=== PATIENT | female | born 1960 | race Caucasian/White ===

== ENCOUNTER 2018-02-09 10:49 | Emergency (ER) | payer MEDICAID ==
[~2018-02-09] VITALS: Ht 558.9 cm; Wt 71.8 kg
[~2018-02-09 10:49] MED LIST: ALPR1TAB2 PO; ASPI81TA52 PO; CLON-528 PO; CYCL-1 PO; EFF25T PO; LEVO25TA50 PO; LISI10TA4 PO; MORP15TA60 PO; OXYC-145 PO; PANT-47 PO; PRAV10TA38 PO; PRAV10TA39 PO; RISP1TAB3 PO
[2018-02-09 13:08] LABS: BASOPHILS % (AUTO) 0.4 % (0-1); EOSINOPHILS # (AUTO) 0.1 X10'3 (0-0.9); EOSINOPHILS % (AUTO) 1.4 % (0-6); HEMATOCRIT 40.5 % (35.0-45.0); HEMOGLOBIN 13.9 g/dl (12.0-16.0); LYMPHOCYTES # (AUTO) 2.3 X10'3 (1.1-4.8); MEAN CORPUSCULAR HEMOGLOBIN 30.8 PG (27.0-31.0); MEAN CORPUSCULAR HGB CONC 34.2 % (33.0-36.5); MEAN CORPUSCULAR VOLUME 90.1 FL (78-98); MEAN PLATELET VOLUME 8.7 FL (7.4-10.4); MONOCYTES # (AUTO) 0.4 X10'3 (0-0.9); NEUTROPHILS # (AUTO) 7.5 X10'3 (1.8-7.7); NEUTROPHILS % (AUTO) 72.2 % (42-75); PLATELET COUNT 191 X10'3 (140-440); RED CELL DISTRIBUTION WIDTH 13.9 % (11.5-14.5); WHITE BLOOD COUNT 10.4 X10'3 (4.5-11.0)
[2018-02-09 13:21] LABS: ALANINE AMINOTRANSFERASE 16 U/L (12-78); ALBUMIN/GLOBULIN RATIO 1.2 (1.1-1.5); ALKALINE PHOSPHATASE 79 IU/L (46-116); ANION GAP 8 (8-16); ASPARTATE AMINO TRANSFERASE 10 U/L (10-37); BILIRUBIN,TOTAL 0.2 MG/DL (0.1-1.0); BLOOD UREA NITROGEN 7 MG/DL (7-18); BUN/CREATININE RATIO 9.9 (6.6-38.0); CALCIUM 8.8 MG/DL (8.5-10.1); CHLORIDE 106 MMOL/L (99-107); CREATININE 0.71 MG/DL (0.40-0.90); GLUCOSE 100 MG/DL (70-104); SODIUM 144 MMOL/L (135-145); TOTAL CARBON DIOXIDE 30.3 MMOL/L (24-32); TOTAL PROTEIN 7.3 G/DL (6.4-8.2); eGFR 85 ML/MIN
[2018-02-09] MEDS ORDERED: METH4TAB3 PO (13:39)
[2018-02-09] MEDS ORDERED: ONDA4TAB9 SL (13:39)
[2018-02-09 13:58] VITALS: BP 163/81
== END 2018-02-09 14:02 | disposition home or self-care (01) ==
LOC: ER 10:52
DX: R60.0 Localized edema (principal); R11.0 Nausea; M54.30 Sciatica, unspecified side; G89.29 Other chronic pain; E78.00 Pure hypercholesterolemia, unspecified; I10 Essential (primary) hypertension; J44.9 Chronic obstructive pulmonary disease, unspecified; F12.90 Cannabis use, unspecified, uncomplicated; E11.9 Type 2 diabetes mellitus without complications; Z98.51 Tubal ligation status; Z90.710 Acquired absence of both cervix and uterus; Z60.2 Problems related to living alone; Z98.890 Other specified postprocedural states; Z88.0 Allergy status to penicillin; Z88.8 Allergy status to other drugs, medicaments and biological substances; Z79.82 Long term (current) use of aspirin; Z79.899 Other long term (current) drug therapy
CPT/HCPCS: 36415; 71045; 80053; 83880; 84484; 85025; 93005; 99285

== ENCOUNTER 2018-09-06 11:34 | Emergency (ER) | payer MEDICAID ==
[~2018-09-06] VITALS: Ht 160 cm; Wt 72.0 kg
[~2018-09-06 11:34] MED LIST changes: +METH4TAB3 PO
[2018-09-06 11:50] VITALS: BP 117/63
[2018-09-06] MEDS ORDERED: TRAM50TA2 PO (12:39)
== END 2018-09-06 12:47 | disposition home or self-care (01) ==
LOC: ER 11:34
DX: M25.512 Pain in left shoulder (principal); I10 Essential (primary) hypertension; E78.00 Pure hypercholesterolemia, unspecified; J44.9 Chronic obstructive pulmonary disease, unspecified; E11.9 Type 2 diabetes mellitus without complications; F41.9 Anxiety disorder, unspecified; G89.29 Other chronic pain; F12.10 Cannabis abuse, uncomplicated; Z90.49 Acquired absence of other specified parts of digestive tract; Z90.710 Acquired absence of both cervix and uterus; Z98.51 Tubal ligation status; Z86.73 Personal history of transient ischemic attack (TIA), and cerebral infarction without residual deficits; Z88.0 Allergy status to penicillin; Z88.1 Allergy status to other antibiotic agents; Z88.8 Allergy status to other drugs, medicaments and biological substances; Z79.82 Long term (current) use of aspirin; Z79.899 Other long term (current) drug therapy
CPT/HCPCS: 99283

== ENCOUNTER 2019-01-06 13:42 | Emergency (ER) | payer MEDICAID ==
[~2019-01-06] VITALS: Ht 160 cm; Wt 75.5 kg
[2019-01-06 13:58] VITALS: BP 181/86
[2019-01-06] MEDS ORDERED: HYDROcodone/acetaminophen 10/325mg tab PO ONE (14:55)
[2019-01-06] MEDS ORDERED: HYDR-4353 PO (15:07)
[2019-01-06] MEDS ORDERED: ACET1TAB12 PO (15:26)
== END 2019-01-06 16:04 | disposition home or self-care (01) ==
LOC: ER 13:42
DX: S70.01XA Contusion of right hip, initial encounter (principal); S80.11XA Contusion of right lower leg, initial encounter; M25.561 Pain in right knee; E78.00 Pure hypercholesterolemia, unspecified; I10 Essential (primary) hypertension; J44.9 Chronic obstructive pulmonary disease, unspecified; E11.9 Type 2 diabetes mellitus without complications; G89.29 Other chronic pain; F17.200 Nicotine dependence, unspecified, uncomplicated; F12.90 Cannabis use, unspecified, uncomplicated; Z86.73 Personal history of transient ischemic attack (TIA), and cerebral infarction without residual deficits; Z90.710 Acquired absence of both cervix and uterus; Z98.51 Tubal ligation status; Z98.890 Other specified postprocedural states; Z60.2 Problems related to living alone; Z88.0 Allergy status to penicillin; Z88.1 Allergy status to other antibiotic agents; Z88.8 Allergy status to other drugs, medicaments and biological substances; Z79.82 Long term (current) use of aspirin; Z79.899 Other long term (current) drug therapy; W50.0XXA Accidental hit or strike by another person, initial encounter; Y93.89 Activity, other specified; Y92.89 Other specified places as the place of occurrence of the external cause; Y99.8 Other external cause status
CPT/HCPCS: 73502; 99283

== ENCOUNTER 2019-10-30 22:03 | Inpatient (IN) | payer MEDICAID ==
[~2019-10-30] VITALS: Ht 162.6 cm; Wt 77.0 kg
[~2019-10-30 22:03] MED LIST changes: +ACET1TAB12 PO
--- NOTE | 2019-10-30 22:26 | NUR ---
B/S=[id number]
[2019-10-30 22:31] LABS: ABG BASE EXCESS -1.5 mmol/L (-2.0-3.0); ABG HCO3 23.6 mmol/L (22.0-26.0); ABG OXYGEN SATURATION 96.1 % (95-98); ABG PCO2 (T) 41.6 mmHg (35.0-45.0); ABG PH (T) 7.373 (7.350-7.450); ABG PO2 (T) 86.7 mmHg (83-108); ALLEN'S TEST POSITIVE; FCOHb 6.8 % (0.5-1.5); FMetHb 0.3 % (0.3-1.12); FO2Hb 89.3 % (94-100); PATIENT TEMPERATURE 37.2; RESPIRATORY RATE 18 b/min
[2019-10-30] MEDS ORDERED: dexamethasone sod phosphate 10mg/ml inj IV STA (22:31)
[2019-10-30] MEDS ORDERED: BACL20TA11 PO (22:33)
[2019-10-30] MEDS ORDERED: METH500T6 PO (22:33)
[2019-10-30] MEDS ORDERED: SENN-162 PO (22:34)
[2019-10-30] MEDS ORDERED: DIPH25CA46 PO (22:34)
[2019-10-30] MEDS ORDERED: GABA-532 PO (22:35)
[2019-10-30] MEDS ORDERED: QUET-1 PO (22:36)
[2019-10-30] MEDS ORDERED: METF-438 PO (22:36)
[2019-10-30 22:49] LABS: BASOPHILS # (AUTO) 0.1 X10'3 (0-0.2); BASOPHILS % (AUTO) 0.4 % (0-1); EOSINOPHILS # (AUTO) 0.1 X10'3 (0-0.9); EOSINOPHILS % (AUTO) 0.7 % (0-6); HEMATOCRIT 38.3 % (35.0-45.0); HEMOGLOBIN 12.4 g/dl (12.0-16.0); LYMPHOCYTES # (AUTO) 1.2 X10'3 (1.1-4.8); LYMPHOCYTES % (AUTO) 7.6 % (21-51); MEAN CORPUSCULAR HEMOGLOBIN 27.4 PG (27.0-31.0); MEAN CORPUSCULAR HGB CONC 32.5 g/dL (33.0-36.5); MEAN CORPUSCULAR VOLUME 84.5 FL (78-98); MONOCYTES # (AUTO) 0.7 X10'3 (0-0.9); MONOCYTES % (AUTO) 4.2 % (2-12); NEUTROPHILS # (AUTO) 13.9 X10'3 (1.8-7.7); NEUTROPHILS % (AUTO) 87.1 % (42-75); PLATELET COUNT 195 X10'3 (140-440); RED BLOOD COUNT 4.54 X10'6 (4.20-5.60); RED CELL DISTRIBUTION WIDTH 15.7 % (11.5-14.5); WHITE BLOOD COUNT 15.9 X10'3 (4.5-11.0)
[2019-10-30 23:10] LABS: ALANINE AMINOTRANSFERASE 12 U/L (12-78); ALBUMIN 3.6 G/DL (3.4-5.0); ALBUMIN/GLOBULIN RATIO 1.1 (1.1-1.5); ALKALINE PHOSPHATASE 77 IU/L (46-116); ANION GAP 9 (8-16); ASPARTATE AMINO TRANSFERASE 16 U/L (10-37); BILIRUBIN,TOTAL 0.4 MG/DL (0.1-1.0); BLOOD UREA NITROGEN 15 MG/DL (7-18); BUN/CREATININE RATIO 17.6 (6.6-38.0); CALCIUM 8.1 MG/DL (8.5-10.1); CHLORIDE 104 MMOL/L (99-107); CREATININE 0.85 MG/DL (0.40-0.90); GLUCOSE 290 MG/DL (70-104); POTASSIUM 3.4 MMOL/L (3.5-5.1); SODIUM 140 MMOL/L (135-145); TOTAL CARBON DIOXIDE 27.4 MMOL/L (24-32); TOTAL PROTEIN 6.9 G/DL (6.4-8.2); eGFR 69 ML/MIN
[2019-10-30] MEDS ORDERED: CefTRIAXone 2gm/D5W 50ml 50 ML IV ONE (23:25)
[2019-10-30] MEDS ORDERED: doxycycline inj 100 MG in normal saline 100ml IV soln 100 ML IV ONE (23:25)
[2019-10-31] VITALS (7 sets, daily range): BP systolic 137–169; BP diastolic 69–95
[2019-10-31 00:56] LABS: ABG BASE EXCESS -3.2 mmol/L (-2.0-3.0); ABG HCO3 22.5 mmol/L (22.0-26.0); ABG OXYGEN SATURATION 97.9 % (95-98); ABG PCO2 (T) 44.1 mmHg (35.0-45.0); ABG PH (T) 7.329 (7.350-7.450); ABG PO2 (T) 125.2 mmHg (83-108); ALLEN'S TEST POSITIVE; FCOHb 3.4 % (0.5-1.5); FMetHb 0.3 % (0.3-1.12); FO2Hb 94.3 % (94-100); PATIENT TEMPERATURE 37.7; RESPIRATORY RATE 18 b/min; TOTAL HEMOGLOBIN 12.7 G/dl (12.0-16.0)
[2019-10-31] MEDS ORDERED: ondansetron/PF 4mg/2ml inj IV PRN (01:30)
[2019-10-31] MEDS ORDERED: morphine 2 MG/ML inj. syringe IV PRN ×2 (01:30)
[2019-10-31] MEDS ORDERED: magnesium hydroxide 30ml (MOM) UD suspension PO PRN (01:30)
[2019-10-31] MEDS ORDERED: mag hydrox/Alum hydrox/simeth 30ml oral suspension PO PRN (01:30)
[2019-10-31] MEDS ORDERED: HYDROcodone/acetaminophen 10/325mg tab PO PRN (01:30)
[2019-10-31] MEDS ORDERED: acetaminophen 325mg tablet PO PRN ×2 (01:30)
[2019-10-31] MEDS ORDERED: HYDROcodone/acetaminophen 5mg/325mg tablet PO PRN (01:30)
--- NOTE | 2019-10-31 02:00 | NUR ---
Patient in room PCU 3024. I have received report from Alex ED RN and had the opportunity to ask questions and assume patient care.
--- NOTE | 2019-10-31 02:15 | NUR ---
Pt arrived via gurney from the ED in no acute distress. Transferred over to bed easily, no SOB observed. Oriented to bed, room, surroundings, and POC. Medications admin as ordered, IV Lasix 20mg given. Lower extremity edema noted bilaterally 2+. O2 on at 3L/NC, occasional nonprod cough. Exp wheezes auscultated to mid lobes, w/diminished breath sounds to bases. VSS. Assisted to BSC f/lge void of dark, rex urine. MRSA swab ord.and sent. Son in at bedside.
[2019-10-31] MEDS: baclofen 10mg tablet PO SCH ×4 (02:39→20:48)
[2019-10-31] MEDS: furosemide 20 MG/2 ML vial IV SCH ×3 (03:02→20:47)
--- NOTE | 2019-10-31 06:21 | NUR ---
Problems reprioritized. Patient report given, questions answered & plan of care reviewed with Yaquelin LEWIS.
--- NOTE | 2019-10-31 07:10 | NUR ---
Patient in room PCU 3024. I have received report from JOSHUA DESOUZA and had the opportunity to ask questions and assume patient care. PT RESTING COMFORTABLY IN BED, ALERT AND ORIENTED.
--- NOTE | 2019-10-31 07:26 | NUR ---
PAGED DR NAYLOR PAGER ID: [phone] MESSAGE: SARAVANAN Marci [phone] JESS GALLO TROP 0.41 UP FROM 0.04 NO CP. DO YOU WANT LABS TODAY? NO A1C SINCE 2016, CAN WE HAVE K REPLACEMENT PROTOCOL ALSO PLEASE. THANKS
[2019-10-31] MEDS ORDERED: pantoprazole 40mg Tablet.DR PO SCH (08:00)
[2019-10-31] MEDS: lisinopril 20mg tablet PO SCH (08:09)
[2019-10-31] MEDS: venlafaxine XR 75mg capsule (Q24H) PO SCH (08:10)
[2019-10-31] MEDS: aspirin 81mg tablet.DR PO SCH (08:10)
[2019-10-31] MEDS: gabapentin 300mg capsule PO SCH ×3 (08:10→20:48)
[2019-10-31] MEDS: diphenhydrAMINE 25mg capsule PO SCH ×2 (08:11→20:47)
[2019-10-31] MEDS: sennosides 8.6mg tablet PO SCH (08:15)
--- NOTE | 2019-10-31 08:44 | NUR ---
spoke with dr. carter order cbc. cmp k/mg replacement protocol. aware of troponin, cont trop protocol
[2019-10-31] MEDS ORDERED: magnesium 4gm in 100ml NS 100 ML IV PRN (08:45)
[2019-10-31] MEDS ORDERED: potassium CL 10mEq/100ml bag 100 ML IV PRN (08:45)
[2019-10-31] MEDS ORDERED: magnesium Cl slow-release 64mg tablet PO PRN (08:45)
[2019-10-31] MEDS ORDERED: potassium Cl 20 mEq SR tablet PO PRN ×2 (08:45)
[2019-10-31] MEDS ORDERED: magnesium 2GM in 50ml NS 50 ML IV PRN (08:45)
[2019-10-31] MEDS: K and/or MAG REPLACEMENT MC SCH ×2 (08:45→20:00)
[2019-10-31 09:20] LABS: HEMOGLOBIN A1C 6.9 % (4.5-6.2)
[2019-10-31] MEDS: levoTHYROXINE 125mcg tablet PO SCH (10:15)
[2019-10-31 10:52] LABS: BASOPHILS % (AUTO) 0.2 % (0-1); EOSINOPHILS % (AUTO) 0 % (0-6); HEMATOCRIT 39.6 % (35.0-45.0); HEMOGLOBIN 12.6 g/dl (12.0-16.0); LYMPHOCYTES # (AUTO) 0.7 X10'3 (1.1-4.8); MEAN CORPUSCULAR HEMOGLOBIN 26.5 PG (27.0-31.0); MEAN CORPUSCULAR HGB CONC 31.8 g/dL (33.0-36.5); MEAN CORPUSCULAR VOLUME 83.4 FL (78-98); MEAN PLATELET VOLUME 9.6 FL (7.4-10.4); MONOCYTES # (AUTO) 0.3 X10'3 (0-0.9); MONOCYTES % (AUTO) 2.9 % (2-12); NEUTROPHILS % (AUTO) 90.9 % (42-75); PLATELET COUNT 196 X10'3 (140-440); RED BLOOD COUNT 4.74 X10'6 (4.20-5.60); RED CELL DISTRIBUTION WIDTH 15.6 % (11.5-14.5)
[2019-10-31 11:12] LABS: ALBUMIN 3.5 G/DL (3.4-5.0); ANION GAP 7 (8-16); BLOOD UREA NITROGEN 14 MG/DL (7-18); BUN/CREATININE RATIO 17.9 (6.6-38.0); CALCIUM 8.4 MG/DL (8.5-10.1); CHLORIDE 105 MMOL/L (99-107); CREATININE 0.78 MG/DL (0.40-0.90); GLUCOSE 223 MG/DL (70-104); MAGNESIUM 1.9 MG/DL (1.5-2.4); POTASSIUM 3.9 MMOL/L (3.5-5.1); SODIUM 143 MMOL/L (135-145); TOTAL CARBON DIOXIDE 30.8 MMOL/L (24-32); eGFR 76 ML/MIN
--- NOTE | 2019-10-31 12:18 | NUR ---
DR. NAYLOR IN TO SEE PT WITH RN AT BEDSIDE. PER MD REPEAT TROPONIN AT 1600. PT HAVING NO CHEST PAIN, RESTING COMFORTABLY.
--- NOTE | 2019-10-31 12:37 | NUR ---
DIABETES SURVIVAL SKILLS GIVEN TO PT WITH HGB A1C 6.9
--- NOTE | 2019-10-31 13:00 | NUR ---
PT DOES NOT WANT INSULIN COVERAGE
[2019-10-31] MEDS: risperiDONE 0.5mg tablet PO SCH ×2 (14:44→20:48)
--- NOTE | 2019-10-31 18:15 | NUR ---
Patient in room PCU 3024. I have received report from Yaquelin LEWIS and had the opportunity to ask questions and assume patient care.
--- NOTE | 2019-10-31 18:16 | NUR ---
Problems reprioritized. Patient report given, questions answered & plan of care reviewed with JOSHUA CONNELL.
[2019-10-31] MEDS: pantoprazole 40mg Tablet.DR PO SCH (20:48)
[2019-10-31] MEDS: quetiapine 100mg tablet PO SCH (20:48)
[2019-11-01 02:41] VITALS: BP 146/77
[2019-11-01] MEDS: baclofen 10mg tablet PO SCH ×4 (03:30→20:07)
[2019-11-01 05:38] LABS: BASOPHILS % (AUTO) 0.4 % (0-1); EOSINOPHILS # (AUTO) 0.1 X10'3 (0-0.9); EOSINOPHILS % (AUTO) 0.8 % (0-6); HEMATOCRIT 42.9 % (35.0-45.0); LYMPHOCYTES # (AUTO) 2.4 X10'3 (1.1-4.8); MEAN CORPUSCULAR HEMOGLOBIN 27.3 PG (27.0-31.0); MEAN CORPUSCULAR HGB CONC 32.6 g/dL (33.0-36.5); MEAN CORPUSCULAR VOLUME 83.6 FL (78-98); MEAN PLATELET VOLUME 9.1 FL (7.4-10.4); MONOCYTES # (AUTO) 0.8 X10'3 (0-0.9); MONOCYTES % (AUTO) 7.3 % (2-12); NEUTROPHILS # (AUTO) 7.3 X10'3 (1.8-7.7); NEUTROPHILS % (AUTO) 68.5 % (42-75); PLATELET COUNT 201 X10'3 (140-440); RED BLOOD COUNT 5.13 X10'6 (4.20-5.60); RED CELL DISTRIBUTION WIDTH 15.4 % (11.5-14.5); WHITE BLOOD COUNT 10.6 X10'3 (4.5-11.0)
--- NOTE | 2019-11-01 05:50 | NUR ---
pt rested all night, up ad neto
[2019-11-01 06:09] LABS: ALBUMIN 3.8 G/DL (3.4-5.0); ANION GAP 8 (8-16); BLOOD UREA NITROGEN 15 MG/DL (7-18); CALCIUM 8.7 MG/DL (8.5-10.1); CHLORIDE 104 MMOL/L (99-107); CREATININE 0.75 MG/DL (0.40-0.90); GLUCOSE 145 MG/DL (70-104); MAGNESIUM 2.2 MG/DL (1.5-2.4); POTASSIUM 3.6 MMOL/L (3.5-5.1); SODIUM 145 MMOL/L (135-145); TOTAL CARBON DIOXIDE 33.1 MMOL/L (24-32); eGFR 80 ML/MIN
--- NOTE | 2019-11-01 06:09 | NUR ---
Problems reprioritized. Patient report given, questions answered & plan of care reviewed with Mary Ellen LEWIS.
--- NOTE | 2019-11-01 06:26 | NUR ---
Patient in room PCU 3024. I have received report from Sue LEWIS and had the opportunity to ask questions and assume patient care. Patient awake, resting in bed and stable
[2019-11-01 06:30] VITALS: BP 168/103
[2019-11-01] MEDS: levoTHYROXINE 125mcg tablet PO SCH (08:00)
[2019-11-01] MEDS: K and/or MAG REPLACEMENT MC SCH ×2 (08:00→20:00)
[2019-11-01] MEDS: sennosides 8.6mg tablet PO SCH (08:02)
[2019-11-01] MEDS: risperiDONE 0.5mg tablet PO SCH ×3 (08:02→20:07)
[2019-11-01] MEDS: gabapentin 300mg capsule PO SCH ×3 (08:03→20:06)
[2019-11-01] MEDS: furosemide 20 MG/2 ML vial IV SCH ×2 (08:03→20:06)
[2019-11-01] MEDS: diphenhydrAMINE 25mg capsule PO SCH ×2 (08:03→20:06)
[2019-11-01] MEDS: venlafaxine XR 75mg capsule (Q24H) PO SCH (08:03)
[2019-11-01] MEDS: aspirin 81mg tablet.DR PO SCH (08:03)
[2019-11-01] MEDS: lisinopril 20mg tablet PO SCH (08:04)
[2019-11-01] MEDS ORDERED: ipratropium/albuterol 3ml nebule NEB PRN (09:35)
--- NOTE | 2019-11-01 09:41 | NUR ---
Paged RT RE Chary Dunn. [phone]. FYI there are new RT orders in place. Thank you!
--- NOTE | 2019-11-01 10:11 | NUR ---
O2 Sat at rest on room air:__87_% If below 89%: Recovery O2 Sat at rest on __2_LPM:_93__%:___% via___nasal cannula (mask/nasal cannula, etc..) No further documentation is necessary. If O2 Sat did not drop below 89% on room air,ambulate patient on room air. O2 Sat while ambulating on room air:___% Recovery O2 Sat while ambulating on ___LPM:___% No further documentation is necessary. If patient does not drop below 89% while ambulating, he/she does not qualify for home O2.
[2019-11-01] MEDS: ipratropium/albuterol 3ml nebule NEB SCH ×3 (10:13→19:54)
[2019-11-01 11:00] VITALS: BP 111/64
[2019-11-01 15:00] VITALS: BP 115/68
[2019-11-01 18:00] VITALS: BP 121/68
--- NOTE | 2019-11-01 18:30 | NUR ---
Problems reprioritized. Patient report given, questions answered & plan of care reviewed with Sue LEWIS.
[2019-11-01] MEDS: budesonide 0.5mg/2ml UD nebule IH SCH (19:54)
[2019-11-01] MEDS: quetiapine 100mg tablet PO SCH (20:07)
[2019-11-01] MEDS: pantoprazole 40mg Tablet.DR PO SCH (20:07)
[2019-11-01 22:00] VITALS: BP 141/76
[2019-11-02 02:00] VITALS: BP 143/92
[2019-11-02] MEDS: baclofen 10mg tablet PO SCH ×4 (02:00→20:06)
[2019-11-02 05:30] LABS: BASOPHILS % (AUTO) 0.7 % (0-1); EOSINOPHILS # (AUTO) 0.1 X10'3 (0-0.9); EOSINOPHILS % (AUTO) 1.5 % (0-6); HEMATOCRIT 43.5 % (35.0-45.0); HEMOGLOBIN 14.1 g/dl (12.0-16.0); LYMPHOCYTES # (AUTO) 1.8 X10'3 (1.1-4.8); LYMPHOCYTES % (AUTO) 26.8 % (21-51); MEAN CORPUSCULAR HEMOGLOBIN 27.1 PG (27.0-31.0); MEAN CORPUSCULAR HGB CONC 32.5 g/dL (33.0-36.5); MEAN CORPUSCULAR VOLUME 83.4 FL (78-98); MEAN PLATELET VOLUME 8.8 FL (7.4-10.4); MONOCYTES # (AUTO) 0.7 X10'3 (0-0.9); MONOCYTES % (AUTO) 9.9 % (2-12); NEUTROPHILS # (AUTO) 4.2 X10'3 (1.8-7.7); NEUTROPHILS % (AUTO) 61.1 % (42-75); PLATELET COUNT 192 X10'3 (140-440); RED BLOOD COUNT 5.21 X10'6 (4.20-5.60); RED CELL DISTRIBUTION WIDTH 15.3 % (11.5-14.5); WHITE BLOOD COUNT 6.9 X10'3 (4.5-11.0)
[2019-11-02 05:58] LABS: ALBUMIN 3.5 G/DL (3.4-5.0); ANION GAP 7 (8-16); BLOOD UREA NITROGEN 16 MG/DL (7-18); BUN/CREATININE RATIO 19.3 (6.6-38.0); CALCIUM 8.4 MG/DL (8.5-10.1); CHLORIDE 103 MMOL/L (99-107); CREATININE 0.83 MG/DL (0.40-0.90); GLUCOSE 150 MG/DL (70-104); MAGNESIUM 2.3 MG/DL (1.5-2.4); POTASSIUM 3.7 MMOL/L (3.5-5.1); SODIUM 144 MMOL/L (135-145); eGFR 71 ML/MIN
--- NOTE | 2019-11-02 06:06 | NUR ---
Problems reprioritized. Patient report given, questions answered & plan of care reviewed with Mary Ellen LEWIS.
--- NOTE | 2019-11-02 06:14 | NUR ---
Patient in room PCU 3024B. I have received report from Sue LEWIS and had the opportunity to ask questions and assume patient care.
[2019-11-02 07:00] VITALS: BP 159/96
[2019-11-02] MEDS: budesonide 0.5mg/2ml UD nebule IH SCH ×2 (07:23→19:58)
[2019-11-02] MEDS: ipratropium/albuterol 3ml nebule NEB SCH ×4 (07:23→19:58)
[2019-11-02] MEDS: gabapentin 300mg capsule PO SCH ×3 (07:56→20:05)
[2019-11-02] MEDS: risperiDONE 0.5mg tablet PO SCH ×3 (07:56→20:06)
[2019-11-02] MEDS: aspirin 81mg tablet.DR PO SCH (07:56)
[2019-11-02] MEDS: venlafaxine XR 75mg capsule (Q24H) PO SCH (07:56)
[2019-11-02] MEDS: lisinopril 20mg tablet PO SCH (07:56)
[2019-11-02] MEDS: sennosides 8.6mg tablet PO SCH (07:57)
[2019-11-02] MEDS: furosemide 20 MG/2 ML vial IV SCH ×2 (07:57→20:04)
[2019-11-02] MEDS: diphenhydrAMINE 25mg capsule PO SCH ×2 (07:57→20:05)
[2019-11-02] MEDS: levoTHYROXINE 125mcg tablet PO SCH ×2 (07:57→13:24)
[2019-11-02] MEDS: K and/or MAG REPLACEMENT MC SCH ×2 (08:00→20:00)
[2019-11-02 11:00] VITALS: BP 138/72
[2019-11-02] MEDS ORDERED: aminophylline 250mg/10ml inj. IV PRN (13:45)
[2019-11-02] MEDS ORDERED: regadenoson 0.4mg/5ml syringe IV ONE (13:45)
[2019-11-02] MEDS ORDERED: nitroGLYCERIN 0.4mg SUBLingual tab SL PRN (13:45)
[2019-11-02] MEDS ORDERED: metoprolol tartrate 1mg/ml inj IV PRN (13:45)
--- NOTE | 2019-11-02 14:00 | NUR ---
Paged PAGER ID: [phone] MESSAGE: Mary Ellen mac [phone]. RE Sharmin Dunn [phone]. Patient has anaphylaxis reaction to iodine. Do you want CTA without contrast?
--- NOTE | 2019-11-02 14:10 | NUR ---
Paged PAGER ID: [phone] MESSAGE: Mary Ellen watts [phone] RE Sharmin Dunn [phone]. Radiologist said CTA should not be done due to patient's reaction to contrast/iodine. Radiologist suggests VQ scan instead if you would like
--- NOTE | 2019-11-02 14:20 | NUR ---
Paged nuc med that there is a new order for a VQ scan for patient
--- NOTE | 2019-11-02 14:24 | NUR ---
Mary from [facility] called and said that VQ scan will be done around 1600 tonight. However, Mai will have to be pushed back until because it would be too much of the medication (both are used in VQ and Mai) in the chest and needs time to clear out. MD aware and patient will have VQ tonight.
[2019-11-02 15:00] VITALS: BP 125/86
--- NOTE | 2019-11-02 15:43 | NUR ---
Patient taken to Nuc Med
--- NOTE | 2019-11-02 16:25 | NUR ---
Patient returned from VQ scan, currently resting in bed
--- NOTE | 2019-11-02 17:55 | NUR ---
Galdino SLAUGHTER PAGER ID: [phone] MESSAGE: Mary Ellen ESPINOZA. Sharmin Dasilva 3024B. FYI that VQ lung scan stated that there is low probability for PE
--- NOTE | 2019-11-02 18:11 | NUR ---
Problems reprioritized. Patient report given, questions answered & plan of care reviewed with Sue LEWIS.
[2019-11-02 19:10] VITALS: BP 147/75
[2019-11-02] MEDS: quetiapine 100mg tablet PO SCH (20:05)
[2019-11-02] MEDS: pantoprazole 40mg Tablet.DR PO SCH (20:07)
[2019-11-02] MEDS: polyethylene glycol 3350 17gm powd pack PO PRN (20:50)
[2019-11-02 23:00] VITALS: BP 128/61
[2019-11-03] MEDS: baclofen 10mg tablet PO SCH ×4 (01:46→21:07)
[2019-11-03 02:55] VITALS: BP 140/90
[2019-11-03 06:08] LABS: BASOPHILS # (AUTO) 0.1 X10'3 (0-0.2); BASOPHILS % (AUTO) 0.8 % (0-1); EOSINOPHILS # (AUTO) 0.2 X10'3 (0-0.9); EOSINOPHILS % (AUTO) 2.4 % (0-6); HEMATOCRIT 45.2 % (35.0-45.0); HEMOGLOBIN 14.9 g/dl (12.0-16.0); LYMPHOCYTES % (AUTO) 23.3 % (21-51); MEAN CORPUSCULAR HEMOGLOBIN 27.5 PG (27.0-31.0); MEAN CORPUSCULAR VOLUME 83.5 FL (78-98); MEAN PLATELET VOLUME 8.9 FL (7.4-10.4); MONOCYTES # (AUTO) 0.9 X10'3 (0-0.9); NEUTROPHILS # (AUTO) 5.3 X10'3 (1.8-7.7); NEUTROPHILS % (AUTO) 62.5 % (42-75); PLATELET COUNT 231 X10'3 (140-440); RED BLOOD COUNT 5.42 X10'6 (4.20-5.60); RED CELL DISTRIBUTION WIDTH 15.4 % (11.5-14.5); WHITE BLOOD COUNT 8.5 X10'3 (4.5-11.0)
[2019-11-03 06:11] LABS: ALBUMIN 3.6 G/DL (3.4-5.0); ANION GAP 6 (8-16); BLOOD UREA NITROGEN 24 MG/DL (7-18); BUN/CREATININE RATIO 28.6 (6.6-38.0); CHLORIDE 101 MMOL/L (99-107); CREATININE 0.84 MG/DL (0.40-0.90); GLUCOSE 205 MG/DL (70-104); MAGNESIUM 2.2 MG/DL (1.5-2.4); POTASSIUM 4.1 MMOL/L (3.5-5.1); SODIUM 142 MMOL/L (135-145); TOTAL CARBON DIOXIDE 34.7 MMOL/L (24-32); eGFR 70 ML/MIN
--- NOTE | 2019-11-03 06:18 | NUR ---
Problems reprioritized. Patient report given, questions answered & plan of care reviewed with Osman LEWIS.
--- NOTE | 2019-11-03 06:39 | NUR ---
Patient in room PCU 3024. I have received report from Sue LEWIS and had the opportunity to ask questions and assume patient care.
[2019-11-03 07:00] VITALS: BP 124/68
[2019-11-03] MEDS: ipratropium/albuterol 3ml nebule NEB SCH ×4 (07:16→19:25)
[2019-11-03] MEDS: budesonide 0.5mg/2ml UD nebule IH SCH ×2 (07:17→19:25)
[2019-11-03] MEDS: K and/or MAG REPLACEMENT MC SCH ×2 (08:00→20:00)
[2019-11-03] MEDS: diphenhydrAMINE 25mg capsule PO SCH ×2 (08:07→21:06)
[2019-11-03] MEDS: gabapentin 300mg capsule PO SCH ×3 (08:07→21:06)
[2019-11-03] MEDS: venlafaxine XR 75mg capsule (Q24H) PO SCH (08:07)
[2019-11-03] MEDS: furosemide 20 MG/2 ML vial IV SCH ×2 (08:08→21:09)
[2019-11-03] MEDS: sennosides 8.6mg tablet PO SCH (08:08)
[2019-11-03] MEDS: lisinopril 20mg tablet PO SCH (08:08)
[2019-11-03] MEDS: risperiDONE 0.5mg tablet PO SCH ×3 (08:08→21:06)
[2019-11-03] MEDS: aspirin 81mg tablet.DR PO SCH (08:08)
[2019-11-03] MEDS: levoTHYROXINE 125mcg tablet PO SCH (09:56)
[2019-11-03 11:00] VITALS: BP 124/68
[2019-11-03 15:00] VITALS: BP 118/68
[2019-11-03 18:00] VITALS: BP 143/79
--- NOTE | 2019-11-03 18:19 | NUR ---
Problems reprioritized. Patient report given, questions answered & plan of care reviewed with Bridgett RN, patient stable at transfer.
--- NOTE | 2019-11-03 18:27 | NUR ---
Patient in room U 3024. I have received report from JOSHUA Brewer and had the opportunity to ask questions and assume patient care. Addendum: 11/03/19 at 1828 by Allison Jaimes RN Amended: Links added.
[2019-11-03] MEDS: pantoprazole 40mg Tablet.DR PO SCH (21:06)
[2019-11-03] MEDS: quetiapine 100mg tablet PO SCH (21:07)
[2019-11-03] MEDS: polyethylene glycol 3350 17gm powd pack PO PRN (21:09)
[2019-11-03 22:00] VITALS: BP 104/58
[2019-11-04] VITALS (21 sets, daily range): BP systolic 101–174; BP diastolic 61–106
[2019-11-04] MEDS: baclofen 10mg tablet PO SCH ×4 (02:00→20:24)
[2019-11-04 05:38] LABS: BASOPHILS # (AUTO) 0.1 X10'3 (0-0.2); BASOPHILS % (AUTO) 1.2 % (0-1); EOSINOPHILS # (AUTO) 0.2 X10'3 (0-0.9); EOSINOPHILS % (AUTO) 2.6 % (0-6); HEMATOCRIT 44.6 % (35.0-45.0); HEMOGLOBIN 14.8 g/dl (12.0-16.0); LYMPHOCYTES # (AUTO) 1.6 X10'3 (1.1-4.8); LYMPHOCYTES % (AUTO) 19.1 % (21-51); MEAN CORPUSCULAR HEMOGLOBIN 27.4 PG (27.0-31.0); MEAN CORPUSCULAR HGB CONC 33.1 g/dL (33.0-36.5); MEAN CORPUSCULAR VOLUME 82.8 FL (78-98); MEAN PLATELET VOLUME 9.2 FL (7.4-10.4); MONOCYTES # (AUTO) 0.8 X10'3 (0-0.9); MONOCYTES % (AUTO) 9.8 % (2-12); NEUTROPHILS # (AUTO) 5.5 X10'3 (1.8-7.7); NEUTROPHILS % (AUTO) 67.3 % (42-75); PLATELET COUNT 239 X10'3 (140-440); RED BLOOD COUNT 5.39 X10'6 (4.20-5.60); RED CELL DISTRIBUTION WIDTH 15.2 % (11.5-14.5); WHITE BLOOD COUNT 8.2 X10'3 (4.5-11.0)
[2019-11-04 05:52] LABS: ALBUMIN 3.6 G/DL (3.4-5.0); ANION GAP 6 (8-16); BLOOD UREA NITROGEN 24 MG/DL (7-18); BUN/CREATININE RATIO 25.5 (6.6-38.0); CALCIUM 8.9 MG/DL (8.5-10.1); CHLORIDE 99 MMOL/L (99-107); CREATININE 0.94 MG/DL (0.40-0.90); GLUCOSE 193 MG/DL (70-104); MAGNESIUM 2.2 MG/DL (1.5-2.4); SODIUM 142 MMOL/L (135-145); TOTAL CARBON DIOXIDE 36.7 MMOL/L (24-32); eGFR 61 ML/MIN
[2019-11-04 05:53] LABS: POTASSIUM 4.3 MMOL/L (3.5-5.1)
--- NOTE | 2019-11-04 06:12 | NUR ---
Problems reprioritized. Patient report given, questions answered & plan of care reviewed with JOSHUA Ragland.
--- NOTE | 2019-11-04 06:21 | NUR ---
Patient in room PCU 3024. I have received report from JOSHUA Cooper and had the opportunity to ask questions and assume patient care.
[2019-11-04] MEDS: budesonide 0.5mg/2ml UD nebule IH SCH ×2 (06:57→19:08)
[2019-11-04] MEDS: ipratropium/albuterol 3ml nebule NEB SCH ×4 (06:57→19:09)
[2019-11-04] MEDS: K and/or MAG REPLACEMENT MC SCH ×2 (08:00→20:00)
[2019-11-04] MEDS: furosemide 20 MG/2 ML vial IV SCH ×2 (08:00→10:14)
[2019-11-04] MEDS ORDERED: regadenoson 0.4mg/5ml syringe IV PRN (09:05)
--- NOTE | 2019-11-04 09:39 | NUR ---
Initial: Pt presented with c/o SOB and admitted with acute CHF exacerbation and acute respiratory failure with hypoxia. Pt currently on heart healthy CHO controlled diet documented with 75-100% PO intake throughout LOS meeting nutrient needs. LBM 10/30. Pt receiving routine and PRN bowel care. No nutrition diagnosis at this time. Will continue to follow. Recommendations: 1) Continue heart healthy CHO controlled diet 2) Routine bowel care; monitor need for additional 3) Wt per rx Addendum: 11/04/19 at [address] Amended: Links added.
[2019-11-04] MEDS: levoTHYROXINE 125mcg tablet PO SCH (10:09)
[2019-11-04] MEDS: gabapentin 300mg capsule PO SCH ×3 (10:09→20:24)
[2019-11-04] MEDS: diphenhydrAMINE 25mg capsule PO SCH ×2 (10:09→20:24)
[2019-11-04] MEDS: sennosides 8.6mg tablet PO SCH (10:09)
[2019-11-04] MEDS: venlafaxine XR 75mg capsule (Q24H) PO SCH (10:10)
[2019-11-04] MEDS: aspirin 81mg tablet.DR PO SCH (10:10)
[2019-11-04] MEDS: lisinopril 20mg tablet PO SCH (10:14)
[2019-11-04] MEDS: risperiDONE 0.5mg tablet PO SCH ×3 (10:23→20:25)
--- NOTE | 2019-11-04 11:44 | NUR ---
O2 Sat at rest on room air: 93% If below 89%: Recovery O2 Sat at rest on ___LPM:___%:___% via (mask/nasal cannula, etc..) No further documentation is necessary. If O2 Sat did not drop below 89% on room air,ambulate patient on room air. O2 Sat while ambulating on room air: 90% Recovery O2 Sat while ambulating on ___LPM:___% No further documentation is necessary. If patient does not drop below 89% while ambulating, he/she does not qualify for home O2.
--- NOTE | 2019-11-04 12:34 | NUR ---
sent to Dr Pandey PAGER ID: [phone] MESSAGE: RE: Abel Dunn [phone]. Pt does not qualify for O2, note input into EMR. Back from NM, report completed. -Ellyn [phone]
[2019-11-04] MEDS ORDERED: diphenhydrAMINE 25mg capsule PO ONE (14:35)
[2019-11-04] MEDS ORDERED: predniSONE 20 mg tablet PO ONE (14:35)
[2019-11-04] MEDS ORDERED: famotidine 20mg tablet PO ONE (14:35)
[2019-11-04] MEDS ORDERED: hydrocortisone 10mg tablet PO ONE (14:35)
[2019-11-04] MEDS ORDERED: LIDOcaine/PRILOcaine 5gm cream TP ONE (14:35)
[2019-11-04] MEDS ORDERED: heparin 1,000unit/ml 10ml vial 10 ML ONE (15:49)
[2019-11-04] MEDS ORDERED: nitroGLYCERIN-Tridil 50MG/D5W 250 ML IV ONE (15:49)
[2019-11-04] MEDS ORDERED: midazolam 2 mg/2 ml injection ONE (15:49)
[2019-11-04] MEDS ORDERED: verapamil 2.5 mg/ml inj IV ONE (15:49)
[2019-11-04] MEDS ORDERED: fentaNYL/PF 50MCG/1 ML 2ML syringe ONE (15:49)
[2019-11-04] MEDS ORDERED: LIDOcaine 1% (10mg/ml)w/preservative injection 20ml MDV ONE (15:49)
[2019-11-04] MEDS ORDERED: iohexol 350MG/ML 100ml bottle IV ONE ×3 (15:50→17:46)
[2019-11-04] MEDS ORDERED: iohexol 350 MG/ML 50ML vial IV ONE (15:50)
[2019-11-04] MEDS ORDERED: heparin 25,000 UNIT/250ml bag 250 ML IV ONE (17:15)
[2019-11-04] MEDS ORDERED: clopidogrel 300mg tablet ONE (18:09)
--- NOTE | 2019-11-04 18:15 | NUR ---
Patient returned to room 3024B from the Business Performance Specialist with Anjana LEWIS. Received instructions for vascband on right radial artery. Patient was placed on telemetry and VS WNL and are being taken Q15 min. Heparin drip running at 1000units/hr - will DC at [address] Lu's orders. Stat EKG taken, will take another in the AM. Will continue to monitor patient closely.
--- NOTE | 2019-11-04 18:25 | NUR ---
Patient in room PCU 3024. I have received report from Ellyn LEWIS and had the opportunity to ask questions and assume patient care.
--- NOTE | 2019-11-04 19:09 | NUR ---
Problems reprioritized. Patient report given, questions answered & plan of care reviewed with JOSHUA Franklin.
[2019-11-04] MEDS: normal saline 1000ml 1,000 ML IV SCH (19:15)
[2019-11-04] MEDS: quetiapine 100mg tablet PO SCH (20:24)
[2019-11-04] MEDS: pantoprazole 40mg Tablet.DR PO SCH (20:25)
[2019-11-05] VITALS (14 sets, daily range): BP systolic 121–177; BP diastolic 67–91
[2019-11-05] MEDS: normal saline 1000ml 1,000 ML IV SCH ×2 (02:15→16:00)
[2019-11-05] MEDS: baclofen 10mg tablet PO SCH ×4 (05:53→19:13)
--- NOTE | 2019-11-05 06:10 | NUR ---
Patient in room PCU 3024. I have received report from Noemi LEWIS and had the opportunity to ask questions and assume patient care.
--- NOTE | 2019-11-05 06:13 | NUR ---
Problems reprioritized. Patient report given, questions answered & plan of care reviewed with Johnny LEWIS.
[2019-11-05 06:24] LABS: BASOPHILS % (AUTO) 0.3 % (0-1); EOSINOPHILS % (AUTO) 0 % (0-6); HEMATOCRIT 41.7 % (35.0-45.0); HEMOGLOBIN 13.7 g/dl (12.0-16.0); LYMPHOCYTES # (AUTO) 0.9 X10'3 (1.1-4.8); MEAN CORPUSCULAR HEMOGLOBIN 27.2 PG (27.0-31.0); MEAN CORPUSCULAR HGB CONC 32.9 g/dL (33.0-36.5); MEAN CORPUSCULAR VOLUME 82.7 FL (78-98); MEAN PLATELET VOLUME 8.9 FL (7.4-10.4); MONOCYTES # (AUTO) 0.4 X10'3 (0-0.9); MONOCYTES % (AUTO) 4.3 % (2-12); NEUTROPHILS # (AUTO) 8.5 X10'3 (1.8-7.7); NEUTROPHILS % (AUTO) 86.4 % (42-75); PLATELET COUNT 226 X10'3 (140-440); RED BLOOD COUNT 5.04 X10'6 (4.20-5.60); RED CELL DISTRIBUTION WIDTH 15.5 % (11.5-14.5); WHITE BLOOD COUNT 9.9 X10'3 (4.5-11.0)
[2019-11-05 06:25] LABS: ALBUMIN 3.3 G/DL (3.4-5.0); ANION GAP 4 (8-16); BLOOD UREA NITROGEN 25 MG/DL (7-18); BUN/CREATININE RATIO 28.7 (6.6-38.0); CALCIUM 8.3 MG/DL (8.5-10.1); CHLORIDE 104 MMOL/L (99-107); CHOLESTEROL 223 MG/DL (0-200); CREATININE 0.87 MG/DL (0.40-0.90); GLUCOSE 271 MG/DL (70-104); HDL CHOLESTEROL 37 MG/DL (35-60); LDL CHOLESTEROL 165 MG/DL (50-100); POTASSIUM 4.4 MMOL/L (3.5-5.1); SODIUM 140 MMOL/L (135-145); TOTAL CARBON DIOXIDE 32.1 MMOL/L (24-32); TRIGLYCERIDES 82 MG/DL (20-135); eGFR 67 ML/MIN
[2019-11-05] MEDS: levoTHYROXINE 125mcg tablet PO SCH (07:11)
[2019-11-05] MEDS: gabapentin 300mg capsule PO SCH ×3 (07:11→20:17)
[2019-11-05] MEDS: venlafaxine XR 75mg capsule (Q24H) PO SCH (07:11)
[2019-11-05] MEDS: diphenhydrAMINE 25mg capsule PO SCH ×2 (07:11→19:14)
[2019-11-05] MEDS: sennosides 8.6mg tablet PO SCH (07:12)
[2019-11-05] MEDS: risperiDONE 0.5mg tablet PO SCH ×3 (07:15→20:17)
[2019-11-05] MEDS: lisinopril 20mg tablet PO SCH (07:15)
[2019-11-05] MEDS: budesonide 0.5mg/2ml UD nebule IH SCH ×2 (07:23→19:52)
[2019-11-05] MEDS: ipratropium/albuterol 3ml nebule NEB SCH ×4 (07:23→19:52)
[2019-11-05] MEDS: clopidogrel 75mg tablet PO SCH (07:39)
[2019-11-05] MEDS: K and/or MAG REPLACEMENT MC SCH ×2 (08:00→20:00)
[2019-11-05] MEDS: aspirin 81mg tablet.DR PO SCH (08:00)
--- NOTE | 2019-11-05 12:00 | NUR ---
Pt taken down to [employer] for heat cath
[2019-11-05] MEDS ORDERED: heparin 1,000unit/ml 10ml vial 10 ML ONE ×2 (12:08→13:47)
[2019-11-05] MEDS ORDERED: verapamil 2.5 mg/ml inj IV ONE (12:08)
[2019-11-05] MEDS ORDERED: fentaNYL/PF 50MCG/1 ML 2ML syringe ONE (12:08)
[2019-11-05] MEDS ORDERED: LIDOcaine 1% (10mg/ml)w/preservative injection 20ml MDV ONE (12:08)
[2019-11-05] MEDS ORDERED: midazolam 2 mg/2 ml injection ONE (12:08)
[2019-11-05] MEDS ORDERED: iohexol 350 MG/1 ML 200ml bottle ONE (12:08)
[2019-11-05] MEDS ORDERED: nitroGLYCERIN-Tridil 50MG/D5W 250 ML IV ONE (12:09)
[2019-11-05] MEDS ORDERED: diphenhydrAMINE 50 mg/ml inj ONE (12:27)
[2019-11-05] MEDS ORDERED: hydrocortisone sod succ/PF 100mg/2ml inj. ONE (12:27)
[2019-11-05] MEDS ORDERED: famotidine/PF 10 mg/ml inj IV ONE (12:28)
[2019-11-05] MEDS ORDERED: heparin 25,000 UNIT/250ml bag 250 ML IV ONE (13:06)
[2019-11-05] MEDS ORDERED: clopidogrel 300mg tablet ONE (13:27)
[2019-11-05] MEDS ORDERED: hydrALAZINE 20mg/ml inj. IV ONE (13:51)
--- NOTE | 2019-11-05 14:10 | NUR ---
Pt returned from clinical laboratory medical director. Post-op vitals being performed, q15min 1 hour, q30min 2 hours. First set of vitals BP 161/95, 95% RA, HR 94, RR 18.
[2019-11-05] MEDS: polyethylene glycol 3350 17gm powd pack PO PRN (17:23)
--- NOTE | 2019-11-05 18:02 | NUR ---
PAGER ID: [phone] MESSAGE: Re: Abel Dunn, Room: 3024B: Pt's last 3 blood pressures have been in the 170's systolic. No PRN BP meds on board. Can we get PRN hydralazine? -Johnny PCU #[phone] Dr. Pandey paged concerning Pt's blood pressure.
--- NOTE | 2019-11-05 18:20 | NUR ---
Problems reprioritized. Patient report given, questions answered & plan of care reviewed with Slime LEWIS.
[2019-11-05] MEDS ORDERED: hydrALAZINE 20mg/ml inj. IV PRN (18:30)
[2019-11-05] MEDS ORDERED: dextrose ORAL solution 15 GM/59 ML bottle PO PRN ×2 (18:35)
[2019-11-05] MEDS ORDERED: MESSAGE TO PHARMACY PO ONE (18:35)
[2019-11-05] MEDS ORDERED: dextrose 50%-water 50ml dispensing syringe IV PRN ×2 (18:35)
[2019-11-05] MEDS ORDERED: glucagon, human recombinant 1mg kit SUBCUT PRN (18:35)
[2019-11-05] MEDS: insulin Lispro (HumaLOG) vial - multi-dose SQ SCH ×2 (19:20→21:36)
[2019-11-05] MEDS: carvedilol 6.25mg tablet PO SCH (19:25)
[2019-11-05] MEDS: quetiapine 100mg tablet PO SCH (20:17)
[2019-11-05] MEDS: pantoprazole 40mg Tablet.DR PO SCH (20:18)
[2019-11-05] MEDS ORDERED: insulin glargine (Lantus) pen - multi-dose SQ SCH (21:00)
[2019-11-06] MEDS: normal saline 1000ml 1,000 ML IV SCH ×2 (01:15→11:15)
[2019-11-06 02:00] VITALS: BP 140/88
[2019-11-06] MEDS: baclofen 10mg tablet PO SCH ×3 (02:20→13:21)
[2019-11-06 06:00] VITALS: BP 162/103
[2019-11-06 06:20] LABS: ALBUMIN 3.2 G/DL (3.4-5.0); ANION GAP 6 (8-16); BLOOD UREA NITROGEN 19 MG/DL (7-18); CALCIUM 8.2 MG/DL (8.5-10.1); CHLORIDE 108 MMOL/L (99-107); CREATININE 0.73 MG/DL (0.40-0.90); GLUCOSE 138 MG/DL (70-104); POTASSIUM 4.3 MMOL/L (3.5-5.1); SODIUM 143 MMOL/L (135-145); TOTAL CARBON DIOXIDE 29.2 MMOL/L (24-32); eGFR 82 ML/MIN
--- NOTE | 2019-11-06 06:30 | NUR ---
Patient in room U 3026H. I have received report from Jcoelynn LEWIS and had the opportunity to ask questions and assume patient care. Patient sitting up in bed, awake, alert, no signs of distress, no complaints at this time. Will continue to monitor.
--- NOTE | 2019-11-06 06:30 | NUR ---
Problems reprioritized. Patient report given, questions answered & plan of care reviewed with JOSHUA Palmer.
[2019-11-06] MEDS: ipratropium/albuterol 3ml nebule NEB SCH ×2 (07:22→11:32)
[2019-11-06] MEDS: budesonide 0.5mg/2ml UD nebule IH SCH (07:22)
[2019-11-06] MEDS: carvedilol 6.25mg tablet PO SCH (07:36)
[2019-11-06] MEDS: diphenhydrAMINE 25mg capsule PO SCH (07:36)
[2019-11-06] MEDS: aspirin 81mg tablet.DR PO SCH (07:37)
[2019-11-06] MEDS: venlafaxine XR 75mg capsule (Q24H) PO SCH (07:37)
[2019-11-06] MEDS: clopidogrel 75mg tablet PO SCH (07:38)
[2019-11-06] MEDS: gabapentin 300mg capsule PO SCH ×2 (07:38→13:21)
[2019-11-06] MEDS: lisinopril 20mg tablet PO SCH (07:39)
[2019-11-06] MEDS: risperiDONE 0.5mg tablet PO SCH ×2 (07:39→13:22)
[2019-11-06] MEDS: sennosides 8.6mg tablet PO SCH (07:39)
[2019-11-06] MEDS: levoTHYROXINE 125mcg tablet PO SCH (07:40)
[2019-11-06] MEDS ORDERED: atorvastatin 20mg tablet PO SCH (08:00)
[2019-11-06] MEDS: K and/or MAG REPLACEMENT MC SCH (08:00)
[2019-11-06] MEDS: insulin Lispro (HumaLOG) vial - multi-dose SQ SCH (08:36)
[2019-11-06] MEDS ORDERED: CLOP75TA35 PO (10:53)
[2019-11-06] MEDS ORDERED: CARV6.253 PO (10:53)
[2019-11-06] MEDS ORDERED: ATOR20TA66 PO (10:53)
[2019-11-06 11:00] VITALS: BP 132/70
--- NOTE | 2019-11-06 13:50 | NUR ---
Per MD order by Dr. Pandey, patient is stable for discharge home. Patient also seen and evaluated by Dr. Lu and recommended follow up 1-2 months. Discharge packet printed and reviewed with patient at bedside. All questions answered. New prescriptions called to pharmacy of choice. IV removed with cannula intact. Tele monitor removed. All belongings sent with patient. Patient escorted via wheelchair to private vehicle to go home with family.
[2019-11-08 08:36] LABS: ISTAT HGB ART 12.6 g/dl (12.0-16.0); ISTAT Hct ART 37 %PCV (35-48); ISTAT O2 SATURATION ARTERIAL 95 % (95-98); ISTAT SOURCE ART
[2019-11-08 08:36] LABS: ISTAT Hct MIX 37 %PCV (35-48); ISTAT O2 SATURATION MIX VENOUS 77 % (60-80); ISTAT SOURCE MIX
== END 2019-11-06 13:55 | disposition home or self-care (01) | DRG 174 ==
LOC: ER 22:03 → ED HOLD 10-31 01:28 → PCU 3S 10-31 02:05
PROVIDERS: ADMIT Internal Medicine; ATTEND Family Medicine
PROC: 5A09357 Assistance with Respiratory Ventilation, Less than 24 Consecutive Hours, Continuous Positive Airway Pressure (ICD-10-PCS; principal; 2019-10-30)
PROC: CB121ZZ Planar Nuclear Medicine Imaging of Lungs and Bronchi using Technetium 99m (Tc-99m) (ICD-10-PCS; 2019-11-02)
PROC: 027135Z Dilation of Coronary Artery, Two Arteries with Two Drug-eluting Intraluminal Devices, Percutaneous Approach (ICD-10-PCS; 2019-11-04)
PROC: 4A02XM4 Measurement of Cardiac Total Activity, External Approach (ICD-10-PCS; 2019-11-04)
PROC: 4A023N7 Measurement of Cardiac Sampling and Pressure, Left Heart, Percutaneous Approach (ICD-10-PCS; 2019-11-04)
PROC: B2111ZZ Fluoroscopy of Multiple Coronary Arteries using Low Osmolar Contrast (ICD-10-PCS; 2019-11-04)
PROC: B2151ZZ Fluoroscopy of Left Heart using Low Osmolar Contrast (ICD-10-PCS; 2019-11-04)
PROC: 027135Z Dilation of Coronary Artery, Two Arteries with Two Drug-eluting Intraluminal Devices, Percutaneous Approach (ICD-10-PCS; 2019-11-05)
PROC: 4A023N6 Measurement of Cardiac Sampling and Pressure, Right Heart, Percutaneous Approach (ICD-10-PCS; 2019-11-05)
PROC: B2111ZZ Fluoroscopy of Multiple Coronary Arteries using Low Osmolar Contrast (ICD-10-PCS; 2019-11-05)
DX: I21.A1 Myocardial infarction type 2 (principal); J96.21 Acute and chronic respiratory failure with hypoxia; I50.33 Acute on chronic diastolic (congestive) heart failure; J18.9 Pneumonia, unspecified organism; I11.0 Hypertensive heart disease with heart failure; E11.40 Type 2 diabetes mellitus with diabetic neuropathy, unspecified; I31.3 Pericardial effusion (noninflammatory); E03.9 Hypothyroidism, unspecified; E78.00 Pure hypercholesterolemia, unspecified; E78.5 Hyperlipidemia, unspecified; F41.9 Anxiety disorder, unspecified; J20.9 Acute bronchitis, unspecified; J44.0 Chronic obstructive pulmonary disease with (acute) lower respiratory infection; I25.10 Atherosclerotic heart disease of native coronary artery without angina pectoris; J44.1 Chronic obstructive pulmonary disease with (acute) exacerbation; F17.210 Nicotine dependence, cigarettes, uncomplicated; E05.00 Thyrotoxicosis with diffuse goiter without thyrotoxic crisis or storm; F12.90 Cannabis use, unspecified, uncomplicated; F32.9 Major depressive disorder, single episode, unspecified; G89.29 Other chronic pain; M54.9 Dorsalgia, unspecified; K21.9 Gastro-esophageal reflux disease without esophagitis; Z82.5 Family history of asthma and other chronic lower respiratory diseases; Z86.73 Personal history of transient ischemic attack (TIA), and cerebral infarction without residual deficits; I25.2 Old myocardial infarction; Z79.899 Other long term (current) drug therapy; Z90.711 Acquired absence of uterus with remaining cervical stump; Z88.1 Allergy status to other antibiotic agents; Z88.0 Allergy status to penicillin; Z88.8 Allergy status to other drugs, medicaments and biological substances
CPT/HCPCS: 36415; 36600; 71045; 76937; 78452; 78582; 80048; 80053; 80061; 82803; 82948; 83036; 83605; 83735; 83880; 84145; 84439; 84443; 84484; 85014; 85018; 85025; 85347; 87040; 87081; 87502; 87503; 93005; 93017; 93306; 93451; 93458; 94640; 94660; 94760; 96365; 96367; 96375; 99152; 99153; 99285; A4620; A5120; A6258; A9500; A9539; A9540; C1725; C1751; C1769; C1874; C1894; C9600; C9601; G0378; J0360; J0696; J1100; J1200; J1644; J1720; J1815; J1940; J2001; J2250; J3010; J3490; J7030; J7512; J7626; Q0163; Q9967

== ENCOUNTER 2019-12-27 11:29 | Emergency (ER) | payer MEDICAID ==
[~2019-12-27] VITALS: Ht 160 cm; Wt 76.7 kg
[~2019-12-27 11:29] MED LIST changes: -ACET1TAB12 PO; -ALPR1TAB2 PO; +ATOR20TA66 PO; +BACL20TA11 PO; +CARV6.253 PO; -CLON-528 PO; +CLOP75TA35 PO; -CYCL-1 PO; +DIPH25CA46 PO; +GABA-532 PO; +METF-438 PO; -METH4TAB3 PO; -MORP15TA60 PO; -OXYC-145 PO; -PRAV10TA38 PO; -PRAV10TA39 PO; +QUET-1 PO; +SENN-263 PO
[2019-12-27 11:50] VITALS: BP 171/92
[2019-12-27] MEDS ORDERED: cyclobenzaprine 10mg tablet PO ONE (12:25)
[2019-12-27] MEDS ORDERED: acetaminophen w/codeine (30MG) #3 tablet PO ONE (12:25)
== END 2019-12-27 12:45 | disposition home or self-care (01) ==
LOC: ER 11:29
DX: M54.5 Low back pain (principal); G89.29 Other chronic pain; I11.0 Hypertensive heart disease with heart failure; I50.9 Heart failure, unspecified; E11.9 Type 2 diabetes mellitus without complications; E78.00 Pure hypercholesterolemia, unspecified; J44.9 Chronic obstructive pulmonary disease, unspecified; F41.9 Anxiety disorder, unspecified; Z86.73 Personal history of transient ischemic attack (TIA), and cerebral infarction without residual deficits; Z98.51 Tubal ligation status; Z90.710 Acquired absence of both cervix and uterus; F12.90 Cannabis use, unspecified, uncomplicated; Z72.89 Other problems related to lifestyle; Z60.2 Problems related to living alone; Z88.6 Allergy status to analgesic agent; Z88.0 Allergy status to penicillin; Z88.1 Allergy status to other antibiotic agents; Z79.82 Long term (current) use of aspirin; Z79.899 Other long term (current) drug therapy; Z79.84 Long term (current) use of oral hypoglycemic drugs
CPT/HCPCS: 99283

== ENCOUNTER 2020-03-15 23:15 | Inpatient (IN) | payer MEDICAID ==
[~2020-03-15] VITALS: Ht 160 cm; Wt 75.0 kg
[~2020-03-15 23:15] MED LIST changes: -EFF25T PO; +VENL25TA48 PO
[2020-03-15 23:59] LABS: BASOPHILS # (AUTO) 0.1 X10'3 (0-0.2); BASOPHILS % (AUTO) 0.6 % (0-1); EOSINOPHILS # (AUTO) 0.2 X10'3 (0-0.9); EOSINOPHILS % (AUTO) 1.3 % (0-6); HEMATOCRIT 40.2 % (35.0-45.0); HEMOGLOBIN 13.3 g/dl (12.0-16.0); LYMPHOCYTES # (AUTO) 1.5 X10'3 (1.1-4.8); LYMPHOCYTES % (AUTO) 12.7 % (21-51); MEAN CORPUSCULAR HEMOGLOBIN 28.2 PG (27.0-31.0); MEAN CORPUSCULAR VOLUME 85.6 FL (78-98); MEAN PLATELET VOLUME 8.8 FL (7.4-10.4); MONOCYTES # (AUTO) 0.7 X10'3 (0-0.9); NEUTROPHILS # (AUTO) 9.4 X10'3 (1.8-7.7); NEUTROPHILS % (AUTO) 79.4 % (42-75); PLATELET COUNT 164 X10'3 (140-440); RED BLOOD COUNT 4.69 X10'6 (4.20-5.60); RED CELL DISTRIBUTION WIDTH 16.5 % (11.5-14.5); WHITE BLOOD COUNT 11.9 X10'3 (4.5-11.0)
[2020-03-16 00:12] LABS: ALANINE AMINOTRANSFERASE 17 U/L (12-78); ALBUMIN/GLOBULIN RATIO 1.3 (1.1-1.5); ALKALINE PHOSPHATASE 73 IU/L (46-116); ANION GAP 6 (8-16); ASPARTATE AMINO TRANSFERASE 12 U/L (10-37); BILIRUBIN,TOTAL 0.4 MG/DL (0.1-1.0); BLOOD UREA NITROGEN 12 MG/DL (7-18); BUN/CREATININE RATIO 16.7 (6.6-38.0); CALCIUM 8.6 MG/DL (8.5-10.1); CHLORIDE 105 MMOL/L (99-107); CREATININE 0.72 MG/DL (0.40-0.90); GLUCOSE 159 MG/DL (70-104); POTASSIUM 3.3 MMOL/L (3.5-5.1); SODIUM 141 MMOL/L (135-145); TOTAL CARBON DIOXIDE 30.5 MMOL/L (24-32); TOTAL PROTEIN 7.2 G/DL (6.4-8.2); eGFR 83 ML/MIN
[2020-03-16] MEDS ORDERED: methylPREDNISolone sod succ 125mg/2ml vial IV ONE (02:05)
[2020-03-16] MEDS ORDERED: ipratropium/albuterol 3ml nebule NEB ONE (02:05)
[2020-03-16] MEDS ORDERED: furosemide 40mg/4ml inj IV ONE (02:05)
[2020-03-16] MEDS ORDERED: potassium Cl 20 mEq SR tablet PO PRN ×2 (04:10)
[2020-03-16] MEDS ORDERED: dextrose 50%-water 50ml dispensing syringe IV PRN ×2 (04:10)
[2020-03-16] MEDS ORDERED: magnesium 2GM in 50ml NS 50 ML IV PRN (04:10)
[2020-03-16] MEDS ORDERED: HYDROcodone/acetaminophen 10/325mg tab PO PRN (04:10)
[2020-03-16] MEDS ORDERED: mag hydrox/Alum hydrox/simeth 30ml oral suspension PO PRN (04:10)
[2020-03-16] MEDS ORDERED: dextrose ORAL solution 15 GM/59 ML bottle PO PRN ×2 (04:10)
[2020-03-16] MEDS ORDERED: magnesium 4gm in 100ml NS 100 ML IV PRN (04:10)
[2020-03-16] MEDS ORDERED: potassium CL 10mEq/100ml bag 100 ML IV PRN ×2 (04:10)
[2020-03-16] MEDS ORDERED: acetaminophen 325mg tablet PO PRN ×2 (04:10)
[2020-03-16] MEDS ORDERED: ipratropium/albuterol 3ml nebule NEB PRN (04:10)
[2020-03-16] MEDS ORDERED: ondansetron/PF 4mg/2ml inj IV PRN (04:10)
[2020-03-16] MEDS ORDERED: MESSAGE TO PHARMACY PO ONE (04:10)
[2020-03-16] MEDS ORDERED: glucagon, human recombinant 1mg kit SUBCUT PRN (04:10)
[2020-03-16] MEDS ORDERED: HYDROcodone/acetaminophen 5mg/325mg tablet PO PRN (04:10)
[2020-03-16] MEDS ORDERED: docusate sod 100mg capsule PO PRN (04:10)
[2020-03-16 04:40] LABS: HEMOGLOBIN A1C 7.1 % (4.5-6.2)
[2020-03-16] MEDS ORDERED: IBUP-1985 PO (06:08)
[2020-03-16] MEDS ORDERED: GLYC10.7 INH (06:08)
[2020-03-16] MEDS ORDERED: ALB0.5UD IH (06:08)
[2020-03-16] MEDS: CefTRIAXone/D5W-Rocephin 1gm 50 ML IV SCH (07:19)
[2020-03-16] MEDS: clopidogrel 75mg tablet PO SCH (07:19)
[2020-03-16] MEDS: methylPREDNISolone sod succ/PF 40mg inj. IV SCH ×3 (07:19→23:42)
[2020-03-16] MEDS: aspirin 81mg tablet.DR PO SCH (07:20)
[2020-03-16] MEDS: hydrALAZINE 20mg/ml inj. IV PRN ×2 (07:52→21:16)
[2020-03-16] MEDS: GLYCOPYRROLATE IH SCH (08:00)
[2020-03-16] MEDS: FORMOTEROL FUM IH SCH (08:00)
[2020-03-16] MEDS: K and/or MAG REPLACEMENT MC SCH ×2 (08:00→19:27)
--- NOTE | 2020-03-16 08:15 | NUR ---
BREAKFAST TRAY TAKEN TO BEDSIDE
[2020-03-16] MEDS ORDERED: carVEDilol 3.125mg tablet PO ONE (09:05)
[2020-03-16] MEDS ORDERED: carVEDilol 3.125mg tablet PO SCH (09:05)
[2020-03-16] MEDS: heparin, porcine 5000 units/ml vial SQ SCH ×3 (09:33→23:42)
[2020-03-16 09:59] LABS: MAGNESIUM 1.8 MG/DL (1.5-2.4)
[2020-03-16] MEDS ORDERED: aspirin 81mg tablet.DR PO SCH (10:10)
[2020-03-16] MEDS ORDERED: clopidogrel 75mg tablet PO SCH (10:10)
[2020-03-16] MEDS ORDERED: albuterol 2.5 MG/3 ML nebule NEB PRN (10:20)
[2020-03-16] MEDS: venlafaxine 25mg tablet PO SCH (10:28)
[2020-03-16] MEDS: sennosides 8.6mg tablet PO SCH ×2 (10:28→10:32)
[2020-03-16] MEDS: atorvastatin 20mg tablet PO SCH (10:29)
[2020-03-16] MEDS: lisinopril 20mg tablet PO SCH (10:29)
--- NOTE | 2020-03-16 10:41 | NUR ---
PT WILL BE GIVEN LEVOTHYROXINE ABOUT AN HOUR BEFORE LUNCH. PT AWARE OF THIS PLAN.
[2020-03-16] MEDS: levoTHYROXINE 125mcg tablet PO SCH (11:41)
[2020-03-16] MEDS: gabapentin 300mg capsule PO SCH ×2 (13:30→21:05)
[2020-03-16] MEDS: ibuprofen 200mg tablet PO SCH ×2 (13:31→17:01)
[2020-03-16] MEDS ORDERED: baclofen 10mg tablet PO PRN (14:00)
--- NOTE | 2020-03-16 14:44 | NUR ---
Patient in room ED 2. I have received report from Leandro and had the opportunity to ask questions and assume patient care.
[2020-03-16 14:45] VITALS: BP 217/117
[2020-03-16] MEDS: risperiDONE 0.5mg tablet PO SCH ×2 (15:43→21:05)
[2020-03-16 18:00] VITALS: BP 200/98
--- NOTE | 2020-03-16 18:16 | NUR ---
Problems reprioritized. Patient report given, questions answered & plan of care reviewed with Alice Saunders
[2020-03-16 18:35] LABS: MAGNESIUM 2.1 MG/DL (1.5-2.4); POTASSIUM 3.7 MMOL/L (3.5-5.1)
[2020-03-16] MEDS: insulin Lispro (HumaLOG) vial - multi-dose SQ SCH (19:28)
[2020-03-16] MEDS: lactobacillus rhamnosus 10,000 MMU CELLS/CAPSULE PO SCH (21:05)
[2020-03-16] MEDS: quetiapine 100mg tablet PO SCH (21:05)
[2020-03-16] MEDS: pantoprazole 40mg Tablet.DR PO SCH (21:05)
[2020-03-16] MEDS: carvedilol 6.25mg tablet PO SCH (21:06)
[2020-03-16] MEDS: diphenhydrAMINE 25mg capsule PO SCH (21:09)
[2020-03-16] MEDS: insulin glargine (Lantus) pen - multi-dose SQ SCH (21:11)
[2020-03-16 22:00] VITALS: BP_SYST 190; BP_SYST 197; BP_DIAS 103; BP_DIAS 104
[2020-03-17 03:00] VITALS: BP 167/87
[2020-03-17 06:00] VITALS: BP 146/79
--- NOTE | 2020-03-17 06:15 | NUR ---
Patient in room ORTHO 4020. I have received report from Alisha Saunders and had the opportunity to ask questions and assume patient care.
[2020-03-17 06:36] LABS: BASOPHILS % (AUTO) 0.1 % (0-1); EOSINOPHILS % (AUTO) 0 % (0-6); HEMATOCRIT 45.8 % (35.0-45.0); HEMOGLOBIN 14.9 g/dl (12.0-16.0); LYMPHOCYTES # (AUTO) 0.9 X10'3 (1.1-4.8); LYMPHOCYTES % (AUTO) 6.3 % (21-51); MEAN CORPUSCULAR HEMOGLOBIN 27.6 PG (27.0-31.0); MEAN CORPUSCULAR HGB CONC 32.5 g/dL (33.0-36.5); MEAN PLATELET VOLUME 9.1 FL (7.4-10.4); MONOCYTES # (AUTO) 0.4 X10'3 (0-0.9); MONOCYTES % (AUTO) 2.5 % (2-12); NEUTROPHILS # (AUTO) 13.4 X10'3 (1.8-7.7); NEUTROPHILS % (AUTO) 91.1 % (42-75); PLATELET COUNT 195 X10'3 (140-440); RED CELL DISTRIBUTION WIDTH 16.4 % (11.5-14.5); WHITE BLOOD COUNT 14.7 X10'3 (4.5-11.0)
[2020-03-17 06:53] LABS: ALANINE AMINOTRANSFERASE 18 U/L (12-78); ALBUMIN 4.1 G/DL (3.4-5.0); ALBUMIN/GLOBULIN RATIO 1.1 (1.1-1.5); ALKALINE PHOSPHATASE 82 IU/L (46-116); ANION GAP 11 (8-16); ASPARTATE AMINO TRANSFERASE 12 U/L (10-37); BILIRUBIN,TOTAL 0.5 MG/DL (0.1-1.0); BLOOD UREA NITROGEN 29 MG/DL (7-18); BUN/CREATININE RATIO 31.2 (6.6-38.0); CALCIUM 8.9 MG/DL (8.5-10.1); CHLORIDE 101 MMOL/L (99-107); CHOL/HDL RATIO 4.1 (0.00-4.99); CHOLESTEROL 184 MG/DL (0-200); CREATININE 0.93 MG/DL (0.40-0.90); GLUCOSE 222 MG/DL (70-104); HDL CHOLESTEROL 45 MG/DL (35-60); LDL CHOLESTEROL 114 MG/DL (50-100); MAGNESIUM 2.1 MG/DL (1.5-2.4); POTASSIUM 3.7 MMOL/L (3.5-5.1); SODIUM 139 MMOL/L (135-145); TOTAL CARBON DIOXIDE 26.9 MMOL/L (24-32); TOTAL PROTEIN 7.8 G/DL (6.4-8.2); TRIGLYCERIDES 143 MG/DL (20-135); eGFR 62 ML/MIN
[2020-03-17] MEDS: ibuprofen 200mg tablet PO SCH ×3 (08:00→17:28)
[2020-03-17] MEDS: FORMOTEROL FUM IH SCH ×2 (08:00→20:00)
[2020-03-17] MEDS: GLYCOPYRROLATE IH SCH ×2 (08:00→20:00)
[2020-03-17] MEDS: K and/or MAG REPLACEMENT MC SCH ×2 (08:00→20:00)
[2020-03-17] MEDS: methylPREDNISolone sod succ/PF 40mg inj. IV SCH ×2 (08:09→16:11)
[2020-03-17] MEDS: CefTRIAXone/D5W-Rocephin 1gm 50 ML IV SCH (08:09)
[2020-03-17] MEDS: diphenhydrAMINE 25mg capsule PO SCH ×2 (08:10→20:23)
[2020-03-17] MEDS: carvedilol 6.25mg tablet PO SCH ×2 (08:10→20:23)
[2020-03-17] MEDS: lactobacillus rhamnosus 10,000 MMU CELLS/CAPSULE PO SCH ×2 (08:10→20:23)
[2020-03-17] MEDS: clopidogrel 75mg tablet PO SCH (08:11)
[2020-03-17] MEDS: atorvastatin 20mg tablet PO SCH (08:11)
[2020-03-17] MEDS: gabapentin 300mg capsule PO SCH ×3 (08:11→20:23)
[2020-03-17] MEDS: venlafaxine 25mg tablet PO SCH (08:11)
[2020-03-17] MEDS: aspirin 81mg tablet.DR PO SCH (08:11)
[2020-03-17] MEDS: risperiDONE 0.5mg tablet PO SCH ×3 (08:12→20:24)
[2020-03-17] MEDS: sennosides 8.6mg tablet PO SCH (08:12)
[2020-03-17] MEDS: heparin, porcine 5000 units/ml vial SQ SCH ×2 (08:13→16:12)
[2020-03-17] MEDS: lisinopril 20mg tablet PO SCH (08:13)
[2020-03-17] MEDS: insulin Lispro (HumaLOG) vial - multi-dose SQ SCH ×3 (08:37→18:53)
[2020-03-17 10:00] VITALS: BP 162/87
[2020-03-17] MEDS: levoTHYROXINE 125mcg tablet PO SCH (10:16)
--- NOTE | 2020-03-17 15:32 | NUR ---
DM consult: Pt with A1c 7.1% seen at bedside. Pt states she checks her BG levels q morning and takes her DM medications per rx. Reports usual A1c is 6.9% which is what it was at last visit 10/30. Pt denies questions at this time. Written DM education provided. Pt also provided with alternative menu to optimize PO intake. Pt reports initially with poor PO intake d/t receiving pork which she does not eat. Additional food preferences obtained, doesn't like cream of wheat or oatmeal and requests cottage cheese with fruit with lunches. All preferences were d/w dietary. RD contact information provided. Pt denies food allergies, difficulty chewing/swallowing, or constipation/diarrhea. Will remain continue to follow. Addendum: 03/17/20 at [address] Amended: Links added.
[2020-03-17 18:00] VITALS: BP 157/87
--- NOTE | 2020-03-17 18:35 | NUR ---
Problems reprioritized. Patient report given, questions answered & plan of care reviewed with
[2020-03-17] MEDS: quetiapine 100mg tablet PO SCH (20:23)
[2020-03-17] MEDS: pantoprazole 40mg Tablet.DR PO SCH (20:28)
[2020-03-17] MEDS: insulin glargine (Lantus) pen - multi-dose SQ SCH (20:34)
[2020-03-17 22:00] VITALS: BP 144/78
[2020-03-18] MEDS: heparin, porcine 5000 units/ml vial SQ SCH ×2 (03:47→07:39)
[2020-03-18] MEDS: methylPREDNISolone sod succ/PF 40mg inj. IV SCH ×2 (03:49→07:40)
[2020-03-18] MEDS: hydrALAZINE 20mg/ml inj. IV PRN (05:07)
[2020-03-18 06:00] VITALS: BP 162/74
--- NOTE | 2020-03-18 06:47 | NUR ---
Problems reprioritized. Patient report given, questions answered & plan of care reviewed with MIGUEL LEWIS.
[2020-03-18 06:51] LABS: BASOPHILS % (AUTO) 0.2 % (0-1); EOSINOPHILS % (AUTO) 0 % (0-6); HEMATOCRIT 45.4 % (35.0-45.0); LYMPHOCYTES # (AUTO) 1.2 X10'3 (1.1-4.8); LYMPHOCYTES % (AUTO) 7.1 % (21-51); MEAN CORPUSCULAR HEMOGLOBIN 28.2 PG (27.0-31.0); MEAN CORPUSCULAR HGB CONC 33.1 g/dL (33.0-36.5); MEAN CORPUSCULAR VOLUME 85.1 FL (78-98); MEAN PLATELET VOLUME 9.3 FL (7.4-10.4); MONOCYTES # (AUTO) 0.6 X10'3 (0-0.9); MONOCYTES % (AUTO) 3.5 % (2-12); NEUTROPHILS # (AUTO) 15.3 X10'3 (1.8-7.7); NEUTROPHILS % (AUTO) 89.2 % (42-75); PLATELET COUNT 206 X10'3 (140-440); RED BLOOD COUNT 5.33 X10'6 (4.20-5.60); RED CELL DISTRIBUTION WIDTH 16.6 % (11.5-14.5); WHITE BLOOD COUNT 17.2 X10'3 (4.5-11.0)
[2020-03-18 07:00] VITALS: BP 149/81
[2020-03-18 07:11] LABS: ALANINE AMINOTRANSFERASE 21 U/L (12-78); ALBUMIN 4.1 G/DL (3.4-5.0); ALBUMIN/GLOBULIN RATIO 1.1 (1.1-1.5); ALKALINE PHOSPHATASE 76 IU/L (46-116); ANION GAP 9 (8-16); ASPARTATE AMINO TRANSFERASE 34 U/L (10-37); BILIRUBIN,TOTAL 0.5 MG/DL (0.1-1.0); BLOOD UREA NITROGEN 35 MG/DL (7-18); BUN/CREATININE RATIO 46.1 (6.6-38.0); CALCIUM 8.7 MG/DL (8.5-10.1); CHLORIDE 101 MMOL/L (99-107); CREATININE 0.76 MG/DL (0.40-0.90); GLUCOSE 179 MG/DL (70-104); MAGNESIUM 2.4 MG/DL (1.5-2.4); SODIUM 137 MMOL/L (135-145); TOTAL CARBON DIOXIDE 27.5 MMOL/L (24-32); TOTAL PROTEIN 7.7 G/DL (6.4-8.2); eGFR 78 ML/MIN
[2020-03-18 07:12] LABS: POTASSIUM 4.3 MMOL/L (3.5-5.1)
[2020-03-18] MEDS: lactobacillus rhamnosus 10,000 MMU CELLS/CAPSULE PO SCH (07:36)
[2020-03-18] MEDS: aspirin 81mg tablet.DR PO SCH (07:36)
[2020-03-18] MEDS: atorvastatin 20mg tablet PO SCH (07:36)
[2020-03-18] MEDS: venlafaxine 25mg tablet PO SCH (07:36)
[2020-03-18] MEDS: carvedilol 6.25mg tablet PO SCH (07:37)
[2020-03-18] MEDS: clopidogrel 75mg tablet PO SCH (07:37)
[2020-03-18] MEDS: risperiDONE 0.5mg tablet PO SCH ×2 (07:37→12:31)
[2020-03-18 07:38] VITALS: BP_SYST 149
[2020-03-18] MEDS: lisinopril 20mg tablet PO SCH (07:38)
[2020-03-18] MEDS: gabapentin 300mg capsule PO SCH ×2 (07:38→12:31)
[2020-03-18] MEDS: diphenhydrAMINE 25mg capsule PO SCH (07:38)
[2020-03-18] MEDS: CefTRIAXone/D5W-Rocephin 1gm 50 ML IV SCH (07:40)
[2020-03-18] MEDS: ibuprofen 200mg tablet PO SCH ×2 (08:00→12:31)
[2020-03-18] MEDS: FORMOTEROL FUM IH SCH (08:00)
[2020-03-18] MEDS: GLYCOPYRROLATE IH SCH (08:00)
[2020-03-18] MEDS: sennosides 8.6mg tablet PO SCH (08:00)
[2020-03-18] MEDS: K and/or MAG REPLACEMENT MC SCH (08:00)
[2020-03-18] MEDS: insulin Lispro (HumaLOG) vial - multi-dose SQ SCH ×2 (09:32→13:12)
[2020-03-18] MEDS: levoTHYROXINE 125mcg tablet PO SCH (10:26)
[2020-03-18] MEDS ORDERED: PRED10TA23 PO (11:01)
[2020-03-18] MEDS ORDERED: IPRA3AMP9 IH (11:02)
[2020-03-18] MEDS ORDERED: DOXY100C2 PO (13:57)
== END 2020-03-18 14:50 | disposition home or self-care (01) | DRG 133 ==
LOC: ER 23:15 → ED HOLD 03-16 04:10 → ORTHO 4S 03-16 14:55
PROVIDERS: ADMIT Family Medicine; ATTEND Internal Medicine
DX: J96.01 Acute respiratory failure with hypoxia (principal); E03.9 Hypothyroidism, unspecified; E11.40 Type 2 diabetes mellitus with diabetic neuropathy, unspecified; E78.00 Pure hypercholesterolemia, unspecified; F32.9 Major depressive disorder, single episode, unspecified; G47.00 Insomnia, unspecified; I11.0 Hypertensive heart disease with heart failure; I25.10 Atherosclerotic heart disease of native coronary artery without angina pectoris; J18.9 Pneumonia, unspecified organism; J44.0 Chronic obstructive pulmonary disease with (acute) lower respiratory infection; F17.210 Nicotine dependence, cigarettes, uncomplicated; J44.1 Chronic obstructive pulmonary disease with (acute) exacerbation; E05.00 Thyrotoxicosis with diffuse goiter without thyrotoxic crisis or storm; I50.32 Chronic diastolic (congestive) heart failure; F12.90 Cannabis use, unspecified, uncomplicated; F41.9 Anxiety disorder, unspecified; G89.29 Other chronic pain; M54.9 Dorsalgia, unspecified; Z79.02 Long term (current) use of antithrombotics/antiplatelets; Z79.84 Long term (current) use of oral hypoglycemic drugs; Z79.890 Hormone replacement therapy; Z80.41 Family history of malignant neoplasm of ovary; Z83.3 Family history of diabetes mellitus; Z86.73 Personal history of transient ischemic attack (TIA), and cerebral infarction without residual deficits; Z88.9 Allergy status to unspecified drugs, medicaments and biological substances; Z90.710 Acquired absence of both cervix and uterus; Z88.0 Allergy status to penicillin; Z79.899 Other long term (current) drug therapy; Z98.51 Tubal ligation status; Z71.6 Tobacco abuse counseling
CPT/HCPCS: 36415; 71045; 80053; 80061; 82948; 83036; 83605; 83735; 83880; 84132; 84484; 85025; 87040; 87081; 93005; 93306; 94640; 94760; 96374; 96375; 97116; 97161; 97530; 99285; G0378; J0360; J0696; J1644; J1815; J1940; J2920; J2930; Q0163

== ENCOUNTER 2020-05-14 10:37 | Inpatient (IN) | payer MEDICAID ==
[~2020-05-14] VITALS: Ht 160 cm; Wt 75.0 kg
[~2020-05-14 10:37] MED LIST changes: +ALB0.5UD IH; +GLYC10.7 INH; +IBUP-1985 PO; +IPRA3AMP9 IH; -LISI10TA4 PO
[2020-05-14 11:11] LABS: BASOPHILS # (AUTO) 0.1 X10'3 (0-0.2); EOSINOPHILS % (AUTO) 0.3 % (0-6); HEMATOCRIT 42.7 % (35.0-45.0); HEMOGLOBIN 14.4 g/dl (12.0-16.0); LYMPHOCYTES % (AUTO) 10.3 % (21-51); MEAN CORPUSCULAR HEMOGLOBIN 29.6 PG (27.0-31.0); MEAN CORPUSCULAR HGB CONC 33.7 g/dL (33.0-36.5); MEAN CORPUSCULAR VOLUME 88.1 FL (78-98); MEAN PLATELET VOLUME 8.9 FL (7.4-10.4); MONOCYTES # (AUTO) 0.5 X10'3 (0-0.9); MONOCYTES % (AUTO) 4.6 % (2-12); NEUTROPHILS # (AUTO) 8.3 X10'3 (1.8-7.7); NEUTROPHILS % (AUTO) 83.8 % (42-75); PLATELET COUNT 195 X10'3 (140-440); RED BLOOD COUNT 4.84 X10'6 (4.20-5.60); RED CELL DISTRIBUTION WIDTH 16.3 % (11.5-14.5)
[2020-05-14 11:26] LABS: ALANINE AMINOTRANSFERASE 15 U/L (12-78); ALBUMIN 4.2 G/DL (3.4-5.0); ALBUMIN/GLOBULIN RATIO 1.4 (1.1-1.5); ALKALINE PHOSPHATASE 63 IU/L (46-116); ANION GAP 7 (8-16); ASPARTATE AMINO TRANSFERASE 15 U/L (10-37); BILIRUBIN,TOTAL 0.4 MG/DL (0.1-1.0); BLOOD UREA NITROGEN 9 MG/DL (7-18); CALCIUM 8.9 MG/DL (8.5-10.1); CHLORIDE 105 MMOL/L (99-107); CREATININE 0.75 MG/DL (0.40-0.90); GLUCOSE 158 MG/DL (70-104); POTASSIUM 3.4 MMOL/L (3.5-5.1); SODIUM 140 MMOL/L (135-145); TOTAL CARBON DIOXIDE 28.2 MMOL/L (24-32); TOTAL PROTEIN 7.2 G/DL (6.4-8.2); eGFR 79 ML/MIN
[2020-05-14] MEDS ORDERED: hydrALAZINE 20mg/ml inj. IV ONE (13:25)
[2020-05-14] MEDS: hydrALAZINE 20mg/ml inj. IV PRN ×5 (13:35→18:58)
[2020-05-14] MEDS ORDERED: magnesium 2GM in 50ml NS 50 ML IV PRN (14:30)
[2020-05-14] MEDS ORDERED: HYDROcodone/acetaminophen 10/325mg tab PO PRN (14:30)
[2020-05-14] MEDS ORDERED: glucagon, human recombinant 1mg kit SUBCUT PRN (14:30)
[2020-05-14] MEDS ORDERED: dextrose ORAL solution 15 GM/59 ML bottle PO PRN ×2 (14:30)
[2020-05-14] MEDS ORDERED: magnesium 4gm in 100ml NS 100 ML IV PRN (14:30)
[2020-05-14] MEDS ORDERED: dextrose 50%-water 50ml dispensing syringe IV PRN ×2 (14:30)
[2020-05-14] MEDS ORDERED: mag hydrox/Alum hydrox/simeth 30ml oral suspension PO PRN (14:30)
[2020-05-14] MEDS ORDERED: magnesium Cl slow-release 64mg tablet PO PRN (14:30)
[2020-05-14] MEDS ORDERED: potassium Cl 20 mEq SR tablet PO PRN (14:30)
[2020-05-14] MEDS ORDERED: ondansetron/PF 4mg/2ml inj IV PRN (14:30)
[2020-05-14] MEDS ORDERED: MESSAGE TO PHARMACY PO ONE (14:30)
[2020-05-14] MEDS ORDERED: potassium CL 10mEq/100ml bag 100 ML IV PRN ×2 (14:30)
[2020-05-14] MEDS ORDERED: morphine 2 MG/ML inj. syringe IV PRN ×2 (14:30)
[2020-05-14] MEDS ORDERED: acetaminophen 650mg rectal suppository RC PRN (14:30)
[2020-05-14] MEDS ORDERED: diphenhydrAMINE 25mg capsule PO PRN (14:30)
[2020-05-14] MEDS ORDERED: HYDROcodone/acetaminophen 5mg/325mg tablet PO PRN (14:30)
[2020-05-14] MEDS ORDERED: acetaminophen 325mg tablet PO PRN ×2 (14:30)
[2020-05-14] MEDS ORDERED: bisacodyl 10mg suppository rectal RC PRN (14:30)
[2020-05-14] MEDS ORDERED: magnesium hydroxide 30ml (MOM) UD suspension PO PRN (14:30)
--- NOTE | 2020-05-14 14:48 | NUR ---
called to get report. RN was busy at the moment and will be calling back.
--- NOTE | 2020-05-14 15:15 | NUR ---
Report received from JOSHUA David. awaiting patient arrival..
[2020-05-14 15:40] VITALS: BP 190/82
[2020-05-14] MEDS: normal saline 1000ml 1,000 ML IV SCH (16:05)
[2020-05-14] MEDS: potassium Cl 20 mEq SR tablet PO PRN ×2 (16:14→20:42)
[2020-05-14] MEDS ORDERED: methylPREDNISolone sod succ 125mg/2ml vial IV ONE (16:30)
[2020-05-14 16:50] VITALS: BP 194/114
[2020-05-14] MEDS: ipratropium/albuterol 3ml nebule NEB SCH ×3 (17:30→23:41)
[2020-05-14 17:52] VITALS: BP 187/78
[2020-05-14 18:00] VITALS: BP 220/104
--- NOTE | 2020-05-14 18:03 | NUR ---
Student Medication Administration: For this medication-pass time frame, all medication were reviewed, dispensed, administered and documented per hospital policy by SN Alycia. Student documentation: I have reviewed and agree with all interventions, assessments performed and documented by SN Alycia.
--- NOTE | 2020-05-14 18:24 | NUR ---
Problems reprioritized. Patient report given, questions answered & plan of care reviewed with JOSHUA Cavazos.
--- NOTE | 2020-05-14 18:25 | NUR ---
Problems reprioritized. Patient report given, questions answered & plan of care reviewed with JOSHUA Cavazos.
--- NOTE | 2020-05-14 18:26 | NUR ---
Patient in room PCU 3016. I have received report from Delicia LEWIS and had the opportunity to ask questions and assume patient care.
--- NOTE | 2020-05-14 18:27 | NUR ---
PAGER ID: [phone] MESSAGE: Chary Dunn [phone] : patients code status is still listed as full. thanks! kendra [phone]
[2020-05-14 19:38] VITALS: BP 148/67
[2020-05-14] MEDS: carvedilol 6.25mg tablet PO SCH (20:40)
[2020-05-14] MEDS: gabapentin 300mg capsule PO SCH (20:40)
[2020-05-14] MEDS: quetiapine 100mg tablet PO SCH (20:40)
[2020-05-14] MEDS: diphenhydrAMINE 25mg capsule PO SCH (20:40)
[2020-05-14] MEDS: risperiDONE 0.5mg tablet PO SCH (20:41)
[2020-05-14] MEDS: baclofen 10mg tablet PO SCH (20:41)
[2020-05-14] MEDS: heparin, porcine 5000 units/ml vial SQ SCH (20:43)
[2020-05-14] MEDS: pantoprazole 40mg Tablet.DR PO SCH (20:43)
[2020-05-14] MEDS: methylPREDNISolone sod succ/PF 40mg inj. IV SCH (20:43)
[2020-05-14] MEDS: K and/or MAG REPLACEMENT MC SCH (20:55)
[2020-05-14] MEDS: insulin glargine (Lantus) pen - multi-dose SQ SCH (21:00)
--- NOTE | 2020-05-14 21:11 | NUR ---
Notified MD Stack about patient desire to receive no intubation for code status. PAGER ID: [phone] MESSAGE: Re: Abel Dunn [id number]. Patient requests to have no intubation for code status. Thanks, Dirk LEWIS. [phone]
[2020-05-14 22:00] VITALS: BP 151/67
--- NOTE | 2020-05-14 23:00 | NUR ---
MD Stack telephoned back regarding code status. Patient is requesting to be DNI, aware and states to leave code status as is for now and will address at a later time.
[2020-05-15] VITALS (12 sets, daily range): BP systolic 150–189; BP diastolic 67–96
[2020-05-15] MEDS: methylPREDNISolone sod succ/PF 40mg inj. IV SCH ×4 (01:43→19:35)
[2020-05-15] MEDS: potassium Cl 20 mEq SR tablet PO PRN (01:44)
[2020-05-15] MEDS: baclofen 10mg tablet PO SCH ×4 (01:45→19:36)
[2020-05-15] MEDS: hydrALAZINE 20mg/ml inj. IV PRN ×3 (01:59→05:18)
[2020-05-15] MEDS: ipratropium/albuterol 3ml nebule NEB SCH ×6 (03:18→23:06)
--- NOTE | 2020-05-15 03:57 | NUR ---
Paged MD Stack regarding high blood pressure. PAGER ID: [phone] MESSAGE: I have two patients to call regarding consistently high blood pressures. Thank you, Dirk LEWIS. [phone].
[2020-05-15] MEDS ORDERED: lisinopril 10 MG tablet PO ONE (04:10)
[2020-05-15] MEDS: normal saline 1000ml 1,000 ML IV SCH ×2 (04:17→17:05)
[2020-05-15 06:18] LABS: BASOPHILS % (AUTO) 0.1 % (0-1); EOSINOPHILS % (AUTO) 0 % (0-6); HEMATOCRIT 46.9 % (35.0-45.0); HEMOGLOBIN 15.6 g/dl (12.0-16.0); LYMPHOCYTES # (AUTO) 0.8 X10'3 (1.1-4.8); LYMPHOCYTES % (AUTO) 6.1 % (21-51); MEAN CORPUSCULAR HEMOGLOBIN 29.2 PG (27.0-31.0); MEAN CORPUSCULAR HGB CONC 33.2 g/dL (33.0-36.5); MEAN CORPUSCULAR VOLUME 87.8 FL (78-98); MEAN PLATELET VOLUME 9.4 FL (7.4-10.4); MONOCYTES # (AUTO) 0.1 X10'3 (0-0.9); MONOCYTES % (AUTO) 0.6 % (2-12); NEUTROPHILS # (AUTO) 12.7 X10'3 (1.8-7.7); NEUTROPHILS % (AUTO) 93.2 % (42-75); PLATELET COUNT 245 X10'3 (140-440); RED BLOOD COUNT 5.34 X10'6 (4.20-5.60); RED CELL DISTRIBUTION WIDTH 16.4 % (11.5-14.5); WHITE BLOOD COUNT 13.6 X10'3 (4.5-11.0)
--- NOTE | 2020-05-15 06:18 | NUR ---
Problems reprioritized. Patient report given, questions answered & plan of care reviewed with Ly LEWIS.
--- NOTE | 2020-05-15 06:37 | NUR ---
Patient in room PCU 3016. I have received report from Dirk LEWIS and had the opportunity to ask questions and assume patient care.
[2020-05-15 06:46] LABS: ALANINE AMINOTRANSFERASE 12 U/L (12-78); ALBUMIN 4.5 G/DL (3.4-5.0); ALBUMIN/GLOBULIN RATIO 1.4 (1.1-1.5); ALKALINE PHOSPHATASE 71 IU/L (46-116); ANION GAP 13 (8-16); ASPARTATE AMINO TRANSFERASE 13 U/L (10-37); BILIRUBIN,TOTAL 0.5 MG/DL (0.1-1.0); BLOOD UREA NITROGEN 13 MG/DL (7-18); BUN/CREATININE RATIO 19.4 (6.6-38.0); CALCIUM 9.3 MG/DL (8.5-10.1); CHLORIDE 103 MMOL/L (99-107); CREATININE 0.67 MG/DL (0.40-0.90); GLUCOSE 173 MG/DL (70-104); MAGNESIUM 1.9 MG/DL (1.5-2.4); POTASSIUM 4.2 MMOL/L (3.5-5.1); SODIUM 139 MMOL/L (135-145); TOTAL CARBON DIOXIDE 23.1 MMOL/L (24-32); TOTAL PROTEIN 7.7 G/DL (6.4-8.2); eGFR 90 ML/MIN
[2020-05-15] MEDS: heparin, porcine 5000 units/ml vial SQ SCH ×2 (07:19→19:37)
[2020-05-15] MEDS: gabapentin 300mg capsule PO SCH ×3 (07:22→21:00)
[2020-05-15] MEDS: sennosides 8.6mg tablet PO SCH (07:22)
[2020-05-15] MEDS: levoTHYROXINE 125mcg tablet PO SCH (07:22)
[2020-05-15] MEDS: atorvastatin 20mg tablet PO SCH (07:22)
[2020-05-15] MEDS: carvedilol 6.25mg tablet PO SCH (07:22)
[2020-05-15] MEDS: venlafaxine XR 75mg capsule (Q24H) PO SCH (07:22)
[2020-05-15] MEDS: risperiDONE 0.5mg tablet PO SCH ×3 (07:23→21:00)
[2020-05-15] MEDS: diphenhydrAMINE 25mg capsule PO SCH ×2 (07:23→19:36)
[2020-05-15] MEDS: clopidogrel 75mg tablet PO SCH (07:23)
[2020-05-15] MEDS: K and/or MAG REPLACEMENT MC SCH ×2 (08:00→20:00)
[2020-05-15] MEDS: aspirin 81mg tablet.DR PO SCH (08:01)
[2020-05-15] MEDS: lisinopril 20mg tablet PO SCH (11:00)
--- NOTE | 2020-05-15 12:20 | NUR ---
Malnutrition consult, current weight 75 kg, per documented wt history weight was 77 kg last October. No significant weight loss. ate 50-75% of one meal so far. No edema. No malnutrition at this time. Addendum: 05/15/20 at [address] Amended: Links added.
[2020-05-15] MEDS: insulin Lispro (HumaLOG) vial - multi-dose SQ SCH ×2 (13:34→18:55)
[2020-05-15 15:25] LABS: URINE AMPHETAMINE SCREEN NEGATIVE (Neg); URINE BARBITUATE SCREEN NEGATIVE (Neg); URINE BENZODIAZEPINES SCREEN NEGATIVE (Neg); URINE CANNABINOID SCREEN POSITIVE (Neg); URINE COCAINE SCREEN NEGATIVE (Neg); URINE METHADONE SCREEN NEGATIVE (Neg); URINE OPIATE SCREEN NEGATIVE (Neg); URINE PHENCYCLIDINE SCREEN NEGATIVE (Neg)
[2020-05-15 15:26] LABS: CLARITY,URINE SLIGHTLY CLOUDY (Clear); COLOR,URINE YELLOW (Yellow); GLUCOSE, URINE NEGATIVE (Neg); KETONES,URINE TRACE mg/dl (Neg); LEUKOCYTE ESTERASE ,URINE NEGATIVE (Neg); NITRITES, URINE NEGATIVE (Neg); OCCULT BLOOD,URINE NEGATIVE (Neg); PROTEIN,URINE NEGATIVE (Neg); UA COLLECTION TYPE CLN CATCH MIDSTREAM; UROBILINOGEN,URINE 0.2 E.U/dL (0.2-1.0)
[2020-05-15 15:32] LABS: MUCUS STRANDS MANY /LPF (Neg); SQUAMOUS EPITHELIAL CELL,UR MANY /LPF (FEW); TRANSITIONAL EPI CELLS,URINE FEW /HPF
[2020-05-15 15:33] LABS: HYALINE CASTS 0-3 /LPF (NEGATIVE)
[2020-05-15 15:34] LABS: BACTERIA,URINE FEW /HPF (Neg); RBC,URINE NONE SEEN /HPF (0-2); WBC,URINE 0-4 /HPF (0-4)
[2020-05-15] MEDS ORDERED: hyDRALAzine 10mg tablet PO PRN (16:25)
--- NOTE | 2020-05-15 18:14 | NUR ---
Problems reprioritized. Patient report given, questions answered & plan of care reviewed with Dirk LEWIS.
--- NOTE | 2020-05-15 18:16 | NUR ---
Patient in room PCU 3016. I have received report from Ly LEWIS and had the opportunity to ask questions and assume patient care.
--- NOTE | 2020-05-15 18:29 | NUR ---
Received orders from Dr Lu to order a stress test for tomorrow AM and to double to patients Coreg to 12.5mg BID starting tonight. table games shift manager JOSHUA Cavazos made aware of new orders.
[2020-05-15] MEDS ORDERED: aminophylline 250mg/10ml inj. IV PRN (18:30)
[2020-05-15] MEDS ORDERED: nitroGLYCERIN 0.4mg SUBLingual tab SL PRN (18:30)
[2020-05-15] MEDS ORDERED: metoprolol tartrate 1mg/ml inj IV PRN (18:30)
[2020-05-15] MEDS ORDERED: regadenoson 0.4mg/5ml syringe IV PRN (18:30)
[2020-05-15] MEDS: carVEDilol 12.5mg tablet PO SCH (19:36)
[2020-05-15] MEDS: pantoprazole 40mg Tablet.DR PO SCH (21:00)
[2020-05-15] MEDS: quetiapine 100mg tablet PO SCH (21:00)
[2020-05-15] MEDS: insulin glargine (Lantus) pen - multi-dose SQ SCH (21:09)
[2020-05-16] VITALS (17 sets, daily range): BP systolic 129–181; BP diastolic 64–97
[2020-05-16] MEDS: methylPREDNISolone sod succ/PF 40mg inj. IV SCH ×2 (01:56→19:30)
[2020-05-16] MEDS: baclofen 10mg tablet PO SCH ×4 (01:56→19:28)
[2020-05-16] MEDS: ipratropium/albuterol 3ml nebule NEB SCH ×6 (03:10→23:02)
[2020-05-16 04:58] LABS: BASOPHILS % (AUTO) 0.1 % (0-1); EOSINOPHILS % (AUTO) 0 % (0-6); HEMATOCRIT 43.4 % (35.0-45.0); HEMOGLOBIN 14.2 g/dl (12.0-16.0); LYMPHOCYTES # (AUTO) 0.8 X10'3 (1.1-4.8); LYMPHOCYTES % (AUTO) 5.7 % (21-51); MEAN CORPUSCULAR HEMOGLOBIN 29.2 PG (27.0-31.0); MEAN CORPUSCULAR HGB CONC 32.7 g/dL (33.0-36.5); MEAN CORPUSCULAR VOLUME 89.2 FL (78-98); MEAN PLATELET VOLUME 9.3 FL (7.4-10.4); MONOCYTES # (AUTO) 0.4 X10'3 (0-0.9); NEUTROPHILS # (AUTO) 13.5 X10'3 (1.8-7.7); NEUTROPHILS % (AUTO) 91.2 % (42-75); PLATELET COUNT 181 X10'3 (140-440); RED BLOOD COUNT 4.87 X10'6 (4.20-5.60); RED CELL DISTRIBUTION WIDTH 16.8 % (11.5-14.5); WHITE BLOOD COUNT 14.8 X10'3 (4.5-11.0)
[2020-05-16 05:18] LABS: ALANINE AMINOTRANSFERASE 14 U/L (12-78); ALBUMIN 3.9 G/DL (3.4-5.0); ALBUMIN/GLOBULIN RATIO 1.4 (1.1-1.5); ALKALINE PHOSPHATASE 57 IU/L (46-116); ANION GAP 8 (8-16); ASPARTATE AMINO TRANSFERASE 9 U/L (10-37); BILIRUBIN,TOTAL 0.4 MG/DL (0.1-1.0); BLOOD UREA NITROGEN 16 MG/DL (7-18); BUN/CREATININE RATIO 23.5 (6.6-38.0); CALCIUM 8.5 MG/DL (8.5-10.1); CHLORIDE 105 MMOL/L (99-107); CREATININE 0.68 MG/DL (0.40-0.90); GLUCOSE 166 MG/DL (70-104); MAGNESIUM 2.1 MG/DL (1.5-2.4); POTASSIUM 4.2 MMOL/L (3.5-5.1); SODIUM 140 MMOL/L (135-145); TOTAL CARBON DIOXIDE 26.8 MMOL/L (24-32); TOTAL PROTEIN 6.7 G/DL (6.4-8.2); eGFR 89 ML/MIN
[2020-05-16] MEDS: normal saline 1000ml 1,000 ML IV SCH ×2 (06:29→19:34)
[2020-05-16] MEDS: carVEDilol 12.5mg tablet PO SCH ×2 (08:00→19:28)
[2020-05-16] MEDS: heparin, porcine 5000 units/ml vial SQ SCH ×2 (08:00→19:30)
[2020-05-16] MEDS: K and/or MAG REPLACEMENT MC SCH ×2 (08:00→20:00)
[2020-05-16] MEDS: aspirin 81mg tablet.DR PO SCH (08:41)
[2020-05-16] MEDS: venlafaxine XR 75mg capsule (Q24H) PO SCH (08:42)
[2020-05-16] MEDS: risperiDONE 0.5mg tablet PO SCH ×3 (08:42→21:00)
[2020-05-16] MEDS: gabapentin 300mg capsule PO SCH ×3 (08:42→21:00)
[2020-05-16] MEDS: sennosides 8.6mg tablet PO SCH (08:42)
[2020-05-16] MEDS: lisinopril 20mg tablet PO SCH (08:42)
[2020-05-16] MEDS: diphenhydrAMINE 25mg capsule PO SCH ×2 (08:42→19:28)
[2020-05-16] MEDS: atorvastatin 20mg tablet PO SCH (08:42)
[2020-05-16] MEDS: clopidogrel 75mg tablet PO SCH (08:46)
[2020-05-16] MEDS: levoTHYROXINE 125mcg tablet PO SCH (08:46)
--- NOTE | 2020-05-16 09:15 | NUR ---
Patient in room PCU 3016. I have received report from Dirk LEWIS and had the opportunity to ask questions and assume patient care.
--- NOTE | 2020-05-16 11:07 | NUR ---
1100 SVN NOT GIVEN...PT REFUSED
--- NOTE | 2020-05-16 16:18 | NUR ---
PAGER ID: [phone] MESSAGE: DEIDRA ON TELE@[email or web address], I HAVE NUMBER FOR [facility] ON [address], PLEASE CALL THEM AT [phone], THANK YOU
--- NOTE | 2020-05-16 16:59 | NUR ---
Page sent to Dr. Soares PAGER ID: [phone] MESSAGE: [phone] Abel Dunn: I apologize for the confusion, the company said it is part of their protocol to contact us with a positive result. Can I feed the patient tonight? Thank you, Vibha [phone]
--- NOTE | 2020-05-16 18:22 | NUR ---
Problems reprioritized. Patient report given, questions answered & plan of care reviewed with Gerri LEWIS.
--- NOTE | 2020-05-16 18:30 | NUR ---
Patient in room PCU 3016. I have received report from Vibha LEWIS and had the opportunity to ask questions and assume patient care.
[2020-05-16] MEDS: insulin Lispro (HumaLOG) vial - multi-dose SQ SCH (19:31)
[2020-05-16] MEDS: pantoprazole 40mg Tablet.DR PO SCH (21:00)
[2020-05-16] MEDS: quetiapine 100mg tablet PO SCH (21:00)
[2020-05-16] MEDS: insulin glargine (Lantus) pen - multi-dose SQ SCH (21:03)
[2020-05-17] VITALS (13 sets, daily range): BP systolic 125–193; BP diastolic 78–97
[2020-05-17] MEDS: baclofen 10mg tablet PO SCH ×4 (02:41→19:14)
[2020-05-17] MEDS: ipratropium/albuterol 3ml nebule NEB SCH ×6 (03:30→23:26)
[2020-05-17 04:56] LABS: BASOPHILS % (AUTO) 0.1 % (0-1); EOSINOPHILS % (AUTO) 0 % (0-6); HEMATOCRIT 42.1 % (35.0-45.0); HEMOGLOBIN 14.1 g/dl (12.0-16.0); LYMPHOCYTES % (AUTO) 9.7 % (21-51); MEAN CORPUSCULAR HEMOGLOBIN 29.9 PG (27.0-31.0); MEAN CORPUSCULAR HGB CONC 33.4 g/dL (33.0-36.5); MEAN CORPUSCULAR VOLUME 89.4 FL (78-98); MEAN PLATELET VOLUME 8.7 FL (7.4-10.4); MONOCYTES # (AUTO) 0.4 X10'3 (0-0.9); MONOCYTES % (AUTO) 4.3 % (2-12); NEUTROPHILS # (AUTO) 8.5 X10'3 (1.8-7.7); NEUTROPHILS % (AUTO) 85.9 % (42-75); PLATELET COUNT 168 X10'3 (140-440); RED CELL DISTRIBUTION WIDTH 16.3 % (11.5-14.5); WHITE BLOOD COUNT 9.9 X10'3 (4.5-11.0)
[2020-05-17 05:17] LABS: ALANINE AMINOTRANSFERASE 24 U/L (12-78); ALBUMIN 3.6 G/DL (3.4-5.0); ALBUMIN/GLOBULIN RATIO 1.3 (1.1-1.5); ALKALINE PHOSPHATASE 56 IU/L (46-116); ANION GAP 4 (8-16); ASPARTATE AMINO TRANSFERASE 21 U/L (10-37); BILIRUBIN,TOTAL 0.4 MG/DL (0.1-1.0); BLOOD UREA NITROGEN 16 MG/DL (7-18); CALCIUM 8.5 MG/DL (8.5-10.1); CHLORIDE 106 MMOL/L (99-107); GLUCOSE 151 MG/DL (70-104); MAGNESIUM 2.1 MG/DL (1.5-2.4); PHOSPHORUS 4.4 MG/DL (2.3-4.5); POTASSIUM 4.4 MMOL/L (3.5-5.1); SODIUM 141 MMOL/L (135-145); TOTAL CARBON DIOXIDE 31.5 MMOL/L (24-32); TOTAL PROTEIN 6.3 G/DL (6.4-8.2); eGFR 74 ML/MIN
--- NOTE | 2020-05-17 06:24 | NUR ---
Problems reprioritized. Patient report given, questions answered & plan of care reviewed with Yin LEWIS.
--- NOTE | 2020-05-17 06:30 | NUR ---
Patient in room PCU 3016. I have received report from Gerri LEWIS and had the opportunity to ask questions and assume patient care. Patient awake in bed and resting comfortably. In no acute distress. All immediate needs met at this time.
--- NOTE | 2020-05-17 06:30 | NUR ---
Patient in room U 3017. I have received report from JOSHUA Talley and had the opportunity to ask questions and assume patient care. Patient resting in bed. No signs of distress. Safety measures in place, bed in low and locked position. Call light and personal items within reach. Will continue to monitor.
[2020-05-17] MEDS: levoTHYROXINE 125mcg tablet PO SCH (07:00)
[2020-05-17] MEDS: atorvastatin 20mg tablet PO SCH (07:15)
[2020-05-17] MEDS: diphenhydrAMINE 25mg capsule PO SCH ×2 (07:16→19:14)
[2020-05-17] MEDS: carVEDilol 12.5mg tablet PO SCH ×2 (07:16→19:14)
[2020-05-17] MEDS: lisinopril 20mg tablet PO SCH (07:16)
[2020-05-17] MEDS: risperiDONE 0.5mg tablet PO SCH ×3 (07:17→21:46)
[2020-05-17] MEDS: methylPREDNISolone sod succ/PF 40mg inj. IV SCH ×2 (07:17→19:14)
[2020-05-17] MEDS: gabapentin 300mg capsule PO SCH ×3 (07:17→21:46)
[2020-05-17] MEDS: venlafaxine XR 75mg capsule (Q24H) PO SCH (07:56)
[2020-05-17] MEDS: sennosides 8.6mg tablet PO SCH (08:00)
[2020-05-17] MEDS: K and/or MAG REPLACEMENT MC SCH ×2 (08:00→20:00)
[2020-05-17] MEDS ORDERED: LIDOcaine/PRILOcaine 5gm cream TP ONE (08:20)
[2020-05-17] MEDS: insulin Lispro (HumaLOG) vial - multi-dose SQ SCH ×3 (09:04→19:16)
--- NOTE | 2020-05-17 12:17 | NUR ---
1100 svn missed-pt refused
[2020-05-17] MEDS: normal saline 1000ml 1,000 ML IV SCH ×2 (13:37→22:29)
[2020-05-17] MEDS ORDERED: midazolam 2 mg/2 ml injection ONE (14:13)
[2020-05-17] MEDS ORDERED: fentaNYL/PF 50MCG/1 ML 2ML syringe ONE (14:13)
[2020-05-17] MEDS ORDERED: verapamil 2.5 mg/ml inj IV ONE (14:13)
[2020-05-17] MEDS ORDERED: iohexol 350 MG/ML 50ML vial IV ONE (14:13)
[2020-05-17] MEDS ORDERED: iohexol 350MG/ML 100ml bottle IV ONE (14:13)
[2020-05-17] MEDS ORDERED: nitroGLYCERIN-Tridil 50MG/D5W 250 ML IV ONE (14:13)
[2020-05-17] MEDS ORDERED: heparin 1,000unit/ml 10ml vial 10 ML ONE (14:13)
[2020-05-17] MEDS ORDERED: LIDOcaine 1% (10mg/ml)w/preservative injection 20ml MDV ONE (14:13)
--- NOTE | 2020-05-17 14:36 | NUR ---
afternoon svn missed-pt out for procedure
[2020-05-17] MEDS ORDERED: diphenhydrAMINE 50 mg/ml inj ONE (14:45)
--- NOTE | 2020-05-17 15:30 | NUR ---
Patient back from [employer]. VS stable. Hemostatic band in place to right wrist with 16ml air. First release at 1630. New written orders from Dr. Lu noted and faxed to pharmacy.
[2020-05-17] MEDS ORDERED: lisinopril 10 MG tablet PO ONE ×2 (15:45→16:45)
[2020-05-17] MEDS ORDERED: hydrALAZINE 20mg/ml inj. IV PRN (16:00)
[2020-05-17] MEDS ORDERED: normal saline 1000ml 1,000 ML IV SCH (16:20)
[2020-05-17] MEDS ORDERED: diltiazem 5mg/ml 5ml inj. IV PRN (16:30)
[2020-05-17] MEDS: hydrALAZINE 20mg/ml inj. IV PRN ×2 (16:46→21:52)
[2020-05-17] MEDS: clopidogrel 75mg tablet PO SCH (17:29)
[2020-05-17] MEDS: aspirin 81mg tablet.DR PO SCH (17:29)
--- NOTE | 2020-05-17 18:12 | NUR ---
Problems reprioritized. Patient report given, questions answered & plan of care reviewed with Gerri LEWIS. Patient stable at transfer of care.
--- NOTE | 2020-05-17 18:12 | NUR ---
[place]rientee documentation: I have reviewed and agree with all interventions, assessments performed and documented by Luis LEWIS. [place] Medication Administration: For this medication-pass time frame, all medication were reviewed, dispensed, administered and documented per hospital policy by JOSHUA Smith.
[2020-05-17] MEDS: quetiapine 100mg tablet PO SCH (21:46)
[2020-05-17] MEDS: pantoprazole 40mg Tablet.DR PO SCH (21:46)
[2020-05-17] MEDS: insulin glargine (Lantus) pen - multi-dose SQ SCH (21:50)
[2020-05-18] VITALS: BP 163/67
[2020-05-18 02:00] VITALS: BP 166/81
[2020-05-18] MEDS: baclofen 10mg tablet PO SCH ×2 (02:44→08:27)
[2020-05-18] MEDS: hydrALAZINE 20mg/ml inj. IV PRN (02:47)
[2020-05-18] MEDS: ipratropium/albuterol 3ml nebule NEB SCH ×3 (03:13→11:26)
[2020-05-18 04:00] VITALS: BP 166/81
[2020-05-18 05:43] LABS: BASOPHILS % (AUTO) 0.2 % (0-1); EOSINOPHILS % (AUTO) 0 % (0-6); HEMATOCRIT 43.8 % (35.0-45.0); HEMOGLOBIN 14.5 g/dl (12.0-16.0); LYMPHOCYTES # (AUTO) 1.4 X10'3 (1.1-4.8); LYMPHOCYTES % (AUTO) 12.9 % (21-51); MEAN CORPUSCULAR HEMOGLOBIN 29.2 PG (27.0-31.0); MEAN CORPUSCULAR HGB CONC 33.2 g/dL (33.0-36.5); MEAN CORPUSCULAR VOLUME 88.1 FL (78-98); MEAN PLATELET VOLUME 9.6 FL (7.4-10.4); MONOCYTES # (AUTO) 0.7 X10'3 (0-0.9); MONOCYTES % (AUTO) 6.6 % (2-12); NEUTROPHILS # (AUTO) 8.9 X10'3 (1.8-7.7); NEUTROPHILS % (AUTO) 80.3 % (42-75); PLATELET COUNT 183 X10'3 (140-440); RED BLOOD COUNT 4.98 X10'6 (4.20-5.60); RED CELL DISTRIBUTION WIDTH 16.5 % (11.5-14.5)
[2020-05-18 05:59] LABS: ALANINE AMINOTRANSFERASE 23 U/L (12-78); ALBUMIN 3.6 G/DL (3.4-5.0); ALBUMIN/GLOBULIN RATIO 1.4 (1.1-1.5); ALKALINE PHOSPHATASE 58 IU/L (46-116); ANION GAP 6 (8-16); ASPARTATE AMINO TRANSFERASE 14 U/L (10-37); BILIRUBIN,TOTAL 0.5 MG/DL (0.1-1.0); BLOOD UREA NITROGEN 13 MG/DL (7-18); BUN/CREATININE RATIO 21.7 (6.6-38.0); CALCIUM 8.1 MG/DL (8.5-10.1); CHLORIDE 105 MMOL/L (99-107); CHOL/HDL RATIO 3.6 (0.00-4.99); CHOLESTEROL 148 MG/DL (0-200); GLUCOSE 137 MG/DL (70-104); HDL CHOLESTEROL 41 MG/DL (35-60); LDL CHOLESTEROL 84 MG/DL (50-100); MAGNESIUM 2.2 MG/DL (1.5-2.4); PHOSPHORUS 4.2 MG/DL (2.3-4.5); POTASSIUM 3.7 MMOL/L (3.5-5.1); SODIUM 139 MMOL/L (135-145); TOTAL CARBON DIOXIDE 27.9 MMOL/L (24-32); TOTAL PROTEIN 6.2 G/DL (6.4-8.2); TRIGLYCERIDES 122 MG/DL (20-135); eGFR > 90 ML/MIN
[2020-05-18 06:00] VITALS: BP 119/68
--- NOTE | 2020-05-18 06:15 | NUR ---
Problems reprioritized. Patient report given, questions answered & plan of care reviewed with Mary Ellen LEWIS.
--- NOTE | 2020-05-18 06:20 | NUR ---
Patient in room PCU 3017. I have received report from JOSHUA Talley and had the opportunity to ask questions and assume patient care.
[2020-05-18] MEDS: clopidogrel 75mg tablet PO SCH (08:25)
[2020-05-18] MEDS: sennosides 8.6mg tablet PO SCH (08:26)
[2020-05-18] MEDS: diphenhydrAMINE 25mg capsule PO SCH (08:26)
[2020-05-18] MEDS: carVEDilol 12.5mg tablet PO SCH (08:26)
[2020-05-18] MEDS: atorvastatin 20mg tablet PO SCH (08:26)
[2020-05-18] MEDS: gabapentin 300mg capsule PO SCH (08:26)
[2020-05-18] MEDS: aspirin 81mg tablet.DR PO SCH (08:27)
[2020-05-18] MEDS: risperiDONE 0.5mg tablet PO SCH (08:27)
[2020-05-18] MEDS: venlafaxine XR 75mg capsule (Q24H) PO SCH (08:27)
[2020-05-18] MEDS: lisinopril 20mg tablet PO SCH (08:28)
[2020-05-18] MEDS: levoTHYROXINE 125mcg tablet PO SCH (08:31)
[2020-05-18] MEDS: methylPREDNISolone sod succ/PF 40mg inj. IV SCH (08:32)
[2020-05-18] MEDS: insulin Lispro (HumaLOG) vial - multi-dose SQ SCH (08:36)
[2020-05-18] MEDS ORDERED: LISI-600 PO (10:33)
[2020-05-18 11:00] VITALS: BP 174/88
--- NOTE | 2020-05-18 13:00 | NUR ---
Patient stable for discharge per md orders. Discharge instructions gone over with patient. Prescrptions escripted to patient's preferred pharmacy. Extensive return precautions given. IV cannula discontinued with catheter intact. Patient wheeled to lobby via wheelchair accompanied by WAREHOUSE PICKER. Wristbands cut at time of discharge. Patient seen leaving premises in private vehicle driven by family.
--- NOTE | 2020-05-18 17:49 | NUR ---
I have reviewed and agree with all medications administered and interventions performed by [facility] Student Kale Ruggiero.
== END 2020-05-18 13:51 | disposition home or self-care (01) | DRG 191 ==
LOC: ER 10:37 → ED HOLD 14:29 → EDBEDREQ 14:42 → PCU 3S 15:23 → OBSVTOIN 05-15 09:30 → PCU 3S 05-17 09:14
PROVIDERS: ADMIT Family Medicine; ATTEND Family Medicine
PROC: 4A02XM4 Measurement of Cardiac Total Activity, External Approach (ICD-10-PCS; 2020-05-16)
PROC: 3E033HZ Introduction of Radioactive Substance into Peripheral Vein, Percutaneous Approach (ICD-10-PCS; 2020-05-16)
PROC: 4A023N7 Measurement of Cardiac Sampling and Pressure, Left Heart, Percutaneous Approach (ICD-10-PCS; principal; 2020-05-18)
PROC: B2111ZZ Fluoroscopy of Multiple Coronary Arteries using Low Osmolar Contrast (ICD-10-PCS; 2020-05-18)
PROC: B2151ZZ Fluoroscopy of Left Heart using Low Osmolar Contrast (ICD-10-PCS; 2020-05-18)
DX: I24.9 Acute ischemic heart disease, unspecified (principal); E11.40 Type 2 diabetes mellitus with diabetic neuropathy, unspecified; E11.65 Type 2 diabetes mellitus with hyperglycemia; E78.00 Pure hypercholesterolemia, unspecified; E78.5 Hyperlipidemia, unspecified; E87.6 Hypokalemia; E89.0 Postprocedural hypothyroidism; F17.200 Nicotine dependence, unspecified, uncomplicated; F31.9 Bipolar disorder, unspecified; F41.9 Anxiety disorder, unspecified; G89.4 Chronic pain syndrome; I11.0 Hypertensive heart disease with heart failure; I25.119 Atherosclerotic heart disease of native coronary artery with unspecified angina pectoris; I50.9 Heart failure, unspecified; J44.1 Chronic obstructive pulmonary disease with (acute) exacerbation; K21.9 Gastro-esophageal reflux disease without esophagitis; Z79.02 Long term (current) use of antithrombotics/antiplatelets; Z79.82 Long term (current) use of aspirin; Z79.84 Long term (current) use of oral hypoglycemic drugs; Z79.890 Hormone replacement therapy; Z79.899 Other long term (current) drug therapy; Z85.43 Personal history of malignant neoplasm of ovary; Z86.73 Personal history of transient ischemic attack (TIA), and cerebral infarction without residual deficits; Z90.711 Acquired absence of uterus with remaining cervical stump; Z95.5 Presence of coronary angioplasty implant and graft
CPT/HCPCS: 36415; 71045; 76937; 78452; 80053; 80061; 80305; 81001; 82948; 83735; 83880; 84100; 84443; 84484; 85025; 87081; 93005; 93017; 93458; 94640; 94760; 96374; 96375; 96376; 99152; 99153; 99285; A4620; A5120; A9500; C1769; C1894; G0378; J0280; J0360; J1200; J1644; J1815; J2001; J2250; J2785; J2920; J2930; J3010; J3490; J7030; Q0163; Q9967

== ENCOUNTER 2020-11-17 13:24 | Inpatient (IN) | payer MEDICAID ==
[~2020-11-17] VITALS: Ht 160 cm; Wt 75.8 kg
[~2020-11-17 13:24] MED LIST changes: +CLOP75TA34 PO; -CLOP75TA35 PO; -IBUP-1985 PO; +LISI20TA28 PO; -RISP1TAB3 PO; +RISP1TAB98 PO
[2020-11-17] MEDS ORDERED: naloxone 0.4 mg/ml inj IV ONE ×5 (13:45→18:15)
--- NOTE | 2020-11-17 13:50 | NUR ---
Pt difficult to arose, apneic at times, pinpoint pupils. Pt admits to cocaine use. Dr. Ramos aware. Narcan ordered.
[2020-11-17] MEDS ORDERED: naloxone 0.4 mg/ml inj IV STA (14:16)
[2020-11-17 14:56] LABS: BASOPHILS # (AUTO) 0.1 X10'3 (0-0.2); BASOPHILS % (AUTO) 0.5 % (0-1); EOSINOPHILS # (AUTO) 0.1 X10'3 (0-0.9); EOSINOPHILS % (AUTO) 1.2 % (0-6); HEMATOCRIT 44.7 % (35.0-45.0); HEMOGLOBIN 14.6 g/dl (12.0-16.0); LYMPHOCYTES # (AUTO) 1.4 X10'3 (1.1-4.8); LYMPHOCYTES % (AUTO) 11.3 % (21-51); MEAN CORPUSCULAR HEMOGLOBIN 29.2 PG (27.0-31.0); MEAN CORPUSCULAR HGB CONC 32.6 g/dL (33.0-36.5); MEAN CORPUSCULAR VOLUME 89.8 FL (78-98); MEAN PLATELET VOLUME 8.8 FL (7.4-10.4); MONOCYTES # (AUTO) 0.9 X10'3 (0-0.9); PLATELET COUNT 227 X10'3 (140-440); RED BLOOD COUNT 4.98 X10'6 (4.20-5.60); RED CELL DISTRIBUTION WIDTH 13.9 % (11.5-14.5); WHITE BLOOD COUNT 12.5 X10'3 (4.5-11.0)
--- NOTE | 2020-11-17 15:08 | NUR ---
Patient is still difficult to arose and having RR of 8-10. Dr. Gutierrez updated. Urine obtained and sent. MD will come to bedside to evaluate.
[2020-11-17 15:21] LABS: ALANINE AMINOTRANSFERASE 24 U/L (12-78); ALBUMIN 4.5 G/DL (3.4-5.0); ALBUMIN/GLOBULIN RATIO 1.2 (1.1-1.5); ALKALINE PHOSPHATASE 106 IU/L (46-116); ANION GAP 10 (8-16); ASPARTATE AMINO TRANSFERASE 22 U/L (10-37); BILIRUBIN,TOTAL 0.4 MG/DL (0.1-1.0); BLOOD UREA NITROGEN 11 MG/DL (7-18); CALCIUM 9.2 MG/DL (8.5-10.1); CHLORIDE 104 MMOL/L (99-107); CREATININE 0.92 MG/DL (0.40-0.90); ETHANOL < 0.010 GM/DL (0.0-0.010); GLUCOSE 203 MG/DL (70-104); LIPASE 100 U/L (73-393); POTASSIUM 3.9 MMOL/L (3.5-5.1); SODIUM 145 MMOL/L (135-145); TOTAL CARBON DIOXIDE 30.8 MMOL/L (24-32); TOTAL PROTEIN 8.2 G/DL (6.4-8.2); TROPONIN I < 0.04 NG/ML (0.0-0.05); eGFR 63 ML/MIN
[2020-11-17 15:31] LABS: URINE HCG NEGATIVE (NEG)
[2020-11-17 15:36] LABS: CLARITY,URINE CLEAR (Clear); COLOR,URINE STRAW (Yellow); GLUCOSE, URINE 250 mg/dl (Neg); KETONES,URINE NEGATIVE (Neg); LEUKOCYTE ESTERASE ,URINE NEGATIVE (Neg); NITRITES, URINE NEGATIVE (Neg); OCCULT BLOOD,URINE NEGATIVE (Neg); PH,URINE 7.5 (4.8-8.0); PROTEIN,URINE TRACE mg/dl (Neg); UROBILINOGEN,URINE 0.2 E.U/dL (0.2-1.0)
[2020-11-17 15:39] LABS: UA COLLECTION TYPE STRAIGHT CATH
[2020-11-17] MEDS ORDERED: naloxone 2mg/2ml inj 2 MG in normal saline 500ml IV soln 498 ML IV SCH ×3 (15:40→18:55)
[2020-11-17 15:42] LABS: URINE AMPHETAMINE SCREEN POSITIVE (Neg); URINE BARBITUATE SCREEN NEGATIVE (Neg); URINE BENZODIAZEPINES SCREEN NEGATIVE (Neg); URINE CANNABINOID SCREEN POSITIVE (Neg); URINE COCAINE SCREEN NEGATIVE (Neg); URINE METHADONE SCREEN NEGATIVE (Neg); URINE OPIATE SCREEN NEGATIVE (Neg); URINE PHENCYCLIDINE SCREEN NEGATIVE (Neg)
[2020-11-17 15:43] LABS: BACTERIA,URINE FEW /HPF (Neg); MUCUS STRANDS FEW /LPF (Neg); RBC,URINE NONE SEEN /HPF (0-2); SQUAMOUS EPITHELIAL CELL,UR FEW /LPF (FEW); WBC,URINE 0-4 /HPF (0-4)
--- NOTE | 2020-11-17 15:50 | NUR ---
Dr. Gutierrez at bedside. Patient is difficult to arouse and sp02 is 81% on RA. Orders to give Narcan stat. Pharmacy called, will take 15 min to prepare
[2020-11-17] MEDS ORDERED: METF-436 PO (16:16)
[2020-11-17] MEDS ORDERED: PANT40TA54 PO (16:16)
[2020-11-17] MEDS ORDERED: CARV-49 PO (16:16)
[2020-11-17] MEDS ORDERED: BACL20TA PO (16:16)
[2020-11-17] MEDS ORDERED: ATOR40TA72 PO (16:16)
[2020-11-17] MEDS ORDERED: NICO-687 TOP (16:16)
[2020-11-17] MEDS ORDERED: DIPH25TA81 PO (16:16)
[2020-11-17] MEDS ORDERED: VENL75CA61 PO (16:16)
[2020-11-17] MEDS ORDERED: GABA300C PO (16:16)
[2020-11-17] MEDS ORDERED: LISI20TA28 PO (16:16)
[2020-11-17] MEDS ORDERED: ALBU8HFA IH (16:16)
[2020-11-17] MEDS ORDERED: LEVO125T8 PO (16:16)
[2020-11-17] MEDS ORDERED: QUET100T33 PO (16:16)
[2020-11-17] MEDS ORDERED: RISP0.5T65 PO (16:16)
[2020-11-17] MEDS ORDERED: CLOP75TA33 PO (16:16)
--- NOTE | 2020-11-17 16:20 | NUR ---
Orders to increase narcan drip to 0.8mg/hr and give additional narcan 0.4mg bolus.
[2020-11-17] MEDS ORDERED: niCARdipine I.V. 50 MG in normal saline 250ml IV soln 230 ML IV SCH (16:30)
[2020-11-17] MEDS: niCARDipine-NS 40mg/200ml IVPB 200 ML IV PRN (16:36)
[2020-11-17] MEDS ORDERED: magnesium Cl slow-release 64mg tablet PO PRN (16:45)
[2020-11-17] MEDS ORDERED: magnesium 2GM in 50ml NS 50 ML IV PRN (16:45)
[2020-11-17] MEDS: normal saline 1000ml 1,000 ML IV SCH (16:45)
[2020-11-17] MEDS ORDERED: acetaminophen 325mg tablet PO PRN ×2 (16:45)
[2020-11-17] MEDS ORDERED: Neutra Phos packet PO PRN (16:45)
[2020-11-17] MEDS ORDERED: sodium phosphate inj. 15 MMOL in dextrose 5%-water 250 ML IV PRN (16:45)
[2020-11-17] MEDS ORDERED: morphine 4 MG/ML inj SYRINge IV PRN (16:45)
[2020-11-17] MEDS ORDERED: magnesium hydroxide 30ml (MOM) UD suspension PO PRN (16:45)
[2020-11-17] MEDS ORDERED: LIDOcaine 2% 10ml TOPICAL JELLY (Urojet) TP ONE (16:45)
[2020-11-17] MEDS ORDERED: morphine 2 MG/ML inj. syringe IV PRN (16:45)
[2020-11-17] MEDS ORDERED: magnesium 4gm in 100ml NS 100 ML IV PRN (16:45)
[2020-11-17] MEDS ORDERED: potassium Cl 20 mEq SR tablet PO PRN ×2 (16:45)
[2020-11-17] MEDS ORDERED: sodium phosphate inj. 30 MMOL in dextrose 5%-water 250 ML IV PRN (16:45)
--- NOTE | 2020-11-17 16:58 | NUR ---
Dr. Dozier at bedside. SBP >240. Orders to start narcan gtt and initiate cardene gtt.
[2020-11-17 18:00] LABS: ABG BASE EXCESS -0.1 mmol/L (-2.0-2.0); ABG OXYGEN SATURATION 87.7 % (94-97); ABG PCO2 (T) 74.9 mmHg (32.0-45.0); ABG PO2 (T) 64.7 mmHg (75.0-100.0); ALLEN'S TEST POSITIVE; FCOHb 2.7 % (0.0-3.9); FLOW 2 L/min; FMetHb 0.1 % (0.0-1.5); FO2Hb 85.2 % (94-97); TOTAL HEMOGLOBIN 15.4 G/dl (12.0-16.0)
--- NOTE | 2020-11-17 18:17 | NUR ---
Dr. Gutierrez updated on pt condition. pH 7.22. Patient is difficult to arose and bradypneic. Sp02 decreasing to 70% at times. Orders to restart Narcan drip and give 0.4mg one time dose.
--- NOTE | 2020-11-17 18:22 | NUR ---
Attempted to call report. ICU special needs bus driver states they are unable to take patient at this time due to assignments switching.
[2020-11-17 20:00] VITALS: BP 152/75
[2020-11-17 21:00] VITALS: BP 137/77
[2020-11-17 22:00] VITALS: BP 148/78
[2020-11-17] MEDS: heparin, porcine 5000 units/ml vial SQ SCH (22:00)
[2020-11-17 23:00] VITALS: BP 152/75
[2020-11-18] VITALS (21 sets, daily range): BP systolic 115–152; BP diastolic 59–72
[2020-11-18] MEDS: ondansetron/PF 4mg/2ml inj IV PRN ×2 (00:50→07:37)
[2020-11-18 06:46] LABS: BASOPHILS % (AUTO) 0.4 % (0-1); EOSINOPHILS % (AUTO) 0.3 % (0-6); HEMATOCRIT 43.6 % (35.0-45.0); HEMOGLOBIN 14.4 g/dl (12.0-16.0); LYMPHOCYTES # (AUTO) 1.3 X10'3 (1.1-4.8); LYMPHOCYTES % (AUTO) 12.4 % (21-51); MEAN CORPUSCULAR HEMOGLOBIN 29.8 PG (27.0-31.0); MEAN CORPUSCULAR VOLUME 90.3 FL (78-98); MEAN PLATELET VOLUME 8.8 FL (7.4-10.4); MONOCYTES # (AUTO) 0.7 X10'3 (0-0.9); MONOCYTES % (AUTO) 6.9 % (2-12); NEUTROPHILS # (AUTO) 8.6 X10'3 (1.8-7.7); PLATELET COUNT 200 X10'3 (140-440); RED BLOOD COUNT 4.83 X10'6 (4.20-5.60); WHITE BLOOD COUNT 10.7 X10'3 (4.5-11.0)
[2020-11-18 06:56] LABS: ALANINE AMINOTRANSFERASE 21 U/L (12-78); ALBUMIN 4.2 G/DL (3.4-5.0); ALBUMIN/GLOBULIN RATIO 1.2 (1.1-1.5); ALKALINE PHOSPHATASE 105 IU/L (46-116); ANION GAP 9 (8-16); ASPARTATE AMINO TRANSFERASE 14 U/L (10-37); BILIRUBIN,TOTAL 0.4 MG/DL (0.1-1.0); BLOOD UREA NITROGEN 8 MG/DL (7-18); CALCIUM 8.6 MG/DL (8.5-10.1); CHLORIDE 104 MMOL/L (99-107); GLUCOSE 132 MG/DL (70-104); MAGNESIUM 1.9 MG/DL (1.5-2.4); PHOSPHORUS 3.9 MG/DL (2.3-4.5); POTASSIUM 3.6 MMOL/L (3.5-5.1); SODIUM 144 MMOL/L (135-145); TOTAL CARBON DIOXIDE 30.6 MMOL/L (24-32); TOTAL PROTEIN 7.8 G/DL (6.4-8.2); eGFR > 90 ML/MIN
[2020-11-18] MEDS: heparin, porcine 5000 units/ml vial SQ SCH ×2 (07:37→20:10)
[2020-11-18] MEDS: pantoprazole 40mg Tablet.DR PO SCH (07:37)
[2020-11-18] MEDS: normal saline 1000ml 1,000 ML IV SCH ×2 (07:37→19:32)
[2020-11-18] MEDS: niCARDipine-NS 40mg/200ml IVPB 200 ML IV PRN ×2 (08:32→17:08)
[2020-11-18] MEDS ORDERED: albuterol 2.5 MG/3 ML nebule NEB PRN (11:10)
--- NOTE | 2020-11-18 13:30 | NUR ---
Patient in room CICU 2013. I have received report from Wilfred LEWIS and JOSHUA Go and had the opportunity to ask questions and assume patient care.
[2020-11-18] MEDS ORDERED: lisinopril 20mg tablet PO ONE (14:25)
[2020-11-18] MEDS ORDERED: labetalol 100mg tablet PO ONE (14:25)
[2020-11-18] MEDS ORDERED: levoTHYROXINE 125mcg tablet PO ONE (14:25)
[2020-11-18] MEDS ORDERED: clopidogrel 75mg tablet PO ONE (14:25)
[2020-11-18] MEDS ORDERED: venlafaxine XR 75mg capsule (Q24H) PO ONE (14:25)
[2020-11-18] MEDS: gabapentin 300mg capsule PO SCH ×2 (15:13→20:09)
[2020-11-18] MEDS: diphenhydrAMINE 25mg capsule PO SCH ×2 (15:15→20:09)
[2020-11-18] MEDS: risperiDONE 0.5mg tablet PO SCH ×2 (15:16→20:09)
--- NOTE | 2020-11-18 18:17 | NUR ---
Problems reprioritized. Patient report given, questions answered & plan of care reviewed with JOSHUA Lake.
[2020-11-18] MEDS: metFORMIN 500mg tablet PO SCH (19:33)
[2020-11-18] MEDS ORDERED: carvedilol 6.25mg tablet PO SCH (20:00)
[2020-11-18] MEDS: sennosides 8.6mg tablet PO SCH (20:09)
[2020-11-18] MEDS: quetiapine 100mg tablet PO SCH (20:10)
[2020-11-18] MEDS: labetalol 100mg tablet PO SCH (20:10)
[2020-11-19] VITALS (25 sets, daily range): BP systolic 104–157; BP diastolic 52–71
--- NOTE | 2020-11-19 06:26 | NUR ---
Patient in room CICU 2013. I have received report from Jaya LEWIS and had the opportunity to ask questions and assume patient care.
[2020-11-19] MEDS: normal saline 1000ml 1,000 ML IV SCH ×2 (07:37→16:53)
[2020-11-19] MEDS: pantoprazole 40mg Tablet.DR PO SCH (07:37)
[2020-11-19] MEDS: risperiDONE 0.5mg tablet PO SCH ×3 (07:37→20:11)
[2020-11-19] MEDS: clopidogrel 75mg tablet PO SCH (07:37)
[2020-11-19] MEDS: metFORMIN 500mg tablet PO SCH ×2 (07:37→20:11)
[2020-11-19] MEDS: gabapentin 300mg capsule PO SCH ×3 (07:37→20:11)
[2020-11-19] MEDS: lisinopril 20mg tablet PO SCH (07:38)
[2020-11-19] MEDS: venlafaxine XR 75mg capsule (Q24H) PO SCH (07:38)
[2020-11-19] MEDS: diphenhydrAMINE 25mg capsule PO SCH ×3 (07:38→20:11)
[2020-11-19] MEDS: atorvastatin 20mg tablet PO SCH (07:38)
[2020-11-19] MEDS: heparin, porcine 5000 units/ml vial SQ SCH ×2 (07:39→20:11)
[2020-11-19] MEDS: labetalol 100mg tablet PO SCH ×2 (07:39→20:11)
[2020-11-19] MEDS: levoTHYROXINE 125mcg tablet PO SCH (07:39)
[2020-11-19] MEDS: nicotine 21mg patch - 24 hr TD SCH (07:40)
[2020-11-19] MEDS ORDERED: pantoprazole 40mg Tablet.DR PO SCH (08:00)
[2020-11-19 10:13] LABS: BASOPHILS # (AUTO) 0.1 X10'3 (0-0.2); BASOPHILS % (AUTO) 0.5 % (0-1); EOSINOPHILS # (AUTO) 0.1 X10'3 (0-0.9); EOSINOPHILS % (AUTO) 0.4 % (0-6); HEMATOCRIT 38.5 % (35.0-45.0); HEMOGLOBIN 12.2 g/dl (12.0-16.0); LYMPHOCYTES # (AUTO) 1.3 X10'3 (1.1-4.8); LYMPHOCYTES % (AUTO) 9.3 % (21-51); MEAN CORPUSCULAR HGB CONC 31.8 g/dL (33.0-36.5); MEAN CORPUSCULAR VOLUME 91.4 FL (78-98); MEAN PLATELET VOLUME 8.4 FL (7.4-10.4); MONOCYTES # (AUTO) 1.1 X10'3 (0-0.9); MONOCYTES % (AUTO) 8.3 % (2-12); NEUTROPHILS # (AUTO) 11.1 X10'3 (1.8-7.7); NEUTROPHILS % (AUTO) 81.5 % (42-75); PLATELET COUNT 170 X10'3 (140-440); RED BLOOD COUNT 4.22 X10'6 (4.20-5.60); WHITE BLOOD COUNT 13.6 X10'3 (4.5-11.0)
[2020-11-19 10:22] LABS: ALANINE AMINOTRANSFERASE 19 U/L (12-78); ALBUMIN 3.4 G/DL (3.4-5.0); ALBUMIN/GLOBULIN RATIO 1.1 (1.1-1.5); ALKALINE PHOSPHATASE 87 IU/L (46-116); ANION GAP 9 (8-16); ASPARTATE AMINO TRANSFERASE 19 U/L (10-37); BILIRUBIN,TOTAL 0.4 MG/DL (0.1-1.0); BLOOD UREA NITROGEN 11 MG/DL (7-18); BUN/CREATININE RATIO 16.9 (6.6-38.0); CALCIUM 8.7 MG/DL (8.5-10.1); CHLORIDE 102 MMOL/L (99-107); CREATININE 0.65 MG/DL (0.40-0.90); GLUCOSE 103 MG/DL (70-104); MAGNESIUM 1.8 MG/DL (1.5-2.4); PHOSPHORUS 3.9 MG/DL (2.3-4.5); POTASSIUM 3.9 MMOL/L (3.5-5.1); SODIUM 141 MMOL/L (135-145); TOTAL PROTEIN 6.5 G/DL (6.4-8.2); eGFR > 90 ML/MIN
--- NOTE | 2020-11-19 13:34 | NUR ---
Patient's WBC shane today to 13.6 from 10.7 yesterday. New orders from Dr. Quezada for UA with cultures, CXR, and 2 blood cultures.
--- NOTE | 2020-11-19 18:09 | NUR ---
Problems reprioritized. Patient report given, questions answered & plan of care reviewed with Gerardo RN.
--- NOTE | 2020-11-19 18:48 | NUR ---
Patient in room CICU 2013. I have received report from Lauren LEWIS and had the opportunity to ask questions and assume patient care.
[2020-11-19] MEDS: sennosides 8.6mg tablet PO SCH (20:11)
[2020-11-19] MEDS: quetiapine 100mg tablet PO SCH (20:11)
[2020-11-20] VITALS (11 sets, daily range): BP systolic 143–200; BP diastolic 64–88
--- NOTE | 2020-11-20 06:10 | NUR ---
Problems reprioritized. Patient report given, questions answered & plan of care reviewed with Renetta LEWIS.
[2020-11-20 06:11] LABS: BASOPHILS % (AUTO) 0.6 % (0-1); EOSINOPHILS # (AUTO) 0.1 X10'3 (0-0.9); EOSINOPHILS % (AUTO) 1.1 % (0-6); HEMATOCRIT 32.6 % (35.0-45.0); LYMPHOCYTES # (AUTO) 1.3 X10'3 (1.1-4.8); LYMPHOCYTES % (AUTO) 17.1 % (21-51); MEAN CORPUSCULAR HGB CONC 33.8 g/dL (33.0-36.5); MEAN CORPUSCULAR VOLUME 88.7 FL (78-98); MEAN PLATELET VOLUME 8.5 FL (7.4-10.4); MONOCYTES # (AUTO) 0.7 X10'3 (0-0.9); MONOCYTES % (AUTO) 8.7 % (2-12); NEUTROPHILS # (AUTO) 5.6 X10'3 (1.8-7.7); NEUTROPHILS % (AUTO) 72.5 % (42-75); PLATELET COUNT 158 X10'3 (140-440); RED BLOOD COUNT 3.68 X10'6 (4.20-5.60); RED CELL DISTRIBUTION WIDTH 13.6 % (11.5-14.5); WHITE BLOOD COUNT 7.8 X10'3 (4.5-11.0)
[2020-11-20 06:23] LABS: ALANINE AMINOTRANSFERASE 16 U/L (12-78); ALBUMIN 3.1 G/DL (3.4-5.0); ALBUMIN/GLOBULIN RATIO 1.1 (1.1-1.5); ALKALINE PHOSPHATASE 73 IU/L (46-116); ANION GAP 7 (8-16); ASPARTATE AMINO TRANSFERASE 13 U/L (10-37); BILIRUBIN,TOTAL 0.5 MG/DL (0.1-1.0); BLOOD UREA NITROGEN 8 MG/DL (7-18); BUN/CREATININE RATIO 14.8 (6.6-38.0); CHLORIDE 105 MMOL/L (99-107); CREATININE 0.54 MG/DL (0.40-0.90); GLUCOSE 119 MG/DL (70-104); MAGNESIUM 1.5 MG/DL (1.5-2.4); PHOSPHORUS 2.4 MG/DL (2.3-4.5); POTASSIUM 3.4 MMOL/L (3.5-5.1); SODIUM 143 MMOL/L (135-145); TOTAL PROTEIN 5.9 G/DL (6.4-8.2); eGFR > 90 ML/MIN
[2020-11-20] MEDS: venlafaxine XR 75mg capsule (Q24H) PO SCH (07:36)
[2020-11-20] MEDS: pantoprazole 40mg Tablet.DR PO SCH (07:36)
[2020-11-20] MEDS: metFORMIN 500mg tablet PO SCH (07:36)
[2020-11-20] MEDS: labetalol 100mg tablet PO SCH (07:37)
[2020-11-20] MEDS: levoTHYROXINE 125mcg tablet PO SCH (07:37)
[2020-11-20] MEDS: gabapentin 300mg capsule PO SCH (07:37)
[2020-11-20] MEDS: risperiDONE 0.5mg tablet PO SCH (07:37)
[2020-11-20] MEDS: clopidogrel 75mg tablet PO SCH (07:37)
[2020-11-20] MEDS: atorvastatin 20mg tablet PO SCH (07:37)
[2020-11-20] MEDS: heparin, porcine 5000 units/ml vial SQ SCH (07:38)
[2020-11-20] MEDS: lisinopril 20mg tablet PO SCH (07:38)
[2020-11-20] MEDS: diphenhydrAMINE 25mg capsule PO SCH (07:40)
[2020-11-20] MEDS: nicotine 21mg patch - 24 hr TD SCH (07:45)
[2020-11-20] MEDS ORDERED: cloNIDine 0.1 mg tablet PO ONE (09:30)
[2020-11-20] MEDS ORDERED: CARV-49 PO (10:03)
[2020-11-20] MEDS ORDERED: LISI20TA28 PO (10:03)
--- NOTE | 2020-11-20 12:21 | NUR ---
meds coreg and lisinopril called into [facility]
[2020-11-20] MEDS ORDERED: cloNIDine 0.1 mg tablet PO SCH (13:00)
--- NOTE | 2020-11-20 13:50 | NUR ---
patient was dc to home and was picked up by a friend. PIV x2 were removed with cannula intact. Richard was removed and pt voided before leaving. RX were called into [facility]. Patient's belonging went with her. DC instructions and warning signs and symptoms were reviewed and she verbalized understanding. She was also advised to stop using street drugs. Patient alert, oriented and appropriate at time of dc.
== END 2020-11-20 14:34 | disposition home health service (06) | DRG 812 ==
LOC: ER 13:25 → ED HOLD 16:42 → CICU 2S 20:29
PROVIDERS: ADMIT Internal Medicine Critical Care Medicine; ATTEND Internal Medicine Critical Care Medicine
DX: T40.601A Poisoning by unspecified narcotics, accidental (unintentional), initial encounter (principal); E03.9 Hypothyroidism, unspecified; E11.40 Type 2 diabetes mellitus with diabetic neuropathy, unspecified; E78.00 Pure hypercholesterolemia, unspecified; E78.5 Hyperlipidemia, unspecified; I11.0 Hypertensive heart disease with heart failure; I50.9 Heart failure, unspecified; E05.00 Thyrotoxicosis with diffuse goiter without thyrotoxic crisis or storm; F12.90 Cannabis use, unspecified, uncomplicated; F41.9 Anxiety disorder, unspecified; G89.29 Other chronic pain; K21.9 Gastro-esophageal reflux disease without esophagitis; E87.3 Alkalosis; F31.9 Bipolar disorder, unspecified; M54.9 Dorsalgia, unspecified; J44.9 Chronic obstructive pulmonary disease, unspecified; J96.00 Acute respiratory failure, unspecified whether with hypoxia or hypercapnia; Z79.84 Long term (current) use of oral hypoglycemic drugs; Z80.41 Family history of malignant neoplasm of ovary; Z83.3 Family history of diabetes mellitus; Z86.73 Personal history of transient ischemic attack (TIA), and cerebral infarction without residual deficits; Z90.710 Acquired absence of both cervix and uterus; Z88.0 Allergy status to penicillin; Z88.1 Allergy status to other antibiotic agents; Z88.8 Allergy status to other drugs, medicaments and biological substances; Z98.51 Tubal ligation status; Z82.49 Family history of ischemic heart disease and other diseases of the circulatory system; Y92.89 Other specified places as the place of occurrence of the external cause; Z79.899 Other long term (current) drug therapy
CPT/HCPCS: 36415; 36600; 70450; 71045; 80053; 80305; 80320; 81001; 81025; 82803; 82948; 83605; 83690; 83735; 84100; 84484; 85018; 85025; 87040; 87081; 87088; 93005; 96365; 96376; 97161; 97530; 99291; 99292; G0378; J1644; J2310; J2405; J7030; J7040; Q0163

== ENCOUNTER 2024-05-03 11:01 | Inpatient (IN) | payer MEDICAID ==
[2024-05-03] VITALS (10 sets, daily range): PULSE 68–82; RESP 18–20; O2SAT 85–99
[~2024-05-03] VITALS: Ht 160 cm; Wt 62.1 kg
[~2024-05-03 11:01] MED LIST changes: -ALB0.5UD IH; +ALBU8HFA IH; -ASPI81TA52 PO; -ATOR20TA66 PO; +ATOR40TA72 PO; -BACL20TA11 PO; +CARV-49 PO; -CARV6.253 PO; +CLOP75TA33 PO; -CLOP75TA34 PO; -DIPH25CA46 PO; +DIPH25TA81 PO; -GABA-532 PO; +GABA300C PO; -GLYC10.7 INH; -IPRA3AMP9 IH; +LEVO125T8 PO; -LEVO25TA50 PO; +METF-436 PO; -METF-438 PO; +NICO-687 TOP; -PANT-47 PO; +PANT40TA54 PO; -QUET-1 PO; +QUET100T34 PO; +RISP0.5T80 PO; -RISP1TAB98 PO; -VENL25TA48 PO; +VENL75CA61 PO
[2024-05-03 12:09] LABS: BASOPHILS % (AUTO) 0.3 % (0-1); EOSINOPHILS # (AUTO) 0.1 X10'3 (0-0.9); EOSINOPHILS % (AUTO) 0.8 % (0-6); HEMATOCRIT 45.2 % (35.0-45.0); HEMOGLOBIN 14.7 g/dl (12.0-16.0); LYMPHOCYTES # (AUTO) 1.5 X10'3 (1.1-4.8); LYMPHOCYTES % (AUTO) 13.9 % (21-51); MEAN CORPUSCULAR HEMOGLOBIN 29.3 PG (27.0-31.0); MEAN CORPUSCULAR HGB CONC 32.5 g/dL (33.0-36.5); MEAN PLATELET VOLUME 9.2 FL (7.4-10.4); MONOCYTES # (AUTO) 0.8 X10'3 (0-0.9); MONOCYTES % (AUTO) 7.9 % (2-12); NEUTROPHILS # (AUTO) 8.2 X10'3 (1.8-7.7); NEUTROPHILS % (AUTO) 77.1 % (42-75); PLATELET COUNT 183 X10'3 (140-440); RED BLOOD COUNT 5.03 X10'6 (4.20-5.60); RED CELL DISTRIBUTION WIDTH 14.7 % (11.5-14.5); WHITE BLOOD COUNT 10.6 X10'3 (4.5-11.0)
[2024-05-03] MEDS: ipratropium/albuterol 3ml nebule NEB PRN (12:40)
[2024-05-03 12:50] LABS: ALBUMIN 3.6 G/DL (3.4-5.0); ALKALINE PHOSPHATASE 76 IU/L (46-116); ANION GAP 8 (8-16); ASPARTATE AMINO TRANSFERASE 13 U/L (10-37); BILIRUBIN,TOTAL 0.4 MG/DL (0.1-1.0); BLOOD UREA NITROGEN 13 MG/DL (7-18); BUN/CREATININE RATIO 20.6 (10.0-20.0); CALCIUM 8.8 MG/DL (8.5-10.1); CHLORIDE 101 MMOL/L (99-107); CREATININE 0.63 MG/DL (0.40-0.90); GLUCOSE 186 MG/DL (70-104); POTASSIUM 4.1 MMOL/L (3.5-5.1); PRO BRAIN NATRIURETIC PEPTIDE 330 PG/ML (0-125); SODIUM 137 MMOL/L (135-145); TOTAL CARBON DIOXIDE 28.2 MMOL/L (24-32); TOTAL PROTEIN 7.3 G/DL (6.4-8.2); eCRCL 77 ML/MIN; eGFR > 90 ML/MIN
[2024-05-03 13:02] LABS: ALANINE AMINOTRANSFERASE 9 U/L (12-78)
[2024-05-03] MEDS ORDERED: methylPREDNISolone sod succ/PF 40mg inj. IV ONE (14:06)
[2024-05-03] MEDS: albuterol 2.5 MG/3 ML nebule NEB ONE (14:19)
[2024-05-03] MEDS: methylPREDNISolone sod succ 125mg/2ml vial IV ONE (14:24)
[2024-05-03] MEDS: CefTRIAXone/D5W-Rocephin 1gm 50 ML IV ONE (15:14)
[2024-05-03] MEDS ORDERED: acetaminophen 325mg tablet PO PRN (15:40)
[2024-05-03] MEDS ORDERED: magnesium sulf-water 2g/50mL 50 ML IV PRN (15:40)
[2024-05-03] MEDS ORDERED: magnesium Cl slow-release 64mg tablet PO PRN (15:40)
[2024-05-03] MEDS ORDERED: potassium Cl 40MEQ/1/2NS 520ml 520 ML IV PRN (15:40)
[2024-05-03] MEDS ORDERED: magnesium sulf-water 4G/100mL 100 ML IV PRN (15:40)
[2024-05-03] MEDS ORDERED: morphine 2 MG/ML inj. syringe IV PRN (15:40)
[2024-05-03] MEDS ORDERED: HYDROcodone/acetaminophen 5mg/325mg tablet PO PRN (15:40)
[2024-05-03] MEDS ORDERED: potassium Cl 20 mEq SR tablet PO PRN ×2 (15:40)
[2024-05-03] MEDS: doxycycline inj 100 MG in normal saline 100ml IV soln 100 ML IV ONE (15:53)
[2024-05-03] MEDS: albuterol 2.5 MG/3 ML nebule NEB SCH (17:30)
[2024-05-03] MEDS ORDERED: BACL20TA PO (18:34)
[2024-05-03] MEDS ORDERED: CETI10TA14 PO (18:34)
[2024-05-03] MEDS ORDERED: LEVO137T2 PO (18:34)
[2024-05-03] MEDS ORDERED: LISI40TA13 PO (18:34)
[2024-05-03] MEDS ORDERED: METF-438 PO (18:34)
[2024-05-03] MEDS ORDERED: RISP-32 PO (18:34)
[2024-05-03] MEDS ORDERED: AMLO5TAB16 PO (18:34)
[2024-05-03] MEDS ORDERED: CARV-50 PO (18:34)
[2024-05-03] MEDS ORDERED: ASPI-1468 PO (18:34)
[2024-05-03] MEDS ORDERED: MONT-48 PO (18:35)
[2024-05-03] MEDS: methylPREDNISolone sod succ 125mg/2ml vial IV SCH (19:56)
[2024-05-03] MEDS: heparin, porcine 5000 units/ml vial SQ SCH (19:56)
[2024-05-03] MEDS: acetaminophen 325mg tablet PO PRN (19:59)
[2024-05-04] VITALS (17 sets, daily range): BP systolic 144–165; BP diastolic 63–82; PULSE 67–112; RESP 12–26; TEMP 97.5–98.8; O2SAT 92–97
[2024-05-04 00:47] LABS: D-DIMER 4.07 MG/L FEU (0-0.50)
[2024-05-04] MEDS ORDERED: heparin 10,000 units/1 ML INJ IV PRN (01:10)
[2024-05-04] MEDS ORDERED: heparin 25,000 UNIT/250ml bag 250 ML IV PRN (01:10)
[2024-05-04] MEDS ORDERED: heparin 10,000 units/1 ML INJ IV ONE (01:10)
[2024-05-04 01:47] LABS: APTT 27 SECONDS (22-32)
[2024-05-04] MEDS: amLODIPine 5mg tablet PO ONE (02:02)
[2024-05-04] MEDS: amLODIPine 5mg tablet PO SCH (08:00)
[2024-05-04 08:13] LABS: BASOPHILS % (AUTO) 0.2 % (0-1); EOSINOPHILS % (AUTO) 0 % (0-6); HEMATOCRIT 44.5 % (35.0-45.0); HEMOGLOBIN 14.7 g/dl (12.0-16.0); LYMPHOCYTES % (AUTO) 12.8 % (21-51); MEAN CORPUSCULAR HEMOGLOBIN 29.4 PG (27.0-31.0); MEAN CORPUSCULAR HGB CONC 33.1 g/dL (33.0-36.5); MEAN CORPUSCULAR VOLUME 88.9 FL (78-98); MEAN PLATELET VOLUME 9.2 FL (7.4-10.4); MONOCYTES # (AUTO) 0.3 X10'3 (0-0.9); MONOCYTES % (AUTO) 4.3 % (2-12); NEUTROPHILS # (AUTO) 6.5 X10'3 (1.8-7.7); NEUTROPHILS % (AUTO) 82.7 % (42-75); PLATELET COUNT 177 X10'3 (140-440); RED CELL DISTRIBUTION WIDTH 13.9 % (11.5-14.5); WHITE BLOOD COUNT 7.9 X10'3 (4.5-11.0)
[2024-05-04 08:26] LABS: ALANINE AMINOTRANSFERASE 7 U/L (12-78); ALBUMIN 3.3 G/DL (3.4-5.0); ALBUMIN/GLOBULIN RATIO 0.8 (1.1-1.5); ALKALINE PHOSPHATASE 73 IU/L (46-116); ANION GAP 12 (8-16); ASPARTATE AMINO TRANSFERASE 15 U/L (10-37); BILIRUBIN,TOTAL 0.4 MG/DL (0.1-1.0); BLOOD UREA NITROGEN 18 MG/DL (7-18); CALCIUM 9.1 MG/DL (8.5-10.1); CHLORIDE 103 MMOL/L (99-107); CREATININE 0.45 MG/DL (0.40-0.90); GLUCOSE 178 MG/DL (70-104); POTASSIUM 3.7 MMOL/L (3.5-5.1); SODIUM 141 MMOL/L (135-145); TOTAL CARBON DIOXIDE 26.3 MMOL/L (24-32); TOTAL PROTEIN 7.2 G/DL (6.4-8.2); eCRCL 107 ML/MIN; eGFR > 90 ML/MIN
[2024-05-04] MEDS: CefTRIAXone 2gm/D5W 50ml BAG 50 ML IV SCH (08:35)
[2024-05-04] MEDS: venlafaxine XR 75mg capsule (Q24H) PO SCH (08:40)
[2024-05-04] MEDS: aspirin 81mg, enteric-coated 1 TAB TABLET.DR PO SCH (08:40)
[2024-05-04] MEDS: levoTHYROXINE 112mcg tablet PO SCH (08:40)
[2024-05-04] MEDS: baclofen 10mg tablet PO SCH (08:40)
[2024-05-04] MEDS: levoTHYROXINE 25mcg tablet PO SCH (08:41)
[2024-05-04] MEDS: gabapentin 300mg capsule PO SCH (08:41)
[2024-05-04] MEDS: lisinopril 20mg tablet PO SCH (08:41)
[2024-05-04] MEDS: risperiDONE 2mg tablet PO SCH (08:41)
[2024-05-04] MEDS: diphenhydrAMINE 25mg capsule PO SCH (08:42)
[2024-05-04] MEDS: cetirizine 10mg tablet PO SCH (08:42)
[2024-05-04] MEDS: carVEDilol 12.5mg tablet PO SCH (08:42)
[2024-05-04] MEDS: atorvastatin 20mg tablet PO SCH (08:42)
[2024-05-04] MEDS ORDERED: iohexol 350MG/ML 100ml bottle IV ONE (09:59)
[2024-05-04] MEDS: diphenhydrAMINE 50 mg/ml inj IV ONE (10:02)
[2024-05-04] MEDS ORDERED: albuterol 2.5 MG/3 ML nebule NEB PRN (17:10)
[2024-05-04] MEDS: methylPREDNISolone sod succ/PF 40mg inj. IV SCH (19:13)
[2024-05-04] MEDS: quetiapine 100mg tablet PO SCH (20:46)
[2024-05-04] MEDS: montelukast 10mg tablet PO SCH (20:46)
[2024-05-04] MEDS: sennosides 8.6mg tablet PO SCH (20:46)
[2024-05-05] VITALS (13 sets, daily range): BP systolic 141–185; BP diastolic 67–87; PULSE 72–86; RESP 14–24; TEMP 97.1–98.6; O2SAT 90–98
[2024-05-05 07:10] LABS: BASOPHILS % (AUTO) 0.1 % (0-1); EOSINOPHILS % (AUTO) 0 % (0-6); HEMATOCRIT 43.7 % (35.0-45.0); HEMOGLOBIN 14.3 g/dl (12.0-16.0); LYMPHOCYTES # (AUTO) 1.3 X10'3 (1.1-4.8); LYMPHOCYTES % (AUTO) 10.8 % (21-51); MEAN CORPUSCULAR HEMOGLOBIN 29.2 PG (27.0-31.0); MEAN CORPUSCULAR HGB CONC 32.8 g/dL (33.0-36.5); MEAN PLATELET VOLUME 9.2 FL (7.4-10.4); MONOCYTES % (AUTO) 8.4 % (2-12); NEUTROPHILS % (AUTO) 80.7 % (42-75); PLATELET COUNT 198 X10'3 (140-440); RED BLOOD COUNT 4.91 X10'6 (4.20-5.60); RED CELL DISTRIBUTION WIDTH 13.9 % (11.5-14.5); WHITE BLOOD COUNT 12.4 X10'3 (4.5-11.0)
[2024-05-05 07:32] LABS: ALANINE AMINOTRANSFERASE 7 U/L (12-78); ALBUMIN 3.2 G/DL (3.4-5.0); ALBUMIN/GLOBULIN RATIO 0.9 (1.1-1.5); ALKALINE PHOSPHATASE 67 IU/L (46-116); ANION GAP 7 (8-16); ASPARTATE AMINO TRANSFERASE 8 U/L (10-37); BILIRUBIN,TOTAL 0.2 MG/DL (0.1-1.0); BLOOD UREA NITROGEN 22 MG/DL (7-18); BUN/CREATININE RATIO 38.6 (10.0-20.0); CALCIUM 8.8 MG/DL (8.5-10.1); CHLORIDE 106 MMOL/L (99-107); CREATININE 0.57 MG/DL (0.40-0.90); GLUCOSE 174 MG/DL (70-104); POTASSIUM 4.2 MMOL/L (3.5-5.1); SODIUM 143 MMOL/L (135-145); TOTAL CARBON DIOXIDE 30.5 MMOL/L (24-32); TOTAL PROTEIN 6.9 G/DL (6.4-8.2); eCRCL 85 ML/MIN; eGFR > 90 ML/MIN
[2024-05-05 08:04] LABS: HEMOGLOBIN A1C 6.8 % (4.5-6.2)
[2024-05-05 13:23] LABS: ABG BASE EXCESS 6.4 mmol/L (-2.0-3.0); ABG HCO3 31.9 mmol/L (21.0-28.0); ABG OXYGEN SATURATION 92.9 % (94.0-98.0); ABG PCO2 (T) 48.2 mmHg (32.0-45.0); ABG PH (T) 7.437 (7.350-7.450); ALLEN'S TEST POSITIVE; FCOHb 0.6 % (0.5-1.5); FLOW 3 L/min; FMetHb 0.3 % (0.0-1.5); FO2Hb 92.1 % (94.0-98.0); MODE NASAL CANNULA; PATIENT TEMPERATURE 36.6; TOTAL HEMOGLOBIN 14.9 G/dl (12.0-16.0)
[2024-05-05] MEDS: lisinopril 10 MG tablet PO ONE (18:03)
[2024-05-05] MEDS: polyethylene glycol 3350 17gm powd pack PO SCH (21:52)
[2024-05-06] VITALS (7 sets, daily range): BP systolic 183–185; BP diastolic 87–91; PULSE 68–77; RESP 14–20; TEMP 97.4–97.5; O2SAT 90–97
[2024-05-06 06:29] LABS: BASOPHILS % (AUTO) 0.3 % (0-1); EOSINOPHILS % (AUTO) 0 % (0-6); HEMATOCRIT 43.2 % (35.0-45.0); HEMOGLOBIN 14.4 g/dl (12.0-16.0); LYMPHOCYTES # (AUTO) 1.9 X10'3 (1.1-4.8); LYMPHOCYTES % (AUTO) 20.7 % (21-51); MEAN CORPUSCULAR HEMOGLOBIN 29.5 PG (27.0-31.0); MEAN CORPUSCULAR HGB CONC 33.4 g/dL (33.0-36.5); MEAN CORPUSCULAR VOLUME 88.4 FL (78-98); MEAN PLATELET VOLUME 8.6 FL (7.4-10.4); MONOCYTES # (AUTO) 0.9 X10'3 (0-0.9); MONOCYTES % (AUTO) 10.4 % (2-12); NEUTROPHILS # (AUTO) 6.2 X10'3 (1.8-7.7); NEUTROPHILS % (AUTO) 68.6 % (42-75); PLATELET COUNT 183 X10'3 (140-440); RED BLOOD COUNT 4.89 X10'6 (4.20-5.60)
[2024-05-06 06:45] LABS: ALANINE AMINOTRANSFERASE 16 U/L (12-78); ALBUMIN 3.2 G/DL (3.4-5.0); ALBUMIN/GLOBULIN RATIO 0.9 (1.1-1.5); ALKALINE PHOSPHATASE 61 IU/L (46-116); ANION GAP 3 (8-16); ASPARTATE AMINO TRANSFERASE 19 U/L (10-37); BILIRUBIN,TOTAL 0.2 MG/DL (0.1-1.0); BLOOD UREA NITROGEN 10 MG/DL (7-18); BUN/CREATININE RATIO 20.4 (10.0-20.0); CALCIUM 8.6 MG/DL (8.5-10.1); CHLORIDE 107 MMOL/L (99-107); CREATININE 0.49 MG/DL (0.40-0.90); GLUCOSE 128 MG/DL (70-104); POTASSIUM 3.6 MMOL/L (3.5-5.1); SODIUM 145 MMOL/L (135-145); TOTAL CARBON DIOXIDE 34.8 MMOL/L (24-32); TOTAL PROTEIN 6.7 G/DL (6.4-8.2); eCRCL 98 ML/MIN; eGFR > 90 ML/MIN
[2024-05-06] MEDS ORDERED: LEVO-65 PO (10:31)
[2024-05-06] MEDS ORDERED: PRED20TA PO (10:31)
[2024-05-06] MEDS: HYDROchlorothiazide 25mg tablet PO ONE (11:32)
[2024-05-06] MEDS ORDERED: AZIT500T PO (15:43)
== END 2024-05-06 16:37 | disposition home or self-care (01) | DRG 140 ==
LOC: ER 11:02 → OBSVTOIN 15:44 → ED HOLD 15:44 → PCU 3S 05-04 07:10
PROVIDERS: ADMIT Internal Medicine; ATTEND Internal Medicine
PROC: B32T1ZZ Computerized Tomography (CT Scan) of Left Pulmonary Artery using Low Osmolar Contrast (ICD-10-PCS; principal; 2024-05-04)
PROC: B3201ZZ Computerized Tomography (CT Scan) of Thoracic Aorta using Low Osmolar Contrast (ICD-10-PCS; 2024-05-04)
PROC: B32S1ZZ Computerized Tomography (CT Scan) of Right Pulmonary Artery using Low Osmolar Contrast (ICD-10-PCS; 2024-05-04)
DX: J44.1 Chronic obstructive pulmonary disease with (acute) exacerbation (principal); J96.01 Acute respiratory failure with hypoxia; I11.0 Hypertensive heart disease with heart failure; J18.9 Pneumonia, unspecified organism; I50.9 Heart failure, unspecified; J44.0 Chronic obstructive pulmonary disease with (acute) lower respiratory infection; E11.9 Type 2 diabetes mellitus without complications; E78.00 Pure hypercholesterolemia, unspecified; Z20.822 Contact with and (suspected) exposure to COVID-19; E03.9 Hypothyroidism, unspecified; F41.9 Anxiety disorder, unspecified; M54.9 Dorsalgia, unspecified; G89.29 Other chronic pain; Z88.0 Allergy status to penicillin; Z88.8 Allergy status to other drugs, medicaments and biological substances; Z88.1 Allergy status to other antibiotic agents; Z91.041 Radiographic dye allergy status; Z79.899 Other long term (current) drug therapy; Z79.84 Long term (current) use of oral hypoglycemic drugs; Z79.01 Long term (current) use of anticoagulants; Z90.710 Acquired absence of both cervix and uterus; Z98.51 Tubal ligation status; Z83.3 Family history of diabetes mellitus
CPT/HCPCS: 36415; 36600; 71045; 71046; 71275; 80053; 82803; 82948; 83036; 83880; 84443; 84484; 85018; 85025; 85379; 85730; 87040; 87081; 87502; 87503; 87811; 93005; 93970; 94640; 94760; 96365; 96375; 99285; A4615; A6213; G0378; J0696; J1200; J1644; J2919; J3490; J7040; Q0163; Q9967

== ENCOUNTER 2024-11-06 05:34 | Inpatient (IN) | payer MEDICAID ==
[~2024-11-06] VITALS: Ht 160 cm; Wt 61.3 kg
[2024-11-06] VITALS (11 sets, daily range): BP systolic 102–174; BP diastolic 67–83; PULSE 81–105; RESP 18–29; TEMP 97.4–98.2; O2SAT 95–100
[~2024-11-06 05:34] MED LIST changes: +AMLO5TAB16 PO; +ASPI-1468 PO; +BACL20TA PO; -CARV-49 PO; +CARV-50 PO; +CETI10TA14 PO; -CLOP75TA33 PO; -DIPH25TA81 PO; -LEVO125T8 PO; +LEVO137T2 PO; -LISI20TA28 PO; +LISI40TA13 PO; -METF-436 PO; +METF-438 PO; +MONT-48 PO; -NICO-687 TOP; -PANT40TA54 PO; +RISP-32 PO; -RISP0.5T80 PO; -SENN-263 PO; +SENN-360 PO
[2024-11-06] MEDS: ipratropium/albuterol 3ml nebule NEB ONE (05:50)
[2024-11-06] MEDS: albuterol 2.5 MG/3 ML nebule CONTNEB PRN (05:52)
[2024-11-06] MEDS: methylPREDNISolone sod succ 125mg/2ml vial IV ONE (06:00)
[2024-11-06 06:16] LABS: WHITE BLOOD COUNT 10.5 X10'3 (4.5-11.0)
[2024-11-06 06:20] LABS: BASOPHILS % (AUTO) 0.2 % (0-1); EOSINOPHILS % (AUTO) 0.3 % (0-6); HEMATOCRIT 41.4 % (35.0-45.0); HEMOGLOBIN 13.9 g/dl (12.0-16.0); LYMPHOCYTES # (AUTO) 0.8 X10'3 (1.1-4.8); LYMPHOCYTES % (AUTO) 7.2 % (21-51); MEAN CORPUSCULAR HEMOGLOBIN 30.4 PG (27.0-31.0); MEAN CORPUSCULAR HGB CONC 33.7 g/dL (33.0-36.5); MEAN CORPUSCULAR VOLUME 90.4 FL (78-98); MEAN PLATELET VOLUME 9.6 FL (7.4-10.4); MONOCYTES # (AUTO) 1.2 X10'3 (0-0.9); MONOCYTES % (AUTO) 11.1 % (2-12); NEUTROPHILS # (AUTO) 8.5 X10'3 (1.8-7.7); NEUTROPHILS % (AUTO) 81.2 % (42-75); PLATELET COUNT 170 X10'3 (140-440); RED BLOOD COUNT 4.58 X10'6 (4.20-5.60); RED CELL DISTRIBUTION WIDTH 15.1 % (11.5-14.5)
[2024-11-06] MEDS: magnesium sulf-water 2g/50mL 50 ML IV ONE (06:35)
[2024-11-06 06:37] LABS: APTT 29 SECONDS (22-32); PROTHROMBIN TIME 10.3 SECONDS (9.0-12.0)
[2024-11-06 06:38] LABS: ALBUMIN 3.5 G/DL (3.4-5.0); ANION GAP 4 (8-16); BLOOD UREA NITROGEN 10 MG/DL (7-18); BUN/CREATININE RATIO 18.5 (10.0-20.0); CALCIUM 8.8 MG/DL (8.5-10.1); CHLORIDE 101 MMOL/L (99-107); CREATININE 0.54 MG/DL (0.40-0.90); GLUCOSE 176 MG/DL (70-104); POTASSIUM 3.5 MMOL/L (3.5-5.1); PRO BRAIN NATRIURETIC PEPTIDE 1167 PG/ML (0-125); SODIUM 140 MMOL/L (135-145); TOTAL CARBON DIOXIDE 34.8 MMOL/L (24-32); eCRCL 89 ML/MIN; eGFR > 90 ML/MIN
[2024-11-06] MEDS: terbutaline 1 mg/ml inj SQ STA (06:44)
[2024-11-06 06:51] LABS: ALANINE AMINOTRANSFERASE 22 U/L (12-78); ALBUMIN/GLOBULIN RATIO 0.8 (1.1-1.5); ALKALINE PHOSPHATASE 84 IU/L (46-116); ASPARTATE AMINO TRANSFERASE 20 U/L (10-37); BILIRUBIN,DIRECT 0.3 MG/DL (0-0.3); BILIRUBIN,TOTAL 0.8 MG/DL (0.1-1.0); MAGNESIUM 1.7 MG/DL (1.5-2.4)
[2024-11-06] MEDS ORDERED: potassium Cl 40MEQ/1/2NS 520ml 520 ML IV PRN (07:05)
[2024-11-06] MEDS ORDERED: acetaminophen 650mg rectal suppository RC PRN (07:05)
[2024-11-06] MEDS ORDERED: albuterol 2.5 MG/3 ML nebule NEB PRN (07:05)
[2024-11-06] MEDS ORDERED: HYDROcodone/acetaminophen 5mg/325mg tablet PO PRN (07:05)
[2024-11-06] MEDS ORDERED: magnesium hydroxide 30ml (MOM) UD suspension PO PRN (07:05)
[2024-11-06] MEDS ORDERED: mag hydrox/Alum hydrox/simeth 30ml oral suspension PO PRN (07:05)
[2024-11-06] MEDS ORDERED: HYDROcodone/acetaminophen 10/325mg tab PO PRN (07:05)
[2024-11-06] MEDS ORDERED: azithromycin/NS 500mg/250ml 250 ML IV ONE (07:05)
[2024-11-06] MEDS ORDERED: magnesium sulf-water 4G/100mL 100 ML IV PRN (07:05)
[2024-11-06] MEDS ORDERED: magnesium sulf-water 2g/50mL 50 ML IV PRN (07:05)
[2024-11-06] MEDS ORDERED: potassium Cl 20 mEq SR tablet PO PRN (07:05)
[2024-11-06] MEDS ORDERED: ondansetron 4mg rapidly disintigrating tab PO PRN (07:05)
[2024-11-06] MEDS ORDERED: acetaminophen 325mg tablet PO PRN ×2 (07:05)
[2024-11-06] MEDS ORDERED: ondansetron/PF 4mg/2ml inj IV PRN (07:05)
[2024-11-06 07:15] LABS: ABG BASE EXCESS -0.4 mmol/L (-2.0-3.0); ABG OXYGEN SATURATION 95.2 % (94.0-98.0); ABG PCO2 (T) 48.5 mmHg (32.0-45.0); ABG PH (T) 7.345 (7.350-7.450); ABG PO2 (T) 81.6 mmHg (83.0-108.0); ALLEN'S TEST POSITIVE; FCOHb 1.4 % (0.5-1.5); FHHb 4.7 % (0.0-5.0); FLOW 4 L/min; FMetHb 0.4 % (0.0-1.5); FO2Hb 93.5 % (94.0-98.0); MODE NASAL CANNULA; PATIENT TEMPERATURE 36.6; TOTAL HEMOGLOBIN 13.8 G/dl (12.0-16.0)
[2024-11-06 07:38] LABS: D-DIMER 0.95 MG/L FEU (0-0.50)
[2024-11-06] MEDS ORDERED: azithromycin/NS 500mg/250ml 250 ML IV SCH (08:00)
[2024-11-06] MEDS: ipratropium/albuterol 3ml nebule NEB SCH (08:00)
[2024-11-06] MEDS: K and/or MAG REPLACEMENT MC SCH (08:00)
[2024-11-06] MEDS: DOXYCYCLINE 100 MG in NORMAL SALINE 100ml IV.SOLN IV SCH (08:42)
[2024-11-06] MEDS: CefTRIAXone 2gm/D5W 50ml BAG 50 ML IV SCH (09:32)
[2024-11-06] MEDS: docusate sod 100mg capsule PO SCH (09:33)
[2024-11-06] MEDS: amLODIPine 5mg tablet PO SCH (09:33)
[2024-11-06] MEDS: lisinopril 20mg tablet PO ONE (09:33)
[2024-11-06] MEDS: labetalol 20mg/4ml (5mg/ml) syringe IV STA (09:34)
[2024-11-06] MEDS: heparin, porcine 5000 units/ml vial SQ SCH (09:35)
[2024-11-06] MEDS ORDERED: hydrALAZINE 20mg/ml inj. IV PRN (10:00)
[2024-11-06] MEDS ORDERED: BENZ-111 PO (10:04)
[2024-11-06] MEDS: potassium Cl 20 mEq SR tablet PO PRN (11:48)
[2024-11-06] MEDS: normal saline 1000ml 1,000 ML IV ONE (11:49)
[2024-11-06 12:08] LABS: BILIRUBIN,URINE NEGATIVE (Neg); CLARITY,URINE CLEAR (Clear); COLOR,URINE YELLOW (Yellow); GLUCOSE, URINE 100 mg/dl (Neg); KETONES,URINE 40 mg/dl (Neg); LEUKOCYTE ESTERASE ,URINE NEGATIVE (Neg); NITRITES, URINE NEGATIVE (Neg); OCCULT BLOOD,URINE NEGATIVE (Neg); PROTEIN,URINE 30 mg/dl (Neg)
[2024-11-06 12:09] LABS: UA COLLECTION TYPE CLN CATCH MIDSTREAM
[2024-11-06 12:26] LABS: BACTERIA,URINE FEW /HPF (Neg); MUCUS STRANDS NONE SEEN /LPF (Neg); RBC,URINE NONE SEEN /HPF (0-2); SQUAMOUS EPITHELIAL CELL,UR FEW /LPF (FEW); WBC,URINE 0-4 /HPF (0-4); YEAST FEW /HPF (NEGATIVE)
[2024-11-06] MEDS ORDERED: iohexol 350MG/ML 100ml bottle IV ONE (13:07)
[2024-11-06] MEDS: aspirin 81mg, enteric-coated 1 TAB TABLET.DR PO ONE (14:31)
[2024-11-06] MEDS: methylPREDNISolone sod succ 125mg/2ml vial IV SCH (14:31)
[2024-11-06] MEDS: nicotine 21mg patch - 24 hr TD ONE (14:32)
[2024-11-06] MEDS: normal saline 1000ml 1,000 ML IV SCH (19:25)
[2024-11-06] MEDS: carvedilol 6.25mg tablet PO SCH (22:11)
[2024-11-06] MEDS: atorvastatin 20mg tablet PO SCH (22:11)
[2024-11-07] VITALS (17 sets, daily range): BP systolic 148–174; BP diastolic 67–94; PULSE 61–103; RESP 17–25; TEMP 97–98.4; O2SAT 94–99
[2024-11-07 06:17] LABS: BASOPHILS % (AUTO) 0 % (0-1); EOSINOPHILS % (AUTO) 0 % (0-6); HEMATOCRIT 41.8 % (35.0-45.0); HEMOGLOBIN 13.6 g/dl (12.0-16.0); HEMOGLOBIN A1C 6.5 % (4.5-6.2); LYMPHOCYTES # (AUTO) 0.5 X10'3 (1.1-4.8); LYMPHOCYTES % (AUTO) 6.7 % (21-51); MEAN CORPUSCULAR HEMOGLOBIN 29.5 PG (27.0-31.0); MEAN CORPUSCULAR HGB CONC 32.5 g/dL (33.0-36.5); MEAN CORPUSCULAR VOLUME 90.8 FL (78-98); MEAN PLATELET VOLUME 9.4 FL (7.4-10.4); MONOCYTES # (AUTO) 0.4 X10'3 (0-0.9); MONOCYTES % (AUTO) 5.4 % (2-12); NEUTROPHILS % (AUTO) 87.9 % (42-75); PLATELET COUNT 201 X10'3 (140-440); RED CELL DISTRIBUTION WIDTH 15.3 % (11.5-14.5)
[2024-11-07 06:52] LABS: ALANINE AMINOTRANSFERASE 17 U/L (12-78); ALBUMIN 3.1 G/DL (3.4-5.0); ALBUMIN/GLOBULIN RATIO 0.7 (1.1-1.5); ALKALINE PHOSPHATASE 75 IU/L (46-116); ANION GAP 6 (8-16); ASPARTATE AMINO TRANSFERASE 12 U/L (10-37); BILIRUBIN,TOTAL 0.4 MG/DL (0.1-1.0); BLOOD UREA NITROGEN 20 MG/DL (7-18); BUN/CREATININE RATIO 41.7 (10.0-20.0); CALCIUM 8.6 MG/DL (8.5-10.1); CHLORIDE 104 MMOL/L (99-107); CHOL/HDL RATIO 3.1 (0.00-4.99); CHOLESTEROL 148 MG/DL (0-200); CREATININE 0.48 MG/DL (0.40-0.90); GLUCOSE 213 MG/DL (70-104); HDL CHOLESTEROL 48 MG/DL (35-60); LDL CHOLESTEROL 70 MG/DL (50-100); POTASSIUM 4.9 MMOL/L (3.5-5.1); SODIUM 142 MMOL/L (135-145); THYROID STIMULATING HORMONE 2.99 ulU/ml (0.34-4.50); TOTAL CARBON DIOXIDE 32.2 MMOL/L (24-32); TOTAL PROTEIN 7.4 G/DL (6.4-8.2); TRIGLYCERIDES 120 MG/DL (20-135); eCRCL 101 ML/MIN; eGFR > 90 ML/MIN
[2024-11-07] MEDS: levoTHYROXINE 25mcg tablet PO SCH (07:24)
[2024-11-07] MEDS: levoTHYROXINE 112mcg tablet PO SCH (07:24)
[2024-11-07] MEDS: carVEDilol 12.5mg tablet PO SCH (07:27)
[2024-11-07] MEDS: aspirin 81mg, enteric-coated 1 TAB TABLET.DR PO SCH (07:28)
[2024-11-07] MEDS: nicotine 21mg patch - 24 hr TD SCH (07:29)
[2024-11-07] MEDS ORDERED: DEXTROSE 15 GM of carb/4 tabs (each vial/BOTTLE has 4 tablets) PO PRN ×2 (11:35)
[2024-11-07] MEDS ORDERED: dextrose 50%-water 50ml dispensing syringe IV PRN ×2 (11:35)
[2024-11-07] MEDS ORDERED: glucagon, human recombinant 1mg kit SUBCUT PRN (11:35)
[2024-11-07] MEDS: INSULIN LISPRO 100 UNIT/ML INSULN.PEN MULTI-DOSE SQ SCH (13:28)
[2024-11-07] MEDS: hyDRALAzine 10mg tablet PO SCH (15:58)
[2024-11-07] MEDS: carvedilol 6.25mg tablet PO ONE (15:58)
[2024-11-07] MEDS: chlorthalidone 25mg tablet PO ONE (17:00)
[2024-11-07] MEDS: quetiapine 100mg tablet PO SCH (20:58)
[2024-11-08] VITALS (19 sets, daily range): BP systolic 137–161; BP diastolic 59–78; PULSE 64–86; RESP 16–31; TEMP 97.3–98.8; O2SAT 95–99
[2024-11-08 07:16] LABS: BASOPHILS % (AUTO) 0.1 % (0-1); EOSINOPHILS % (AUTO) 0 % (0-6); HEMATOCRIT 40.8 % (35.0-45.0); HEMOGLOBIN 13.2 g/dl (12.0-16.0); LYMPHOCYTES # (AUTO) 0.5 X10'3 (1.1-4.8); LYMPHOCYTES % (AUTO) 4.7 % (21-51); MEAN CORPUSCULAR HEMOGLOBIN 29.3 PG (27.0-31.0); MEAN CORPUSCULAR HGB CONC 32.4 g/dL (33.0-36.5); MEAN CORPUSCULAR VOLUME 90.4 FL (78-98); MEAN PLATELET VOLUME 9.7 FL (7.4-10.4); MONOCYTES # (AUTO) 0.5 X10'3 (0-0.9); MONOCYTES % (AUTO) 4.9 % (2-12); NEUTROPHILS # (AUTO) 10.1 X10'3 (1.8-7.7); NEUTROPHILS % (AUTO) 90.3 % (42-75); PLATELET COUNT 207 X10'3 (140-440); RED BLOOD COUNT 4.51 X10'6 (4.20-5.60); RED CELL DISTRIBUTION WIDTH 15.1 % (11.5-14.5); WHITE BLOOD COUNT 11.2 X10'3 (4.5-11.0)
[2024-11-08 07:45] LABS: ALANINE AMINOTRANSFERASE 13 U/L (12-78); ALBUMIN 2.9 G/DL (3.4-5.0); ALBUMIN/GLOBULIN RATIO 0.7 (1.1-1.5); ALKALINE PHOSPHATASE 75 IU/L (46-116); ANION GAP 6 (8-16); ASPARTATE AMINO TRANSFERASE 16 U/L (10-37); BILIRUBIN,TOTAL 0.3 MG/DL (0.1-1.0); BLOOD UREA NITROGEN 22 MG/DL (7-18); BUN/CREATININE RATIO 48.9 (10.0-20.0); CALCIUM 8.6 MG/DL (8.5-10.1); CHLORIDE 101 MMOL/L (99-107); CREATININE 0.45 MG/DL (0.40-0.90); GLUCOSE 236 MG/DL (70-104); POTASSIUM 4.2 MMOL/L (3.5-5.1); SODIUM 139 MMOL/L (135-145); TOTAL CARBON DIOXIDE 31.6 MMOL/L (24-32); TOTAL PROTEIN 6.9 G/DL (6.4-8.2); eCRCL 107 ML/MIN; eGFR > 90 ML/MIN
[2024-11-08] MEDS: chlorthalidone 25mg tablet PO SCH (08:32)
[2024-11-08] MEDS: INSULIN LISPRO 100 UNIT/ML INSULN.PEN MULTI-DOSE SQ SCH (12:20)
[2024-11-08] MEDS: losartan 50mg tablet PO ONE (16:29)
[2024-11-08] MEDS ORDERED: INSULIN LISPRO 100 UNIT/ML INSULN.PEN MULTI-DOSE SQ SCH (17:00)
[2024-11-08] MEDS: budesonide 0.5mg/2ml UD nebule IH SCH (19:45)
[2024-11-08] MEDS: carVEDilol 12.5mg tablet PO SCH (20:46)
[2024-11-08] MEDS ORDERED: insulin glargine (Lantus) VIAL- multi-dose SQ ONE (21:00)
[2024-11-08] MEDS ORDERED: insulin glargine (Lantus) VIAL- multi-dose SQ SCH (21:00)
[2024-11-08] MEDS ORDERED: insulin glargine (Lantus) pen - multi-dose SQ SCH (21:32)
[2024-11-08] MEDS: insulin glargine (Lantus) pen - multi-dose SQ SCH (21:37)
[2024-11-09] VITALS (7 sets, daily range): BP systolic 129–168; BP diastolic 63–75; PULSE 64–98; RESP 12–22; TEMP 97.8–97.9; O2SAT 97–98
[2024-11-09 07:06] LABS: BASOPHILS % (AUTO) 0.3 % (0-1); EOSINOPHILS % (AUTO) 0 % (0-6); HEMATOCRIT 43.1 % (35.0-45.0); HEMOGLOBIN 14.3 g/dl (12.0-16.0); LYMPHOCYTES # (AUTO) 0.5 X10'3 (1.1-4.8); LYMPHOCYTES % (AUTO) 5.3 % (21-51); MEAN CORPUSCULAR HEMOGLOBIN 29.7 PG (27.0-31.0); MEAN CORPUSCULAR HGB CONC 33.2 g/dL (33.0-36.5); MEAN CORPUSCULAR VOLUME 89.5 FL (78-98); MEAN PLATELET VOLUME 9.5 FL (7.4-10.4); MONOCYTES # (AUTO) 0.5 X10'3 (0-0.9); MONOCYTES % (AUTO) 4.7 % (2-12); NEUTROPHILS # (AUTO) 9.3 X10'3 (1.8-7.7); NEUTROPHILS % (AUTO) 89.7 % (42-75); PLATELET COUNT 243 X10'3 (140-440); RED BLOOD COUNT 4.82 X10'6 (4.20-5.60); RED CELL DISTRIBUTION WIDTH 14.9 % (11.5-14.5); WHITE BLOOD COUNT 10.4 X10'3 (4.5-11.0)
[2024-11-09 07:30] LABS: ALANINE AMINOTRANSFERASE 17 U/L (12-78); ALBUMIN 3.2 G/DL (3.4-5.0); ALBUMIN/GLOBULIN RATIO 0.8 (1.1-1.5); ALKALINE PHOSPHATASE 76 IU/L (46-116); ANION GAP 5 (8-16); ASPARTATE AMINO TRANSFERASE 25 U/L (10-37); BILIRUBIN,TOTAL 0.3 MG/DL (0.1-1.0); BLOOD UREA NITROGEN 21 MG/DL (7-18); BUN/CREATININE RATIO 39.6 (10.0-20.0); CALCIUM 8.7 MG/DL (8.5-10.1); CHLORIDE 99 MMOL/L (99-107); CREATININE 0.53 MG/DL (0.40-0.90); GLUCOSE 194 MG/DL (70-104); POTASSIUM 3.8 MMOL/L (3.5-5.1); SODIUM 136 MMOL/L (135-145); TOTAL CARBON DIOXIDE 32.3 MMOL/L (24-32); TOTAL PROTEIN 7.3 G/DL (6.4-8.2); eCRCL 91 ML/MIN; eGFR > 90 ML/MIN
[2024-11-09] MEDS: losartan 50mg tablet PO SCH (07:37)
[2024-11-09] MEDS ORDERED: LEVO-65 PO (11:10)
== END 2024-11-09 12:20 | disposition home or self-care (01) | DRG 720 ==
LOC: ER 05:34 → ED HOLD 07:11 → PCU 3S 13:59
PROVIDERS: ADMIT Nurse Practitioner Family; ATTEND Nurse Practitioner Family
PROC: B32T1ZZ Computerized Tomography (CT Scan) of Left Pulmonary Artery using Low Osmolar Contrast (ICD-10-PCS; principal; 2024-11-06)
PROC: B3201ZZ Computerized Tomography (CT Scan) of Thoracic Aorta using Low Osmolar Contrast (ICD-10-PCS; 2024-11-06)
PROC: B32S1ZZ Computerized Tomography (CT Scan) of Right Pulmonary Artery using Low Osmolar Contrast (ICD-10-PCS; 2024-11-06)
DX: A41.9 Sepsis, unspecified organism (principal); J96.01 Acute respiratory failure with hypoxia; I11.0 Hypertensive heart disease with heart failure; J18.9 Pneumonia, unspecified organism; I50.9 Heart failure, unspecified; Z66 Do not resuscitate; Z20.822 Contact with and (suspected) exposure to COVID-19; E03.9 Hypothyroidism, unspecified; E78.00 Pure hypercholesterolemia, unspecified; F17.210 Nicotine dependence, cigarettes, uncomplicated; J96.02 Acute respiratory failure with hypercapnia; I25.10 Atherosclerotic heart disease of native coronary artery without angina pectoris; J44.0 Chronic obstructive pulmonary disease with (acute) lower respiratory infection; J44.1 Chronic obstructive pulmonary disease with (acute) exacerbation; F41.9 Anxiety disorder, unspecified; E11.65 Type 2 diabetes mellitus with hyperglycemia; Z88.0 Allergy status to penicillin; Z88.8 Allergy status to other drugs, medicaments and biological substances; Z91.09 Other allergy status, other than to drugs and biological substances; Z79.82 Long term (current) use of aspirin; Z79.899 Other long term (current) drug therapy; Z88.1 Allergy status to other antibiotic agents; Z90.710 Acquired absence of both cervix and uterus; Z80.41 Family history of malignant neoplasm of ovary; Z83.3 Family history of diabetes mellitus; Z95.5 Presence of coronary angioplasty implant and graft; Z86.73 Personal history of transient ischemic attack (TIA), and cerebral infarction without residual deficits
CPT/HCPCS: 36415; 36600; 71045; 71275; 80048; 80053; 80061; 80076; 81001; 82803; 82948; 83036; 83605; 83735; 83880; 84132; 84145; 84443; 84484; 85018; 85025; 85379; 85610; 85730; 87040; 87081; 87502; 87503; 87811; 93005; 93306; 94640; 94660; 94760; 96365; 96372; 96375; 99291; A4615; A4620; A6258; A7015; G0378; J0696; J1644; J1815; J2919; J3105; J3490; J7030; Q9967

== ENCOUNTER 2024-12-30 10:01 | Emergency (ER) | payer MEDICAID ==
[~2024-12-30] VITALS: Ht 157.5 cm; Wt 57.3 kg
[~2024-12-30 10:01] MED LIST changes: -BACL20TA PO; +BENZ-111 PO; -CETI10TA14 PO
[2024-12-30 10:03] VITALS: TEMP 98.2
[2024-12-30 10:50] LABS: BASOPHILS % (AUTO) 0.7 % (0-1); EOSINOPHILS # (AUTO) 0.1 X10'3 (0-0.9); EOSINOPHILS % (AUTO) 1.9 % (0-6); HEMATOCRIT 39.1 % (35.0-45.0); HEMOGLOBIN 13.3 g/dl (12.0-16.0); LYMPHOCYTES # (AUTO) 1.3 X10'3 (1.1-4.8); LYMPHOCYTES % (AUTO) 18.5 % (21-51); MEAN CORPUSCULAR HEMOGLOBIN 30.4 PG (27.0-31.0); MEAN CORPUSCULAR HGB CONC 34.1 g/dL (33.0-36.5); MEAN CORPUSCULAR VOLUME 89.3 FL (78-98); MEAN PLATELET VOLUME 8.6 FL (7.4-10.4); MONOCYTES # (AUTO) 0.5 X10'3 (0-0.9); MONOCYTES % (AUTO) 6.5 % (2-12); NEUTROPHILS % (AUTO) 72.4 % (42-75); PLATELET COUNT 247 X10'3 (140-440); RED BLOOD COUNT 4.37 X10'6 (4.20-5.60); RED CELL DISTRIBUTION WIDTH 14.1 % (11.5-14.5); WHITE BLOOD COUNT 6.9 X10'3 (4.5-11.0)
--- NOTE | 2024-12-30 11:01 | Physician Documentation ---
History of Present Illness ~ General Chief Complaint: Multiple Medical Complaints Stated Complaint: "I KEEP LEANING TO THE LEFT AND FALLING DOWN" Time Seen by MD: 10:29 Primary Medical Doctor: [facility] Mode of Arrival: Dropped Off History of Present Illness Initial Comments 64-year-old female, history of stroke, COPD, who presents with multiple complaints. The patient is a difficult historian, she is somewhat limited in her answers. She tells me that she has been leaning to the left for about the past 2 weeks. She can not really specify this more, denies having a headache, vision changes, vertigo, tingling numbness or weakness to her extremities. However she does seem to have some weakness to her left arm and leg, although she can not tell me if this is chronic or new. She does answer yes when asked her if she has been having fevers and coughing. She denies shortness of breath. She denies abdominal pain or vomiting. Medication Reconciliation Allergies: Coded Allergies: iodine (Verified Allergy, Severe, Anaphylaxis, 11/02/19) stated per patient buspirone HCl (Verified Allergy, Mild, 02/09/18) Penicillins (Verified Allergy, Unknown, 11/17/20) cyanocobalamin (vitamin B12) (Verified Allergy, Unknown, 05/04/24) Pt states B12 injection gives her migraines erythromycin base (Verified Allergy, Unknown, RASH, 11/06/24) levofloxacin (Verified Allergy, Unknown, 02/09/18) Scheduled Amlodipine Besylate (Amlodipine Besylate), 1 TAB PO DAILY, (Reported) Aspirin (Aspirin EC), 1 TAB PO DAILY, (Reported) Atorvastatin Calcium (Atorvastatin Calcium), 1 TAB PO DAILY, (Reported) Benzonatate (Benzonatate), 1 CAP PO TID, (Reported) Carvedilol (Carvedilol), 1 TAB PO BID, (Reported) Gabapentin (Neurontin), 1 CAP PO TID, (Reported) Levothyroxine Sodium (Levothyroxine Sodium), 1 TAB PO DAILY, (Reported) Lisinopril* (Lisinopril*), 1 TAB PO DAILY, (Reported) Montelukast Sodium (Singulair), 1 TAB PO HS, (Reported) Quetiapine Fumarate (Quetiapine Fumarate), 1 TAB PO HS, (Reported) Risperidone (Risperidone), 1 TAB PO BID, (Reported) Sennosides (Senna), 1 TAB PO HS, (Reported) Venlafaxine Hcl (Venlafaxine Hcl Er), 1 CAP PO DAILY, (Reported) Scheduled PRN albuterol inhaler (Pro-Air Inhaler), 2 PUFFS IH Q6H PRN for SOB or wheezing, (Reported) Miscellaneous Medications Metformin HCl (Metformin HCl), 1 TAB PO, (Reported) Past Medical History Past Medical History: CVA/TIA/Stroke, Congestive Heart Failure, High Cholesterol, Hypertension, COPD, UTI, Diabetes, Graves' Disease, Thyroid (unspecified), Chronic Back Pain, Anxiety Past Surgical History: abdominal surgery, hysterectomy, tonsillectomy, tubal ligation Other Past Surgical History: exploratory abdominal surgery Patient History: FH: diabetes mellitus sister sister sister FH: heart disease FATHER MOTHER sister FH: malignant neoplasm of bone Paternal grandfather FH: ovarian cancer sister sister Other Past Family History: NONCONTRIBUTORY Alcohol Use: Occasionally Drug Use: marijuana Lives with: Alone Lives In: Home Occupation: disabled Review of Systems Constitutional: Reports: fever Gastrointestinal: Denies: nausea, vomiting Neurological: Reports: other (Leaning to the left); Denies: headache Physical Exam Physical Exam Vital Signs: Temperature: 98.2, Heart Rate: 60, Respiratory Rate: 18, BP: 168/83, Pulse Oximetry: 96, Weight: 57.270 Oxygen Flow Rate: 2.0 Physical Exam General: This is a chronically ill-appearing middle-aged female, appears to be sleeping when I enter the room HEENT: Atraumatic, oropharynx is dry with cracked lips Heart: Regular rate and rhythm, normal-appearing peripheral perfusion Lungs: Diminished breath sounds bilateral, few scattered wheezes, normal work of breathing, oxygen saturations normal on home oxygen level Abdomen: Soft, nondistended, nontender all quadrants Extremities: Warm and well-perfused Neuro: The patient is slow to answer, difficult to redirect, difficult to understand her speech, she does appear dysarthric although her mouth appears kan y dry and it is unclear she has her dentures. She reports normal sensation to light touch in all 4 extremities. Went to have her raise up her arms, she does appear to have some mild weakness in the left arm compared to the right but she is able to hold them up off the bed. Similarly, she appears to have some mild weakness to her left leg compared to the right although she is able to somewhat hold it up off the bed. She does appear to be leaning to the left side. Exam is very difficult due to poor cooperation or inability to cooperate Psychiatric: Difficult to redirect Progress Results/Orders Results/Orders Orders - MINE CHAVEZ MD Culture Blood (12/30/24 10:22) Saline Lock (12/30/24 10:22) Oxygen (12/30/24 10:22) Ct Head (12/30/24 11:13) Abg (Arterial Blood Gas) (12/30/24 10:58) Drug Screen, Urine (12/30/24 11:05) Urinalysis, Cult If Indicated (12/30/24 11:05) Chest,Single View (12/30/24 11:00) Nicardipine-Ns 40mg/200ml Ivpb (Cardene- (12/30/24 11:45) Cardene-Ns Iv 40mg/200ml Bag (12/30/24 11:55) Completed Orders - MINE CHAVEZ MD Cbc/Diff (12/30/24 10:22) BMP (12/30/24 10:22) PBNP (12/30/24 10:22) Lacticsepsis (12/30/24 10:22) Ct Head (12/30/24 11:13) Ethanol (12/30/24 10:34) Pt Inr (12/30/24 11:15) Chest,Single View (12/30/24 11:00) Nicardipine-Ns 40mg/200ml Ivpb (Cardene- (12/30/24 11:42) Vital Signs 12/30/24 12/30/24 12/30/24 12/30/24 10:03 10:18 10:56 11:34 Temp 98.2 Pulse 68 60 63 Resp 16 18 22 B/P (MAP) 149/82 168/83 (111) 164/80 (108) Pulse Ox 98 96 97 O2 Flow Rate 2.0 2.0 2.0 Laboratory Tests Test 12/30/24 10:34 White Blood Count 6.9 Red Blood Count 4.37 Hemoglobin 13.3 Hematocrit 39.1 Mean Corpuscular Volume 89.3 Mean Corpuscular Hemoglobin 30.4 Mean Corpuscular Hemoglobin Concent 34.1 Red Cell Distribution Width 14.1 Platelet Count 247 Mean Platelet Volume 8.6 Neutrophils (%) (Auto) 72.4 Lymphocytes (%) (Auto) 18.5 L Monocytes (%) (Auto) 6.5 Eosinophils (%) (Auto) 1.9 Basophils (%) (Auto) 0.7 Neutrophils # (Auto) 5.0 Lymphocytes # (Auto) 1.3 Monocytes # (Auto) 0.5 Eosinophils # (Auto) 0.1 Basophils # (Auto) 0.0 CBC Comment Prothrombin Time 10.2 INR International Normalized Ratio 1.0 Coagulation Comments Sodium Level 143 Potassium Level 3.7 Chloride Level 104 Carbon Dioxide Level 32.9 H Anion Gap 6 L Blood Urea Nitrogen 8 Creatinine 0.70 Estimated GFR/1.73 m2 85 BUN/Creatinine Ratio 11.4 Glucose Level 124 H Lactic Acid Level 1.0 Calcium Level 8.7 Pro-B-Type Natriuretic Peptide 480 H Albumin 3.5 Chemistry Comments Ethyl Alcohol Level < 10 Re-Evaluation Re-Evaluation : Re-Evaluation: Worsened Progress Re-evaluation: The patient is seems slightly more sedated, and does seem to be having slightly worsening left-sided weakness compared to on presentation. She is still able to answer simple questions although her speech is somewhat garbled. She is protecting her airway. Consults/PCP Consults/PCP : Additional Comment Consult: I spoke to Dr. Owens, ER doctor at [facility], he will accept for transfer. I also spoke to the on-call neurosurgeon at [facility], who also accepts for transfer, recommends blood pressure control and admission to the ICU. Medical Decision Making Additional info obtained from: old records Findings I reviewed the patient's past records and admission. She does have a history of past strokes as well as COPD and admissions for respiratory failure. Differential Diagnosis Differential includes stroke, intracranial hemorrhage, brain mass, infection including pneumonia, viral syndrome, sepsis. Dehydration, electrolyte derangement, UTI, substance use. Vertigo. Assessment The patient presents with a chief complaint of leaning to the side, and on exam has a concerning presentation for intracranial process. She was taken for emergent brain imaging, which does show an intracranial thalamic hemorrhage. Her blood pressure was elevated and so she was started on nicardipine for blood pressure control. Neurosurgery was emergently consulted, and she will be transferred to [facility] ICU for further treatment. Departure Impression: Primary Impression: Intracranial hemorrhage Referrals: NO PRIMARY CARE PROVIDER (PCP) Critical Care Note Critical Care Note Critical Care Note The very real possibility of a deterioration of this patient's condition required the highest level of my preparedness for sudden, emergent intervention. I provided critical care services, which included medication orders, frequent reevaluations of the patient's condition and response to treatment, ordering and reviewing test results, and discussing the case with various consultants. Excludes time spent performing separately billable procedures. The critical care time associated with the care of the patient was 45 minutes in the management of intracranial hemorrhage and hypertension Signature Scribe Signature: phong Attestation: MINE Duron MD December 30, 2024 11:01
[2024-12-30 11:19] LABS: ALBUMIN 3.5 G/DL (3.4-5.0); ANION GAP 6 (8-16); BLOOD UREA NITROGEN 8 MG/DL (7-18); BUN/CREATININE RATIO 11.4 (10.0-20.0); CALCIUM 8.7 MG/DL (8.5-10.1); CHLORIDE 104 MMOL/L (99-107); ETHANOL < 10 MG/DL (<10); GLUCOSE 124 MG/DL (70-104); POTASSIUM 3.7 MMOL/L (3.5-5.1); PRO BRAIN NATRIURETIC PEPTIDE 480 PG/ML (0-125); SODIUM 143 MMOL/L (135-145); TOTAL CARBON DIOXIDE 32.9 MMOL/L (24-32); eCRCL 66 ML/MIN; eGFR 85 ML/MIN
[2024-12-30 11:33] LABS: PROTHROMBIN TIME 10.2 SECONDS (9.0-12.0)
--- NOTE | 2024-12-30 11:37 | RADIOLOGY REPORT ---
EXAM: CT CT HEAD HISTORY: altered, "leaning to right" COMPARISON: CT HEAD on DOS: 11/17/20 TECHNIQUE: Axial images were obtained and reformatted in coronal and sagittal planes. All CT scans at this medical facility are performed using dose modulation techniques as appropriate to a performed e xam including the following: Automated exposure control was utilized; adjustment of the MA and/or KV according to patient size; and use of iterative reconstruction technique. CT Dose: CTDI volume is 40 mGy. Dose-length product is 680 mGy*cm FINDINGS: Supratentorial Region: A 2 x 1 2 cm hemorrhage in the right thalamus noted 2 mm [id number] midline shift extension of hemorrhage to the lateral , 3rd and 4th ventricles. Posterior Fossa: No acute abnormality. Brainstem: Unremarkable. Sellar/Suprasellar Region: Unremarkable. Ventricles, Cisterns, Sulci: Age-appropriate. Orbits: Unremarkable. Paranasal Sinuses: Unremarkable. Mastoid Air Cells: Unremarkable. Vasculature: Unremarkable. Bones/Soft Tissues: No acute abnormality. Other: None. IMPRESSION: A 2 cm acute intraparenchymal hemorrhage in the right thalamus extending to the ventricular system 2 mm or [id number] midline shift. Findings discussed with Dr. Sosa, at 12/30/2024 11:30 AM, and acknowledged receipt and understandi ng of the findings. ..
[2024-12-30] MEDS ORDERED: niCARDipine-NS 40mg/200ml IVPB 200 ML IV SCH ×3 (11:45→12:00)
[2024-12-30] MEDS: niCARDipine-NS 40mg/200ml IVPB 200 ML IV SCH (11:57)
[2024-12-30 11:58] VITALS: BP 135/62; PULSE 62; RESP 20; O2SAT 100
[2024-12-30] MEDS: niCARDipine-NS 40mg/200ml IVPB 200 ML IV ONE (12:00)
--- NOTE | 2024-12-30 13:19 | RADIOLOGY REPORT ---
CHEST RADIOGRAPH Indication: sob Technique: Single frontal view of the chest was obtained Comparison: DI CHEST,SINGLE VIEW on DOS: 11/06/24, DI CHEST,SINGLE VIEW on DOS: 05/05/24, CHEST,SINGLE VIEW on DOS: 11/19/20 FINDINGS: Lines and Tubes: None Lungs: No focal consolidation. Linear density of the right lower lung zone. Pleura: No effusion. No pneumothorax. Cardiomediastinal contours: Unremarkable Bones: No acute osseous abnormality. IMPRESSION: Right lower lung zone atelectasis. Otherwise, no evidence for acute cardiopulmonary disease.
== END 2024-12-30 12:31 | disposition hospice, inpatient (51) ==
LOC: ER 10:02
DX: I62.9 Nontraumatic intracranial hemorrhage, unspecified (principal); I11.0 Hypertensive heart disease with heart failure; I50.9 Heart failure, unspecified; J44.9 Chronic obstructive pulmonary disease, unspecified; E78.00 Pure hypercholesterolemia, unspecified; E11.9 Type 2 diabetes mellitus without complications; F12.90 Cannabis use, unspecified, uncomplicated; Z86.73 Personal history of transient ischemic attack (TIA), and cerebral infarction without residual deficits; Z88.0 Allergy status to penicillin; Z91.041 Radiographic dye allergy status; Z88.1 Allergy status to other antibiotic agents; Z88.8 Allergy status to other drugs, medicaments and biological substances; Z90.710 Acquired absence of both cervix and uterus; Z79.899 Other long term (current) drug therapy; Z79.82 Long term (current) use of aspirin; Z60.2 Problems related to living alone; Z72.89 Other problems related to lifestyle
CPT/HCPCS: 36415; 70450; 71045; 80048; 80320; 83605; 83880; 85025; 85610; 87040; 99291

== ENCOUNTER 2025-01-10 18:24 | Emergency (ER) | payer MEDICAID ==
[~2025-01-10] VITALS: Ht 157.5 cm; Wt 54.7 kg
[2025-01-10 18:31] VITALS: TEMP 98.4
--- NOTE | 2025-01-10 18:45 | Physician Documentation ---
History of Present Illness ~ Chief Complaint: Shortness of Breath Stated Complaint: SOB Time Seen by MD: 18:37 Primary Medical Doctor: ed HPI 64-year-old female, history of COPD on chronic oxygen, recent stroke, who presents with shortness of breath. She tells me that her symptoms started a couple of hours ago. She reports feeling increased shortness of breath. This occurred after she went to smoke some cigarettes. She denies any fevers, chills, dizziness, headache, productive cough, chest pain, abdominal pain, vomiting, diarrhea, leg pain or swelling. She has had some constipation recently. She has been taking a laxative. Per EMS, when they found the patient she was short of breath and hypoxic. However they discovered that her oxygen tubing was kinked. When they change the oxygen tubing, her oxygen saturations and breathing appeared to rapidly improve. Medication Reconciliation Allergies: Coded Allergies: iodine (Verified Allergy, Severe, Anaphylaxis, 01/10/25) stated per patient buspirone HCl (Verified Allergy, Mild, 01/10/25) Penicillins (Verified Allergy, Unknown, 01/10/25) cyanocobalamin (vitamin B12) (Verified Allergy, Unknown, 01/10/25) Pt states B12 injection gives her migraines erythromycin base (Verified Allergy, Unknown, RASH, 01/10/25) levofloxacin (Verified Allergy, Unknown, 01/10/25) Scheduled Amlodipine Besylate (Amlodipine Besylate), 1 TAB PO DAILY, (Reported) Aspirin (Aspirin EC), 1 TAB PO DAILY, (Reported) Atorvastatin Calcium (Atorvastatin Calcium), 1 TAB PO DAILY, (Reported) Benzonatate (Benzonatate), 1 CAP PO TID, (Reported) Carvedilol (Carvedilol), 1 TAB PO BID, (Reported) Gabapentin (Neurontin), 1 CAP PO TID, (Reported) Levothyroxine Sodium (Levothyroxine Sodium), 1 TAB PO DAILY, (Reported) Lisinopril* (Lisinopril*), 1 TAB PO DAILY, (Reported) Montelukast Sodium (Singulair), 1 TAB PO HS, (Reported) Prednisone* (Prednisone*), 2 TAB PO DAILY Quetiapine Fumarate (Quetiapine Fumarate), 1 TAB PO HS, (Reported) Risperidone (Risperidone), 1 TAB PO BID, (Reported) Sennosides (Senna), 1 TAB PO HS, (Reported) Venlafaxine Hcl (Venlafaxine Hcl Er), 1 CAP PO DAILY, (Reported) Scheduled PRN albuterol inhaler (Pro-Air Inhaler), 2 PUFFS IH Q6H PRN for SOB or wheezing, (Reported) Miscellaneous Medications Metformin HCl (Metformin HCl), 1 TAB PO, (Reported) Past Medical History Past Medical History: CVA/TIA/Stroke, Congestive Heart Failure, High Cholesterol, Hypertension, COPD, UTI, Diabetes, Graves' Disease, Thyroid (unspecified), Chronic Back Pain, Anxiety Past Surgical History: abdominal surgery, hysterectomy, tonsillectomy, tubal ligation Other Past Surgical History: exploratory abdominal surgery Patient History: FH: diabetes mellitus sister sister sister FH: heart disease FATHER MOTHER sister FH: malignant neoplasm of bone Paternal grandfather FH: ovarian cancer sister sister Other Past Family History: NONCONTRIBUTORY Alcohol Use: Occasionally Drug Use: marijuana Lives with: Alone Lives In: Home Occupation: disabled Review of Systems Constitutional: Denies: fever Respiratory: Reports: shortness of breath; Denies: cough Cardiovascular: Denies: chest pain Gastrointestinal: Denies: abdominal pain Physical Exam Vital Signs: Temperature: 98.4, Source: Oral, Heart Rate: 77, Respiratory Rate: 18, BP: 147/84, Pulse Oximetry: 100, Weight: 54.700 Oxygen Flow Rate: 4.0 Physical Exam General: This is a chronically ill-appearing middle-aged female, with slightly increased work of breathing but otherwise not in distress HEENT: Atraumatic, oropharynx appears dry Heart: Regular rate and rhythm, normal-appearing peripheral perfusion Lungs: Slightly increased respiratory rate, she is able to answer questions in short sentences, no coughing. Oxygen saturations in the high 90s on 2 L nasal cannula. Breath sounds are generally clear with few scattered expiratory wheezes, she does have some upper airway secretions which clear with coughing Abdomen: Soft, nondistended, nontender all quadrants including in the lower abdomen Extremities: Warm and well-perfused, no significant edema Neuro: Alert and oriented, no focal deficits Psychiatric: Calm and cooperative with exam Progress Results/Orders Results/Orders Orders - MINE CHAVEZ MD Chest,Single View (01/10/25 18:43) * Rt Notification Q1H (01/10/25 18:48) General Nursing Order (01/10/25 ) * Miscellaneous Nursing Orders (01/10/25 22:21) Completed Orders - MINE CHAVEZ MD Cbc/Diff (01/10/25 18:37) CMP (01/10/25 18:37) Chest,Single View (01/10/25 18:43) Ipratropium/Albuterol Nebule (Ipratrop/A (01/10/25 18:40) Methylprednisolone Sod Succ (Solumedrol (01/10/25 19:35) Medications Received in ER Medications (Trade) Dose Ordered Sig/Dax Route PRN Reason Start Time Stop Time Status Last Admin Dose Admin (ipratrop/ albuterol 0.5-3(2.5) MG/3ml nebule) 3 ml ONCE ONCE NEB 01/10/25 18:40 01/10/25 18:42 DC 01/10/25 18:57 3 ML (SoluMEDROL 125mg inj) 125 mg ONCE ONCE IV 01/10/25 19:35 01/10/25 19:36 DC 01/10/25 19:47 125 MG Vital Signs 01/10/25 01/10/25 01/10/25 01/10/25 18:31 18:52 18:57 19:04 Temp 98.4 Pulse 77 76 78 Resp 18 25 19 22 B/P (MAP) 147/84 Pulse Ox 100 99 O2 Delivery Nasal Cannula* Nasal Cannula* O2 Flow Rate 4.0 2 2 FiO2 28 28 01/10/25 01/10/25 20:55 22:38 Pulse 83 82 Resp 16 13 B/P (MAP) 150/66 (94) 144/74 (97) Pulse Ox 100 98 O2 Flow Rate 2.0 2.0 Laboratory Tests Test 01/10/25 18:38 White Blood Count 11.3 H Red Blood Count 4.21 Hemoglobin 12.5 Hematocrit 36.9 Mean Corpuscular Volume 87.7 Mean Corpuscular Hemoglobin 29.7 Mean Corpuscular Hemoglobin Concent 33.8 Red Cell Distribution Width 14.2 Platelet Count 264 Mean Platelet Volume 8.1 Neutrophils (%) (Auto) 77.9 H Lymphocytes (%) (Auto) 10.9 L Monocytes (%) (Auto) 8.4 Eosinophils (%) (Auto) 1.7 Basophils (%) (Auto) 1.1 H Neutrophils # (Auto) 8.8 H Lymphocytes # (Auto) 1.2 Monocytes # (Auto) 1.0 H Eosinophils # (Auto) 0.2 Basophils # (Auto) 0.1 CBC Comment Sodium Level 135 Potassium Level 3.4 L Chloride Level 96 L Carbon Dioxide Level 29.0 Anion Gap 10 Blood Urea Nitrogen 25 H Creatinine 0.84 Estimated GFR/1.73 m2 69 BUN/Creatinine Ratio 29.8 H Glucose Level 153 H Calcium Level 9.5 Total Bilirubin 0.3 Aspartate Amino Transf (AST/SGOT) 26 Alanine Aminotransferase (ALT/SGPT) 21 Alkaline Phosphatase 76 Total Protein 7.4 Albumin 3.8 Globulin 3.6 Albumin/Globulin Ratio 1.1 Chemistry Comments Re-Evaluation Re-evaluation : Re-Evaluation: Improved Progress On re-evaluation after treatment, the patient is breathing easily, eating food, and resting comfortably. EKG/XRAY/CT/US/VASC/MRI EKG : Additional Comment I personally interpreted the EKG and this shows: Sinus rhythm, with a very poor baseline due to patient movement which makes interpretation difficult. Within these limitations, there does not appear to be a STEMI or acute ischemic changes Chest X-Ray : Additional Comments I personally reviewed the x-ray, and it shows: No acute consolidation, pulmonary edema, or mediastinal widening. Consistent with COPD Medical Decision Making Differential Dx:Considerations: Include: anxiety, cardiogenic shock, CHF, COPD, dysrhythmia, myocardial infarction, pneumonia Assessment 64-year-old female, history of COPD on oxygen who presents with shortness of breath. Per EMS, they suspect it was because her oxygen tubing was kinked. Here in the ED she does appear somewhat short of breath, but has no fever, no hypoxia from baseline, no chest pain. EKG is limited due to patient movement but does not appear to show ischemic changes. She was given a DuoNeb. She was given IV steroids. She was observed for a period of time, after which her work of breathing normalized. Overall, she does not appear to have an acute medical or surgical emergency, may have a mild COPD exacerbation although it seems this was likely related to problems with her oxygen tubing. She will be discharged with a short course of prednisone and outpatient follow up, return precautions given. Departure Time of Disposition: 21:50 Disposition: HOME / SELF CARE / HOMELESS Impression: Primary Impression: COPD exacerbation Condition: Improved Discharge Instructions: Chronic Obstructive Pulmonary Disease Exacerbation Referrals: NO PRIMARY CARE PROVIDER (PCP) Prescriptions Prednisone* (Prednisone*) 20 Mg Tablet 2 TAB PO DAILY for 4 Days, #8 TAB Prov: MINE CHAVEZ MD 01/10/25 Education Educated: Patient Educated regarding: diagnosis, treatment Signature Scribe Signature: phong Attestation: MINE Duron MD January 10, 2025 18:45
[2025-01-10 18:48] LABS: BASOPHILS # (AUTO) 0.1 X10'3 (0-0.2); BASOPHILS % (AUTO) 1.1 % (0-1); EOSINOPHILS # (AUTO) 0.2 X10'3 (0-0.9); EOSINOPHILS % (AUTO) 1.7 % (0-6); HEMATOCRIT 36.9 % (35.0-45.0); HEMOGLOBIN 12.5 g/dl (12.0-16.0); LYMPHOCYTES # (AUTO) 1.2 X10'3 (1.1-4.8); LYMPHOCYTES % (AUTO) 10.9 % (21-51); MEAN CORPUSCULAR HEMOGLOBIN 29.7 PG (27.0-31.0); MEAN CORPUSCULAR HGB CONC 33.8 g/dL (33.0-36.5); MEAN CORPUSCULAR VOLUME 87.7 FL (78-98); MEAN PLATELET VOLUME 8.1 FL (7.4-10.4); MONOCYTES % (AUTO) 8.4 % (2-12); NEUTROPHILS # (AUTO) 8.8 X10'3 (1.8-7.7); NEUTROPHILS % (AUTO) 77.9 % (42-75); PLATELET COUNT 264 X10'3 (140-440); RED BLOOD COUNT 4.21 X10'6 (4.20-5.60); RED CELL DISTRIBUTION WIDTH 14.2 % (11.5-14.5); WHITE BLOOD COUNT 11.3 X10'3 (4.5-11.0)
--- NOTE | 2025-01-10 18:53 | RADIOLOGY REPORT ---
CHEST RADIOGRAPH Indication: Shortness of breath, COPD Technique: Single frontal view of the chest was obtained Comparison: DI CHEST,SINGLE VIEW on DOS: 12/30/24, DI CHEST,SINGLE VIEW on DOS: 11/06/24, DI CHEST,SING LE VIEW on DOS: 05/05/24 FINDINGS: Lines and Tubes: None Lungs: No focal consolidation. Pleura: No effusion. No pneumothorax. Cardiomediastinal contours: Unremarkable Bones: No acute osseous abnormality. IMPRESSION: No acute cardiopulmonary disease.
[2025-01-10 18:57] VITALS: PULSE 76; RESP 19; O2SAT 99
[2025-01-10] MEDS: ipratropium/albuterol 3ml nebule NEB ONE (18:57)
[2025-01-10 19:03] LABS: ALANINE AMINOTRANSFERASE 21 U/L (12-78); ALBUMIN 3.8 G/DL (3.4-5.0); ALBUMIN/GLOBULIN RATIO 1.1 (1.1-1.5); ALKALINE PHOSPHATASE 76 IU/L (46-116); ANION GAP 10 (8-16); ASPARTATE AMINO TRANSFERASE 26 U/L (10-37); BILIRUBIN,TOTAL 0.3 MG/DL (0.1-1.0); BLOOD UREA NITROGEN 25 MG/DL (7-18); BUN/CREATININE RATIO 29.8 (10.0-20.0); CALCIUM 9.5 MG/DL (8.5-10.1); CHLORIDE 96 MMOL/L (99-107); CREATININE 0.84 MG/DL (0.40-0.90); GLUCOSE 153 MG/DL (70-104); SODIUM 135 MMOL/L (135-145); TOTAL PROTEIN 7.4 G/DL (6.4-8.2); eCRCL 55 ML/MIN; eGFR 69 ML/MIN
[2025-01-10 19:04] VITALS: PULSE 78; RESP 22
[2025-01-10 19:11] LABS: POTASSIUM 3.4 MMOL/L (3.5-5.1)
[2025-01-10] MEDS: methylPREDNISolone sod succ 125mg/2ml vial IV ONE (19:47)
[2025-01-10] MEDS ORDERED: PRED20TA PO (21:51)
[2025-01-10 22:39] VITALS: BP 144/74; PULSE 82; RESP 13; O2SAT 98
--- NOTE | 2025-01-11 08:00 | ELECTROCARDIOGRAPH REPORT ---
[facility] Test Date: 2025-01-10 Test Time: 18:25:48 Pat Name: JESS GALLO Department: EMERGENCY ROOM Room: Gender: F Mat Packer: [id number] : [id number] Requested By: MINE CHAVEZ Order Number: [id number] Reading MD: Measurements Intervals Mason Rate: 76 P: 121 MA: 180 QRS: 29 QRSD: 98 T: 53 QT: 409 QTc: 460 Interpretive Statements Sinus rhythm Ventricular premature complex Probable left atrial enlargement LVH with secondary repolarization abnormality Inferior infarct, old Please click the below link to view image of tracing.
== END 2025-01-10 22:45 | disposition home or self-care (01) ==
LOC: ER 18:25
DX: J44.1 Chronic obstructive pulmonary disease with (acute) exacerbation (principal); I11.0 Hypertensive heart disease with heart failure; I50.9 Heart failure, unspecified; F17.210 Nicotine dependence, cigarettes, uncomplicated; E78.00 Pure hypercholesterolemia, unspecified; E11.9 Type 2 diabetes mellitus without complications; F41.9 Anxiety disorder, unspecified; F12.90 Cannabis use, unspecified, uncomplicated; Z86.73 Personal history of transient ischemic attack (TIA), and cerebral infarction without residual deficits; Z88.0 Allergy status to penicillin; Z88.8 Allergy status to other drugs, medicaments and biological substances; Z88.1 Allergy status to other antibiotic agents; Z91.041 Radiographic dye allergy status; Z90.710 Acquired absence of both cervix and uterus; Z99.81 Dependence on supplemental oxygen; Z79.899 Other long term (current) drug therapy; Z79.82 Long term (current) use of aspirin; Z72.89 Other problems related to lifestyle; Z60.2 Problems related to living alone
CPT/HCPCS: 36415; 71045; 80053; 85025; 93005; 94640; 96374; 99285; J2919; 94760; A4615

== ENCOUNTER 2025-01-25 09:09 | Emergency (ER) | payer MEDICAID ==
[~2025-01-25] VITALS: Ht 157.5 cm; Wt 58.8 kg
[2025-01-25 09:15] VITALS: BP 135/57; PULSE 60; O2SAT 98
--- NOTE | 2025-01-25 09:20 | Physician Documentation ---
History of Present Illness ~ Chief Complaint: Mechanical Fall Stated Complaint: FALL Time Seen by MD: 09:18 Primary Medical Doctor: ed HPI 64-YEAR-OLD FEMALE PRESENTED TO THE ED WITH A COMPLAINT OF THE GROUND LEVEL FALL YESTERDAY. SHE STATES SHE WAS TAKING [id number] REMEDIES WAS SOME BENEFIT BY YESTERDAY HOWEVER TODAY SHE HAS INCREASED SACRAL PAIN PAIN. DENIES ANY H EAD STRIKE. Day of Fall: Jan 25, 2025 Tetanus within 5 Years?: No Medication Reconciliation Allergies: Coded Allergies: iodine (Verified Allergy, Severe, Anaphylaxis, 01/10/25) stated per patient buspirone HCl (Verified Allergy, Mild, 01/10/25) Penicillins (Verified Allergy, Unknown, 01/10/25) cyanocobalamin (vitamin B12) (Verified Allergy, Unknown, 01/10/25) Pt states B12 injection gives her migraines erythromycin base (Verified Allergy, Unknown, RASH, 01/10/25) levofloxacin (Verified Allergy, Unknown, 01/10/25) Scheduled Amlodipine Besylate (Amlodipine Besylate), 1 TAB PO DAILY, (Reported) Aspirin (Aspirin EC), 1 TAB PO DAILY, (Reported) Atorvastatin Calcium (Atorvastatin Calcium), 1 TAB PO DAILY, (Reported) Benzonatate (Benzonatate), 1 CAP PO TID, (Reported) Carvedilol (Carvedilol), 1 TAB PO BID, (Reported) Gabapentin (Neurontin), 1 CAP PO TID, (Reported) Levothyroxine Sodium (Levothyroxine Sodium), 1 TAB PO DAILY, (Reported) Lisinopril* (Lisinopril*), 1 TAB PO DAILY, (Reported) Montelukast Sodium (Singulair), 1 TAB PO HS, (Reported) Quetiapine Fumarate (Quetiapine Fumarate), 1 TAB PO HS, (Reported) Risperidone (Risperidone), 1 TAB PO BID, (Reported) Sennosides (Senna), 1 TAB PO HS, (Reported) Venlafaxine Hcl (Venlafaxine Hcl Er), 1 CAP PO DAILY, (Reported) Scheduled PRN Hydrocodone Bit/Acetaminophen 5/325 MG ([place] 5/325 MG), 1 TAB PO Q6H PRN for pain albuterol inhaler (Pro-Air Inhaler), 2 PUFFS IH Q6H PRN for SOB or wheezing, (Reported) Miscellaneous Medications Metformin HCl (Metformin HCl), 1 TAB PO, (Reported) Past Medical History Past Medical History: CVA/TIA/Stroke, Congestive Heart Failure, High Cholesterol, Hypertension, COPD, UTI, Diabetes, Graves' Disease, Thyroid (unspecified), Chronic Back Pain, Anxiety Past Surgical History: abdominal surgery, hysterectomy, tonsillectomy, tubal ligation Other Past Surgical History: exploratory abdominal surgery Patient History: FH: diabetes mellitus sister sister sister FH: heart disease FATHER MOTHER sister FH: malignant neoplasm of bone Paternal grandfather FH: ovarian cancer sister sister Other Past Family History: NONCONTRIBUTORY Alcohol Use: Occasionally Drug Use: marijuana Lives with: Alone Lives In: Home Occupation: disabled Review of Systems All Other Systems at this time: Reviewed and Negative ROS As stated above in the HPI, otherwise all systems are reviewed and negative. Physical Exam Vital Signs: Temperature: 97.8, Source: Oral, Heart Rate: 60, Respiratory Rate: 16, BP: 135/57, Pulse Oximetry: 98, Weight: 58.800 Oxygen Flow Rate: 0 Physical Exam General: Alert, no apparent distress. Neck: Full range of motion. Respiratory: Lungs clear, no respiratory distress. back: tender sacral region via palpation Neurologic: Oriented x4. Psychiatric: Normal mood and affect. Skin: Normal color, warm and dry. No edema, no ecchymosis. Progress Results/Orders Results/Orders Orders - ROMAN CRUZ LICENSING SPECIALIST Sacrum & Coccyx (01/25/25 09:19) Completed Orders - ROMAN CRUZ LICENSING SPECIALIST Sacrum & Coccyx (01/25/25 09:19) Hydrocodone/Apap 10/325 ([place] 10/325mg (01/25/25 09:55) Medications Received in ER Medications (Trade) Dose Ordered Sig/Dax Route PRN Reason Start Time Stop Time Status Last Admin Dose Admin ([place] 10/325mg tab) 1 tab ONCE ONCE PO 01/25/25 09:55 01/25/25 09:56 DC 01/25/25 10:27 1 TAB Vital Signs 01/25/25 01/25/25 01/25/25 09:15 10:27 10:32 Temp 97.8 97.8 Pulse 60 Resp 16 16 B/P (MAP) 135/57 Pulse Ox 98 O2 Flow Rate 0 Medical Decision Making Findings Patient presents with a single fracture for my interpretation of her x-ray. Going to treat her for pain and advised her to follow up in the outpatient setting for further evaluation. Differential Dx:Considerations: Include: Closed head injury, Cardiac injury, Fracture(s), Intraabdominal injury, Pneumothorax, Cerebral contusion, Pulmonary contusion, Spine injury, Tracheal injury, Urological injury, Vascular injury, Abrasion(s), Contusion(s), Foreign body(s), Hematoma(s), Laceration(s), Encephalopathy, Other Departure Disposition: 01 HOME / SELF CARE / HOMELESS Impression: Primary Impression: Fall Additional Impression: Sacral fracture Condition: Stable Discharge Instructions: Fall Prevention in the Home, Adult, [id number] Additional Instructions: follow up with primary care for further evaluation. Sometimes can take extended periods until a sacral fracture fully heals. May seek out further pain control in the outpatient setting if this is an issue Referrals: NO PRIMARY CARE PROVIDER (PCP) Prescriptions Hydrocodone Bit/Acetaminophen 5/325 MG ([place] 5/325 MG) 5 Mg/325 Mg Tablet 1 TAB PO Q6H PRN for pain, #14 TAB Prov: ROMAN CRUZ NP 01/25/25 Signature Scribe Signature: v Attestation: The note accurately reflects work and decisions made by me.Roman Austin NP 01/25/25 17:36 ROMAN CRUZ NP Jan 25, 2025 09:20
--- NOTE | 2025-01-25 09:46 | RADIOLOGY REPORT ---
DI SACRUM COCCYX HISTORY: FALL TECHNICAL DATA: Frontal, Power and lateral views were obtained of the sacrum and coccyx. COMPARISON: None FINDINGS: Acute fracture through the coccyx. No dislocation. IMPRESSION: 1. Acute fracture through the coccyx.
[2025-01-25] MEDS ORDERED: HYDR-3965 PO (10:21)
[2025-01-25 10:27] VITALS: RESP 16
[2025-01-25] MEDS: HYDROcodone/acetaminophen 10/325mg tab PO ONE (10:27)
[2025-01-25 10:32] VITALS: TEMP 97.8
== END 2025-01-25 10:36 | disposition home or self-care (01) ==
LOC: ER 09:10
DX: S32.19XA Other fracture of sacrum, initial encounter for closed fracture (principal); E78.00 Pure hypercholesterolemia, unspecified; E11.9 Type 2 diabetes mellitus without complications; F41.9 Anxiety disorder, unspecified; F12.90 Cannabis use, unspecified, uncomplicated; I11.0 Hypertensive heart disease with heart failure; I50.9 Heart failure, unspecified; J44.9 Chronic obstructive pulmonary disease, unspecified; Z80.41 Family history of malignant neoplasm of ovary; Z86.73 Personal history of transient ischemic attack (TIA), and cerebral infarction without residual deficits; Z88.0 Allergy status to penicillin; Z88.1 Allergy status to other antibiotic agents; Z90.710 Acquired absence of both cervix and uterus; Z91.041 Radiographic dye allergy status; Z88.8 Allergy status to other drugs, medicaments and biological substances; Z79.899 Other long term (current) drug therapy; Z72.89 Other problems related to lifestyle; Z60.2 Problems related to living alone; W18.30XA Fall on same level, unspecified, initial encounter; Y93.89 Activity, other specified; Y92.89 Other specified places as the place of occurrence of the external cause; Y99.8 Other external cause status
CPT/HCPCS: 72220; 99284

== ENCOUNTER 2025-02-10 06:55 | Inpatient (IN) | payer MEDICAID ==
[2025-02-10] VITALS (8 sets, daily range): BP systolic 173–186; BP diastolic 88–90; PULSE 70–92; RESP 18–28; TEMP 98–98.1; O2SAT 93–100
[~2025-02-10] VITALS: Ht 157.5 cm; Wt 56.0 kg
[~2025-02-10 06:55] MED LIST changes: +HYDR-3965 PO
[2025-02-10] MEDS: predniSONE 20 mg tablet PO ONE (08:23)
[2025-02-10] MEDS: DOXYCYCLINE 100MG CAPSULE PO STA (08:23)
[2025-02-10] MEDS: ipratropium/albuterol 3ml nebule NEB ONE (08:33)
[2025-02-10 08:52] LABS: BASOPHILS % (AUTO) 0.6 % (0-1); EOSINOPHILS % (AUTO) 0.3 % (0-6); HEMATOCRIT 40.2 % (35.0-45.0); HEMOGLOBIN 13.7 g/dl (12.0-16.0); LYMPHOCYTES # (AUTO) 1.1 X10'3 (1.1-4.8); LYMPHOCYTES % (AUTO) 12.8 % (21-51); MEAN CORPUSCULAR HEMOGLOBIN 29.9 PG (27.0-31.0); MEAN CORPUSCULAR HGB CONC 34.1 g/dL (33.0-36.5); MEAN CORPUSCULAR VOLUME 87.6 FL (78-98); MEAN PLATELET VOLUME 7.7 FL (7.4-10.4); MONOCYTES # (AUTO) 0.8 X10'3 (0-0.9); MONOCYTES % (AUTO) 9.2 % (2-12); NEUTROPHILS # (AUTO) 6.4 X10'3 (1.8-7.7); NEUTROPHILS % (AUTO) 77.1 % (42-75); PLATELET COUNT 265 X10'3 (140-440); RED BLOOD COUNT 4.59 X10'6 (4.20-5.60); WHITE BLOOD COUNT 8.3 X10'3 (4.5-11.0)
[2025-02-10 09:16] LABS: ANION GAP 4 (8-16); BLOOD UREA NITROGEN 12 MG/DL (7-18); BUN/CREATININE RATIO 16.7 (10.0-20.0); CALCIUM 8.8 MG/DL (8.5-10.1); CHLORIDE 99 MMOL/L (99-107); CREATININE 0.72 MG/DL (0.40-0.90); GLUCOSE 148 MG/DL (70-104); PRO BRAIN NATRIURETIC PEPTIDE 1244 PG/ML (0-125); SODIUM 138 MMOL/L (135-145); TOTAL CARBON DIOXIDE 34.9 MMOL/L (24-32); eCRCL 64 ML/MIN; eGFR 82 ML/MIN
[2025-02-10 09:25] LABS: POTASSIUM 2.8 MMOL/L (3.5-5.1)
[2025-02-10] MEDS: potassium Cl 20 mEq SR tablet PO STA (09:43)
[2025-02-10] MEDS: magnesium sulf-water 2g/50mL 50 ML IV ONE (09:44)
--- NOTE | 2025-02-10 10:00 | RADIOLOGY REPORT ---
CHEST RADIOGRAPH Indication: SOB Technique: Single frontal view of the chest was obtained COMPARISON: DI CHEST,SINGLE VIEW on DOS: 01/10/25, DI CHEST,SINGLE VIEW on DOS: 12/30/24, DI CHEST,SING LE VIEW on DOS: 11/06/24, DI CHEST,SINGLE VIEW on DOS: 05/05/24, CHEST,SINGLE VIEW on DOS: 11/19/20 FINDINGS: Lines and Tubes: None Lungs: Clear Pleura: No effusion. No pneumothorax. Cardiomediastinal contours: Unremarkable Bones: Unremarkable IMPRESSION: No acute disease.
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
[2025-02-10] MEDS: Permethrin 1% 59ml topical rinse TP ONE (10:25)
[2025-02-10] MEDS ORDERED: acetaminophen 325mg tablet PO PRN (10:40)
[2025-02-10] MEDS ORDERED: magnesium hydroxide 30ml (MOM) UD suspension PO PRN (10:40)
[2025-02-10] MEDS ORDERED: ondansetron/PF 4mg/2ml inj IV PRN (10:40)
[2025-02-10] MEDS ORDERED: magnesium Cl slow-release 64mg tablet PO PRN (10:40)
[2025-02-10] MEDS ORDERED: mag hydrox/Alum hydrox/simeth 30ml oral suspension PO PRN (10:40)
[2025-02-10] MEDS ORDERED: morphine 2 MG/ML inj. syringe IV PRN ×2 (10:40)
[2025-02-10] MEDS ORDERED: magnesium sulf-water 2g/50mL 50 ML IV PRN (10:40)
[2025-02-10] MEDS ORDERED: potassium Cl 20 mEq SR tablet PO PRN ×2 (10:40)
[2025-02-10] MEDS ORDERED: potassium Cl 40MEQ/1/2NS 520ml 520 ML IV PRN (10:40)
[2025-02-10] MEDS ORDERED: magnesium sulf-water 4G/100mL 100 ML IV PRN (10:40)
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
[2025-02-10] MEDS: normal saline 1000ml 1,000 ML IV SCH (11:27)
[2025-02-10 12:17] LABS: HEMOGLOBIN A1C 7.5 % (4.5-6.2)
[2025-02-10] MEDS ORDERED: ipratropium/albuterol 3ml nebule NEB PRN (12:20)
[2025-02-10] MEDS ORDERED: glucagon, human recombinant 1mg kit SUBCUT PRN (12:40)
[2025-02-10] MEDS ORDERED: dextrose 50%-water 50ml dispensing syringe IV PRN ×2 (12:40)
[2025-02-10] MEDS ORDERED: DEXTROSE 15 GM of carb/4 tabs (each vial/BOTTLE has 4 tablets) PO PRN ×2 (12:40)
[2025-02-10] MEDS: azithromycin 250mg tablet PO ONE (12:51)
[2025-02-10] MEDS: methylPREDNISolone sod succ/PF 40mg inj. IV SCH (12:51)
[2025-02-10] MEDS: CefTRIAXone/D5W-Rocephin 1gm 50 ML IV SCH (12:52)
[2025-02-10] MEDS: ipratropium/albuterol 3ml nebule NEB SCH (15:00)
[2025-02-10] MEDS: INSULIN LISPRO 100 UNIT/ML INSULN.PEN MULTI-DOSE SQ SCH (17:48)
--- NOTE | 2025-02-10 18:20 | CARDIOLOGY REPORT ---
APPROVED REPORT EXAM: Limited 2D, Doppler, and color-flow Echocardiogram. Patient Location: ED6 Blood Pressure: 176/91 mmHg Heart Rate: 83 bpm Rhythm: NSR Indications CHF Hypertension Hx meth COPD Diabetes Pro BNP 1244 No lead programmer analyst Previous echo 11/06/24 [facility] EF 55% ; m MR 2D Dimensions IVC 22.43 mm Aortic Valve AoV Peak Gutierrez. 177.7 cm/s AO Peak GR. 12.6 mmHg Mitral Valve MV Peak Gr. 8 mmHg MV PHT 52 ms MVA (PHT) 4.23 cm2 MV [id number] cm/s Tricuspid Valve RAP ESTIMATE 15 mmHg LEFT VENTRICLE LV appears normal in size and thickness. Overall systolic function appears preserved. There is a smal l hypokinetic segment appreciated in the posterior wall. Overall LVEF is 60%. RIGHT VENTRICLE RV appears normal in size and function. AORTIC VALVE Trileaflet AV appears sclerotic without stenosis. No insufficiency. MITRAL VALVE MV is thickened with mild annular calcification and no stenosis. Mild mitral regurgitation. TRICUSPID VALVE The tricuspid valve is normal in structure. Trace tricuspid regurgitation. PULMONIC VALVE The pulmonary valve is normal in structure. Trace pulmonic regurgitation. GREAT VESSELS IVC is dilated and collapses greater than 50% with inspiration. PERICARDIUM Small circumferential pericardial effusion with no evidence of hemodynamic compromise. Other Information Study Quality: Adequate Conclusion Overall LVEF is 60%. LV appears normal in size and thickness. Overall systolic function appears preserved. There is a smal l hypokinetic segment appreciated in the posterior wall. RV appears normal in size and function. Trileaflet AV appears sclerotic without stenosis. No insufficiency. Mild mitral regurgitation. Trace tricuspid regurgitation. Trace pulmonic regurgitation. Small circumferential pericardial effusion with no evidence of hemodynamic compromise.
[2025-02-10] MEDS: hydrALAZINE 20mg/ml inj. IV ONE (19:35)
[2025-02-10] MEDS: heparin, porcine 5000 units/ml vial SQ SCH (19:35)
[2025-02-10] MEDS: lactobacillus rhamnosus 10,000 MMU CELLS/CAPSULE PO SCH (19:35)
[2025-02-10] MEDS: docusate sod 100mg capsule PO SCH (19:35)
[2025-02-10] MEDS: K and/or MAG REPLACEMENT MC SCH (20:00)
[2025-02-10 20:06] LABS: URINE AMPHETAMINE SCREEN NEGATIVE (Neg); URINE BARBITUATE SCREEN NEGATIVE (Neg); URINE BENZODIAZEPINES SCREEN NEGATIVE (Neg); URINE CANNABINOID SCREEN POSITIVE (Neg); URINE COCAINE SCREEN NEGATIVE (Neg); URINE METHADONE SCREEN NEGATIVE (Neg); URINE OPIATE SCREEN NEGATIVE (Neg); URINE PHENCYCLIDINE SCREEN NEGATIVE (Neg)
[2025-02-10] MEDS: quetiapine 100mg tablet PO ONE (22:09)
[2025-02-10] MEDS: lisinopril 20mg tablet PO ONE (22:09)
[2025-02-10] MEDS: amLODIPine 5mg tablet PO ONE (22:10)
[2025-02-11] VITALS (17 sets, daily range): BP systolic 142–182; BP diastolic 76–90; PULSE 74–98; RESP 16–20; TEMP 97.2–99; O2SAT 89–100
[2025-02-11 06:47] LABS: MAGNESIUM 2.2 MG/DL (1.5-2.4)
[2025-02-11 06:53] LABS: CHOL/HDL RATIO 4.3 (0.00-4.99); CHOLESTEROL 353 MG/DL (0-200); HDL CHOLESTEROL 82 MG/DL (35-60); LDL CHOLESTEROL 207 MG/DL (50-100); TRIGLYCERIDES 146 MG/DL (20-135)
[2025-02-11] MEDS: pantoprazole 40mg Tablet.DR PO SCH (08:17)
[2025-02-11] MEDS: venlafaxine XR 75mg capsule (Q24H) PO SCH (08:26)
[2025-02-11 08:38] LABS: BASOPHILS % (AUTO) 0.4 % (0-1); EOSINOPHILS % (AUTO) 0 % (0-6); HEMATOCRIT 39.9 % (35.0-45.0); HEMOGLOBIN 13.6 g/dl (12.0-16.0); LYMPHOCYTES # (AUTO) 1.5 X10'3 (1.1-4.8); LYMPHOCYTES % (AUTO) 21.9 % (21-51); MEAN CORPUSCULAR HEMOGLOBIN 29.7 PG (27.0-31.0); MEAN CORPUSCULAR HGB CONC 34.1 g/dL (33.0-36.5); MEAN CORPUSCULAR VOLUME 87.2 FL (78-98); MEAN PLATELET VOLUME 8.5 FL (7.4-10.4); MONOCYTES # (AUTO) 0.9 X10'3 (0-0.9); MONOCYTES % (AUTO) 12.8 % (2-12); NEUTROPHILS # (AUTO) 4.5 X10'3 (1.8-7.7); NEUTROPHILS % (AUTO) 64.9 % (42-75); PLATELET COUNT 281 X10'3 (140-440); RED BLOOD COUNT 4.58 X10'6 (4.20-5.60); RED CELL DISTRIBUTION WIDTH 14.9 % (11.5-14.5); WHITE BLOOD COUNT 6.9 X10'3 (4.5-11.0)
[2025-02-11] MEDS: amLODIPine 5mg tablet PO SCH (08:41)
[2025-02-11 08:54] LABS: ALANINE AMINOTRANSFERASE 16 U/L (12-78); ALBUMIN 3.7 G/DL (3.4-5.0); ALKALINE PHOSPHATASE 87 IU/L (46-116); ANION GAP 10 (8-16); ASPARTATE AMINO TRANSFERASE 23 U/L (10-37); BILIRUBIN,TOTAL 0.2 MG/DL (0.1-1.0); BLOOD UREA NITROGEN 18 MG/DL (7-18); BUN/CREATININE RATIO 24.3 (10.0-20.0); CALCIUM 8.4 MG/DL (8.5-10.1); CHLORIDE 100 MMOL/L (99-107); CREATININE 0.74 MG/DL (0.40-0.90); GLUCOSE 166 MG/DL (70-104); SODIUM 140 MMOL/L (135-145); TOTAL CARBON DIOXIDE 30.4 MMOL/L (24-32); TOTAL PROTEIN 7.5 G/DL (6.4-8.2); eCRCL 62 ML/MIN; eGFR 80 ML/MIN
[2025-02-11 08:55] LABS: POTASSIUM 3.7 MMOL/L (3.5-5.1)
[2025-02-11] MEDS: gabapentin 300mg capsule PO SCH (12:24)
[2025-02-11] MEDS: benzonatate 100mg capsule PO SCH (12:24)
--- NOTE | 2025-02-11 13:25 | PROGRESS NOTE- Residence ---
Progress Note - Resident Providers to CC Resident Creating Document: EVELIO FLORES, RES ~ Antibiotic Timeout Antibiotic Ordered?: Yes Subjective The patient has been evaluated at the bedside. Reports significant improvement of shortness of breath. Objective Vital Signs Date Time Temp Pulse Resp B/P (MAP) Pulse Ox O2 Delivery O2 Flow Rate FiO2 02/11/25 12:00 86 18 Nasal Cannula 1.0 24 02/11/25 11:53 94 02/11/25 10:00 99.0 151/80 (103) Physical exam: General: Well alert, well oriented, not confused, not agitated, not in acute distress, well cooperated during the physical. HEENT: Conjunctive are pink, sclerae clear, no icterus, pupil is equal in both sides, reactive to light, no ear discharge, no pharyngeal erythema or an edema. Neck: Supple, no JVD, no lymphadenopathy and thyromegaly. Chest: Equal air entry on both lungs, presence of rhonchi, decreased wheezing bilaterally. Cardiovascular: S1-S2 regular sinus rhythm and, regular rate, no gallops, no rubs, no murmurs Abdomen: No visible peristalsis, Bowel sounds present on auscultation, soft, nontender, no guarding, no rigidity Extremities: No obvious deformities, no pitting edema bilaterally, capillary refill intact, peripheral pulsations are intact on both sides Central Nervous System: No focal neurological deficits, no motor or sensory weakness in all 4 extremities, could move all 4 extremities, 2+ deep tendon reflexes, negative Babinski. Musculoskeletal: No joint swelling, deformities, inflammations, and no scoliosis and back tenderness Skin: Warm and dry. Result Diagram: 02/11/2560402/11/25604 Assessment Assessment 64 years old female patient came to the hospital with chief complaint of shortness of breath. Plan Plan Acute exacerbation of COPD: The patient came to the hospital with shortness of breaths, increased frequency of cough with yellowish sputum production. Chest x-ray: Impression: No acute disease. Follow-up COVID-19. Ceftriaxone 1 g IV daily. Azithromycin 500 mg p.o. daily. Methylprednisolone 30 mg b.i.d.. DuoNeb q.2h PRN. DuoNebs q.4h scheduled. Culturelle 98101 mmu bid Oxygen to keep oxygen saturation > 88%. Incentive spirometry every 2 hours while awake. 02/11/2025: The patient reports improvement of symptoms. Continue ceftriaxone and azithromycin daily. Daily 2. Azithromycin to be discontinued tomorrow. Reducing methylprednisolone to 30 mg daily. Continue incentive spirometry every 2 hours while awake. The patient is currently at the baseline oxygen 1 L. Case management actively working for power cord of her machine of oxygen at home. Anticipated discharge tomorrow. Diabetes mellitus: Hemoglobin A1c 7.5. Hyperglycemia/hypoglycemia protocol in place. Hypokalemia-resolved: Replacement as per protocol. Chronic diastolic congestive heart failure-not in acute exacerbation: Current proBNP: 1244. Echocardiogram: Normal LV size and wall thickness. Overall systolic function is normal. Overall LVEF is 55%. Right ventricle is mildly dilated with normal function. Estimated PA systolic pressure is 34 mmHg. The left atrium size is normal. Trileaflet AV appears sclerotic without stenosis or insufficiency. Mild Moderate MV annular thickening and leaflet thickening. No stenosis. Mild regurgitation. TV appears normal with trace regurgitation. Trace pericardial effusion without evidence of hemodynamic compromise. On carvedilol 12.5 mg b.i.d. On lisinopril 40 mg daily. Jardiance 25 mg daily. Code status: Full code. DVT prophylaxis: SCDs, heparin Analgesia/sedation: Morphine Line/tube: PIV GI prophylaxis: Protonix. Nutrition: 75 carb controlled diet PT: Ordered Prognosis: Guarded Disposition: We will continue medical management. Case management actively working for her machine's power cord. Anticipated discharge tomorrow. Evelio Marquis Internal Medicine Resident [facility] Date of Service: Feb 11, 2025 Billing Provider: LION LUTZ MD Common Visit Codes: [id number] INP/OBS CARE(HIGH) EVELIO FLORES, RES Feb 11, 2025 13:25 LION LUTZ MD Feb 11, 2025 20:57
[2025-02-11] MEDS: EMPAGLIFLOZIN 25 MG TABLET PO SCH (16:21)
[2025-02-11] MEDS: risperiDONE 2mg tablet PO SCH (20:12)
[2025-02-11] MEDS: sennosides 8.6mg tablet PO SCH (20:12)
[2025-02-11] MEDS: quetiapine 100mg tablet PO SCH (20:12)
[2025-02-11] MEDS: carVEDilol 12.5mg tablet PO SCH (20:13)
[2025-02-12] VITALS (19 sets, daily range): BP systolic 123–157; BP diastolic 83–94; PULSE 64–82; RESP 16–20; TEMP 97.9–98.3; O2SAT 92–96
[2025-02-12] MEDS ORDERED: TYPE IN GENERIC & BRAND NAME OF PATIENT MED STRENGTH & FORM PO SCH (08:00)
[2025-02-12 08:04] LABS: BASOPHILS % (AUTO) 0.8 % (0-1); EOSINOPHILS # (AUTO) 0.1 X10'3 (0-0.9); HEMATOCRIT 39.4 % (35.0-45.0); HEMOGLOBIN 13.5 g/dl (12.0-16.0); LYMPHOCYTES # (AUTO) 1.8 X10'3 (1.1-4.8); LYMPHOCYTES % (AUTO) 30.8 % (21-51); MEAN CORPUSCULAR HEMOGLOBIN 29.7 PG (27.0-31.0); MEAN CORPUSCULAR HGB CONC 34.2 g/dL (33.0-36.5); MEAN CORPUSCULAR VOLUME 86.9 FL (78-98); MEAN PLATELET VOLUME 7.9 FL (7.4-10.4); MONOCYTES # (AUTO) 0.8 X10'3 (0-0.9); MONOCYTES % (AUTO) 14.1 % (2-12); NEUTROPHILS # (AUTO) 3.1 X10'3 (1.8-7.7); NEUTROPHILS % (AUTO) 53.3 % (42-75); PLATELET COUNT 250 X10'3 (140-440); RED BLOOD COUNT 4.53 X10'6 (4.20-5.60); WHITE BLOOD COUNT 5.9 X10'3 (4.5-11.0)
[2025-02-12 08:10] LABS: ALANINE AMINOTRANSFERASE 17 U/L (12-78); ALBUMIN 3.4 G/DL (3.4-5.0); ALKALINE PHOSPHATASE 79 IU/L (46-116); ANION GAP 6 (8-16); ASPARTATE AMINO TRANSFERASE 18 U/L (10-37); BILIRUBIN,TOTAL 0.3 MG/DL (0.1-1.0); BLOOD UREA NITROGEN 27 MG/DL (7-18); BUN/CREATININE RATIO 33.3 (10.0-20.0); CALCIUM 8.2 MG/DL (8.5-10.1); CHLORIDE 100 MMOL/L (99-107); CREATININE 0.81 MG/DL (0.40-0.90); GLUCOSE 154 MG/DL (70-104); MAGNESIUM 2.2 MG/DL (1.5-2.4); POTASSIUM 3.6 MMOL/L (3.5-5.1); SODIUM 141 MMOL/L (135-145); TOTAL CARBON DIOXIDE 34.8 MMOL/L (24-32); TOTAL PROTEIN 6.9 G/DL (6.4-8.2); eCRCL 57 ML/MIN; eGFR 72 ML/MIN
[2025-02-12] MEDS: methylPREDNISolone sod succ/PF 40mg inj. IV SCH (08:16)
[2025-02-12] MEDS: atorvastatin 20mg tablet PO SCH (09:04)
[2025-02-12] MEDS: lisinopril 20mg tablet PO SCH (09:13)
--- NOTE | 2025-02-12 10:27 | PROGRESS NOTE- Residence ---
Progress Note - Resident Providers to CC Resident Creating Document: ANGELES PAUL RES ~ Antibiotic Timeout Antibiotic Ordered?: Yes Subjective The patient has been evaluated at the bedside. Complains of shortness of breath. No other concerns or complaints at this time. Objective Vital Signs Date Time Temp Pulse Resp B/P (MAP) Pulse Ox O2 Delivery O2 Flow Rate FiO2 02/12/25 09:13 66 02/12/25 07:39 20 Nasal Cannula 1.0 02/12/25 07:29 96 24 02/11/25 22:00 97.2 142/82 (102) Result Diagram: 02/12/25 0746 02/12/25 0746 General: Well alert, well oriented, not confused, not agitated, not in acute distress, well cooperated during the physical. HEENT: Conjunctive are pink, sclerae clear, no icterus, pupil is equal in both sides, reactive to light, no ear discharge, no pharyngeal erythema or an edema. Neck: Supple, no JVD, no lymphadenopathy and thyromegaly. Chest: Equal air entry on both lungs, presence of rhonchi, decreased wheezing bilaterally. Cardiovascular: S1-S2 regular sinus rhythm and, regular rate, no gallops, no rubs, no murmurs Abdomen: No visible peristalsis, Bowel sounds present on auscultation, soft, nontender, no guarding, no rigidity Extremities: No obvious deformities, no pitting edema bilaterally, capillary refill intact, peripheral pulsations are intact on both sides Central Nervous System: No focal neurological deficits, no motor or sensory weakness in all 4 extremities, could move all 4 extremities, 2+ deep tendon reflexes, negative Babinski. Musculoskeletal: No joint swelling, deformities, inflammations, and no scoliosis and back tenderness Skin: Warm and dry. Assessment Assessment 64 years old female patient came to the hospital with chief complaint of shortness of breath. Plan Plan Acute exacerbation of COPD: The patient came to the hospital with shortness of breaths, increased frequency of cough with yellowish sputum production. Chest x-ray: Impression: No acute disease. Follow-up COVID-19. Ceftriaxone 1 g IV daily. Azithromycin 500 mg p.o. daily. Methylprednisolone 30 mg b.i.d.. DuoNeb q.2h PRN. DuoNebs q.4h scheduled. Culturelle 73520 mmu bid Oxygen to keep oxygen saturation > 88%. Incentive spirometry every 2 hours while awake. 02/11/2025: The patient reports improvement of symptoms. Continue ceftriaxone and azithromycin daily. Daily 2. Azithromycin to be discontinued tomorrow. Reducing methylprednisolone to 30 mg daily. Continue incentive spirometry every 2 hours while awake. The patient is currently at the baseline oxygen 1 L. Case management actively working for power cord of her machine of oxygen at home. 02/12/2025 She is complaining of shortness of breath this morning Continue breathing treatments and steroids, If symptoms improve can be discharged in a.m. tomorrow Diabetes mellitus: Hemoglobin A1c 7.5. Hyperglycemia/hypoglycemia protocol in place. Hypokalemia-resolved: Replacement as per protocol. Chronic diastolic congestive heart failure-not in acute exacerbation: Current proBNP: 1244. Echocardiogram: Normal LV size and wall thickness. Overall systolic function is normal. Overall LVEF is 55%. Right ventricle is mildly dilated with normal function. Estimated PA systolic pressure is 34 mmHg. The left atrium size is normal. Trileaflet AV appears sclerotic without stenosis or insufficiency. Mild Moderate MV annular thickening and leaflet thickening. No stenosis. Mild regurgitation. TV appears normal with trace regurgitation. Trace pericardial effusion without evidence of hemodynamic compromise. On carvedilol 12.5 mg b.i.d. On lisinopril 40 mg daily. Jardiance 25 mg daily. Code status: Full code. DVT prophylaxis: SCDs, heparin Analgesia/sedation: Morphine Line/tube: PIV GI prophylaxis: Protonix. Nutrition: 75 carb controlled diet PT: Ordered Prognosis: Guarded Disposition: We will continue medical management. Likely to be discharged in a.m. tomorrow. Date of Service: Feb 12, 2025 Billing Provider: LION LUTZ MD Common Visit Codes: [id number] INP/OBS CARE(HIGH) ANGELES PAUL, RES Feb 12, 2025 10:27 LION LUTZ MD Feb 14, 2025 11:57
[2025-02-12] MEDS: levoTHYROXINE 112mcg tablet PO SCH (11:13)
[2025-02-12] MEDS: levoTHYROXINE 25mcg tablet PO SCH (11:14)
[2025-02-13] VITALS (8 sets, daily range): BP systolic 150–155; BP diastolic 66–73; PULSE 66–78; RESP 16–20; TEMP 98.1–98.7; O2SAT 90–97
[2025-02-13 08:07] LABS: BASOPHILS % (AUTO) 0.3 % (0-1); EOSINOPHILS # (AUTO) 0.1 X10'3 (0-0.9); EOSINOPHILS % (AUTO) 1.8 % (0-6); HEMATOCRIT 39.9 % (35.0-45.0); HEMOGLOBIN 13.3 g/dl (12.0-16.0); LYMPHOCYTES # (AUTO) 2.3 X10'3 (1.1-4.8); MEAN CORPUSCULAR HEMOGLOBIN 29.2 PG (27.0-31.0); MEAN CORPUSCULAR HGB CONC 33.3 g/dL (33.0-36.5); MEAN CORPUSCULAR VOLUME 87.8 FL (78-98); MEAN PLATELET VOLUME 7.7 FL (7.4-10.4); MONOCYTES # (AUTO) 0.9 X10'3 (0-0.9); MONOCYTES % (AUTO) 13.8 % (2-12); NEUTROPHILS % (AUTO) 47.1 % (42-75); PLATELET COUNT 225 X10'3 (140-440); RED BLOOD COUNT 4.55 X10'6 (4.20-5.60); RED CELL DISTRIBUTION WIDTH 15.1 % (11.5-14.5); WHITE BLOOD COUNT 6.3 X10'3 (4.5-11.0)
[2025-02-13 08:21] LABS: ALANINE AMINOTRANSFERASE 14 U/L (12-78); ALBUMIN 3.3 G/DL (3.4-5.0); ALKALINE PHOSPHATASE 74 IU/L (46-116); ANION GAP 4 (8-16); ASPARTATE AMINO TRANSFERASE 15 U/L (10-37); BILIRUBIN,TOTAL 0.2 MG/DL (0.1-1.0); BLOOD UREA NITROGEN 24 MG/DL (7-18); BUN/CREATININE RATIO 28.6 (10.0-20.0); CALCIUM 8.3 MG/DL (8.5-10.1); CHLORIDE 102 MMOL/L (99-107); CREATININE 0.84 MG/DL (0.40-0.90); GLUCOSE 159 MG/DL (70-104); MAGNESIUM 2.2 MG/DL (1.5-2.4); POTASSIUM 3.9 MMOL/L (3.5-5.1); SODIUM 138 MMOL/L (135-145); TOTAL CARBON DIOXIDE 32.4 MMOL/L (24-32); TOTAL PROTEIN 6.7 G/DL (6.4-8.2); eCRCL 55 ML/MIN; eGFR 69 ML/MIN
[2025-02-13] MEDS ORDERED: LACT1CAP26 PO (09:15)
[2025-02-13] MEDS ORDERED: AMLO5TAB16 PO (09:15)
[2025-02-13] MEDS ORDERED: CEFD300C3 PO (09:20)
[2025-02-13] MEDS: amLODIPine 5mg tablet PO ONE (10:03)
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
== END 2025-02-13 13:20 | disposition home or self-care (01) | DRG 140 ==
LOC: ER 06:56 → ED HOLD 10:44 → ORTHO 4S 14:10
PROVIDERS: ADMIT Internal Medicine; ATTEND Internal Medicine
DX: J44.1 Chronic obstructive pulmonary disease with (acute) exacerbation (principal); I11.0 Hypertensive heart disease with heart failure; I50.32 Chronic diastolic (congestive) heart failure; E03.9 Hypothyroidism, unspecified; E05.00 Thyrotoxicosis with diffuse goiter without thyrotoxic crisis or storm; F17.210 Nicotine dependence, cigarettes, uncomplicated; E11.9 Type 2 diabetes mellitus without complications; E78.00 Pure hypercholesterolemia, unspecified; F41.9 Anxiety disorder, unspecified; G89.29 Other chronic pain; M54.9 Dorsalgia, unspecified; E87.6 Hypokalemia; Z79.899 Other long term (current) drug therapy; Z91.041 Radiographic dye allergy status; Z88.8 Allergy status to other drugs, medicaments and biological substances; Z88.0 Allergy status to penicillin; Z88.1 Allergy status to other antibiotic agents; Z83.3 Family history of diabetes mellitus; Z90.710 Acquired absence of both cervix and uterus
CPT/HCPCS: 36415; 71045; 80048; 80053; 80061; 80305; 82948; 83036; 83605; 83735; 83880; 84132; 85025; 87040; 87081; 87811; 93308; 94640; 94760; 96372; 97116; 97161; 99285; A4615; G0378; J0360; J0696; J1644; J1815; J2919; J7030; J7512

== ENCOUNTER 2025-02-23 09:58 | Emergency (ER) | payer MEDICAID ==
[~2025-02-23] VITALS: Ht 157.5 cm; Wt 58.9 kg
[~2025-02-23 09:58] MED LIST changes: -ASPI-1468 PO; +CEFD300C3 PO; -HYDR-3965 PO; +LACT1CAP26 PO
[2025-02-23 10:17] VITALS: BP 167/89; PULSE 65; RESP 16; O2SAT 97
--- NOTE | 2025-02-23 10:38 | Physician Documentation ---
History of Present Illness ~ General Chief Complaint: See Chief Complaint Stated Complaint: MED DEVICE COMPLICAITONS Time Seen by MD: 10:31 OK to notify your PCP?: Yes Primary Medical Doctor: Jalen Cavazos MD. [facility] History of Present Illness Initial Comments 64 female comes in complaining of missing oxygen cord. Patient has a history of COPD and is always on home O2. Has no acute complaints. Medication Reconciliation Allergies: Coded Allergies: iodine (Verified Allergy, Severe, Anaphylaxis, 01/10/25) stated per patient buspirone HCl (Verified Allergy, Mild, 01/10/25) Penicillins (Verified Allergy, Unknown, 01/10/25) cyanocobalamin (vitamin B12) (Verified Allergy, Unknown, 01/10/25) Pt states B12 injection gives her migraines erythromycin base (Verified Allergy, Unknown, RASH, 01/10/25) levofloxacin (Verified Allergy, Unknown, 01/10/25) Scheduled Amlodipine Besylate (Amlodipine Besylate), 2 TAB PO DAILY Atorvastatin Calcium (Atorvastatin Calcium), 1 TAB PO DAILY, (Reported) Benzonatate (Benzonatate), 1 CAP PO TID, (Reported) Carvedilol (Carvedilol), 1 TAB PO BID, (Reported) Cefdinir (Cefdinir), 1 CAP PO Q12H Gabapentin (Neurontin), 1 CAP PO TID, (Reported) Lactobacillus Rhamnosus (Culturelle), 1 CAP PO BID Levothyroxine Sodium (Levothyroxine Sodium), 1 TAB PO DAILY, (Reported) Lisinopril* (Lisinopril*), 1 TAB PO DAILY, (Reported) Metformin HCl (Metformin HCl), 1 TAB PO BID, (Reported) Montelukast Sodium (Singulair), 1 TAB PO HS, (Reported) Quetiapine Fumarate (Quetiapine Fumarate), 1 TAB PO HS, (Reported) Risperidone (Risperidone), 1 TAB PO BID, (Reported) Sennosides (Senna), 1 TAB PO HS, (Reported) Venlafaxine Hcl (Venlafaxine Hcl Er), 1 CAP PO DAILY, (Reported) Scheduled PRN albuterol inhaler (Pro-Air Inhaler), 2 PUFFS IH Q6H PRN for SOB or wheezing, (Reported) Past Medical History Past Medical History: CVA/TIA/Stroke, Congestive Heart Failure, High Cholesterol, Hypertension, COPD, UTI, Diabetes, Graves' Disease, Thyroid (unspecified), Chronic Back Pain, Anxiety Past Surgical History: abdominal surgery, hysterectomy, tonsillectomy, tubal ligation Other Past Surgical History: exploratory abdominal surgery Patient History: FH: diabetes mellitus sister sister sister FH: heart disease FATHER MOTHER sister FH: malignant neoplasm of bone Paternal grandfather FH: ovarian cancer sister sister Other Past Family History: NONCONTRIBUTORY Alcohol Use: Sober Drug Use: marijuana Lives with: Alone Lives In: Other Occupation: disabled Physical Exam Physical Exam Vital Signs: Temperature: 98.8, Source: Temporal, Heart Rate: 65, Respiratory Rate: 16, BP: 167/89, Pulse Oximetry: 97, Weight: 58.850 Oxygen Flow Rate: 2.0 Pulse Oximetry Reflects: adequate oxygenation General Appearance: alert, WD/WN, no apparent distress Respiratory: lungs clear, normal breath sounds, no respiratory distress Chest: no accessory muscle use Cardiovascular: normal peripheral pulses, regular rate, rhythm, no edema, no gallop, no JVD, no murmur Neurologic: oriented x4, healthcare architect II-XII nml as tested, memory intact, oriented to time, oriented to person, oriented to place, oriented to events Skin: normal color, warm/dry Progress Results/Orders Results/Orders Vital Signs 02/23/25 10:17 Temp 98.8 Pulse 65 Resp 16 B/P (MAP) 167/89 Pulse Ox 97 O2 Flow Rate 2.0 Medical Decision Making Differential Diagnosis COPD. DME Issues. Departure Disposition: HOME / SELF CARE / HOMELESS Impression: Primary Impression: COPD exacerbation Condition: Stable Discharge Instructions: Form - COPD Action Plan Additional Instructions: Follow up with your primary physician in 1-2 days. Return for any worsening symptoms Referrals: NO PRIMARY CARE PROVIDER (PCP) Signature Scribe Signature: No scribe Attestation: The note accurately reflects work and decisions made by me.Mikal JOSUE 02/23/25 10:40 MIKAL ROTHMAN Feb 23, 2025 10:38
[2025-02-23 12:10] VITALS: TEMP 98.8
[2025-02-23 13:29] LABS: HIV ANTIBODY 1&2 RAPID NON-REACTIVE (Neg)
[2025-02-25 08:12] LABS: HBSAG SCREEN Negative (Negative); HEP A AB, IGM Negative (Negative); HEP B CORE AB, IGM Negative (Negative)
== END 2025-02-23 12:12 | disposition home or self-care (01) ==
LOC: ER 09:59
DX: J44.1 Chronic obstructive pulmonary disease with (acute) exacerbation (principal); I11.0 Hypertensive heart disease with heart failure; I50.9 Heart failure, unspecified; E11.9 Type 2 diabetes mellitus without complications; F41.9 Anxiety disorder, unspecified; E78.00 Pure hypercholesterolemia, unspecified; F12.90 Cannabis use, unspecified, uncomplicated; Z86.73 Personal history of transient ischemic attack (TIA), and cerebral infarction without residual deficits; Z88.0 Allergy status to penicillin; Z88.8 Allergy status to other drugs, medicaments and biological substances; Z88.1 Allergy status to other antibiotic agents; Z90.710 Acquired absence of both cervix and uterus; Z79.899 Other long term (current) drug therapy; Z60.2 Problems related to living alone
CPT/HCPCS: 36415; 80074; 86703; 99283

== ENCOUNTER 2025-02-26 16:13 | Emergency (ER) | payer MEDICAID ==
[~2025-02-26] VITALS: Ht 157.5 cm; Wt 57.8 kg
[2025-02-26 17:03] VITALS: BP 153/78; PULSE 79; O2SAT 98
[2025-02-26 19:12] VITALS: RESP 16
[2025-02-26 19:28] LABS: MEAN PLATELET VOLUME 8.3 FL (7.4-10.4); RED CELL DISTRIBUTION WIDTH 15.2 % (11.5-14.5)
[2025-02-26 19:42] LABS: CREATININE 0.67 MG/DL (0.40-0.90); TOTAL CARBON DIOXIDE 31.8 MMOL/L (24-32); eCRCL 69 ML/MIN; eGFR 89 ML/MIN
[2025-02-26 19:43] LABS: LEUKOCYTE ESTERASE ,URINE NEGATIVE (Neg); NITRITES, URINE NEGATIVE (Neg); OCCULT BLOOD,URINE NEGATIVE (Neg)
[2025-02-26 19:44] LABS: UA COLLECTION TYPE CLN CATCH MIDSTREAM
--- NOTE | 2025-02-26 20:10 | Physician Documentation ---
History of Present Illness ~ Chief Complaint: Nausea Stated Complaint: NAUSEA Time Seen by MD: 20:07 Primary Medical Doctor: Jalen Cavazos MD. [facility] HPI 64-year-old female, history of COPD on 2 L nasal cannula oxygen at baseline, who presents with heat exposure and vomiting. The patient tells me that she is staying at the [facility], she was outside in the heat all day. She started to feel sick to her stomach and then vomited. She feels like this was all related to heat exposure. EMS treated her with ice packs. At time of my evaluation, she states she is feeling much better. She denies any nausea currently. No abdominal pain. No fevers or other infectious symptoms. Her breathing has been normal today, no increased coughing or shortness of breath. Currently she just states she is hungry. Medication Reconciliation Allergies: Coded Allergies: iodine (Verified Allergy, Severe, Anaphylaxis, 01/10/25) stated per patient buspirone HCl (Verified Allergy, Mild, 01/10/25) Penicillins (Verified Allergy, Unknown, 01/10/25) cyanocobalamin (vitamin B12) (Verified Allergy, Unknown, 01/10/25) Pt states B12 injection gives her migraines erythromycin base (Verified Allergy, Unknown, RASH, 01/10/25) levofloxacin (Verified Allergy, Unknown, 01/10/25) Scheduled Amlodipine Besylate (Amlodipine Besylate), 2 TAB PO DAILY Atorvastatin Calcium (Atorvastatin Calcium), 1 TAB PO DAILY, (Reported) Benzonatate (Benzonatate), 1 CAP PO TID, (Reported) Carvedilol (Carvedilol), 1 TAB PO BID, (Reported) Cefdinir (Cefdinir), 1 CAP PO Q12H Gabapentin (Neurontin), 1 CAP PO TID, (Reported) Lactobacillus Rhamnosus (Culturelle), 1 CAP PO BID Levothyroxine Sodium (Levothyroxine Sodium), 1 TAB PO DAILY, (Reported) Lisinopril* (Lisinopril*), 1 TAB PO DAILY, (Reported) Metformin HCl (Metformin HCl), 1 TAB PO BID, (Reported) Montelukast Sodium (Singulair), 1 TAB PO HS, (Reported) Quetiapine Fumarate (Quetiapine Fumarate), 1 TAB PO HS, (Reported) Risperidone (Risperidone), 1 TAB PO BID, (Reported) Sennosides (Senna), 1 TAB PO HS, (Reported) Venlafaxine Hcl (Venlafaxine Hcl Er), 1 CAP PO DAILY, (Reported) Scheduled PRN albuterol inhaler (Pro-Air Inhaler), 2 PUFFS IH Q6H PRN for SOB or wheezing, (Reported) Past Medical History Past Medical History: CVA/TIA/Stroke, Congestive Heart Failure, High Cholesterol, Hypertension, COPD, UTI, Diabetes, Graves' Disease, Thyroid (unspecified), Chronic Back Pain, Anxiety Past Surgical History: abdominal surgery, hysterectomy, tonsillectomy, tubal ligation Other Past Surgical History: exploratory abdominal surgery Patient History: FH: diabetes mellitus sister sister sister FH: heart disease FATHER MOTHER sister FH: malignant neoplasm of bone Paternal grandfather FH: ovarian cancer sister sister Other Past Family History: NONCONTRIBUTORY Alcohol Use: Sober Drug Use: marijuana Lives with: Alone Lives In: Other Occupation: disabled Review of Systems Constitutional: Denies: fever Gastrointestinal: Reports: nausea, vomiting; Denies: abdominal pain Physical Exam Vital Signs: Temperature: 98.0, Source: Temporal, Heart Rate: 79, Respiratory Rate: 16, BP: 153/78, Pulse Oximetry: 98, Weight: 57.800 Oxygen Flow Rate: 2.0 Physical Exam General: This is a chronically ill-appearing middle-aged woman lying in bed sleeping when I enter the room HEENT: Atraumatic, oropharynx appears dry Heart: Regular rate and rhythm, normal-appearing peripheral perfusion Lungs: Scattered wheezes, normal work of breathing, normal oxygen saturation on 2 L nasal cannula baseline oxygen Abdomen: Soft, nondistended, nontender all quadrants, no rebound or guarding Neuro: Alert and oriented Psychiatric: Calm and cooperative with exam Progress Results/Orders Results/Orders Orders - MINE CHAVEZ MD General Nursing Order (02/26/25 ) Completed Orders - MINE CHAVEZ MD Urinalysis, Cult If Indicated (02/26/25 19:07) Cbc/Diff (02/26/25 19:07) Lipase (02/26/25 19:07) CMP (02/26/25 19:07) Ondansetron Inj. (Zofran 4mg/2ml Vial) (02/26/25 20:15) Medications Received in ER Medications (Trade) Dose Ordered Sig/Dax Route PRN Reason Start Time Stop Time Status Last Admin Dose Admin (Zofran 4mg/2ml vial) 4 mg ONCE ONCE IV 02/26/25 20:15 02/26/25 20:16 DC 02/26/25 21:00 4 MG Vital Signs 02/26/25 02/26/25 02/26/25 17:03 19:12 21:29 Temp 98.0 98.0 Pulse 79 Resp 20 16 B/P (MAP) 153/78 Pulse Ox 98 O2 Flow Rate 2.0 Laboratory Tests Test 02/26/25 19:18 02/26/25 19:39 White Blood Count 7.0 Red Blood Count 3.86 L Hemoglobin 11.6 L Hematocrit 34.0 L Mean Corpuscular Volume 88.1 Mean Corpuscular Hemoglobin 30.0 Mean Corpuscular Hemoglobin Concent 34.1 Red Cell Distribution Width 15.2 H Platelet Count 196 Mean Platelet Volume 8.3 Neutrophils (%) (Auto) 63.9 Lymphocytes (%) (Auto) 24.1 Monocytes (%) (Auto) 7.8 Eosinophils (%) (Auto) 2.9 Basophils (%) (Auto) 1.3 H Neutrophils # (Auto) 4.4 Lymphocytes # (Auto) 1.7 Monocytes # (Auto) 0.5 Eosinophils # (Auto) 0.2 Basophils # (Auto) 0.1 CBC Comment Sodium Level 137 Potassium Level 3.4 L Chloride Level 101 Carbon Dioxide Level 31.8 Anion Gap 4 L Blood Urea Nitrogen 14 Creatinine 0.67 Estimated GFR/1.73 m2 89 BUN/Creatinine Ratio 20.9 H Glucose Level 143 H Calcium Level 8.5 Total Bilirubin 0.2 Aspartate Amino Transf (AST/SGOT) 14 Alanine Aminotransferase (ALT/SGPT) 18 Alkaline Phosphatase 67 Total Protein 6.7 Albumin 3.4 Globulin 3.3 Albumin/Globulin Ratio 1.0 L Lipase 49 Chemistry Comments Urine Specimen Description Cln catch midstream Urine Color Yellow Urine Clarity Clear Urine pH 6.0 Urine Specific [place] 1.015 Urine Protein Negative Urine Glucose (UA) Negative Urine Ketones Negative Urine Occult Blood Negative Urine Nitrite Negative Urine Bilirubin Negative Urine Urobilinogen 0.2 Urine Leukocyte Esterase Negative Urine Culture Indicated Not ind Volume Urine Centrifuged 10 ml Urine Comment Medical Decision Making Diff Dx N/V/D:Considerations: Include: Bowel obstruction, Dehydration, Electrolyte imbalance, Food poisoning, Gastroenteritis, Hypovolemia, UTI Additional Comments The patient presents with reported heat exposure and nausea and vomiting. By time of my evaluation she is feeling better, and has minimal symptoms. She was given Zofran and then was able to eat without vomiting. Her laboratory testing is unremarkable. No UTI. Overall I suspect that this was vomiting induced by heat exposure. No evidence of a dangerous intra-abdominal process. She will be discharged home with home care instructions and return precautions. Departure Time of Disposition: 20:52 Disposition: 01 HOME / SELF CARE / HOMELESS Impression: Primary Impression: Heat exposure Additional Impression: Nausea and vomiting Condition: Improved Discharge Instructions: Preventing Heat Exhaustion, Adult Referrals: NO PRIMARY CARE PROVIDER (PCP) Education Educated: Patient Educated regarding: diagnosis, need for follow up Signature Scribe Signature: na Attestation: MINE Duron MD Feb 26, 2025 20:10
[2025-02-26] MEDS: ondansetron/PF 4mg/2ml inj IV ONE (21:00)
[2025-02-26 21:29] VITALS: TEMP 98
== END 2025-02-26 21:29 | disposition home or self-care (01) ==
LOC: ER 16:13
DX: T67.5XXA Heat exhaustion, unspecified, initial encounter (principal); R11.2 Nausea with vomiting, unspecified; E11.9 Type 2 diabetes mellitus without complications; E78.00 Pure hypercholesterolemia, unspecified; I11.0 Hypertensive heart disease with heart failure; I50.9 Heart failure, unspecified; J44.9 Chronic obstructive pulmonary disease, unspecified; F41.9 Anxiety disorder, unspecified; F12.90 Cannabis use, unspecified, uncomplicated; Z86.73 Personal history of transient ischemic attack (TIA), and cerebral infarction without residual deficits; Z88.0 Allergy status to penicillin; Z88.1 Allergy status to other antibiotic agents; Z88.8 Allergy status to other drugs, medicaments and biological substances; Z90.710 Acquired absence of both cervix and uterus; X30.XXXA Exposure to excessive natural heat, initial encounter; Y93.89 Activity, other specified; Y92.89 Other specified places as the place of occurrence of the external cause; Y99.8 Other external cause status
CPT/HCPCS: 36415; 80053; 81003; 83690; 85025; 96374; 99283; J2405

== ENCOUNTER 2025-04-07 07:33 | Emergency (ER) | payer MEDICAID ==
[~2025-04-07] VITALS: Ht 162.6 cm; Wt 58.0 kg
[~2025-04-07 07:33] MED LIST changes: -LISI40TA13 PO; +LISI40TA20 PO
[2025-04-07 07:36] VITALS: TEMP 98.2
--- NOTE | 2025-04-07 08:49 | Physician Documentation ---
History of Present Illness ~ Chief Complaint: See Chief Complaint Stated Complaint: EQUIPMENT ISSUES Time Seen by MD: 08:48 Primary Medical Doctor: Jalen Cavazos MD. [facility] HPI 64-year-old female, history of COPD, who presents with shortness of breath in the setting of a broken oxygen concentrator. She tells me that yesterday her oxygen concentrator stopped working. She was wi thout oxygen all day. She tells me it was rough. She reports increased shortness of breath from baseline. Currently she is on 2 L nasal cannula oxygen here in the ED and states that she feels normal. She denies any fevers, congestion, increased cough, or other associated symptoms. No chest pain. No other acute concerns currently. Medication Reconciliation Allergies: Coded Allergies: iodine (Verified Allergy, Severe, Anaphylaxis, 01/10/25) stated per patient buspirone HCl (Verified Allergy, Mild, 01/10/25) Penicillins (Verified Allergy, Unknown, 01/10/25) cyanocobalamin (vitamin B12) (Verified Allergy, Unknown, 01/10/25) Pt states B12 injection gives her migraines erythromycin base (Verified Allergy, Unknown, RASH, 01/10/25) levofloxacin (Verified Allergy, Unknown, 01/10/25) Scheduled Amlodipine Besylate (Amlodipine Besylate), 2 TAB PO DAILY Atorvastatin Calcium (Atorvastatin Calcium), 1 TAB PO DAILY, (Reported) Benzonatate (Benzonatate), 1 CAP PO TID, (Reported) Carvedilol (Carvedilol), 1 TAB PO BID, (Reported) Cefdinir (Cefdinir), 1 CAP PO Q12H Gabapentin (Neurontin), 1 CAP PO TID, (Reported) Lactobacillus Rhamnosus (Culturelle), 1 CAP PO BID Levothyroxine Sodium (Levothyroxine Sodium), 1 TAB PO DAILY, (Reported) Lisinopril* (Lisinopril*), 1 TAB PO DAILY, (Reported) Metformin HCl (Metformin HCl), 1 TAB PO BID, (Reported) Montelukast Sodium (Singulair), 1 TAB PO HS, (Reported) Quetiapine Fumarate (Quetiapine Fumarate), 1 TAB PO HS, (Reported) Risperidone (Risperidone), 1 TAB PO BID, (Reported) Sennosides (Senna), 1 TAB PO HS, (Reported) Venlafaxine Hcl (Venlafaxine Hcl Er), 1 CAP PO DAILY, (Reported) Scheduled PRN albuterol inhaler (Pro-Air Inhaler), 2 PUFFS IH Q6H PRN for SOB or wheezing, (Reported) Past Medical History Past Medical History: CVA/TIA/Stroke, Congestive Heart Failure, High Cholesterol, Hypertension, COPD, UTI, Diabetes, Graves' Disease, Thyroid (unspecified), Chronic Back Pain, Anxiety Past Surgical History: abdominal surgery, hysterectomy, tonsillectomy, tubal ligation Other Past Surgical History: exploratory abdominal surgery Patient History: FH: diabetes mellitus sister sister sister FH: heart disease FATHER MOTHER sister FH: malignant neoplasm of bone Paternal grandfather FH: ovarian cancer sister sister Other Past Family History: NONCONTRIBUTORY Alcohol Use: Sober Drug Use: marijuana Lives with: Alone Lives In: Other Occupation: disabled Review of Systems Constitutional: Denies: fever Respiratory: Reports: shortness of breath; Denies: cough Physical Exam Vital Signs: Temperature: 98.2, Heart Rate: 72, Respiratory Rate: 20, BP: 168/92, Pulse Oximetry: 99, Weight: 58.000 Oxygen Flow Rate: 2.0 Physical Exam General: This is a chronically ill-appearing middle-aged woman, sitting calmly in bed Heart: Regular rate and rhythm, normal-appearing peripheral perfusion Lungs: Mildly coarse breath sounds diffusely with expiratory wheezing, normal work of breathing, normal oxygen saturation on 2 L nasal cannula Extremities: Warm and well-perfused, no significant edema Neuro: Alert and oriented Psychiatric: Calm and cooperative with exam Progress Results/Orders Results/Orders Orders - MINE CHAVEZ MD Rt Assessment/Protocol/Eval/Tx (04/07/25 ) Associate Partner (04/07/25 09:09) Completed Orders - MINE CHAVEZ MD Ipratropium/Albuterol Nebule (Ipratrop/A (04/07/25 09:00) * Rt Notification Q1H (04/07/25 08:58) Vital Signs 04/07/25 04/07/25 04/07/25 04/07/25 07:36 09:43 09:48 09:50 Temp 98.2 Pulse 72 64 70 Resp 20 18 20 15 B/P (MAP) 168/92 Pulse Ox 99 99 90 O2 Delivery Nasal Cannula* Nasal Cannula* O2 Flow Rate 2.0 2 2 FiO2 28 28 04/07/25 16:04 Pulse 75 Resp 15 B/P (MAP) 143/82 (102) Pulse Ox 98 O2 Flow Rate 2.0 Medical Decision Making Additional Infomation The patient presents with shortness of breath in the setting of a malfunctioning oxygen concentrator. She otherwise is well-appearing, has no evidence of an infection including pneumonia, no findings to suggest a COPD exacerbation, no ot her acute concerns including no chest pain to suggest ACS. She was placed on oxygen here in the ED, with improvement of her symptoms. She had a prolonged ER stay, while we tried to contact the medical laboratory technicians company to get her a new oxygen device. Once she was able to get this device, she was discharged with ongoing outpatient management. Departure Time of Disposition: 09:27 Disposition: 01 HOME / SELF CARE / HOMELESS Impression: Primary Impression: Oxygen supply absent Condition: Improved Referrals: NO PRIMARY CARE PROVIDER (PCP) Education Educated: Patient Educated regarding: need for follow up Signature Scribe Signature: [email or web address] Attestation: MINE Duron MD Apr 07, 2025 08:49
[2025-04-07] MEDS: ipratropium/albuterol 3ml nebule NEB ONE (09:40)
[2025-04-07 09:43] VITALS: PULSE 64; RESP 18; O2SAT 99
[2025-04-07 09:48] VITALS: PULSE 70; RESP 20; O2SAT 90
[2025-04-07 16:04] VITALS: BP 143/82; PULSE 75; RESP 15; O2SAT 98
== END 2025-04-07 16:07 | disposition home or self-care (01) ==
LOC: ER 07:34
DX: R06.02 Shortness of breath (principal); E11.9 Type 2 diabetes mellitus without complications; E78.00 Pure hypercholesterolemia, unspecified; I11.0 Hypertensive heart disease with heart failure; I50.9 Heart failure, unspecified; J44.9 Chronic obstructive pulmonary disease, unspecified; F12.90 Cannabis use, unspecified, uncomplicated; Z86.73 Personal history of transient ischemic attack (TIA), and cerebral infarction without residual deficits; Z90.710 Acquired absence of both cervix and uterus; Z88.0 Allergy status to penicillin; Z88.8 Allergy status to other drugs, medicaments and biological substances; Z88.1 Allergy status to other antibiotic agents; Z79.899 Other long term (current) drug therapy; Z60.2 Problems related to living alone
CPT/HCPCS: 94760; 99284

== ENCOUNTER 2025-04-10 15:17 | Emergency (ER) | payer MEDICAID ==
[~2025-04-10] VITALS: Ht 160 cm; Wt 57.9 kg
--- NOTE | 2025-04-10 15:45 | RADIOLOGY REPORT ---
CHEST RADIOGRAPH Indication: CP Technique: Single frontal view of the chest was obtained Comparison: DI CHEST,SINGLE VIEW on DOS: 02/10/25, DI CHEST,SINGLE VIEW on DOS: 01/10/25, DI CHEST,SING LE VIEW on DOS: 12/30/24 FINDINGS: Lines and Tubes: None Lungs: No focal consolidation. Minimal blunting of the costophrenic angle No pneumothorax. Cardiomediastinal contours: Unremarkable Bones: No acute osseous abnormality. IMPRESSION: Minimal blunting of the right costophrenic angle which may represent atelectasis /trace effusion.
[2025-04-10 15:46] LABS: MEAN PLATELET VOLUME 8.8 FL (7.4-10.4); RED CELL DISTRIBUTION WIDTH 15.2 % (11.5-14.5)
[2025-04-10 16:07] LABS: CREATININE 0.73 MG/DL (0.40-0.90); PRO BRAIN NATRIURETIC PEPTIDE 700 PG/ML (0-125); TOTAL CARBON DIOXIDE 26.8 MMOL/L (24-32); eCRCL 66 ML/MIN; eGFR 81 ML/MIN
--- NOTE | 2025-04-10 16:37 | Physician Documentation ---
History of Present Illness ~ Chief Complaint: Shortness of Breath Stated Complaint: SOB Time Seen by MD: 15:22 Primary Medical Doctor: Jalen Cavazos MD. [facility] Source: patient Mode of Arrival: EMS Exam Limitations: no limitations HPI Chief Complaint: Shortness a breath Caveat: None Independent Historians: Paramedics History of Present Illness: Patient is a 64-year-old woman brought in from the [facility] by paramedics. Patient has been complaining of shortness a breath over the last several days. Patient has COPD. Patient is normally on oxygen but has not had any tanks of oxygen. Patient denies any fever. Patient denies any chest pain. Patient denies any abdominal pain. No nausea or vomiting. However she has had some diarrhea. Medics found her pulse ox to be 95% on room air. Review of systems: All systems were reviewed and are negative except for what is indicated in the history of present illness. Past Medical History: COPD, type 2 diabetes, HTN, HLD, hypothyroidism Past Surgical History: Noncontributory Social History: Tobacco use, marijuana use, denies alcohol or other drug use Medications: Reviewed as documented Nursing Notes Allergies: Reviewed as documented in Nursing Notes Medication Reconciliation Allergies: Coded Allergies: iodine (Verified Allergy, Severe, Anaphylaxis, 01/10/25) stated per patient buspirone HCl (Verified Allergy, Mild, 01/10/25) Penicillins (Verified Allergy, Unknown, 01/10/25) cyanocobalamin (vitamin B12) (Verified Allergy, Unknown, 01/10/25) Pt states B12 injection gives her migraines erythromycin base (Verified Allergy, Unknown, RASH, 01/10/25) levofloxacin (Verified Allergy, Unknown, 01/10/25) Scheduled Amlodipine Besylate (Amlodipine Besylate), 2 TAB PO DAILY Atorvastatin Calcium (Atorvastatin Calcium), 1 TAB PO DAILY, (Reported) Benzonatate (Benzonatate), 1 CAP PO TID, (Reported) Carvedilol (Carvedilol), 1 TAB PO BID, (Reported) Cefdinir (Cefdinir), 1 CAP PO Q12H Gabapentin (Neurontin), 1 CAP PO TID, (Reported) Lactobacillus Rhamnosus (Culturelle), 1 CAP PO BID Levothyroxine Sodium (Levothyroxine Sodium), 1 TAB PO DAILY, (Reported) Lisinopril* (Lisinopril*), 1 TAB PO DAILY, (Reported) Metformin HCl (Metformin HCl), 1 TAB PO BID, (Reported) Montelukast Sodium (Singulair), 1 TAB PO HS, (Reported) Quetiapine Fumarate (Quetiapine Fumarate), 1 TAB PO HS, (Reported) Risperidone (Risperidone), 1 TAB PO BID, (Reported) Sennosides (Senna), 1 TAB PO HS, (Reported) Venlafaxine Hcl (Venlafaxine Hcl Er), 1 CAP PO DAILY, (Reported) Scheduled PRN albuterol inhaler (Pro-Air Inhaler), 2 PUFFS IH Q6H PRN for SOB or wheezing, (Reported) Past Medical History Past Medical History: CVA/TIA/Stroke, Congestive Heart Failure, High Cholesterol, Hypertension, COPD, UTI, Diabetes, Graves' Disease, Thyroid (unspecified), Chronic Back Pain, Anxiety Past Surgical History: abdominal surgery, hysterectomy, tonsillectomy, tubal ligation Other Past Surgical History: exploratory abdominal surgery Patient History: FH: diabetes mellitus sister sister sister FH: heart disease FATHER MOTHER sister FH: malignant neoplasm of bone Paternal grandfather FH: ovarian cancer sister sister Other Past Family History: NONCONTRIBUTORY Alcohol Use: Sober Drug Use: marijuana Lives with: Alone Lives In: Other Occupation: disabled Review of Systems All Other Systems at this time: Reviewed and Negative ROS Patient denies any other acute symptoms other than above. All other systems are negative Physical Exam Vital Signs: RN Vital Signs have been reviewed: Yes, Heart Rate: 85, Respiratory Rate: 17, BP: 159/80, Pulse Oximetry: 99, Weight: 57.900 Oxygen Flow Rate: 2.0 Pulse Oximetry Reflects: adequate oxygenation Physical Exam General Appearance: Mild distress, chronically ill-appearing HEENT: Normal OP, moist oral mucosa, PERRL, EOMI Neck: supple, normal ROM, trachea midline Pulmonary: Mild tachypnea, mild respiratory distress, breath sounds equal, mild end expiratory wheezes Cardiac: RRR, no murmur, rub or gallop, GI: nondistended, soft, nontender, normal bowel sounds, no guarding, no rebound Extremities: normal ROM, no swelling, non-tender Skin: intact, dry, warm, no rashes Neuro: AAOx3, speech is clear, no focal motor weakness Psych: normal affect, good eye contact, no apparent hallucination, normal speech Progress Results/Orders Results/Orders Orders - SHELBY MENSAH MD Chest,Single View (04/10/25 15:31) Monitor (04/10/25 15:19) Saline Lock (04/10/25 15:19) Oxygen (04/10/25 15:19) Electrocardiogram (04/10/25 15:19) Hs Troponin I W Calculations (04/10/25 17:19) Hs Troponin I W Calculations (04/10/25 18:19) Svn Treatment (04/10/25 16:29) Chest,Single View (04/10/25 16:46) Completed Orders - SHELBY MENSAH MD Chest,Single View (04/10/25 15:31) Cbc/Diff (04/10/25 15:19) PBNP (04/10/25 15:19) Hs Troponin I W Calculations (04/10/25 15:19) CMP (04/10/25 15:24) Albuterol 2.5mg/3ml Nebule (Proventil 2. (04/10/25 16:30) Vital Signs 04/10/25 04/10/25 04/10/25 04/10/25 15:22 15:26 15:33 15:37 Pulse 90 85 Resp 18 22 17 B/P (MAP) 185/101 159/80 (106) Pulse Ox 94 96 99 O2 Delivery Nasal Cannula* O2 Flow Rate 2 2.0 FiO2 28 Laboratory Tests Test 04/10/25 15:28 White Blood Count 6.6 Red Blood Count 4.01 L Hemoglobin 12.1 Hematocrit 35.9 Mean Corpuscular Volume 89.5 Mean Corpuscular Hemoglobin 30.2 Mean Corpuscular Hemoglobin Concent 33.7 Red Cell Distribution Width 15.2 H Platelet Count 194 Mean Platelet Volume 8.8 Neutrophils (%) (Auto) 72.6 Lymphocytes (%) (Auto) 17.7 L Monocytes (%) (Auto) 7.1 Eosinophils (%) (Auto) 1.5 Basophils (%) (Auto) 1.1 H Neutrophils # (Auto) 4.8 Lymphocytes # (Auto) 1.2 Monocytes # (Auto) 0.5 Eosinophils # (Auto) 0.1 Basophils # (Auto) 0.1 CBC Comment Sodium Level 139 Potassium Level 3.4 L Chloride Level 103 Carbon Dioxide Level 26.8 Anion Gap 9 Blood Urea Nitrogen 15 Creatinine 0.73 Estimated GFR/1.73 m2 81 BUN/Creatinine Ratio 20.5 H Glucose Level 230 H Calcium Level 8.6 Total Bilirubin 0.3 Aspartate Amino Transf (AST/SGOT) 16 Alanine Aminotransferase (ALT/SGPT) 9 L Alkaline Phosphatase 55 Troponin I High Sensitivity 28 Pro-B-Type Natriuretic Peptide 700 H Total Protein 7.1 Albumin 3.8 Globulin 3.3 Albumin/Globulin Ratio 1.2 Chemistry Comments Medical Decision Making Additional info obtained from: old records Findings Differential diagnosis includes but is not limited to: Acute COPD exacerbation, acute CHF, pleural effusion, pneumonia, acute bronchitis, pneumothorax EKG independent interpretation: Performed at 3:26 p.m.. Normal sinus rhythm, heart rate 77, normal axis, nonspecific ST segments inferior Q-waves Chest x-ray, single view, indication: Shortness a breath Independent interpretation: Lungs are clear, normal mediastinum, normal cardiac silhouette Laboratory data independent interpretation: CBC: Unremarkable except for elevated glucose of 230 CMP: Unremarkable, potassium 3.4 new line pro BNP 700 Troponin: 28 Emergency department course/medical decision-making: Presents with shortness a breath. Patient has some expiratory wheezes. Patient is given a DuoNeb, Zithromax and 125 mg of IV Solu-Medrol. Patient is believed to have acute COPD exacerbation. No evidence of CHF, pleural effusion, pneumonia or pneumothorax. Patient is feeling better. Patient is stable for discharge. Test results and treatment plan and all of the above was reviewed with the patient. Departure Time of Disposition: 16:51 Disposition: 01 HOME / SELF CARE / HOMELESS Impression: Primary Impression: Acute exacerbation of chronic obstructive airways disease Condition: Improved Discharge Instructions: Chronic Obstructive Pulmonary Disease Exacerbation, [id number] Additional Instructions: RETURN TO THE ER IF YOUR SYMPTOMS WORSEN Prescriptions Azithromycin (Zithromax) 250 Mg Tablet 1 TAB PO UD for 5 Days, #6 TAB 2 the first day followed by 1 for days 2-5 Prov: SHELBY MENSAH MD 04/10/25 Prednisone* (Prednisone*) 20 Mg Tablet 1 TAB PO Q12H, #8 TAB Prov: SHELBY MENSAH MD 04/10/25 Education Educated: Patient Educated regarding: diagnosis, treatment, need for follow up Signature Scribe Signature: No scribe Attestation: No scribe RODRICK,SHELBY R MD Apr 10, 2025 16:37
[2025-04-10] MEDS ORDERED: PRED20TA PO (17:02)
[2025-04-10] MEDS ORDERED: AZIT250T3 PO (17:02)
[2025-04-10] MEDS: albuterol 2.5 MG/3 ML nebule NEB ONE (17:03)
[2025-04-10 17:04] VITALS: PULSE 71; RESP 22; O2SAT 93
[2025-04-10 17:16] VITALS: PULSE 73; RESP 18; O2SAT 98
[2025-04-10 17:34] VITALS: BP 145/89; PULSE 74; RESP 18; O2SAT 96
--- NOTE | 2025-04-11 05:41 | ELECTROCARDIOGRAPH REPORT ---
[facility] Test Date: 2025-04-10 Test Time: 15:26:19 Pat Name: JESS GALLO Department: EMERGENCY ROOM Room: Gender: F College In[employer]: : 1960 Requested By: SHELBY MENSAH Order Number: [id number] Reading MD: Measurements Intervals [place] Rate: 77 P: 54 NM: 161 QRS: 19 QRSD: 94 T: 0 QT: 381 QTc: 432 Interpretive Statements Sinus rhythm Probable inferior infarct, old Lateral leads are also involved Please click the below link to view image of tracing.
== END 2025-04-10 17:35 | disposition home or self-care (01) ==
LOC: ER 15:18
DX: J44.1 Chronic obstructive pulmonary disease with (acute) exacerbation (principal); E03.9 Hypothyroidism, unspecified; E11.9 Type 2 diabetes mellitus without complications; E78.00 Pure hypercholesterolemia, unspecified; F12.90 Cannabis use, unspecified, uncomplicated; F41.9 Anxiety disorder, unspecified; I11.0 Hypertensive heart disease with heart failure; I50.9 Heart failure, unspecified; Z86.73 Personal history of transient ischemic attack (TIA), and cerebral infarction without residual deficits; Z90.710 Acquired absence of both cervix and uterus; Z88.0 Allergy status to penicillin; Z88.1 Allergy status to other antibiotic agents; Z88.8 Allergy status to other drugs, medicaments and biological substances; Z79.899 Other long term (current) drug therapy
CPT/HCPCS: 36415; 71045; 80053; 83880; 84484; 85025; 93005; 94640; 96374; 99285; J2919; 94760

== ENCOUNTER 2025-04-17 11:34 | Emergency (ER) | payer MEDICAID ==
[~2025-04-17] VITALS: Ht 160 cm; Wt 138.2 kg
[~2025-04-17 11:34] MED LIST changes: +PRED20TA PO
[2025-04-17 12:04] VITALS: BP 162/75; PULSE 51; RESP 17; TEMP 98.3; O2SAT 93
--- NOTE | 2025-04-17 12:34 | Physician Documentation ---
History of Present Illness ~ Chief Complaint: Nausea Stated Complaint: NAUSEA Time Seen by MD: 11:53 OK to notify your PCP?: Yes Primary Medical Doctor: Jalen Cavazos MD. [facility] Source: patient Mode of Arrival: EMS Exam Limitations: no limitations HPI 64-year old male with chief complaint nausea. Patient states he was at the [place] which is where he lives and he started to feel nauseated and coughed up some clear phlegm and because he was nauseated and he states overheated he followed his doctor's orders and came to the ER. He reports now I feel a lot better I am ready to go back to the [place]. He states he just started to become fearful due to feeling overheated and worried about heat stroke. He denies any current concerns or complaints since arriving to the ER reporting all his symptoms have resolved. Medication Reconciliation Allergies: Coded Allergies: iodine (Verified Allergy, Severe, Anaphylaxis, 04/17/25) stated per patient buspirone HCl (Verified Allergy, Mild, 04/17/25) Penicillins (Verified Allergy, Unknown, 04/17/25) cyanocobalamin (vitamin B12) (Verified Allergy, Unknown, 04/17/25) Pt states B12 injection gives her migraines erythromycin base (Verified Allergy, Unknown, RASH, 04/17/25) levofloxacin (Verified Allergy, Unknown, 04/17/25) Scheduled Amlodipine Besylate (Amlodipine Besylate), 2 TAB PO DAILY Atorvastatin Calcium (Atorvastatin Calcium), 1 TAB PO DAILY, (Reported) Benzonatate (Benzonatate), 1 CAP PO TID, (Reported) Carvedilol (Carvedilol), 1 TAB PO BID, (Reported) Cefdinir (Cefdinir), 1 CAP PO Q12H Gabapentin (Neurontin), 1 CAP PO TID, (Reported) Lactobacillus Rhamnosus (Culturelle), 1 CAP PO BID Levothyroxine Sodium (Levothyroxine Sodium), 1 TAB PO DAILY, (Reported) Lisinopril* (Lisinopril*), 1 TAB PO DAILY, (Reported) Metformin HCl (Metformin HCl), 1 TAB PO BID, (Reported) Montelukast Sodium (Singulair), 1 TAB PO HS, (Reported) Prednisone* (Prednisone*), 1 TAB PO Q12H Quetiapine Fumarate (Quetiapine Fumarate), 1 TAB PO HS, (Reported) Risperidone (Risperidone), 1 TAB PO BID, (Reported) Sennosides (Senna), 1 TAB PO HS, (Reported) Venlafaxine Hcl (Venlafaxine Hcl Er), 1 CAP PO DAILY, (Reported) Scheduled PRN albuterol inhaler (Pro-Air Inhaler), 2 PUFFS IH Q6H PRN for SOB or wheezing, (Reported) Discontinued Medications Azithromycin (Zithromax), 1 TAB PO UD Discontinued Reason: Auto Discontinued Past Medical History Past Medical History: CVA/TIA/Stroke, Congestive Heart Failure, High Cholesterol, Hypertension, COPD, UTI, Diabetes, Graves' Disease, Thyroid (un specified), Chronic Back Pain, Anxiety Past Surgical History: abdominal surgery, hysterectomy, tonsillectomy, tubal ligation Other Past Surgical History: exploratory abdominal surgery Patient History: FH: diabetes mellitus sister sister sister FH: heart disease FATHER MOTHER sister FH: malignant neoplasm of bone Paternal grandfather FH: ovarian cancer sister sister Other Past Family History: NONCONTRIBUTORY Alcohol Use: Sober Drug Use: marijuana Lives with: Alone Lives In: Other Occupation: disabled Review of Systems All Other Systems at this time: Reviewed and Negative Physical Exam Vital Signs: Temperature: 98.3, Source: Oral, Heart Rate: 51, Respiratory Rate: 17, BP: 162/75, Pulse Oximetry: 93, Weight: 138.200 Oxygen Flow Rate: 0 Physical Exam GENERAL: Alert, no acute distress. HEENT: NCAT, EOMI, PERRL, normal oropharynx, moist oral mucosa. NECK: Supple, trachea midline. CARDIAC: Regular rate and rhythm, no murmurs, rubs, or gallops. PV: Equal distal pulses. No lower extremity edema, cap refill less than 2 seconds. RESPIRATORY: Equal breath sounds, clear to auscultation bilaterally, no respiratory distress. MUSCULOSKELETAL: Normal range of motion, nontender, no swelling. Normal gait. NEUROLOGICAL: Awake, alert, and oriented x 3. SKIN: Warm/dry, no pallor, no rash. PSYCH: Alert and appropriate. Affect congruent with mood. Speech is clear. Good eye contact. Progress Results/Orders Results/Orders Vital Signs 04/17/25 04/17/25 04/17/25 11:40 11:45 12:04 Temp 98.0 98.3 Pulse 55 51 Resp 18 17 B/P (MAP) 153/70 162/75 (104) Pulse Ox 94 93 O2 Flow Rate 0 0 Medical Decision Making Diff Dx N/V/D:Considerations: Include: Appendicitis, Bowel obstruction, Dehydration, DKA, Diarrhea - bacterial, Diarrhea - parasitic, Diarrhea - viral, Diverticulitis, Diverticulosis, Drug toxicity, Electrolyte imbalance, Food poisoning, Gastroenteritis, GE reflux, GI bleed, Hepatitis, Hernia, Hypovolemia, Hypotension, Inflammatory BD, Impaction, Malnutrition, Pancreatitis, , PUD, Renal failure, Urolithiasis, Urinary obstruction, UTI Departure Time of Disposition: 12:31 Disposition: 01 HOME / SELF CARE / HOMELESS Impression: Primary Impression: Nausea alone Condition: Stable Discharge Instructions: General Discharge Instructions Additional Instructions: SYMPTOMS APPEARED TO HAVE RESOLVED, YOU ARE ASYMPTOMATIC. YOUR CONCERN WAS ABOUT BEING OVERHEATED AND THERE ARE NO SIGNS ON EXAM OR WITH YOUR HISTORY THAT MAKES ME CONCERNED FOR HEAT RELATED COMPLICATION; HOWEVER, IF YOU GET ANY CONCERNING SYMPTOMS SUCH CONFUSION, VOMITING RETURN TO ER Referrals: NO PRIMARY CARE PROVIDER (PCP) Education Educated: Patient Educated regarding: diagnosis, treatment, need for follow up Signature Scribe Signature: X Attestation: RICH KENNEY Apr 17, 2025 12:34
== END 2025-04-17 14:00 | disposition home or self-care (01) ==
LOC: ER 11:35
DX: R11.0 Nausea (principal); E11.9 Type 2 diabetes mellitus without complications; E78.00 Pure hypercholesterolemia, unspecified; I11.0 Hypertensive heart disease with heart failure; I50.9 Heart failure, unspecified; F41.9 Anxiety disorder, unspecified; J44.9 Chronic obstructive pulmonary disease, unspecified; F12.90 Cannabis use, unspecified, uncomplicated; Z86.73 Personal history of transient ischemic attack (TIA), and cerebral infarction without residual deficits; Z88.0 Allergy status to penicillin; Z88.1 Allergy status to other antibiotic agents; Z88.8 Allergy status to other drugs, medicaments and biological substances; Z90.710 Acquired absence of both cervix and uterus
CPT/HCPCS: 99283; A4615

== ENCOUNTER 2025-06-02 06:28 | Emergency (ER) | payer MEDICAID ==
[~2025-06-02] VITALS: Ht 160 cm; Wt 57.0 kg
[~2025-06-02 06:28] MED LIST changes: -BENZ-111 PO; +BENZ-268 PO; -PRED20TA PO
[2025-06-02 06:38] VITALS: TEMP 97.8
--- NOTE | 2025-06-02 07:28 | RADIOLOGY REPORT ---
CHEST RADIOGRAPH Indication: sob Technique: Single frontal view of the chest was obtained Comparison: DI CHEST,SINGLE VIEW on DOS: 04/10/25 FINDINGS: Lines and Tubes: None Lungs: There is bilateral interstitial prominence particularly at the lung bases. No focal consolidation. Pleura: No effusion. No pneumothorax. Cardiomediastinal contours: Unremarkable Bones: No acute osseous abnormality. IMPRESSION: 1. Bilateral interstitial prominence which may be due to pulmonary congestion. 2. No focal consolidation.
--- NOTE | 2025-06-02 07:29 | Physician Documentation ---
History of Present Illness ~ Chief Complaint: Shortness of Breath Stated Complaint: SOB A ALS Time Seen by MD: 06:48 Primary Medical Doctor: Jalen Cavazos MD. [facility] Mode of Arrival: EMS HPI History of COPD, diabetes, HFpEF, hypothyroidism, hypertension, CAD status post PCI, CVA, ongoing tobacco use Reviewed discharge summary February 10, 2025 COPD exacerbation Medication Reconciliation Allergies: Coded Allergies: iodine (Verified Allergy, Severe, Anaphylaxis, 04/17/25) stated per patient buspirone HCl (Verified Allergy, Mild, 04/17/25) Penicillins (Verified Allergy, Unknown, 04/17/25) cyanocobalamin (vitamin B12) (Verified Allergy, Unknown, 04/17/25) Pt states B12 injection gives her migraines erythromycin base (Verified Allergy, Unknown, RASH, 04/17/25) levofloxacin (Verified Allergy, Unknown, 04/17/25) Scheduled Amlodipine Besylate (Amlodipine Besylate), 2 TAB PO DAILY Atorvastatin Calcium (Atorvastatin Calcium), 1 TAB PO DAILY, (Reported) Benzonatate (Benzonatate), 1 CAP PO TID, (Reported) Carvedilol (Carvedilol), 1 TAB PO BID, (Reported) Cefdinir (Cefdinir), 1 CAP PO Q12H Gabapentin (Neurontin), 1 CAP PO TID, (Reported) Lactobacillus Rhamnosus (Culturelle), 1 CAP PO BID Levothyroxine Sodium (Levothyroxine Sodium), 1 TAB PO DAILY, (Reported) Lisinopril* (Lisinopril*), 1 TAB PO DAILY, (Reported) Metformin HCl (Metformin HCl), 1 TAB PO BID, (Reported) Montelukast Sodium (Singulair), 1 TAB PO HS, (Reported) Quetiapine Fumarate (Quetiapine Fumarate), 1 TAB PO HS, (Reported) Risperidone (Risperidone), 1 TAB PO BID, (Reported) Sennosides (Senna), 1 TAB PO HS, (Reported) Venlafaxine Hcl (Venlafaxine Hcl Er), 1 CAP PO DAILY, (Reported) Scheduled PRN albuterol inhaler (Pro-Air Inhaler), 2 PUFFS IH Q6H PRN for SOB or wheezing, (Reported) Past Medical History Past Medical History: CVA/TIA/Stroke, Congestive Heart Failure, High Cholesterol, Hypertension, COPD, UTI, Diabetes, Graves' Disease, Thyroid (unspecified), Chronic Back Pain, Anxiety Past Surgical History: abdominal surgery, hysterectomy, tonsillectomy, tubal ligation Other Past Surgical History: exploratory abdominal surgery Patient History: FH: diabetes mellitus sister sister sister FH: heart disease FATHER MOTHER sister FH: malignant neoplasm of bone Paternal grandfather FH: ovarian cancer sister sister Other Past Family History: NONCONTRIBUTORY Alcohol Use: Sober Drug Use: marijuana Lives with: Alone Lives In: Other Occupation: disabled Review of Systems All Other Systems at this time: Reviewed and Negative Physical Exam Vital Signs: Temperature: 97.8, Source: Temporal, Heart Rate: 84, Respiratory Rate: 16, BP: 179/83, Pulse Oximetry: 97, Weight: 57.000 Oxygen Flow Rate: 2.0 Progress Progress Note case management met with patient, she now has attained portable concentrator. Results/Orders Results/Orders Orders - SAMANTHA CLAUDIO MD Chest,Single View (06/02/25 07:12) Ball Racker (06/02/25 07:36) Covid19 Binax Poc Result Entry (06/02/25 07:38) Completed Orders - SAMANTHA CLAUDIO MD Chest,Single View (06/02/25 07:12) Ipratropium/Albuterol Nebule (Ipratrop/A (06/02/25 07:30) Cbc/Diff (06/02/25 07:38) BMP (06/02/25 07:38) Hs Troponin I W Calculations (06/02/25 07:38) PBNP (06/02/25 07:38) Methylprednisolone Sod Succ (Solumedrol (06/02/25 07:40) Stat Ekg (06/02/25 ) Medications Received in ER Medications (Trade) Dose Ordered Sig/Dax Route PRN Reason Start Time Stop Time Status Last Admin Dose Admin (ipratrop/ albuterol 0.5-3(2.5) MG/3ml nebule) 3 ml ONCE ONCE NEB 06/02/25 07:30 06/02/25 07:31 DC 06/02/25 07:44 3 ML (SoluMEDROL 125mg inj) 125 mg ONCE ONCE IV 06/02/25 07:40 06/02/25 07:41 DC 06/02/25 08:07 125 MG Vital Signs 06/02/25 06/02/25 06/02/25 06/02/25 06:38 06:45 07:00 07:46 Temp 97.8 Pulse 94 84 86 Resp 18 16 16 22 B/P (MAP) 168/97 179/83 (115) Pulse Ox 95 97 97 O2 Delivery Nasal Cannula* O2 Flow Rate 2.0 2.0 2 FiO2 28 06/02/25 06/02/25 07:54 10:17 Pulse 79 84 Resp 20 15 B/P (MAP) 156/86 (109) Pulse Ox 100 93 O2 Delivery Nasal Cannula* O2 Flow Rate 2 2.0 FiO2 28 Laboratory Tests Test 06/02/25 07:58 06/02/25 08:13 White Blood Count 12.8 H Red Blood Count 4.35 Hemoglobin 12.6 Hematocrit 38.2 Mean Corpuscular Volume 87.9 Mean Corpuscular Hemoglobin 29.1 Mean Corpuscular Hemoglobin Concent 33.0 Red Cell Distribution Width 14.5 Platelet Count 204 Mean Platelet Volume 8.5 Neutrophils (%) (Auto) 84.9 H Lymphocytes (%) (Auto) 6.2 L Monocytes (%) (Auto) 7.9 Eosinophils (%) (Auto) 0.5 Basophils (%) (Auto) 0.5 Neutrophils # (Auto) 10.9 H Lymphocytes # (Auto) 0.8 L Monocytes # (Auto) 1.0 H Eosinophils # (Auto) 0.1 Basophils # (Auto) 0.1 CBC Comment Sodium Level 140 Potassium Level 4.0 Chloride Level 102 Carbon Dioxide Level 31.5 Anion Gap 7 L Blood Urea Nitrogen 9 Creatinine 0.66 Estimated GFR/1.73 m2 90 BUN/Creatinine Ratio 13.6 Glucose Level 160 H Calcium Level 7.8 L Troponin I High Sensitivity 42 Pro-B-Type Natriuretic Peptide 572 H Albumin 3.4 Chemistry Comments SARS-CoV-2 Antigen (Rapid) Negative EKG/XRAY/CT/US/VASC/MRI Chest X-Ray : Additional Comments Chest x-ray independently interpreted by myself no pneumothorax no consolidation normal cardiomediastinal silhouette Medical Decision Making Additional information obtaine: N/A Findings none Heart Score: 0 Differential Dx:Considerations: Include: COPD, other Departure Disposition: 01 HOME / SELF CARE / HOMELESS Impression: Primary Impression: Oxygen supply absent Referrals: NO PRIMARY CARE PROVIDER (PCP) Signature Scribe Signature: na Attestation: SAMANTHA Bueno MD Jun 02, 2025 07:29
[2025-06-02] MEDS: ipratropium/albuterol 3ml nebule NEB ONE (07:44)
[2025-06-02 07:46] VITALS: PULSE 86; RESP 22; O2SAT 97
[2025-06-02 07:54] VITALS: PULSE 79; RESP 20; O2SAT 100
[2025-06-02 08:11] LABS: MEAN PLATELET VOLUME 8.5 FL (7.4-10.4); RED CELL DISTRIBUTION WIDTH 14.5 % (11.5-14.5)
--- NOTE | 2025-06-02 08:34 | ELECTROCARDIOGRAPH REPORT ---
[facility] Test Date: 2025-06-02 Test Time: 08:31:33 Pat Name: JESS GALLO Department: [facility] Patient ID: [id number] Room: Gender: F Video Presentation Operator: : 1960 Requested By: SAMANTHA CLAUDIO Order Number: [id number] Reading MD: Measurements Intervals [place] Rate: 83 P: 63 VA: 146 QRS: 29 QRSD: 95 T: 155 QT: 365 QTc: 429 Interpretive Statements Sinus rhythm Probable LVH with secondary repol abnrm Please click the below link to view image of tracing.
[2025-06-02 08:42] LABS: CREATININE 0.66 MG/DL (0.40-0.90); PRO BRAIN NATRIURETIC PEPTIDE 572 PG/ML (0-125); TOTAL CARBON DIOXIDE 31.5 MMOL/L (24-32); eCRCL 72 ML/MIN; eGFR 90 ML/MIN
[2025-06-02 10:17] VITALS: BP 156/86; PULSE 84; RESP 15; O2SAT 93
== END 2025-06-02 11:50 | disposition home or self-care (01) ==
LOC: ER 06:29
DX: R06.02 Shortness of breath (principal); E03.9 Hypothyroidism, unspecified; E11.9 Type 2 diabetes mellitus without complications; E78.00 Pure hypercholesterolemia, unspecified; F12.90 Cannabis use, unspecified, uncomplicated; I11.0 Hypertensive heart disease with heart failure; I25.10 Atherosclerotic heart disease of native coronary artery without angina pectoris; I50.32 Chronic diastolic (congestive) heart failure; J44.1 Chronic obstructive pulmonary disease with (acute) exacerbation; Z86.73 Personal history of transient ischemic attack (TIA), and cerebral infarction without residual deficits; Z87.891 Personal history of nicotine dependence; Z88.0 Allergy status to penicillin; Z88.1 Allergy status to other antibiotic agents; Z88.8 Allergy status to other drugs, medicaments and biological substances; Z90.710 Acquired absence of both cervix and uterus; Z20.822 Contact with and (suspected) exposure to COVID-19; Z95.5 Presence of coronary angioplasty implant and graft
CPT/HCPCS: 36415; 71045; 80048; 83880; 84484; 85025; 87811; 93005; 94640; 96374; 99285; J2919; 94760

== ENCOUNTER 2025-06-04 06:51 | Inpatient (IN) | payer MEDICAID ==
[2025-06-04] VITALS (15 sets, daily range): BP systolic 130–168; BP diastolic 71–87; PULSE 79–112; RESP 18–26; TEMP 98.2–99; O2SAT 90–99
[~2025-06-04] VITALS: Ht 160 cm; Wt 83.0 kg
--- NOTE | 2025-06-04 07:05 | ELECTROCARDIOGRAPH REPORT ---
[facility] Test Date: 2025-06-04 Test Time: 07:03:22 Pat Name: JESS GALLO Department: [facility] Patient ID: [id number] Room: Gender: F Sweet Potato Disintegrator: : 1960 Requested By: SULY WILLSON Order Number: [id number] Reading MD: Measurements Intervals [place] Rate: 100 P: 80 UT: 138 QRS: 55 QRSD: 93 T: 142 QT: 340 QTc: 439 Interpretive Statements Sinus tachycardia Abnormal T, consider ischemia, lateral leads Please click the below link to view image of tracing.
--- NOTE | 2025-06-04 07:28 | Physician Documentation ---
History of Present Illness ~ Chief Complaint: Cough Stated Complaint: SOB Time Seen by MD: 07:19 Primary Medical Doctor: Jalen Cavazos MD. [facility] Source: patient Mode of Arrival: EMS Exam Limitations: no limitations HPI Ms. Dunn is a 65 y/o female with PMHx significant for HTN, HLD, Hypothyroidism, Type II DM, COPD on home O2 (2 lpm) and ongoing tobacco use who presents to the ED via EMS for progressively worsening SOB. She was seen and evaluated here yesterday for the same. She states that she felt better at time of d/c yesterday, but symptoms have returned and she is finding it hard to breath. She is without c/o chest pain/pressure/palpitations or discomfort. She was started on an Albuterol neb by EMS and transported. On arrival to the ED, she is still pretty short of breath with significant wheezing and decreased air movement bilaterally. No recent febrile illness. No known sick contacts. Smoked a cigarette this morning and this made symptoms worse. Medication Reconciliation Allergies: Coded Allergies: iodine (Verified Allergy, Severe, Anaphylaxis, 04/17/25) stated per patient buspirone HCl (Verified Allergy, Mild, 04/17/25) Penicillins (Verified Allergy, Unknown, 04/17/25) cyanocobalamin (vitamin B12) (Verified Allergy, Unknown, 04/17/25) Pt states B12 injection gives her migraines erythromycin base (Verified Allergy, Unknown, RASH, 04/17/25) levofloxacin (Verified Allergy, Unknown, 04/17/25) Scheduled Amlodipine Besylate (Amlodipine Besylate), 2 TAB PO DAILY Atorvastatin Calcium (Atorvastatin Calcium), 1 TAB PO DAILY, (Reported) Benzonatate (Benzonatate), 1 CAP PO TID, (Reported) Carvedilol (Carvedilol), 1 TAB PO BID, (Reported) Cefdinir (Cefdinir), 1 CAP PO Q12H Gabapentin (Neurontin), 1 CAP PO TID, (Reported) Lactobacillus Rhamnosus (Culturelle), 1 CAP PO BID Levothyroxine Sodium (Levothyroxine Sodium), 1 TAB PO DAILY, (Reported) Lisinopril* (Lisinopril*), 1 TAB PO DAILY, (Reported) Metformin HCl (Metformin HCl), 1 TAB PO BID, (Reported) Montelukast Sodium (Singulair), 1 TAB PO HS, (Reported) Quetiapine Fumarate (Quetiapine Fumarate), 1 TAB PO HS, (Reported) Risperidone (Risperidone), 1 TAB PO BID, (Reported) Sennosides (Senna), 1 TAB PO HS, (Reported) Venlafaxine Hcl (Venlafaxine Hcl Er), 1 CAP PO DAILY, (Reported) Scheduled PRN albuterol inhaler (Pro-Air Inhaler), 2 PUFFS IH Q6H PRN for SOB or wheezing, (Reported) Past Medical History Past Medical History: CVA/TIA/Stroke, Congestive Heart Failure, High Cholesterol, Hypertension, COPD, UTI, Diabetes, Graves' Disease, Thyroid (unspecified), Chronic Back Pain, Anxiety Past Surgical History: abdominal surgery, hysterectomy, tonsillectomy, tubal ligation Other Past Surgical History: exploratory abdominal surgery Patient History: FH: diabetes mellitus sister sister sister FH: heart disease FATHER MOTHER sister FH: malignant neoplasm of bone Paternal grandfather FH: ovarian cancer sister sister Other Past Family History: NONCONTRIBUTORY Alcohol Use: Sober Drug Use: marijuana Lives with: Alone Lives In: Other Occupation: disabled Review of Systems ROS Reviewed and negative unless otherwise reported. Physical Exam Vital Signs: RN Vital Signs have been reviewed: Yes, Temperature: 99.3, Source: Oral, Heart Rate: 95, Respiratory Rate: 28, BP: 160/85, Pulse Oximetry: 100, Weight: 83.000 Physical Exam GEN: Alert and oriented and in NAD. HEENT: NC/AT. PERRLA. No scleral icterus. MMM. No oral lesions. NECK: Supple. No JVD. CHEST: RRR. No M/G/T. LUNGS: Diffuse wheezing bilaterally. ABD: Soft. NTND. + BS. No rebounding or guarding. BACK: No CVA TTP. EXT: No c/c/e. NEURO: Alert and oriented x 4. Cooperative. Sensorimotor intact x 4 extremities. Progress Results/Orders Reviewed/noted all lab results: Yes Results/Orders Orders - SULY WILLSON MD Chest,Single View (06/04/25 07:00) * Rt Notification Q1H (06/04/25 07:32) Azithromycin/Ns 500mg/250ml (Zithromax/N (06/04/25 08:00) Ringers Solution, Lacted (Lactated Ringe (06/04/25 07:40) Covid19 Binax Poc Result Entry (06/04/25 07:38) Magnesium Sulf-Water 4g/100ml (Magnesium (06/04/25 08:45) Potassium Bicarb 20meq Eff Tab (Effer-K (06/04/25 08:45) Completed Orders - SULY WILLSON MD Chest,Single View (06/04/25 07:00) Electrocardiogram (06/04/25 07:00) Albuterol 2.5mg/3ml Nebule (Proventil 2. (06/04/25 07:35) Albuterol 2.5mg/3ml Nebule (Proventil 2. (06/04/25 07:35) Albuterol 2.5mg/3ml Nebule (Proventil 2. (06/04/25 07:35) Ipratropium Nebule (Atrovent Nebule) (06/04/25 07:35) Ipratropium Nebule (Atrovent Nebule) (06/04/25 07:35) Ipratropium Nebule (Atrovent Nebule) (06/04/25 07:35) Methylprednisolone Sod Succ (Solumedrol (06/04/25 07:35) BMP (06/04/25 07:38) Cbc/Diff (06/04/25 07:38) MG (06/04/25 07:38) PBNP (06/04/25 07:38) Hs Troponin I W Calculations (06/04/25 07:38) Medications Received in ER Medications (Trade) Dose Ordered Sig/Dax Route PRN Reason Start Time Stop Time Status Last Admin Dose Admin (SoluMEDROL 125mg inj) 125 mg ONCE ONCE IV 06/04/25 07:35 06/04/25 07:37 DC 06/04/25 07:49 125 MG Azithromycin 250 ml @ 250 mls/hr Q24H IV 06/04/25 08:00 06/04/25 07:49 250 MLS/HR Lactated Ringer's 1,000 ml @ 500 mls/hr ONCE ONCE IV 06/04/25 07:40 06/04/25 09:39 06/04/25 07:51 500 MLS/HR Vital Signs 06/04/25 06/04/25 07:03 07:19 Temp 99.3 Pulse 99 95 Resp 20 28 B/P (MAP) 160/85 160/85 (110) Pulse Ox 100 100 Laboratory Tests Test 06/04/25 08:02 White Blood Count 12.7 H Red Blood Count 4.14 L Hemoglobin 12.2 Hematocrit 36.3 Mean Corpuscular Volume 87.6 Mean Corpuscular Hemoglobin 29.5 Mean Corpuscular Hemoglobin Concent 33.7 Red Cell Distribution Width 14.2 Platelet Count 206 Mean Platelet Volume 8.6 Neutrophils (%) (Auto) 85.8 H Lymphocytes (%) (Auto) 5.5 L Monocytes (%) (Auto) 8.3 Eosinophils (%) (Auto) 0.1 Basophils (%) (Auto) 0.3 Neutrophils # (Auto) 10.9 H Lymphocytes # (Auto) 0.7 L Monocytes # (Auto) 1.1 H Eosinophils # (Auto) 0.0 Basophils # (Auto) 0.0 CBC Comment Sodium Level 137 Potassium Level 3.2 L Chloride Level 99 Carbon Dioxide Level 31.2 Anion Gap 7 L Blood Urea Nitrogen 12 Creatinine 0.64 Estimated GFR/1.73 m2 > 90 BUN/Creatinine Ratio 18.8 Glucose Level 182 H Calcium Level 8.1 L Magnesium Level 1.5 Troponin I High Sensitivity 39 Troponin I High Sens Percent Delta 7 Troponin I Hi Sens Absolute Change -3 Pro-B-Type Natriuretic Peptide 460 H Albumin 3.7 Chemistry Comments EKG/XRAY/CT/US/VASC/MRI EKG : Intepreting Monitor?: Yes Indication: shortness of breath EKG Rate: 100 EKG: NSR EKG Blocks: none [place]: normal Hypertrophy: none Additional Comment Nonspecific T-wave changes Normal axis Normal intervals Chest X-Ray : Interpreted By: self Views: 1 VIEW Additional Comments Pulmonary vascular congest Medical Decision Making Additional information obtaine: old records Findings While here in the ED, she remained hemodynamically normal. She is afebrile but appears significantly short of breath. I reviewed and interpreted her EKG and it shows NSR with a rate of 100 and is without signs of acute myocardial injury or ischemia. I also reviewed and interpreted her CXR and it shows pulmonary vascular congestion. She was started on bronchodilator therapy along with steroids and Azithromycin for presumed acute COPD exacerbation. I reviewed her labs and she was noticed to have a mild hypokalemia and hypomagnesemia. Both replaced here in the ED. She will be admitted for ongoing management. Differential Dx:Considerations: Include: Influenza, Pneumonia, URI, Other Differential Diagnosis COPD ACS Heart Failure Pneumonia Sepsis COVID Influenza Bronchitis Departure Disposition: ADMITTED INPATIENT Admitted to Inpatient Unit: yes, to hospitalist Admission Level of Care: Med/Surg with Tele Impression: Primary Impression: Acute exacerbation of chronic obstructive airways disease Condition: Stable Referrals: NO PRIMARY CARE PROVIDER (PCP) Comments Admitting to the hospital for ongoing management. Education Educated: Patient Educated regarding: diagnosis, treatment Critical Care Note Total Time (mins): 47 Critical Care Note I have personally spent 47 minutes of critical care time, exclusive of time spent on any procedures, in evaluation and management of this critically ill patients condition of acute hypoxic respiratory failure. ACF Form Admit Criteria Met or Not Met: YES Signature Scribe Signature: N/A Attestation: N/A SULY WILLSON MD Jun 04, 2025 07:28
--- NOTE | 2025-06-04 07:28 | RADIOLOGY REPORT ---
CHEST RADIOGRAPH Indication: CP Technique: DI CHEST,SINGLE VIEW COMPARISON: None FINDINGS: 1 The cardiac silhouette is unremarkable. The lungs demonstrate bilateral patchy airspace opacities. The pulmonary vasculature is prominent. There is no pleural effusion. There is no pneumothorax. IMPRESSION: Pulmonary vascular congestion and bilateral patchy airspace opacities.
[2025-06-04] MEDS: albuterol 2.5 MG/3 ML nebule NEB ONE ×3 (07:35)
[2025-06-04] MEDS: ipratropium 0.5 MG/2.5ML nebule IH ONE ×3 (07:35)
[2025-06-04] MEDS: azithromycin/NS 500mg/250ml 250 ML IV SCH (07:49)
[2025-06-04] MEDS: ringers solution, lacted 1,000 ML IV ONE (07:51)
[2025-06-04 08:23] LABS: MEAN PLATELET VOLUME 8.6 FL (7.4-10.4); RED CELL DISTRIBUTION WIDTH 14.2 % (11.5-14.5)
[2025-06-04 08:41] LABS: CREATININE 0.64 MG/DL (0.40-0.90); PRO BRAIN NATRIURETIC PEPTIDE 460 PG/ML (0-125); TOTAL CARBON DIOXIDE 31.2 MMOL/L (24-32); eCRCL 74 ML/MIN; eGFR > 90 ML/MIN
[2025-06-04] MEDS ORDERED: magnesium sulf-water 4G/100mL 100 ML IV PRN (09:00)
[2025-06-04] MEDS ORDERED: potassium Cl 20 mEq SR tablet PO PRN ×2 (09:00)
[2025-06-04] MEDS ORDERED: mag hydrox/Alum hydrox/simeth 30ml oral suspension PO PRN (09:00)
[2025-06-04] MEDS ORDERED: ondansetron/PF 4mg/2ml inj IV PRN (09:00)
[2025-06-04] MEDS ORDERED: potassium Cl 40MEQ/1/2NS 520ml 520 ML IV PRN (09:00)
[2025-06-04] MEDS ORDERED: magnesium sulf-water 2g/50mL 50 ML IV PRN (09:00)
[2025-06-04] MEDS ORDERED: hydrALAZINE 20mg/ml inj. IV PRN (09:00)
[2025-06-04] MEDS ORDERED: magnesium hydroxide 30ml (MOM) UD suspension PO PRN (09:00)
[2025-06-04] MEDS ORDERED: ondansetron 4mg rapidly disintigrating tab PO PRN (09:00)
[2025-06-04] MEDS: ipratropium/albuterol 3ml nebule NEB ONE (09:04)
[2025-06-04] MEDS ORDERED: DEXTROSE 15 GM of carb/4 tabs (each vial/BOTTLE has 4 tablets) PO PRN ×2 (09:10)
[2025-06-04] MEDS ORDERED: dextrose 50%-water 50ml dispensing syringe IV PRN ×2 (09:10)
[2025-06-04] MEDS ORDERED: glucagon, human recombinant 1mg kit SUBCUT PRN (09:10)
[2025-06-04] MEDS: ringers solution, lacted 1,000 ML IV SCH (09:15)
--- NOTE | 2025-06-04 09:16 | HISTORY AND PHYSICAL ---
History & Physical Providers to CC ~ History of Present Illness Reason for Admit\Complaint: Acute hypoxic resp failure, Acute COPD exacerbation History of Present Illness Abel Dunn is a 65-year-old female with a past medical history of COPD on continuous 2L oxygen, tobacco abuse, hypertension, hyperlipidemia, hypothyroidism who was brought to the ED via EMS due to progressively worsening shortness of breath x 2 days. Patient denies prior [place]/CAD, CVA, cardiac arrhythmia, DVT/PE, or GIB. Patient denies chest pain, palpitations, abdominal pain, n/v/d, fever, chills, dysuria, or recent sick contacts. Patient is to be admitted for further workups and treatment. Allergies: Coded Allergies: iodine (Verified Allergy, Severe, Anaphylaxis, 04/17/25) stated per patient buspirone HCl (Verified Allergy, Mild, 04/17/25) Penicillins (Verified Allergy, Unknown, 06/04/25) TOLERTATED ROCEPHIN 04/2024 cyanocobalamin (vitamin B12) (Verified Allergy, Unknown, 04/17/25) Pt states B12 injection gives her migraines erythromycin base (Verified Allergy, Unknown, RASH, 06/04/25) PT TOLERATED AZITHROMYCIN 03/2025 levofloxacin (Verified Allergy, Unknown, 04/17/25) Home Medications Home Medications Active Cefdinir 300 Mg Capsule 1 Cap PO Q12H 1 Days Culturelle (Lactobacillus Rhamnosus) 10 Billion Cell Capsule 1 Cap PO BID 30 Days Amlodipine Besylate 5 Mg Tablet 2 Tab PO DAILY 30 Days Reported Benzonatate 100 Mg Capsule 1 Cap PO TID Singulair (Montelukast Sodium) 10 Mg Tablet 1 Tab PO HS 30 Days Risperidone 2 Mg Tablet 1 Tab PO BID 30 Days Levothyroxine Sodium 137 Mcg Tablet 1 Tab PO DAILY Metformin HCl 1,000 Mg Tablet 1 Tab PO BID Carvedilol 12.5 Mg Tablet 1 Tab PO BID Lisinopril* (Lisinopril) 40 Mg Tablet 1 Tab PO DAILY Neurontin (Gabapentin) 300 Mg Capsule 1 Cap PO TID Atorvastatin Calcium 40 Mg Tablet 1 Tab PO DAILY Pro-Air Inhaler (Albuterol) 8.5 Gm Inhaler 2 Puffs IH Q6H PRN Venlafaxine Hcl Er (Venlafaxine Hcl) 75 Mg Cap.sr.24h 1 Cap PO DAILY Quetiapine Fumarate 100 Mg Tablet 1 Tab PO HS Senna (Sennosides) 8.6 Mg Tablet 1 Tab PO HS 30 Days Past Medical History Past Medical History COPD NIDDM HTN HLD Tobacco abuse Chronic lower back pain Chronic pain syndrome Past Surgical History Surgical History Comment Hysterectomy Family History Family History: FH: diabetes mellitus sister sister sister FH: heart disease FATHER MOTHER sister FH: malignant neoplasm of bone Paternal grandfather FH: ovarian cancer sister sister Past Social History Social History Comment Alcohol: Rarely Tobacco: Current smoker, 20 pack year history Illicit drug use: Denies Living situation: Lives at [facility] Other than positives in HPI, all 14 review of systems are negative Exam Vitals: Vital Signs Date Time Temp Pulse Resp B/P (MAP) Pulse Ox O2 Delivery O2 Flow Rate FiO2 06/04/25 07:19 95 28 160/85 (110) 100 06/04/25 07:03 99.3 General: Generalized weakness, A&Ox 3, NAD HEENT: Normocephalic, PERRLA Neck: Supple, trachea midline, no JVD Chest: Severe expiratory and inspiratory wheezing in upper and lower bilateral lungs Cardiovascular: RRR, S1&S2 Abdomen: Soft and nontender Extremities: No cyanosis/clubbing/or edema Central Nervous System: CN II-XII intact, no focal deficits Musculoskeletal: No paraspinal muscle tenderness, no muscle spasm Skin: Warm and intact Diagnostic Data Last Recorded Lab Results: 06/04/25 0802 06/04/25 0802 Counseling Services Smoking & Tobacco Cessation: > 10 Minutes Additional Plan Abel Dunn is a 65-year-old female with a past medical history of COPD on continuous 2L oxygen, tobacco abuse, hypertension, hyperlipidemia, hypothyroidism who was brought to the ED via EMS due to progressively worsening shortness of breath x 2 days. Assessment & Plan Acute COPD exacerbation Tobacco abuse HTN HLD Hypothyroidism Class I obesity Hx Chronic pain syndrome -Well's score 0, [id number], trop neg, bicarb wnl, COVID neg, procal neg, EKG sinus at 100bpm, no ST elevation/depression, CT reveals bronchiolitis and trace pericardial effusion -steroid, bronchodilators, abx, hyper/hypoglycemic protocol, nicotine patch -follow lipid panel, a1c, tsh/t4, TTE DVT/VTE prophylaxis: heparin Code status: DNR/DNI I spent a total of 16 minutes on smoking cessation education. I provided extensive counseling regarding smoking cessation. I spent a total of 35 minutes discussing Advanced Care Planning measures with the patient. Advance care planning: Discussed with patient the importance of advance care planning in case of emergent situation. We discussed various resuscitative measures/ ACP with the patient at the time of admission. Patient voiced understanding and patient has decided on a DNR/DNI status. Date of Service: Jun 04, 2025 Billing Provider: LISA HIGGINS Common Visit Codes: [id number] INP/OBS CARE (HIGH) Secondary Visit Codes: [id number] CHNG SMOKING >10MIN, [id number] CARE PLAN 30 MINUTES LISA HIGGINS Jun 04, 2025 09:16
[2025-06-04] MEDS ORDERED: morphine 4 MG/ML inj SYRINge IV PRN ×2 (10:20→10:21)
[2025-06-04] MEDS: ipratropium/albuterol 3ml nebule NEB SCH (11:00)
--- NOTE | 2025-06-04 11:14 | RADIOLOGY REPORT ---
NON-CONTRAST CHEST COMPUTERIZED TOMOGRAPHY REASON FOR STUDY: copd COMPARISON: CTA chest 11/06/2024. TECHNIQUE: The exam was performed on a multidetector spiral scanner. Spiral scans were acquired through the chest. 2-D coronal and sagittal reformatted images were provided. Radiation optimization: All CT scans at this facility use at least one of these dose optimization techniques: Automated exposure control mA and/or kV adjustment per patient size (includes targeted exams where dose is matched to clinical indication) or iterative reconstruction. RADIATION DOSE: CTDI: 9 mGy DLP: 360 mGy-cm FINDINGS: There is tree-in-bud nodularity scattered throughout all lobes of the lungs, [id number], consistent with bronchiolitis, increased compared with the prior study. There is no bronchiectasis or honeycombing. No definite pulmonary nodule is identified within the context of extensive tree-in-bud nodularity. There is no pleural effusion. There is no pneumothorax. There is no pulmonary edema. The heart is not enlarged. There are coronary artery calcifications. There is trace pericardial effusion. There is no thoracic aortic aneurysm. There is persistent mediastinal lymphadenopathy, possibly slightly decreased in size compared with the prior study. An AP window lymph node measures 1.8 cm. No acute osseous abnormality is identified. IMPRESSION: Extensive tree-in-bud nodularity throughout all lobes of the lungs, [id number]-left, increased compared with the prior study. This is most consistent with bronchiolitis. Mediastinal lymphadenopathy, similar to the prior study, possibly slightly decreased in size.
[2025-06-04] MEDS: nicotine 14mg patch - 24hr TD ONE (11:57)
[2025-06-04] MEDS: POTASSIUM BICARB 20meq eff tab 20 MEQ TABLET.EFF PO ONE (11:58)
[2025-06-04] MEDS: CefTRIAXone/D5W-Rocephin 1gm 50 ML IV ONE (11:58)
[2025-06-04] MEDS ORDERED: ipratropium/albuterol 3ml nebule NEB SCH (12:00)
[2025-06-04] MEDS: PERFLUTREN PROTEIN-A MICROSPHR (Optison) 0.22 MG/ML 3ML VIAL IV ONE (12:55)
[2025-06-04] MEDS: magnesium sulf-water 4G/100mL 100 ML IV ONE (13:23)
[2025-06-04] MEDS: INSULIN LISPRO 100 UNIT/ML INSULN.PEN MULTI-DOSE SQ SCH (13:24)
[2025-06-04] MEDS: heparin, porcine 5000 units/ml vial SQ SCH (16:52)
--- NOTE | 2025-06-04 19:38 | CARDIOLOGY REPORT ---
APPROVED REPORT EXAM: Comprehensive 2D, Doppler, and color-flow Echocardiogram. Patient Location: 350 B Blood Pressure: 130/72 mmHg Heart Rate: 89 bpm Rhythm: Sinus Rhythm Indications Hypertension COPD (on continuous Oxygen) Current Everyday Smoker Hx of Stents X 5 (2019) Hx of [place] Hx of CVA Molded Candles Wicker: None Previous echo: 02/10/2025 [facility] EF:60% 2D Dimensions RVDd 3.3 cm LVOT Diameter 1.88 (1.8-2.4cm) IVC 21.30 mm CO 2.1 L/min M-Mode Dimensions RVDd 2.99 (2.1-3.2cm) Left Atrium(MM) 3.24 (2.5-4.0cm) IVSd 1.00 (0.7-1.1cm) LVDd 4.29 (4.0-5.6cm) Aortic Root 3.00 (2.2-3.7cm) PWd 1.06 (0.7-1.1cm) Aortic Cusp Exc 1.82 (1.5-2.0cm) IVSs 1.17 cm MV EPSS 0.6 (<0.5cm) LVDs 2.81 (2.0-3.8cm) FS (%) 33 % PWs 1.00 cm ESV(Teich) 13.9 ml LVEF(%) 62 (>50%) Aortic Valve AoV Peak Gutierrez. 183.5 cm/s AoV VTI 30.4 cm AO Peak GR. 13.5 mmHg AO Mean GR. 6 mmHg LVOT VTI 25.29 cm LVOT Peak Gutierrez. 121.4 cm/s CARISSA(VTI)/BSA 2.30 cm2/m2 CARISSA (VTI) 2.30 cm2 AV DI 0.83 % Mitral Valve MV E Velocity 90.4 cm/s MV Peak Gr. 5 mmHg MV DECEL TIME 172 ms MV A Velocity 100.4 cm/s MV PHT 56 ms E/A Ratio 0.9 MVA (PHT) 3.93 cm2 MV VMax 109.4 cm/s Tricuspid Valve TR P. Velocity 291 cm/s RAP ESTIMATE 10 mmHg TR Peak Gr. 34 mmHg RVSP 44 mmHg LEFT VENTRICLE Normal LV size and wall thickness. Overall systolic function is normal. Overall LVEF is 60%. RIGHT VENTRICLE RV is normal size and function. Estimated PA systolic pressure is 44 mmHg. ATRIA The left atrium size is normal. AORTIC VALVE Trileaflet AV appears sclerotic without stenosis or insufficiency. MITRAL VALVE Mild MV annular calcification and thickening. No stenosis with trace regurgitation. PULMONIC VALVE Normal PV without stenosis, physiologic insufficiency. GREAT VESSELS The aortic root is normal in size. IVC is dilated and collapses less than 50% with inspiration. PERICARDIUM Normal pericardium. No pericardial effusion seen. Other Information Study Quality: Fair Conclusion Normal LV size and wall thickness. Overall systolic function is normal. Overall LVEF is 60%. RV is normal size and function. Estimated PA systolic pressure is 44 mmHg. The left atrium size is normal. Trileaflet AV appears sclerotic without stenosis or insufficiency. Mild MV annular calcification and thickening. No stenosis with trace regurgitation. Normal pericardium. No pericardial effusion seen.
[2025-06-04] MEDS: docusate sod 100mg capsule PO SCH (19:43)
[2025-06-04] MEDS: K and/or MAG REPLACEMENT MC SCH (20:31)
[2025-06-05] VITALS (24 sets, daily range): BP systolic 141–154; BP diastolic 69–75; PULSE 73–110; RESP 16–26; TEMP 97.6–98.7; O2SAT 92–100
[2025-06-05 06:23] LABS: MEAN PLATELET VOLUME 10.1 FL (7.4-10.4); RED CELL DISTRIBUTION WIDTH 13.7 % (11.5-14.5)
[2025-06-05 07:35] LABS: CHOL/HDL RATIO 3.7 (0.00-4.99); CREATININE 0.47 MG/DL (0.40-0.90); LDL CHOLESTEROL 145 MG/DL (50-100); TOTAL CARBON DIOXIDE 29.0 MMOL/L (24-32); eCRCL 101 ML/MIN; eGFR > 90 ML/MIN
[2025-06-05] MEDS: albuterol 2.5 MG/3 ML nebule NEB PRN (07:56)
[2025-06-05] MEDS: CefTRIAXone/D5W-Rocephin 1gm 50 ML IV SCH (08:07)
--- NOTE | 2025-06-05 08:32 | PROGRESS NOTE ---
Daily Progress Note Providers to CC ~ Antibiotic Timeout Antibiotic Ordered?: Yes Subjective No acute events overnight. Patient examined at bedside. No new complaints not in acute distress. Patient denies chest pain, palpitations, abdominal pain, n/v/d. Persistent wheezing, vss, labs unremarkable. Objective Vital Signs Date Time Temp Pulse Resp B/P (MAP) Pulse Ox O2 Delivery O2 Flow Rate FiO2 06/05/25 08:17 96 20 Nasal Cannula 3.0 06/05/25 08:09 95 32 06/04/25 22:00 98.5 147/71 (96) Result Diagram: 06/05/2551706/05/25517 Physical Exam General: Generalized weakness, A&Ox 3, NAD HEENT: Normocephalic, PERRLA Neck: Supple, trachea midline, no JVD Chest: Expiratory and inspiratory wheezing in upper and lower bilateral lungs Cardiovascular: RRR, S1&S2 Abdomen: Soft and nontender Extremities: No cyanosis/clubbing/or edema Central Nervous System: CN II-XII intact, no focal deficits Musculoskeletal: No paraspinal muscle tenderness, no muscle spasm Skin: Warm and intact Problem\Assessment\Plan Assessment & Plan Acute COPD exacerbation Tobacco abuse Hypertensive urgency-POA HTN HLD Hypothyroidism Class I obesity Hx Chronic pain syndrome -Well's score 0, [id number], trop neg, bicarb wnl, COVID neg, procal neg, EKG sinus at 100bpm, no ST elevation/depression, CT reveals bronchiolitis and trace pericardial effusion; TSH 9.6, FT4 0.57, A1c 7.0%, LDL 145 -steroid, bronchodilators, abx, hyper/hypoglycemic protocol, nicotine patch, adjusted home levothyroxine and statin, hyperglycemic on steroid, start Lantus DVT/VTE prophylaxis: heparin Code status: DNR/DNI Date of Service: Jun 05, 2025 Billing Provider: LISA HIGGINS Common Visit Codes: [id number] INP/OBS CARE(HIGH) LISA HIGGINS Jun 05, 2025 08:32
[2025-06-05] MEDS: HYDROcodone/acetaminophen 5mg/325mg tablet PO PRN (08:34)
[2025-06-05] MEDS: nicotine 14mg patch - 24hr TD SCH (08:35)
[2025-06-05] MEDS: levoTHYROXINE 75mcg tablet PO ONE (08:40)
[2025-06-05] MEDS: azithromycin/NS 500mg/250ml 250 ML IV SCH (08:43)
[2025-06-05] MEDS: ipratropium/albuterol 3ml nebule NEB PRN (09:55)
--- NOTE | 2025-06-05 14:04 | RADIOLOGY REPORT ---
EXAM: DI CHEST,SINGLE VIEW CLINICAL HISTORY: REPEAT CHEST x RAY TECHNIQUE: Single AP view of the chest WID: COMPARISON: CT CT CHEST on DOS: 06/04/25, DI CHEST,SINGLE VIEW on DOS: 06/04/25 FINDINGS: Lines and tubes: None Chest: Upper limits of normal-sized heart. Mild prominence of the central pulmonary vasculature. Diffuse tiny nodular and reticular opacities in the lungs. This is seen to better advantage on CT. No pleural effusion or pneumothorax. The osseous structures are grossly intact. IMPRESSION: 1. Tiny nodular and reticular opacities in the lungs likely atypical infection, with the tree-in-bud nodularity seen to better advantage on yesterday's CT chest. 2. Upper limits of normal-sized heart and mild prominence of the central pulmonary vasculature.
[2025-06-05] MEDS: INSULIN LISPRO 100 UNIT/ML INSULN.PEN MULTI-DOSE SQ SCH (14:25)
[2025-06-05] MEDS: insulin glargine (Lantus) pen - multi-dose SQ SCH (21:08)
[2025-06-06] VITALS (16 sets, daily range): BP systolic 130–150; BP diastolic 57–69; PULSE 70–97; RESP 16–24; TEMP 97.1–97.4; O2SAT 92–100
[2025-06-06 04:12] LABS: MEAN PLATELET VOLUME 9.0 FL (7.4-10.4); RED CELL DISTRIBUTION WIDTH 14.1 % (11.5-14.5)
[2025-06-06 04:31] LABS: CREATININE 0.53 MG/DL (0.40-0.90); TOTAL CARBON DIOXIDE 32.3 MMOL/L (24-32); eCRCL 90 ML/MIN; eGFR > 90 ML/MIN
[2025-06-06] MEDS: levoTHYROXINE 75mcg tablet PO SCH (07:12)
[2025-06-06] MEDS ORDERED: FLUT1DIS4 INH (07:28)
[2025-06-06] MEDS ORDERED: ASPI81TA52 PO (07:28)
[2025-06-06] MEDS ORDERED: PRED10TA23 PO (07:28)
[2025-06-06] MEDS ORDERED: INSU100I8 SQ (07:28)
[2025-06-06] MEDS ORDERED: METF-1203 PO (07:28)
[2025-06-06] MEDS ORDERED: PANT40TA54 PO (07:28)
[2025-06-06] MEDS ORDERED: SITA50TA PO (07:28)
[2025-06-06] MEDS ORDERED: LEVO750T68 PO (07:28)
[2025-06-06] MEDS ORDERED: LEVO150T PO (07:28)
[2025-06-06] MEDS ORDERED: ATOR20TA66 PO (07:28)
[2025-06-06] MEDS ORDERED: ALBU2.5V7 NEB (12:05)
--- NOTE | 2025-06-06 12:13 | DISCHARGE SUMMARY ---
Discharge Summary Providers to CC ~ Discharge Summary Admission Diagnosis: acute COPD exacerbation, PNA Hospital Course DATE OF ADMISSION: 06/04/25 DATE OF DISCHARGE: 06/06/25 Discharge Diagnosis\Comment: Acute COPD exacerbation Sepsis 2/2 pneumonia Community-acquired pneumonia, covering for Gram-positive and Gram-negative- POA Tobacco abuse Hypertensive urgency-POA HTN HLD Hypothyroidism Class I obesity Hx Chronic pain syndrome Operations\Procedures: None Consultants: None Complications: None Condition on DC: Stable New Medications: Albuterol Sulfate (Albuterol Sulfate) 2.5 Mg/3 Ml Vial.neb 1 VIAL NEB Q4HPRN PRN for wheezing, #150 ML 0 Refills Aspirin (Aspirin EC) 81 Mg Tablet.dr 1 TAB PO DAILY for 30 Days, #30 TAB Atorvastatin Calcium* (Lipitor*) 80 Mg Tablet 1 TABLET PO HS for 90 Days, #90 TABLET Fluticasone/Salmeterol (Advair 250-50 Diskus) 1 Each Disk.w.dev 1 PUFFS INH Q12H for 30 Days, #1 EA 0 Refills Levofloxacin (Levofloxacin) 750 Mg Tablet 750 MG PO DAILY for 7 Days, #7 TAB Levothyroxine Sodium (Synthroid) 150 Mcg Tablet 1 TAB PO DAILY for 90 Days, #90 TAB 0 Refills Metformin HCl (Metformin HCl) 500 Mg Tablet 1 TAB PO Q12H for 30 Days, #60 TAB Pantoprazole Sodium (Pantoprazole Sodium) 40 Mg Tablet.dr 40 MG PO DAILY for 30 Days, #30 TAB.SR Prednisone (Prednisone) 10 Mg Tablet 0 PO DAILY, #42 TAB Take 6 tabs/day x2 days then 5 daily x2 days 4 daily x2 days 3 daily x2 days 2 daily x2 days 1 daily x2 days then stop. Sitagliptin Phosphate (Januvia) 50 Mg Tablet 1 TAB PO DAILY for 90 Days, #90 TAB 0 Refills Insulin Lispro (Humalog) 100 Unit/Ml Insuln.pen 0 UNIT SQ ACHS for 30 Days, #9 ML SLIDING SCALE, MEALTIME INSULIN Less than 150: 0 units 150-199: 1 units 200-249: 3 units 250-299: 5 units 300-349: 7 units 350-400: 9 units Greater than 400: CALL Continued Medications: Amlodipine Besylate (Amlodipine Besylate) 5 Mg Tablet 2 TAB PO DAILY for 30 Days, #60 TAB Carvedilol (Carvedilol) 12.5 Mg Tablet 1 TAB PO BID Gabapentin (Neurontin) 300 Mg Capsule 1 CAP PO TID Lactobacillus Rhamnosus (Culturelle) 10 Billion Cell Capsule 1 CAP PO BID for 30 Days, #60 CAP 0 Refills Lisinopril* (Lisinopril*) 40 Mg Tablet 1 TAB PO DAILY Metformin HCl (Metformin HCl) 1,000 Mg Tablet 1 TAB PO BID Montelukast Sodium (Singulair) 10 Mg Tablet 1 TAB PO HS for 30 Days, #30 TAB Quetiapine Fumarate (Quetiapine Fumarate) 100 Mg Tablet 1 TAB PO HS Risperidone (Risperidone) 2 Mg Tablet 1 TAB PO BID for 30 Days, #30 TAB 0 Refills Sennosides (Senna) 8.6 Mg Tablet 1 TAB PO HS for 30 Days, #60 TAB Venlafaxine Hcl (Venlafaxine Hcl Er) 75 Mg Cap.sr.24h 1 CAP PO DAILY Discontinued Medications: albuterol inhaler (Pro-Air Inhaler) 8.5 Gm Inhaler 2 PUFFS IH Q6H PRN for SOB or wheezing Atorvastatin Calcium (Atorvastatin Calcium) 40 Mg Tablet 1 TAB PO DAILY Benzonatate (Benzonatate) 100 Mg Capsule 1 CAP PO TID Cefdinir (Cefdinir) 300 Mg Capsule 1 CAP PO Q12H for 1 Day, #2 CAP 0 Refills Discharge Summary: History of Present Illness Abel Dunn is a 65-year-old female with a past medical history of COPD on continuous 2L oxygen, tobacco abuse, hypertension, hyperlipidemia, hypothyroidism who was brought to the ED via EMS due to progressively worsening shortness of breath x 2 days. Patient denies prior [place]/CAD, CVA, cardiac arrhythmia, DVT/PE, or GIB. Patient denies chest pain, palpitations, abdominal pain, n/v/d, fever, chills, dysuria, or recent sick contacts. Patient is to be admitted for further workups and treatment. Hospital Course Diagnostic findings were notable for hypoxia requiring higher supplemental oxygen demand than patient's baseline demand, elevated bicarb, chest x-ray revealing pneumonia and CT revealing bronchiolitis and trace pericardial effus ion with subsequent echocardiogram revealing LVEF of 60%, RVSP 44mmHg, no significant valvular heart disease and no pericardial effusion. Pertinent negative findings were Well's score 1.5, negative troponin, negative COVID19 antigen, negative procal, EKG sinus at 100bpm, no ST elevation/depression. Patient was treated with steroid, bronchodilators, empirical antibiotics, and supplemental oxygen. Patient did not experience further complications throughout the entire hospital stay and remained clinically and hemodynamically stable. Patient was seen and examined on the day of discharge. On day of discharge, vss and labs unremarkable. White count likely secondary to demargination from steroid. Preliminary blood cultures remain negative until the day of discharge. All labs, diagnostic workups, discharge plan discussed with patient in details during visit before discharge. All questions and concerns answered to the best of my professional knowledge. Patient is to be discharged back to [place] and to follow-up with PCP within 2 weeks. Patient is referred to outpatient applications consultant and pulmonary rehab upon discharge. Physical Exam General: A&Ox 3, NAD HEENT: Normocephalic, PERRLA Neck: Supple, trachea midline, no JVD Chest: Mild expiratory wheezing in upper and lower bilateral lungs Cardiovascular: RRR, S1&S2 Abdomen: Soft and nontender Extremities: No cyanosis/clubbing/or edema Central Nervous System: CN II-XII intact, no focal deficits Musculoskeletal: No paraspinal muscle tenderness, no muscle spasm Skin: Warm and intact *Problems/Diagnosis: (1) Pneumonia Status: Acute (2) COPD exacerbation Status: Acute Total Time Spent on D/C: > 30 Minutes Date of Service: Jun 06, 2025 Billing Provider: LISA HIGGINS Common Visit Codes: [id number] DISCH DAY >30min LISA HIGGINS Jun 06, 2025 12:13
[2025-06-06] MEDS ORDERED: ATOR-429 PO (13:58)
[2025-06-06] MEDS ORDERED: insulin glargine (Lantus) pen - multi-dose SQ SCH (21:00)
== END 2025-06-06 18:22 | disposition home or self-care (01) | DRG 720 ==
LOC: ER 06:52 → ED HOLD 09:06 → SUR 3N 10:19
PROVIDERS: ADMIT Nurse Practitioner Family; ATTEND Nurse Practitioner Family
DX: A41.9 Sepsis, unspecified organism (principal); Z66 Do not resuscitate; I11.0 Hypertensive heart disease with heart failure; I50.9 Heart failure, unspecified; I16.0 Hypertensive urgency; J18.9 Pneumonia, unspecified organism; J44.1 Chronic obstructive pulmonary disease with (acute) exacerbation; Z20.822 Contact with and (suspected) exposure to COVID-19; J44.0 Chronic obstructive pulmonary disease with (acute) lower respiratory infection; F17.210 Nicotine dependence, cigarettes, uncomplicated; F41.9 Anxiety disorder, unspecified; E78.00 Pure hypercholesterolemia, unspecified; E11.9 Type 2 diabetes mellitus without complications; E66.811 Obesity, class 1; E03.9 Hypothyroidism, unspecified; E78.5 Hyperlipidemia, unspecified; Z88.0 Allergy status to penicillin; Z88.8 Allergy status to other drugs, medicaments and biological substances; Z88.1 Allergy status to other antibiotic agents; Z79.84 Long term (current) use of oral hypoglycemic drugs; Z79.899 Other long term (current) drug therapy; Z90.710 Acquired absence of both cervix and uterus; Z68.32 Body mass index [BMI] 32.0-32.9, adult
CPT/HCPCS: 36415; 71045; 71250; 80048; 80053; 80061; 82948; 83036; 83735; 83880; 84145; 84439; 84443; 84484; 85025; 87040; 87081; 87811; 93005; 93306; 94640; 94760; 96365; 97116; 97161; 97530; 99291; G0378; J0456; J0696; J1644; J1815; J2919; J3475; J7120

== ENCOUNTER 2025-06-20 18:49 | Emergency (ER) | payer MEDICAID ==
[~2025-06-20] VITALS: Ht 160 cm; Wt 57.0 kg
[~2025-06-20 18:49] MED LIST changes: +ALBU2.5V7 NEB; -ALBU8HFA IH; +ASPI81TA52 PO; +ATOR-429 PO; -ATOR40TA72 PO; -BENZ-268 PO; -CEFD300C3 PO; +FLUT1DIS4 INH; +INSU100I8 SQ; -LEVO137T2 PO; +LEVO150T PO; +METF-1203 PO; +PANT40TA54 PO; +PRED10TA23 PO; +SITA50TA PO
[2025-06-20] MEDS: HYDROcodone/acetaminophen 10/325mg tab PO ONE (20:16)
--- NOTE | 2025-06-20 20:22 | RADIOLOGY REPORT ---
CLINICAL HISTORY: [facility] fall TECHNIQUE: Helical imaging carried out from skull base to vertex without intravenous contrast. This exam was performed according to our departmental dose optimization program. Up-to-date CT equipment and radiation dose reduction techniques are utilized as appropriate. CTDIVol: 71.73 mGy DLP: 1260.94 mGy-cm WID: COMPARISON: CT CT HEAD on DOS: 12/30/24 FINDINGS: There is a small high posterior right parietal scalp contusion. 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 Mild predominantly periventricular white matter hypodensities consistent with nonspecific white matter disease. The ventricles and subarachnoid spaces are normal in size and configuration. There is no midline shift or mass effect. The marcial white matter interfaces are maintained. The basal cisterns are patent. There is no evidence of acute intracranial hemorrhage or extra-axial fluid collection. The mastoid air cells and visualized paranasal sinuses are well-aerated aside from mucous retention cysts or polyps in the bilateral maxillary sinuses. IMPRESSION: 1. No acute intracranial abnormality. 2. Small posterior high right parietal scalp contusion. 3. 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 4. Mild periventricular chronic microvascular ischemic change.
--- NOTE | 2025-06-20 20:34 | RADIOLOGY REPORT ---
EXAM: CT CT CERVICAL SPINE INDICATION: fall, head strike TECHNIQUE: Non contrast axial images of the cervical spine have been obtained with coronal and sagittal reformatted images. CT scans at this facility use dose modulation, iterative reconstruction, and/or weight based dosing when appropriate to reduce radiation dose to as low as reasonably achievable. COMPARISON: DI SACRUM COCCYX on DOS: 01/25/25 FINDINGS: ANATOMY: Straightening of the normal cervical lordosis, which may be seen in the setting of patient positioning versus muscular spasm. VERTEBRAL BODIES: The vertebral bodies are normal in height and alignment. 35 SPINAL CANAL: No significant spinal canal stenosis. INTERVERTEBRAL DISCS: No CT findings to suggest traumatic disc herniation or acute hematoma. SOFT TISSUES: There is no prevertebral soft tissue swelling. OTHER: The partially visualized lung apices are clear. IMPRESSION: 1. No acute cervical spine fracture or malalignment.
--- NOTE | 2025-06-20 21:28 | Physician Documentation ---
History of Present Illness ~ Chief Complaint: Mechanical Fall Stated Complaint: FALL Time Seen by MD: 19:10 Primary Medical Doctor: Jalen Cavazos MD. [facility] HPI 65 year old female BIB EMS after fall in [employer] parking lot, struck back of head, bleeding, no blood thinner use, denies LOC. She denies preceding weakness/dizziness/chest pain/sob and denies those symptoms currently. M echanical fall. Denies pain elsewhere. Tetanus within 5 Years?: No Medication Reconciliation Allergies: Coded Allergies: iodine (Verified Allergy, Severe, Anaphylaxis, 04/17/25) stated per patient buspirone HCl (Verified Allergy, Mild, 04/17/25) Penicillins (Verified Allergy, Unknown, 06/04/25) TOLERTATED ROCEPHIN 04/2024 cyanocobalamin (vitamin B12) (Verified Allergy, Unknown, 04/17/25) Pt states B12 injection gives her migraines erythromycin base (Verified Allergy, Unknown, RASH, 06/04/25) PT TOLERATED AZITHROMYCIN 03/2025 levofloxacin (Verified Allergy, Unknown, 04/17/25) Scheduled Amlodipine Besylate (Amlodipine Besylate), 2 TAB PO DAILY Aspirin (Aspirin EC), 1 TAB PO DAILY Atorvastatin Calcium* (Lipitor*), 1 TABLET PO HS Carvedilol (Carvedilol), 1 TAB PO BID, (Reported) Fluticasone/Salmeterol (Advair 250-50 Diskus), 1 PUFFS INH Q12H Gabapentin (Neurontin), 1 CAP PO TID, (Reported) Insulin Lispro (Humalog), 0 UNIT SQ ACHS Lactobacillus Rhamnosus (Culturelle), 1 CAP PO BID Levothyroxine Sodium (Synthroid), 1 TAB PO DAILY Lisinopril* (Lisinopril*), 1 TAB PO DAILY, (Reported) Metformin HCl (Metformin HCl), 1 TAB PO BID, (Reported) Metformin HCl (Metformin HCl), 1 TAB PO Q12H Montelukast Sodium (Singulair), 1 TAB PO HS, (Reported) Pantoprazole Sodium (Pantoprazole Sodium), 40 MG PO DAILY Prednisone (Prednisone), 0 PO DAILY Quetiapine Fumarate (Quetiapine Fumarate), 1 TAB PO HS, (Reported) Risperidone (Risperidone), 1 TAB PO BID, (Reported) Sennosides (Senna), 1 TAB PO HS, (Reported) Sitagliptin Phosphate (Januvia), 1 TAB PO DAILY Venlafaxine Hcl (Venlafaxine Hcl Er), 1 CAP PO DAILY, (Reported) Scheduled PRN Albuterol Sulfate (Albuterol Sulfate), 1 VIAL NEB Q4HPRN PRN for wheezing Discontinued Medications Levofloxacin (Levofloxacin), 750 MG PO DAILY Discontinued Reason: Auto Discontinued Past Medical History Past Medical History: CVA/TIA/Stroke, Congestive Heart Failure, High Cholesterol, Hypertension, COPD, UTI, Diabetes, Graves' Disease, Thyroid (unspecified), Chronic Back Pain, Anxiety Past Surgical History: abdominal surgery, hysterectomy, tonsillectomy, tubal ligation Other Past Surgical History: exploratory abdominal surgery Patient History: FH: diabetes mellitus sister sister sister FH: heart disease FATHER MOTHER sister FH: malignant neoplasm of bone Paternal grandfather FH: ovarian cancer sister sister Other Past Family History: NONCONTRIBUTORY Alcohol Use: Sober Drug Use: marijuana Lives with: Alone Lives In: Other Occupation: disabled Review of Systems All Other Systems at this time: Reviewed and Negative Physical Exam Vital Signs: RN Vital Signs have been reviewed: Yes, Temperature: 98.2, Source: Oral, Heart Rate: 80, Respiratory Rate: 16, BP: 157/90, Pulse Oximetry: 98, Weight: 57.000 Oxygen Flow Rate: 0 Physical Exam General: Alert, no apparent distress. HEENT: bleeding from small 2mm punctate laceration to R occipital/parietal scalp Respiratory: Lungs clear, no respiratory distress. Chest: No accessory muscle use. Extremities: Normal range of motion, no deformity. Neurologic: Oriented x4. Psychiatric: Normal mood and affect. Skin: Normal color, warm and dry. No edema, no ecchymosis. Procedures Laceration Repair : Anesthesia: none Prep: cholorprep Debrided: minimal Undermining: minimal Foreign Body: not identified Repaired: skin Wound Repaired With: wilmer Number of Superficial Sutures: 1 Dressing Applied: simple Tolerated Procedure Well?: yes, no complications Progress Results/Orders Results/Orders Orders - ANTONINO WONG MD Ct Head (06/20/25 20:03) Ct Cervical Spine (06/20/25 20:03) General Nursing Order (06/20/25 20:46) Completed Orders - ANTONINO WONG MD Ct Head (06/20/25 20:03) Hydrocodone/Apap 10/325 ([place] 10/325mg (06/20/25 19:35) Ct Cervical Spine (06/20/25 20:03) Medications Received in ER Medications (Trade) Dose Ordered Sig/Dax Route PRN Reason Start Time Stop Time Status Last Admin Dose Admin ([place] 10/325mg tab) 1 tab ONCE ONCE PO 06/20/25 19:35 06/20/25 19:36 DC 06/20/25 20:16 1 TAB Vital Signs 06/20/25 06/20/25 06/20/25 19:05 19:18 19:20 Temp 98.2 Pulse 77 80 Resp 16 16 16 B/P (MAP) 159/88 157/90 (112) Pulse Ox 97 98 O2 Flow Rate 2.0 0 Medical Decision Making Additional information obtaine: N/A Findings 65 year old female with ground level fall and scalp laceration. Neuro intact, no red flags, remainder of exam benign. CT head interpreted by me demonstrated no mass/shift/bleed. Cleansed and stapled her scalp lac without complication. Road test, return precautions. Differential Dx:Considerations: Include: Closed head injury, Fracture(s), Cerebral contusion, Spine injury, Contusion(s), Foreign body(s), Hematoma(s), Laceration(s), Encephalopathy Departure Impression: Primary Impression: Occipital scalp laceration Condition: Stable Discharge Instructions: Head Injury, Adult Referrals: NO PRIMARY CARE PROVIDER (PCP) Education Educated: Patient Educated regarding: diagnosis, treatment, prognosis, need for follow up Signature Scribe Signature: .. Attestation: . ANTONINO WONG MD Jun 20, 2025 21:27
[2025-06-20 21:49] VITALS: BP 124/80; PULSE 70; RESP 18; TEMP 97.8; O2SAT 99
== END 2025-06-20 21:52 | disposition home or self-care (01) ==
LOC: ER 18:50
DX: S01.01XA Laceration without foreign body of scalp, initial encounter (principal); R51.9 Headache, unspecified; E11.9 Type 2 diabetes mellitus without complications; E78.00 Pure hypercholesterolemia, unspecified; K21.9 Gastro-esophageal reflux disease without esophagitis; I11.0 Hypertensive heart disease with heart failure; I50.9 Heart failure, unspecified; J44.9 Chronic obstructive pulmonary disease, unspecified; F41.9 Anxiety disorder, unspecified; F12.90 Cannabis use, unspecified, uncomplicated; F10.90 Alcohol use, unspecified, uncomplicated; Z86.73 Personal history of transient ischemic attack (TIA), and cerebral infarction without residual deficits; Z88.0 Allergy status to penicillin; Z88.1 Allergy status to other antibiotic agents; Z88.8 Allergy status to other drugs, medicaments and biological substances; Z90.710 Acquired absence of both cervix and uterus; W19.XXXA Unspecified fall, initial encounter; Y93.89 Activity, other specified; Y92.89 Other specified places as the place of occurrence of the external cause; Y99.8 Other external cause status; Y90.9 Presence of alcohol in blood, level not specified
CPT/HCPCS: 12001; 70450; 72125; 99284; A4615; A6449

== ENCOUNTER 2025-07-08 13:19 | Emergency (ER) | payer MEDICAID ==
[~2025-07-08] VITALS: Ht 160 cm; Wt 62.3 kg
[~2025-07-08 13:19] MED LIST changes: -ASPI81TA52 PO; -METF-1203 PO; -PRED10TA23 PO
[2025-07-08 13:23] VITALS: TEMP 98.3
--- NOTE | 2025-07-08 13:27 | ELECTROCARDIOGRAPH REPORT ---
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 Sarthak Gutierrez Measurements Intervals [place] Rate: 84 P: 59 HI: 150 QRS: 50 QRSD: 98 T: 78 QT: 380 QTc: 450 Interpretive Statements Sinus rhythm Electronically Signed On 07-11-2025 9:40:[address] Sarthak Gutierrez Please click the below link to view image of tracing.
--- NOTE | 2025-07-08 14:13 | Physician Documentation ---
History of Present Illness ~ Chief Complaint: Shortness of Breath Stated Complaint: DIFFICULTY BREATHING Time Seen by MD: 13:45 Primary Medical Doctor: Jalen Cavazos MD. [facility] HPI 65 yo F hx COPD, presenting with shortness of breath. The patient is well known to this emergency department for presentations of shortness of breath and COPD related to running out of her home oxygen. She presents today with shortness of breath. She tells me that she ran out of her home oxygen. She denies any fevers, chills, productive cough, or any other different symptoms than normal when this happens. No chest pain. She says she feels better after a breathing treatment from EMS and being placed on oxygen. She is not currently on steroids Medication Reconciliation Allergies: Coded Allergies: iodine (Verified Allergy, Severe, Anaphylaxis, 07/08/25) stated per patient buspirone HCl (Verified Allergy, Mild, 04/17/25) Penicillins (Verified Allergy, Unknown, 06/04/25) TOLERTATED ROCEPHIN 04/2024 cyanocobalamin (vitamin B12) (Verified Allergy, Unknown, 04/17/25) Pt states B12 injection gives her migraines erythromycin base (Verified Allergy, Unknown, RASH, 06/04/25) PT TOLERATED AZITHROMYCIN 03/2025 levofloxacin (Verified Allergy, Unknown, 04/17/25) Scheduled Amlodipine Besylate (Amlodipine Besylate), 2 TAB PO DAILY Atorvastatin Calcium* (Lipitor*), 1 TABLET PO HS Carvedilol (Carvedilol), 1 TAB PO BID, (Reported) Fluticasone/Salmeterol (Advair 250-50 Diskus), 1 PUFFS INH Q12H Gabapentin (Neurontin), 1 CAP PO TID, (Reported) Insulin Lispro (Humalog), 0 UNIT SQ ACHS Lactobacillus Rhamnosus (Culturelle), 1 CAP PO BID Levothyroxine Sodium (Synthroid), 1 TAB PO DAILY Lisinopril* (Lisinopril*), 1 TAB PO DAILY, (Reported) Metformin HCl (Metformin HCl), 1 TAB PO BID, (Reported) Montelukast Sodium (Singulair), 1 TAB PO HS, (Reported) Pantoprazole Sodium (Pantoprazole Sodium), 40 MG PO DAILY Prednisone* (Prednisone*), 2 TAB PO DAILY Quetiapine Fumarate (Quetiapine Fumarate), 1 TAB PO HS, (Reported) Risperidone (Risperidone), 1 TAB PO BID, (Reported) Sennosides (Senna), 1 TAB PO HS, (Reported) Sitagliptin Phosphate (Januvia), 1 TAB PO DAILY Venlafaxine Hcl (Venlafaxine Hcl Er), 1 CAP PO DAILY, (Reported) Scheduled PRN Albuterol Sulfate (Albuterol Sulfate), 1 VIAL NEB Q4HPRN PRN for wheezing Discontinued Medications Aspirin (Aspirin EC), 1 TAB PO DAILY Discontinued Reason: Auto Discontinued Metformin HCl (Metformin HCl), 1 TAB PO Q12H Discontinued Reason: Auto Discontinued Prednisone (Prednisone), 0 PO DAILY Discontinued Reason: Auto Discontinued Past Medical History Past Medical History: CVA/TIA/Stroke, Congestive Heart Failure, High Cholesterol, Hypertension, COPD, UTI, Diabetes, Graves' Disease, Thyroid (unspecified), Chronic Back Pain, Anxiety Past Surgical History: abdominal surgery, hysterectomy, tonsillectomy, tubal ligation Other Past Surgical History: exploratory abdominal surgery Patient History: FH: diabetes mellitus sister sister sister FH: heart disease FATHER MOTHER sister FH: malignant neoplasm of bone Paternal grandfather FH: ovarian cancer sister sister Other Past Family History: NONCONTRIBUTORY Alcohol Use: Sober Drug Use: marijuana Lives with: Alone Lives In: Other Occupation: disabled Review of Systems Constitutional: Denies: fever Respiratory: Reports: cough, shortness of breath Physical Exam Vital Signs: Temperature: 98.3, Source: Oral, Heart Rate: 79, Respiratory Rate: 15, BP: 157/84, Pulse Oximetry: 96, Weight: 62.300 Oxygen Flow Rate: 2.0 Physical Exam General: This is a pleasant and currently nontoxic appearing middle-aged woman HEENT: Atraumatic, oropharynx is moist, nasal cannula in place Heart: Regular rate and rhythm, normal-appearing peripheral perfusion Lungs: Expiratory wheezes diffusely, but currently has a normal work of breat [place], normal oxygen saturation on nasal cannula oxygen Extremities: Warm and well-perfused Neuro: Alert and oriented Psychiatric: Calm and cooperative with exam Progress Results/Orders Results/Orders Completed Orders - MINE CHAVEZ MD Stat Ekg (07/08/25 ) Methylprednisolone Sod Succ (Solumedrol (07/08/25 14:05) Ipratropium/Albuterol Nebule (Ipratrop/A (07/08/25 14:05) Medications Received in ER Medications (Trade) Dose Ordered Sig/Dax Route PRN Reason Start Time Stop Time Status Last Admin Dose Admin (SoluMEDROL 125mg inj) 125 mg ONCE ONCE IV 07/08/25 14:05 07/08/25 14:06 DC 07/08/25 14:26 125 MG (ipratrop/ albuterol 0.5-3(2.5) MG/3ml nebule) 3 ml ONCE ONCE NEB 07/08/25 14:05 07/08/25 14:11 DC 07/08/25 14:29 3 ML Vital Signs 07/08/25 07/08/25 07/08/25 07/08/25 13:23 13:51 13:52 14:31 Temp 98.3 Pulse 84 79 81 Resp 24 19 15 16 B/P (MAP) 159/83 157/84 (108) Pulse Ox 95 96 99 O2 Delivery Nasal Cannula* O2 Flow Rate 2.0 2 FiO2 28 07/08/25 07/08/25 14:33 16:06 Pulse 76 77 Resp 16 19 B/P (MAP) 182/88 Pulse Ox 100 96 O2 Delivery Nasal Cannula* O2 Flow Rate 2 FiO2 28 Medical Decision Making Additional information obtaine: old records Findings Reviewed previous ER visits Heart Score: 0 Differential Dx:Considerations: Include: asthma, bronchitis, CHF, COPD, dysrhythmia, panic attack, pneumonia Additional Infomation The patient presents with shortness of breath in the setting of running out of her home oxygen. She has been seen multiple times in the past for a similar presentation, which generally improves with breathing treatments and steroids and oxygen. She was given steroids and breathing treatments and placed on oxygen. She rapidly improved. She will be discharged with a course of steroids, and home oxygen was arranged. Return precautions given. Departure Time of Disposition: 14:35 Disposition: 01 HOME / SELF CARE / HOMELESS Impression: Primary Impression: Acute exacerbation of chronic obstructive airways disease Condition: Improved Discharge Instructions: Chronic Obstructive Pulmonary Disease Exacerbation Referrals: NO PRIMARY CARE PROVIDER (PCP) Prescriptions Prednisone* (Prednisone*) 20 Mg Tablet 2 TAB PO DAILY for 4 Days, #8 TAB Prov: MINE CHAVEZ MD 07/08/25 Education Educated: Patient Educated regarding: diagnosis, treatment, need for follow up Signature Scribe Signature: na Attestation: MINE Duron MD Jul 08, 2025 14:13
[2025-07-08] MEDS: ipratropium/albuterol 3ml nebule NEB ONE (14:29)
[2025-07-08 14:31] VITALS: PULSE 81; RESP 16; O2SAT 99
[2025-07-08 14:33] VITALS: PULSE 76; RESP 16; O2SAT 100
[2025-07-08] MEDS ORDERED: PRED20TA PO (14:35)
[2025-07-08 16:06] VITALS: BP 182/88; PULSE 77; RESP 19; O2SAT 96
== END 2025-07-08 16:14 | disposition home or self-care (01) ==
LOC: ER 13:19
DX: J44.1 Chronic obstructive pulmonary disease with (acute) exacerbation (principal); E11.9 Type 2 diabetes mellitus without complications; E78.00 Pure hypercholesterolemia, unspecified; I11.0 Hypertensive heart disease with heart failure; I50.9 Heart failure, unspecified; F41.9 Anxiety disorder, unspecified; F12.90 Cannabis use, unspecified, uncomplicated; F10.90 Alcohol use, unspecified, uncomplicated; Z86.73 Personal history of transient ischemic attack (TIA), and cerebral infarction without residual deficits; Z88.0 Allergy status to penicillin; Z88.8 Allergy status to other drugs, medicaments and biological substances; Z90.710 Acquired absence of both cervix and uterus; Y90.9 Presence of alcohol in blood, level not specified
CPT/HCPCS: 93005; 94640; 96374; 99283; J2919; 94760

== ENCOUNTER 2025-07-29 08:03 | Inpatient (IN) | payer MEDICAID ==
[~2025-07-29] VITALS: Ht 160 cm; Wt 51.8 kg
[2025-07-29] VITALS (11 sets, daily range): BP systolic 145–171; BP diastolic 63–90; PULSE 55–77; RESP 9–33; TEMP 97.3–97.5; O2SAT 94–98
--- NOTE | 2025-07-29 08:13 | ELECTROCARDIOGRAPH REPORT ---
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 CHRIST Lu Measurements Intervals [place] Rate: 79 P: 70 IA: 159 QRS: 39 QRSD: 97 T: 104 QT: 407 QTc: 467 Interpretive Statements Sinus rhythm Probable LVH with secondary repol abnrm Electronically Signed On 07-30-2025 19:39:[address] CHRIST Lu Please click the below link to view image of tracing.
[2025-07-29 08:42] LABS: MEAN PLATELET VOLUME 8.7 FL (7.4-10.4); RED CELL DISTRIBUTION WIDTH 15.5 % (11.5-14.5)
--- NOTE | 2025-07-29 08:57 | RADIOLOGY REPORT ---
CHEST RADIOGRAPH INDICATION: CP TECHNIQUE: Single frontal view of the chest was obtained COMPARISON: DI CHEST,SINGLE VIEW on DOS: 06/05/25, CT CT CHEST on DOS: 06/04/25, DI CHEST,SINGLE VIEW on DOS: 06/04/25, DI CHEST,SINGLE VIEW on DOS: 06/02/25, DI CHEST,SINGLE VIEW on DOS: 04/10/25 FINDINGS: Lines and Tubes: None Lungs: Congestion Pleura: No effusion. No pneumothorax. Cardiomediastinal contours: Cardiomegaly Bones: Unremarkable IMPRESSION: Cardiomegaly
[2025-07-29 09:04] LABS: CREATININE 0.61 MG/DL (0.40-0.90); PRO BRAIN NATRIURETIC PEPTIDE 1107 PG/ML (0-125); TOTAL CARBON DIOXIDE 28.3 MMOL/L (24-32); eCRCL 77 ML/MIN; eGFR > 90 ML/MIN
--- NOTE | 2025-07-29 10:00 | Physician Documentation ---
History of Present Illness General Chief Complaint: Shortness of Breath Stated Complaint: SOB Time Seen by MD: 08:40 Primary Medical Doctor: Jalen Cavazos MD. [facility] Mode of Arrival: EMS History of Present Illness Initial Comments 65-year-old female lives at the [place] with PMH of COPD, CAD status post stent placement, HTN, DM presented to the ED in view of difficulty breathing since last night. Patient uses 2 L of oxygen at home. Patient states that she has associated cough with lots of yellow-colored sputum. Patient denies chest pain, palpitations, dizziness, burning micturition, abdominal pain. Patient also endorses bilateral swelling of feet since last night. Patient endorses smoking since the last 20 years (seven cigarettes per day), on and off alcohol intake (whiskey, two shots), marijuana and denies any other drug abuse Medication Reconciliation Allergies: Coded Allergies: iodine (Verified Allergy, Severe, Anaphylaxis, 07/08/25) stated per patient buspirone HCl (Verified Allergy, Mild, 04/17/25) Penicillins (Verified Allergy, Unknown, 06/04/25) TOLERTATED ROCEPHIN 04/2024 cyanocobalamin (vitamin B12) (Verified Allergy, Unknown, 04/17/25) Pt states B12 injection gives her migraines erythromycin base (Verified Allergy, Unknown, RASH, 06/04/25) PT TOLERATED AZITHROMYCIN 03/2025 levofloxacin (Verified Allergy, Unknown, 04/17/25) Scheduled Amlodipine Besylate (Amlodipine Besylate), 2 TAB PO DAILY Atorvastatin Calcium* (Lipitor*), 1 TABLET PO HS Carvedilol (Carvedilol), 1 TAB PO BID, (Reported) Fluticasone/Salmeterol (Advair 250-50 Diskus), 1 PUFFS INH Q12H Gabapentin (Neurontin), 1 CAP PO TID, (Reported) Insulin Lispro (Humalog), 0 UNIT SQ ACHS Lactobacillus Rhamnosus (Culturelle), 1 CAP PO BID Levothyroxine Sodium (Synthroid), 1 TAB PO DAILY Lisinopril* (Lisinopril*), 1 TAB PO DAILY, (Reported) Metformin HCl (Metformin HCl), 1 TAB PO BID, (Reported) Montelukast Sodium (Singulair), 1 TAB PO HS, (Reported) Pantoprazole Sodium (Pantoprazole Sodium), 40 MG PO DAILY Quetiapine Fumarate (Quetiapine Fumarate), 1 TAB PO HS, (Reported) Risperidone (Risperidone), 1 TAB PO BID, (Reported) Sennosides (Senna), 1 TAB PO HS, (Reported) Sitagliptin Phosphate (Januvia), 1 TAB PO DAILY Venlafaxine Hcl (Venlafaxine Hcl Er), 1 CAP PO DAILY, (Reported) Scheduled PRN Albuterol Sulfate (Albuterol Sulfate), 1 VIAL NEB Q4HPRN PRN for wheezing Past Medical History Past Medical History: CVA/TIA/Stroke, Congestive Heart Failure, High Cholesterol, Hypertension, COPD, UTI, Diabetes, Graves' Disease, Thyroid (unspecified), Chronic Back Pain, Anxiety Other Past Medical History: HTN, DM, COPD, AR, heart failure preserved ejection fraction Past Surgical History: abdominal surgery, hysterectomy, tonsillectomy, tubal ligation Other Past Surgical History: exploratory abdominal surgery, hysterectomy, tonsillectomy Other Past Family History: NONCONTRIBUTORY Smoking: Cigarettes Alcohol Use: Sober Drug Use: marijuana Lives with: Alone Lives In: Other Occupation: disabled Physical Exam Physical Exam Vital Signs: Temperature: 97.7, Source: Oral, Heart Rate: 76, Respiratory Rate: 15, BP: 207/109, Pulse Oximetry: 95, Weight: 51.800 Oxygen Flow Rate: 1.0 Physical Exam General: Alert, awake, oriented, not in acute distress HEENT: PERRLA, no icterus, pallor, lymphadenopathy, carotid bruit Respiratory system: Bilateral vesicular breath sounds heard, bilateral crackles present in middle and lower lobe regions CVS: S1-S2 heard, no murmurs/rubs/gallop GI: Soft, nontender, no organomegaly, no guarding/rigidity, bowel sounds present Neuro: No focal neurological deficits present Mental status exam: alert and consciousness, orientation, memory, speech - Cranial nerve test: Cranial nerves 2-12 intact - Motor system: Nutrition, Tone 3+, Power 5/5, no involuntary movements - Sensory system: Intact - Reflex testing: Biceps, triceps and knee reflexes 2+ - Cerebellar: Normal Extremities: No edema cyanosis clubbing/deformities Skin: Warm and dry Progress Results/Orders Results/Orders Orders - SHILO WAYNE, VASYL Furosemide Inj (Lasix Inj) (07/29/25 09:55) Vital Signs 07/29/25 07/29/25 07/29/25 07/29/25 08:05 08:17 08:39 09:27 Temp 97.7 Pulse 67 76 Resp 20 19 15 B/P (MAP) 210/93 207/109 (141) Pulse Ox 98 95 95 O2 Delivery Nasal Cannula* O2 Flow Rate 0 1 1.0 FiO2 24 Laboratory Tests Test 07/29/25 08:21 White Blood Count 8.0 Red Blood Count 4.58 Hemoglobin 13.3 Hematocrit 39.5 Mean Corpuscular Volume 86.3 Mean Corpuscular Hemoglobin 29.0 Mean Corpuscular Hemoglobin Concent 33.5 Red Cell Distribution Width 15.5 H Platelet Count 236 Mean Platelet Volume 8.7 Neutrophils (%) (Auto) 79.9 H Lymphocytes (%) (Auto) 12.2 L Monocytes (%) (Auto) 6.8 Eosinophils (%) (Auto) 0.2 Basophils (%) (Auto) 0.9 Neutrophils # (Auto) 6.4 Lymphocytes # (Auto) 1.0 L Monocytes # (Auto) 0.5 Eosinophils # (Auto) 0.0 Basophils # (Auto) 0.1 CBC Comment Sodium Level 139 Potassium Level 3.3 L Chloride Level 100 Carbon Dioxide Level 28.3 Anion Gap 11 Blood Urea Nitrogen 16 Creatinine 0.61 Estimated GFR/1.73 m2 > 90 BUN/Creatinine Ratio 26.2 H Glucose Level 142 H Calcium Level 9.6 Troponin I High Sensitivity 43 Pro-B-Type Natriuretic Peptide 1107 H Albumin 4.2 Chemistry Comments Medical Decision Making Additional information obtaine: N/A Findings Patient presented with acute onset of shortness of breaths. On arrival to the ED patient had elevated blood pressures in the range of 200s, patient is being evaluated for possible heart failure or COPD exacerbation. Chest x-ray shows pulmonary congestion with cardiomegaly. Differential Diagnosis COPD exacerbation, acute heart failure exacerbation, PE, anemia, Departure Admitted to Inpatient Unit: yes, to hospitalist Impression: Primary Impression: Acute on chronic diastolic heart failure Referrals: NO PRIMARY CARE PROVIDER (PCP) Signature Scribe Signature: None Attestation: Document created by the resident, reviewed by the ED physician SHILO WAYNE, RES Jul 29, 2025 10:00
[2025-07-29] MEDS: POTASSIUM CHLORIDE 20 MEQ/15 ML oral solution PO ONE (10:09)
[2025-07-29] MEDS: furosemide 10 MG/1 ML 10ml inj IV ONE (10:11)
--- NOTE | 2025-07-29 10:47 | HISTORY AND PHYSICAL ---
History & Physical Providers to CC Chief complaint, shortness of breath ~ History of Present Illness Reason for Admit\Complaint: As above History of Present Illness This is a 65-year-old female lives at the [facility] with multiple medical problems including PMH of COPD, CAD status post five stent placement, HTN, DM, CHF ejection fraction 60% associated with pulmonary hypertension May 2025, chronic tobacco abuse including currently, marijuana user, history of [place] coronary artery disease chronic respiratory failure on home oxygen, dyslipidemia, history of alcoholism, sober now, Graves disease, chronic pain syndrome, CVA, exploratory laparotomy, multiple drug allergies, presented today to emergency department chief complaint shortness of breath, in addition this is the patient who presented to the ED in view of difficulty breathing since last night. Patient uses 2 L of oxygen at home. Patient states that she has associated cough with lots of yellow-colored sputum. Patient denies chest pain, palpitations, dizziness, burning micturition, abdominal pain. Patient also endorses bilateral swelling of feet since last night.Patient endorses smoking since the last 20 years (seven cigarettes per day), on and off alcohol intake (whiskey, two shots), marijuana and denies any other drug abuse. In emergency department patient was evaluated by physician was diagnosed with CHF, in exacerbation, and COPD in exacerbation hypoxia, decision was made to admit patient for further evaluation and treatment, no additional complaint or concern. Allergies: Coded Allergies: iodine (Verified Allergy, Severe, Anaphylaxis, 07/08/25) stated per patient buspirone HCl (Verified Allergy, Mild, 04/17/25) Penicillins (Verified Allergy, Unknown, 06/04/25) TOLERTATED ROCEPHIN 04/2024 cyanocobalamin (vitamin B12) (Verified Allergy, Unknown, 04/17/25) Pt states B12 injection gives her migraines erythromycin base (Verified Allergy, Unknown, RASH, 06/04/25) PT TOLERATED AZITHROMYCIN 03/2025 levofloxacin (Verified Allergy, Unknown, 04/17/25) Active prescriptions I reviewed reconciled Home Medications Home Medications Active Lipitor* (Atorvastatin Calcium) 80 Mg Tablet 1 Tablet PO HS 90 Days Albuterol Sulfate (Albuterol) 2.5 Mg/3 Ml Vial.neb 1 Vial NEB Q4HPRN PRN Humalog (Insulin Lispro) 100 Unit/Ml Insuln.pen 0 Unit SQ ACHS 30 Days SLIDING SCALE, MEALTIME INSULIN Less than 150: 0 units 150-199: 1 units 200-249: 3 units 250-299: 5 units 300-349: 7 units 350-400: 9 units Greater than 400: CALL Pantoprazole Sodium 40 Mg Tablet.dr 40 Mg PO DAILY 30 Days Januvia (Sitagliptin Phosphate) 50 Mg Tablet 1 Tab PO DAILY 90 Days Advair 250-50 Diskus (Salmeterol Xinafoate/Fluticasone) 1 Each Disk.w.dev 1 Puffs INH Q12H 30 Days Synthroid (Levothyroxine Sodium) 150 Mcg Tablet 1 Tab PO DAILY 90 Days Culturelle (Lactobacillus Rhamnosus) 10 Billion Cell Capsule 1 Cap PO BID 30 Days Amlodipine Besylate 5 Mg Tablet 2 Tab PO DAILY 30 Days Reported Singulair (Montelukast Sodium) 10 Mg Tablet 1 Tab PO HS 30 Days Risperidone 2 Mg Tablet 1 Tab PO BID 30 Days Metformin HCl 1,000 Mg Tablet 1 Tab PO BID Carvedilol 12.5 Mg Tablet 1 Tab PO BID Lisinopril* (Lisinopril) 40 Mg Tablet 1 Tab PO DAILY Neurontin (Gabapentin) 300 Mg Capsule 1 Cap PO TID Venlafaxine Hcl Er (Venlafaxine Hcl) 75 Mg Cap.sr.24h 1 Cap PO DAILY Quetiapine Fumarate 100 Mg Tablet 1 Tab PO HS Senna (Sennosides) 8.6 Mg Tablet 1 Tab PO HS 30 Days Past Medical History Past Medical History As in HPI Past Surgical History Surgical History Comment As in HPI Family History Family History: Family history was reviewed; no changes noted. Past Social History Social History Comment Positive for chronic tobacco and marijuana use including currently, history of alcoholism sober now, denies street drug use now, live with the family good social support Health Maintenance Health Maintenance Noncontributory ROS ROS Constitutional : no fever , no chills, or weakness. No diaphoresis. Allergic/Immunologic, no lymphadenopathy, no hives, no skin eruptions. Eyes, no recent visual changes, no eye pain, no photophobia. Ears, nose, mouth, throat, no sore throat, no nosebleed, no ear pain. Cardiovascular, no palpitations, skipped beats, chest pain, no peripheral edema, Respiratory, positive for dyspnea, orthopnea, cough, hemoptysis, chest wall pain. Gastrointestinal, no abdominal pain, nausea, vomiting, constipation or diarrhea. : no dysuria, hematuria, pelvic pain, urethral d/c. Endocrine, no polyuria, polydipsia, recent unintentional weight gain or loss. Hematologic/Lymphatic, no petechiae, no enlarged lymph nodes, no bone pain. Integumentary, no rash, no skin lesions, Musculoskeletal, no muscle aches, or pain, no muscle cramps, no recent change in gait Neurological, no dizziness, no headache, no syncope, no paresthesia. Psychiatric, no delusions, visual hallucinations, or hearing hallucinations. ROS - in rest is as in HPI. Exam Vitals: Vital Signs Date Time Temp Pulse Resp B/P (MAP) Pulse Ox O2 Delivery O2 Flow Rate FiO2 07/29/25 10:14 82 16 196/103 (134) 96 1.0 07/29/25 08:39 Nasal Cannula* 24 07/29/25 08:05 97.7 Vital signs, stable ,afebrile. Pulse Oximetry reflects adequate oxygenation. On 2 L oxygen nasal cannula, BMI is 20, weight 51 kg, General: well developed, well nourished. Awake , alert, and oriented x4, resting comfortably in the bed, in no acute distress . Skin: Warm, dry, no pallor, no rash or petechiae. HEENT: Atraumatic, normocephalic, EOMI, anicteric sclera B; pink conjunctiva; PERRLA, normal oropharynx, moist oral and nasal mucosa. Tympanic membrane , nose , throat clear. Neck: Trachea midline. Supple, full range of motion, no JVD, bruit , hepatojugular reflex , lymphadenopathy or masses, or other lesions Cardiac: Regular rhythm, regular rate no murmurs, rubs, or gallops. Normal S1 and S2, no S3 noticed. PMI is normal. Respiratory: Equal breath sounds bilaterally, no tachypnea; lungs clear to auscultation bilaterally, no wheezing ,rub or rales, or crackles. Chest wall is symmetric and without deformity. No signs of trauma. Chest wall is nontender. No signs of respiratory distress. Resonance is normal upon percussion bilaterally. Gastrointestinal: Abdomen symmetric, non-distended, soft, non-tender, normal bowel sounds x4 quadrant, normoactive, no hepatosplenomegaly , no masses , no bruit, no flank pain bilaterally. No voluntary guarding, rebound, or rigidity. No tenderness to percussion. No pulsatile masses. Equal femoral pulses. No Valdivia's sign or McBurney point tenderness. Back; no CVA tenderness bilaterally, no deformities. Neck and back are without deformity as well. No tenderness noted on palpation of the spinous processes. Spinous processes are midline. Cervical, thoracic, and lumbar paraspinal muscles are not tender and are without spasm. : Not indicated Musculoskeletal: Extremities, normal range of motion, non-tender, muscle strength 5/5 x 4. Negative Homans signs bilaterally on lower extremity. Distal pulses full symmetrical, no clubbing, cyanosis , edema. Neurological: Speech is clear, alert, and oriented x 4. No motor or sensory deficit, deep tendon reflexes normal, cerebellar intact. Cranial nerves II-XII intact. Psych: Alert and or appropriate, normal affect. Vascular: Good distal pulses, which are equal x4; capillary refill less than 2 seconds. Lymphatic, no lymphadenopathy. Diagnostic Data Last Recorded Lab Results: 07/29/2582007/29/25 0821 Advance Care Planning Advanced Care plannin - 30 Minutes Additional Plan Assessment Chronic tobacco abuse including currently Chronic marijuana use including currently Severe COPD in exacerbation secondary to tobacco abuse Diastolic CHF in exacerbation ejection fraction 60% May 2025 associated with pulmonary hypertension Diabetes mellitus type 2 poor control Coronary artery disease status post [place] and five stents Hypokalemia Chronic respiratory failure secondary to hypoxia in exacerbation on home oxygen Acute hypoxic respiratory failure Hypertensive emergency Chronic pain syndrome Multiple drug allergies Additional comorbidities, dyslipidemia, history of alcoholism sober now, Graves disease, history of CVA, exploratory laparotomy Plan IV antibiotics, steroids Lasix p.r.n. SVN DuoNeb, incentive spirometry Replace electrolytes Consulted 5 minutes to stop using tobacco patient agrees started to nicotine patch Hyperglycemia sliding scale Additional lab work pending PT evaluation and treatment Serial troponin EKG I reconciled home medications Oxygen support therapy DVT gastropathy prophylaxis addressed Sepsis Screening Reassessment Date: Jul 29, 2025 Date of Service: Jul 29, 2025 Billing Provider: MITCHELL LOUIE MD Common Visit Codes: [id number] INP/OBS CARE (HIGH) MITCHELL LOUIE MD Jul 29, 2025 10:47
[2025-07-29] MEDS ORDERED: HYDROcodone/acetaminophen 10/325mg tab PO PRN (10:50)
[2025-07-29] MEDS ORDERED: acetaminophen 650mg rectal suppository RC PRN (10:50)
[2025-07-29] MEDS ORDERED: ondansetron 4mg rapidly disintigrating tab PO PRN (10:50)
[2025-07-29] MEDS ORDERED: magnesium Cl slow-release 64mg tablet PO PRN (10:50)
[2025-07-29] MEDS ORDERED: magnesium hydroxide 30ml (MOM) UD suspension PO PRN (10:50)
[2025-07-29] MEDS ORDERED: magnesium sulf-water 4G/100mL 100 ML IV PRN (10:50)
[2025-07-29] MEDS ORDERED: HYDROcodone/acetaminophen 5mg/325mg tablet PO PRN (10:50)
[2025-07-29] MEDS ORDERED: mag hydrox/Alum hydrox/simeth 30ml oral suspension PO PRN (10:50)
[2025-07-29] MEDS ORDERED: bisacodyl 10mg suppository rectal RC PRN (10:50)
[2025-07-29] MEDS ORDERED: potassium Cl 20 mEq SR tablet PO PRN (10:50)
[2025-07-29] MEDS ORDERED: magnesium sulf-water 2g/50mL 50 ML IV PRN (10:50)
[2025-07-29] MEDS ORDERED: ondansetron/PF 4mg/2ml inj IV PRN (10:50)
[2025-07-29] MEDS ORDERED: potassium Cl 40MEQ/1/2NS 520ml 520 ML IV PRN (10:50)
[2025-07-29] MEDS ORDERED: dextrose 50%-water 50ml dispensing syringe IV PRN ×2 (11:00)
[2025-07-29] MEDS ORDERED: DEXTROSE 15 GM of carb/4 tabs (each vial/BOTTLE has 4 tablets) PO PRN ×2 (11:00)
[2025-07-29] MEDS ORDERED: glucagon, human recombinant 1mg kit SUBCUT PRN (11:00)
[2025-07-29 11:23] LABS: APTT 25 SECONDS (22-32); INR 1.0 INR
[2025-07-29 11:28] LABS: PHOSPHORUS 2.9 MG/DL (2.3-4.5)
[2025-07-29] MEDS: ipratropium/albuterol 3ml nebule NEB PRN (11:40)
[2025-07-29] MEDS: normal saline 1000ml 1,000 ML IV SCH (11:44)
[2025-07-29 11:45] LABS: LEUKOCYTE ESTERASE ,URINE NEGATIVE (Neg); OCCULT BLOOD,URINE NEGATIVE (Neg)
[2025-07-29] MEDS: pantoprazole 40mg Tablet.DR PO SCH (11:51)
[2025-07-29 11:52] LABS: UA COLLECTION TYPE CLN CATCH MIDSTREAM
[2025-07-29 11:53] LABS: URINE AMPHETAMINE SCREEN NEGATIVE (Neg); URINE BARBITUATE SCREEN NEGATIVE (Neg); URINE BENZODIAZEPINES SCREEN NEGATIVE (Neg); URINE CANNABINOID SCREEN POSITIVE (Neg); URINE COCAINE SCREEN NEGATIVE (Neg); URINE METHADONE SCREEN NEGATIVE (Neg); URINE OPIATE SCREEN NEGATIVE (Neg); URINE PHENCYCLIDINE SCREEN NEGATIVE (Neg)
[2025-07-29 11:56] LABS: NITRITES, URINE NEGATIVE (Neg)
[2025-07-29] MEDS: INSULIN LISPRO 100 UNIT/ML INSULN.PEN MULTI-DOSE SQ SCH (11:58)
[2025-07-29] MEDS ORDERED: QUET-1 PO (19:45)
[2025-07-29] MEDS: K and/or MAG REPLACEMENT MC SCH (20:00)
[2025-07-29] MEDS: heparin, porcine 5000 units/ml vial SQ SCH (20:56)
[2025-07-29] MEDS: methylPREDNISolone sod succ/PF 40mg inj. IV SCH (20:56)
[2025-07-29] MEDS: potassium Cl 20 mEq SR tablet PO PRN (20:57)
[2025-07-29] MEDS: docusate sod 100mg capsule PO SCH (20:57)
[2025-07-29] MEDS: insulin glargine (Lantus) pen - multi-dose SQ SCH (21:10)
[2025-07-29] MEDS ORDERED: MONT-40 PO (21:26)
[2025-07-29] MEDS ORDERED: CETI10TA15 PO (21:26)
[2025-07-29] MEDS ORDERED: FLUT1BLS7 (21:26)
[2025-07-29] MEDS: hydrALAZINE 20mg/ml inj. IV PRN (21:56)
[2025-07-30] VITALS (10 sets, daily range): BP systolic 132–156; BP diastolic 60–81; PULSE 63–88; RESP 14–19; TEMP 97.2–98.9; O2SAT 93–99
[2025-07-30 07:38] LABS: MEAN PLATELET VOLUME 8.8 FL (7.4-10.4); RED CELL DISTRIBUTION WIDTH 15.5 % (11.5-14.5)
[2025-07-30] MEDS: nicotine 14mg patch - 24hr TD SCH (08:00)
[2025-07-30 08:25] LABS: CREATININE 0.72 MG/DL (0.40-0.90); TOTAL CARBON DIOXIDE 28.5 MMOL/L (24-32); eCRCL 65 ML/MIN; eGFR 82 ML/MIN
--- NOTE | 2025-07-30 17:01 | PROGRESS NOTE ---
Daily Progress Note Providers to CC Patient is feeling better Today less cough less shortness of breath ~ Central Line/PICC still needed: No Richard-Non Protocol Richard Indications Met/Not Met: F/C Indications Not Met Antibiotic Timeout Antibiotic Ordered?: Yes MRSA Education MRSA Education Provided to pt: Yes Subjective As above Objective Vital Signs Date Time Temp Pulse Resp B/P (MAP) Pulse Ox O2 Delivery O2 Flow Rate FiO2 07/30/25 15:30 98.9 63 18 132/72 (92) 98 Nasal Cannula 2.0 07/30/25 08:40 28 Vital signs, stable ,afebrile. Pulse Oximetry reflects adequate oxygenation. On 2 L oxygen nasal cannula General: well developed, well nourished. Awake , alert, and oriented x4, resting comfortably in the bed, in no acute distress . Skin: Warm, dry, no pallor, no rash or petechiae. HEENT: Atraumatic, normocephalic, EOMI, anicteric sclera B; pink conjunctiva; PERRLA, normal oropharynx, moist oral and nasal mucosa. Tympanic membrane , nose , throat clear. Neck: Trachea midline. Supple, full range of motion, no JVD, bruit , hepatojugular reflex , lymphadenopathy or masses, or other lesions Cardiac: Regular rhythm, regular rate no murmurs, rubs, or gallops. Normal S1 and S2, no S3 noticed. PMI is normal. Respiratory: Equal breath sounds bilaterally, no tachypnea; lungs clear to auscultation bilaterally, no wheezing ,rub or rales, or crackles. Chest wall is symmetric and without deformity. No signs of trauma. Chest wall is nontender. No signs of respiratory distress. Resonance is normal upon percussion bilaterally. Gastrointestinal: Abdomen symmetric, non-distended, soft, non-tender, normal bowel sounds x4 quadrant, normoactive, no hepatosplenomegaly , no masses , no bruit, no flank pain bilaterally. No voluntary guarding, rebound, or rigidity. No tenderness to percussion. No pulsatile masses. Equal femoral pulses. No Valdivia's sign or McBurney point tenderness. Back; no CVA tenderness bilaterally, no deformities. Neck and back are without deformity as well. No tenderness noted on palpation of the spinous processes. Spinous processes are midline. Cervical, thoracic, and lumbar paraspinal muscles are not tender and are without spasm. Musculoskeletal: Extremities, normal range of motion, non-tender, muscle strength 5/5 x 4. Negative Homans signs bilaterally on lower extremity. Distal pulses full symmetrical, no clubbing, cyanosis , edema. Neurological: Speech is clear, alert, and oriented x 4. No motor or sensory deficit, deep tendon reflexes normal, cerebellar intact. Cranial nerves II-XII intact. Psych: Alert and or appropriate, normal affect. Vascular: Good distal pulses, which are equal x4; capillary refill less than 2 seconds. Lymphatic, no lymphadenopathy. Result Diagram: 07/30/25 0657 07/30/2557 Coagulation Studies Laboratory Tests Test 07/29/25 08:21 Prothrombin Time 10.1 SECONDS (9.0-12.0) INR International Normalized Ratio 1.0 INR Activated Partial Thromboplast Time 25 SECONDS (22-32) D-Dimer 0.34 MG/L FEU (0-0.50) D-Dimer Comment Coagulation Comments Problem\Assessment\Plan Assessment Chronic tobacco abuse including currently Chronic marijuana use including currently Severe COPD in exacerbation secondary to tobacco abuse Diastolic CHF in exacerbation ejection fraction 60% May 2025 associated with pulmonary hypertension Diabetes mellitus type 2 poor control Coronary artery disease status post [place] and five stents Hypokalemia Chronic respiratory failure secondary to hypoxia in exacerbation on home oxygen Acute hypoxic respiratory failure Hypertensive emergency Chronic pain syndrome Multiple drug allergies Additional comorbidities, dyslipidemia, history of alcoholism sober now, Graves disease, history of CVA, exploratory laparotomy Plan IV antibiotics, steroids Lasix p.r.n. SVN DuoNeb, incentive spirometry Replace electrolytes Hyperglycemia sliding scale Additional lab work pending PT evaluation and treatment Serial troponin EKG I reconciled home medications Oxygen support therapy DVT gastropathy prophylaxis addressed Sepsis Screening Reassessment Date: Jul 30, 2025 Date of Service: Jul 30, 2025 Billing Provider: MITCHELL LOUIE MD Common Visit Codes: [id number] INP/OBS CARE(HIGH) MITCHELL LOUIE MD Jul 30, 2025 17:01
[2025-07-31 02:00] VITALS: BP 138/72; PULSE 58; RESP 14; TEMP 98; O2SAT 99
[2025-07-31 07:18] LABS: MEAN PLATELET VOLUME 8.8 FL (7.4-10.4); RED CELL DISTRIBUTION WIDTH 15.4 % (11.5-14.5)
[2025-07-31 07:33] LABS: CREATININE 0.65 MG/DL (0.40-0.90); TOTAL CARBON DIOXIDE 27.9 MMOL/L (24-32); eCRCL 72 ML/MIN; eGFR > 90 ML/MIN
[2025-07-31 08:00] VITALS: RESP 16; O2SAT 98
[2025-07-31 08:15] VITALS: RESP 16; O2SAT 98
--- NOTE | 2025-07-31 17:35 | DISCHARGE SUMMARY ---
Discharge Summary Providers to CC Feels fine today asking to be discharged home ~ Discharge Summary Assessment Chronic tobacco abuse including currently Chronic marijuana use including currently Severe COPD in exacerbation secondary to tobacco abuse Diastolic CHF in exacerbation ejection fraction 60% May 2025 associated with pulmonary hypertension Diabetes mellitus type 2 poor control Coronary artery disease status post [place] and five stents Hypokalemia Chronic respiratory failure secondary to hypoxia in exacerbation on home oxygen Acute hypoxic respiratory failure Hypertensive emergency Chronic pain syndrome Multiple drug allergies Additional comorbidities, dyslipidemia, history of alcoholism sober now, Graves disease, history of CVA, exploratory laparotomy Admission Diagnosis: COPD CHF HTN Admission Diagnosis Comment: Chronic tobacco abuse including currently Chronic marijuana use including currently Severe COPD in exacerbation secondary to tobacco abuse Diastolic CHF in exacerbation ejection fraction 60% May 2025 associated with pulmonary hypertension Diabetes mellitus type 2 poor control Coronary artery disease status post [place] and five stents Hypokalemia Chronic respiratory failure secondary to hypoxia in exacerbation on home oxygen Acute hypoxic respiratory failure Hypertensive emergency Chronic pain syndrome Multiple drug allergies Additional comorbidities, dyslipidemia, history of alcoholism sober now, Graves disease, history of CVA, exploratory laparotomy Hospital Course DATE OF ADMISSION: July 29/2025 DATE OF DISCHARGE: July 31, 2025 Discharge Diagnosis\Comment: Chronic tobacco abuse including currently Chronic marijuana use including currently Severe COPD in exacerbation secondary to tobacco abuse Diastolic CHF in exacerbation ejection fraction 60% May 2025 associated with pulmonary hypertension Diabetes mellitus type 2 poor control Coronary artery disease status post [place] and five stents Hypokalemia Chronic respiratory failure secondary to hypoxia in exacerbation on home oxygen Acute hypoxic respiratory failure Hypertensive emergency Chronic pain syndrome Multiple drug allergies Additional comorbidities, dyslipidemia, history of alcoholism sober now, Graves disease, history of CVA, exploratory laparotomy Operations\Procedures: Non Consultants: Non Complications: Non Condition on DC: Stable Discharge Summary: This is a 65-year-old female lives at the [facility] with multiple medical problems including PMH of COPD, CAD status post five stent placement, HTN, DM, CHF ejection fraction 60% associated with pulmonary hypertension May 2025, chronic tobacco abuse including currently, marijuana user, history of [place] coronary artery disease chronic respiratory failure on home oxygen, dyslipidemia, history of alcoholism, sober now, Graves disease, chronic pain syndrome, CVA, exploratory laparotomy, multiple drug allergies, presented today to emergency department chief complaint shortness of breath, in addition this is the patient who presented to the ED in view of difficulty breathing since last night. Patient uses 2 L of oxygen at home. Patient states that she has associated cough with lots of yellow-colored sputum. Patient denies chest pain, palpitations, dizziness, burning micturition, abdominal pain. Patient also end orses bilateral swelling of feet since last night.Patient endorses smoking since the last 20 years (seven cigarettes per day), on and off alcohol intake (whiskey, two shots), marijuana and denies any other drug abuse. In emergency department patient was evaluated by physician was diagnosed with CHF, in exacerbation, and COPD in exacerbation hypoxia, decision was made to admit erick ent for further evaluation and treatment, no additional complaint or concern. Patient was extensively evaluated treated today she is feeling fine asking to be discharged home, she will be discharged in stable condition medication reconciled, follow-up PCP in the morning, today on physical exam, Vital signs, stable ,afebrile. Pulse Oximetry reflects adequate oxygenation. General: well developed, well nourished. Awake , alert, and oriented x4, resting comfortably in the bed, in no acute distress . Skin: Warm, dry, no pallor, no rash or petechiae. HEENT: Atraumatic, normocephalic, EOMI, anicteric sclera B; pink conjunctiva; P ERRLA, normal oropharynx, moist oral and nasal mucosa. Tympanic membrane , nose , throat clear. Neck: Trachea midline. Supple, full range of motion, no JVD, bruit , hepatojugular reflex , lymphadenopathy or masses, or other lesions Cardiac: Regular rhythm, regular rate no murmurs, rubs, or gallops. Normal S1 and S2, no S3 noticed. PMI is normal. Respiratory: Equal breath sounds bilaterally, no tachypnea; lungs clear to auscultation bilaterally, no wheezing ,rub or rales, or crackles. Chest wall is symmetric and without deformity. No signs of trauma. Chest wall is nontender. No signs of respiratory distress. Resonance is normal upon percussion bilaterally. Gastrointestinal: Abdomen symmetric, non-distended, soft, non-tender, normal bowel sounds x4 quadrant, normoactive, no hepatosplenomegaly , no masses , no bruit, no flank pain bilaterally. No voluntary guarding, rebound, or rigidity. No tenderness to percussion. No pulsatile masses. Equal femoral pulses. No Valdivia's sign or McBurney point tenderness. Back; no CVA tenderness bilaterally, no deformities. Neck and back are without deformity as well. No tenderness noted on palpation of the spinous processes. Spinous processes are midline. Cervical, thoracic, and lumbar paraspinal mu scles are not tender and are without spasm. Musculoskeletal: Extremities, normal range of motion, non-tender, muscle strength 5/5 x 4. Negative Homans signs bilaterally on lower extremity. Distal pulses full symmetrical, no clubbing, cyanosis , edema. Neurological: Speech is clear, alert, and oriented x 4. No motor or sensory deficit, deep tendon reflexes normal, cerebellar intact. Cranial nerves II-XII intact. Psych: Alert and or appropriate, normal affect. Vascular: Good distal pulses, which are equal x4; capillary refill less than 2 seconds. Lymphatic, no lymphadenopathy. *Problems/Diagnosis: (1) COPD exacerbation Status: Acute Total Time Spent on D/C: > 30 Minutes Date of Service: Jul 31, 2025 Billing Provider: MITCHELL LOUIE MD Common Visit Codes: [id number] DISCH DAY >30min MITCHELL LOUIE MD Jul 31, 2025 17:35
== END 2025-07-31 14:00 | disposition home or self-care (01) | DRG 140 ==
LOC: ER 08:04 → ED HOLD 10:55 → PCU 3S 15:16
PROVIDERS: ADMIT Family Medicine; ATTEND Family Medicine
DX: J44.1 Chronic obstructive pulmonary disease with (acute) exacerbation (principal); J96.21 Acute and chronic respiratory failure with hypoxia; I27.20 Pulmonary hypertension, unspecified; I50.33 Acute on chronic diastolic (congestive) heart failure; I16.1 Hypertensive emergency; I11.0 Hypertensive heart disease with heart failure; E11.65 Type 2 diabetes mellitus with hyperglycemia; F10.21 Alcohol dependence, in remission; E05.00 Thyrotoxicosis with diffuse goiter without thyrotoxic crisis or storm; F41.9 Anxiety disorder, unspecified; G89.4 Chronic pain syndrome; E87.6 Hypokalemia; I25.10 Atherosclerotic heart disease of native coronary artery without angina pectoris; F12.90 Cannabis use, unspecified, uncomplicated; E78.00 Pure hypercholesterolemia, unspecified; F17.210 Nicotine dependence, cigarettes, uncomplicated; Z86.73 Personal history of transient ischemic attack (TIA), and cerebral infarction without residual deficits; Z95.5 Presence of coronary angioplasty implant and graft; Z90.710 Acquired absence of both cervix and uterus; I25.2 Old myocardial infarction; Z98.51 Tubal ligation status; Z88.0 Allergy status to penicillin; Z88.8 Allergy status to other drugs, medicaments and biological substances; Z88.1 Allergy status to other antibiotic agents; Z99.81 Dependence on supplemental oxygen
CPT/HCPCS: 36415; 71045; 80048; 80053; 80305; 81003; 82948; 83605; 83735; 83880; 84100; 84484; 85025; 85379; 85610; 85730; 87040; 87081; 93005; 94640; 94760; 96361; 96374; 97116; 97161; 99285; G0378; J0360; J1644; J1815; J1938; J2919; J3490; J7030; Q0163

== ENCOUNTER 2025-08-08 18:42 | Inpatient (IN) | payer MEDICAID ==
[~2025-08-08] VITALS: Ht 160 cm; Wt 57.0 kg
[~2025-08-08 18:42] MED LIST changes: -ALBU2.5V7 NEB; +CETI10TA15 PO; +FLUT1BLS7; -INSU100I8 SQ; -LACT1CAP26 PO; +MONT-40 PO; +QUET-1 PO; -SITA50TA PO
--- NOTE | 2025-08-08 18:57 | ELECTROCARDIOGRAPH REPORT ---
[facility] Test Date: 2025-08-08 Test Time: 18:51:23 Pat Name: JESS GALLO Department: EMERGENCY ROOM Room: [place] [address] Gender: F Hand Etcher: : 1960 Requested By: AZUL LEAVITT Order Number: [id number] Reading MD: Dr. Sarthak Gutierrez Measurements Intervals [place] Rate: 61 P: 66 OR: 154 QRS: 44 QRSD: 98 T: 90 QT: 454 QTc: 458 Interpretive Statements Sinus rhythm Probable LVH with secondary repol abnrm Anterior ST elevation, probably due to LVH Electronically Signed On 08-10-2025 21:14:[address] Sarthak Gutierrez Please click the below link to view image of tracing.
--- NOTE | 2025-08-08 19:41 | Physician Documentation ---
History of Present Illness ~ Chief Complaint: Dizziness Stated Complaint: DIZZINESS Time Seen by MD: 19:39 OK to notify your PCP?: Yes Primary Medical Doctor: Jalen Cavazos MD. [facility] Source: patient, EMS Mode of Arrival: EMS HPI 65 year old female patient presents to the ED via EMS, EMS states that patient was eating dinner around 1812 when she stood up too fast and fell backwards. Patient denies head strike/neck pain. Complaints of dizziness. In the ED history is limited, patient is lethargic but alert. Patient denies abdominal pain. Medication Reconciliation Allergies: Coded Allergies: iodine (Verified Allergy, Severe, Anaphylaxis, 07/08/25) stated per patient buspirone HCl (Verified Allergy, Mild, 04/17/25) Penicillins (Verified Allergy, Unknown, 06/04/25) TOLERTATED ROCEPHIN 04/2024 cyanocobalamin (vitamin B12) (Verified Allergy, Unknown, 04/17/25) Pt states B12 injection gives her migraines erythromycin base (Verified Allergy, Unknown, RASH, 06/04/25) PT TOLERATED AZITHROMYCIN 03/2025 levofloxacin (Verified Allergy, Unknown, 04/17/25) Scheduled Amlodipine Besylate (Amlodipine Besylate), 2 TAB PO DAILY Atorvastatin Calcium* (Lipitor*), 1 TABLET PO HS Carvedilol (Carvedilol), 1 TAB PO BID, (Reported) Cetirizine HCl (Cetirizine HCl), 1 TAB PO DAILY, (Reported) Fluticasone/Salmeterol (Advair 250-50 Diskus), 1 PUFFS INH Q12H Gabapentin (Neurontin), 1 CAP PO TID, (Reported) Levothyroxine Sodium (Synthroid), 1 TAB PO DAILY Lisinopril* (Lisinopril*), 1 TAB PO DAILY, (Reported) Metformin HCl (Metformin HCl), 1 TAB PO BID, (Reported) Montelukast Sodium (Singulair), 1 TAB PO HS, (Reported) Pantoprazole Sodium (Pantoprazole Sodium), 40 MG PO DAILY Quetiapine Fumarate (Quetiapine Fumarate), 1 TAB PO HS, (Reported) Quetiapine Fumarate (Seroquel), 1 TAB PO HS, (Reported) Risperidone (Risperidone), 1 TAB PO BID, (Reported) Sennosides (Senna), 1 TAB PO HS, (Reported) Venlafaxine Hcl (Venlafaxine Hcl Er), 1 CAP PO DAILY, (Reported) Miscellaneous Medications Fluticasone/Salmeterol (Advair 250-50 Diskus), (Reported) Montelukast Sodium (Montelukast Sodium), 1 TAB PO, (Reported) Past Medical History Past Medical History: CVA/TIA/Stroke, Congestive Heart Failure, High Cholesterol, Hypertension, COPD, UTI, Diabetes, Graves' Disease, Thyroid (unspecified), Chronic Back Pain, Anxiety Past Surgical History: abdominal surgery, hysterectomy, tonsillectomy, tubal ligation Other Past Surgical History: exploratory abdominal surgery, hysterectomy, tonsillectomy Patient History: FH: diabetes mellitus sister sister sister FH: heart disease FATHER MOTHER sister FH: malignant neoplasm of bone Paternal grandfather FH: ovarian cancer sister sister Other Past Family History: NONCONTRIBUTORY Alcohol Use: Sober Drug Use: marijuana Lives with: Alone Lives In: Other Occupation: disabled Review of Systems All Other Systems at this time: Reviewed and Negative ROS As stated above in the HPI, otherwise all systems are reviewed and negative. Physical Exam Vital Signs: RN Vital Signs have been reviewed: Yes, Temperature: 95.7, Source: Oral, Heart Rate: 61, Respiratory Rate: 16, BP: 88/57, Pulse Oximetry: 95, Weight: 72.730 Oxygen Flow Rate: 0 Pulse Oximetry Reflects: adequate oxygenation Physical Exam General: Patient is awake, alert. Head: Normocephalic and atraumatic. Eyes: Conjunctival normal. EOMI. PERRL. ENT: Mucous membranes moist. Neck: Supple, trachea is midline. Chest: Clear to auscultation bilaterally without rales, rhonchi, or wheezes. There is no accessory muscle use or retractions. Cardiac: RRR without murmurs, gallops, or rubs. Abd: Soft, nondistended, nontender, with normoactive bowel sounds. No guarding, rebound, or rigidity. Extremities: Normal strength. Normal range of motion. No deformities or edema. Back: No midline spinal or CVA tenderness. Skin: Warm and dry with no significant rash appreciated. Neuro: Cranial nerves II-XII grossly intact. No focal neuro deficits. Progress Progress Note 2354: Resident hospitalist agrees to evaluate for admission. Results/Orders Results/Orders Orders - SEBASTIAN BLACKWELL MD Chest,Single View (08/08/25:25) Monitor (08/08/25 18:54) Saline Lock (08/08/25 18:54) Oxygen (08/08/25 18:54) Culture Blood (08/08/25 18:54) Straight Cath For Urine Sample (08/08/25 18:54) Ct Head (08/08/25 21:22) Mixed Venous (08/08/25 ) Abg (Arterial Blood Gas) (08/08/25 23:03) Page Hospitalist (08/08/25 23:) Fill Out Med Reconciliation (08/08/25 23:29) Completed Orders - SEBASTIAN BLACKWELL MD Chest,Single View (08/08/25:25) Cbc/Diff (08/08/25 18:54) BMP (08/08/25 18:54) PBNP (08/08/25 18:54) Electrocardiogram (08/08/25 18:54) Hs Troponin I W Calculations (08/08/25 18:54) Hs Troponin I W Calculations (08/08/25 20:54) Hs Troponin I W Calculations (08/08/25 21:54) Procalcitonin (08/08/25 18:54) Lacticsepsis (08/08/25 18:54) Normal Saline 1000ml (0.9% Sodium Chlori (08/08/25 19:40) Ct Head (08/08/25 21:22) Ua W/Microscopic, Cult If Ind (08/08/25 21:10) Drug Screen, Urine (08/08/25 22:42) Medications Received in ER Medications (Trade) Dose Ordered Sig/Dax Route PRN Reason Start Time Stop Time Status Last Admin Dose Admin Sodium Chloride 1,000 ml @ 1,000 mls/hr ONCE ONCE IV 08/08/25 19:40 08/08/25 20:39 DC 08/08/25 20:09 1,000 MLS/HR Vital Signs 08/08/25 08/08/25 08/08/25 08/08/25 19:19 19:44 20:12 20:15 Temp 95.7 Pulse 61 59 59 Resp 16 16 15 B/P (MAP) 88/57 77/49 (58) 92/55 (67) Pulse Ox 95 93 93 O2 Flow Rate 0 0 1.0 08/08/25 08/08/25 08/08/25 20:45 21:14 23:20 Pulse 57 56 54 Resp 14 14 14 B/P (MAP) 120/55 (76) 117/60 (79) 130/65 (86) Pulse Ox 95 99 99 O2 Flow Rate 1.0 2.0 1.0 Laboratory Tests Test 08/08/25 19:57 08/08/25 20:09 08/08/25 21:10 08/08/25 22:26 Troponin I High Sensitivity 50 50 White Blood Count 8.2 Red Blood Count 4.30 Hemoglobin 12.6 Hematocrit 37.8 Mean Corpuscular Volume 87.8 Mean Corpuscular Hemoglobin 29.3 Mean Corpuscular Hemoglobin Concent 33.4 Red Cell Distribution Width 14.9 H Platelet Count 224 Mean Platelet Volume 9.0 Neutrophils (%) (Auto) 68.2 Lymphocytes (%) (Auto) 20.4 L Monocytes (%) (Auto) 9.0 Eosinophils (%) (Auto) 1.6 Basophils (%) (Auto) 0.8 Neutrophils # (Auto) 5.6 Lymphocytes # (Auto) 1.7 Monocytes # (Auto) 0.7 Eosinophils # (Auto) 0.1 Basophils # (Auto) 0.1 CBC Comment Sodium Level 139 Potassium Level 3.2 L Chloride Level 99 Carbon Dioxide Level 30.1 Anion Gap 10 Blood Urea Nitrogen 27 H Creatinine 1.31 H Estimated GFR/1.73 m2 41 BUN/Creatinine Ratio 20.6 H Glucose Level 193 H Lactic Acid Level 2.0 Calcium Level 9.2 Pro-B-Type Natriuretic Peptide 1757 H Albumin 3.5 Procalcitonin < 0.05 Chemistry Comments Urine Specimen Description Non-specified Urine Color Yellow Urine Clarity Clear Urine pH 6.0 Urine Specific [place] 1.015 Urine Protein Negative Urine Glucose (UA) Negative Urine Ketones Negative Urine Occult Blood Trace-intact Urine Nitrite Negative Urine Bilirubin Negative Urine Urobilinogen 0.2 Urine Leukocyte Esterase Negative Urine RBC 0-2 Urine WBC 0-4 Urine Squamous Epithelial Cells Few Urine Bacteria 1+ Urine Fine Granular Casts 0-3 Urine Culture Indicated Not ind Volume Urine Centrifuged 10 ml Urine Comment Urine Opiates Screen Negative Urine Methadone Screen Negative Urine Fentanyl Screen Negative Urine Barbiturates Screen Negative Urine Phencyclidine Screen Negative Urine Amphetamines Screen Negative Urine Benzodiazepines Screen Negative Urine Cocaine Screen Negative Urine Cannabinoids Screen Positive Drug Screen Comment Troponin I High Sens Percent Delta 0 Troponin I Hi Sens Absolute Change 0 Test 08/08/25 22:56 08/08/25 22:57 08/08/25 23:38 Troponin I High Sensitivity 44 Troponin I High Sens Percent Delta 12 Troponin I Hi Sens Absolute Change -6 Venous Blood pH 7.321 Blood Gas Specimen Type Arterial Blood Gas Puncture Site Rb O2 Saturation 93.9 L Arterial Blood pH (Temp corrected) 7.365 Arterial Blood pCO2 (Temp correct) 40.6 Arterial Blood pO2 (Temp corrected) 68.9 L Arterial Blood PO2/FiO2 Ratio 2.87 Arterial Blood HCO3 23.0 Arterial Blood Base Excess -2.6 L Arterial Blood Oxyhemoglobin 90.0 L Arterial Blood Carboxyhemoglobin 3.9 H Arterial Blood Methemoglobin 0.3 Arterial Blood Deoxyhemoglobin 5.8 H Sourav Test Na Blood Gas Hemoglobin 12.9 Blood Gas Temperature 35.8 Blood Gas Liter Flow 2 Blood Gas Modality nc FiO2 26.0 Microbiology Date/Time Source Procedure Growth Status 08/08/25 20:09 Blood Arm Left Blood Culture - Preliminary NEGATIVE (LESS THAN 24 HOURS) Resulted EKG/XRAY/CT/US/VASC/MRI Chest X-Ray : Interpreted By: radiologist Views: 1 VIEW Additional Comments CLINICAL HISTORY: CP TECHNIQUE: Single view of the chest was obtained. COMPARISON: DI CHEST,SINGLE VIEW on DOS: 07/29/25, DI CHEST,SINGLE VIEW on DOS: 06/05/25, CT CT CHEST on DOS: 06/04/25, DI CHEST,SINGLE VIEW on DOS: 06/04/25, DI CHEST,SINGLE VIEW on DOS: 06/02/25 FINDINGS: The heart size is mildly enlarged and the pulmonary vasculature appears normal. The lungs are clear. IMPRESSION: NO ACUTE CARDIOPULMONARY PROCESS. Electronically Signed by:NIXON MORA MD Date & Time: 08/08/252246 Dictated by: NIXON MORA MD Dictation date and time: 08/08/252246 Primary Care Provider: NO PRIMARY CARE PROVIDER cc: SEBASTIAN BLACKWELL MD ~ CT : Interpreted By: radiologist CT: head With Contrast?: No Impression CLINICAL HISTORY: ams TECHNIQUE: Helical scanning was performed of the head from the skull base to the vertex. Multiplanar reconstructions were performed. This exam was performed according to our departmental dose optimization program. Up-to-date CT equipment and radiation dose reduction techniques are utilized as appropriate. CTDI 55 DLP 1058 COMPARISON: CT CT HEAD on DOS: 06/20/25, CT CT HEAD on DOS: 12/30/24, CT HEAD on DOS: 11/17/20 FINDINGS: There is no evidence for acute intracranial hemorrhage, acute ischemic changes, mass, mass effect, or extra-axial fluid collection. There is no hydrocephalus or midline shift. There is no effacement of the cerebral sulci and basal subarachnoid cisterns. The marcial-white matter differentiation is well maintained. There is a old right thalamic lacunar infarct The imaged paranasal sinuses are clear. IMPRESSION: NO ACUTE INTRACRANIAL ABNORMALITY SEEN. Electronically Signed by:NIXON MORA MD Date & Time: 08/08/252227 Dictated by: NIXON MORA MD Dictation date and time: 08/08/252227 Primary Care Provider: NO PRIMARY CARE PROVIDER cc: SEBASTIAN BLACKWELL MD ~ Medical Decision Making Additional information obtaine: old records Findings Patient presents to the emergency room with generalized weakness and fall. Differentials include but are not limited to metabolic encephalopathy, urinary tract infection, malingering, psychiatric break, electrical disturbances therefore emergent labs and imaging ordered. Patient continues to not act a ppropriately although she has improved slightly since her arrival. We will admit for further investigation Differential Dx:Considerations: Include: anemia, CVA, dehydration, dysrhythmia, electrolyte imbalance, encephalopathy, Guillain-[place], hypoglycemia, hypotension, hypovolemia, labyrinthitis, Meniere's disease, myasathenia gravis, myocardial infarction, pulmonary embolus, renal failure, respiratory failure, TIA, VBI, vertigo central, vertigo peripheral, vestibular neuronitis, other Departure Time of Disposition: 23:54 Disposition: ADMITTED INPATIENT Admitted to Inpatient Unit: yes, to hospitalist Impression: Primary Impression: Encephalopathy Qualified Codes: G93.40 - Encephalopathy, unspecified Additional Impression: Weakness Condition: Guarded Referrals: NO PRIMARY CARE PROVIDER (PCP) Signature Scribe Signature: Scribed for Sebastian Blackwell MD by Koby Finch . 08/08/25 22:49 Attestation: The note accurately reflects work and decisions made by me.Sebastian Blackwell MD 08/09/25 02:38 SEBASTIAN BLACKWELL MD Aug 08, 2025 19:41 KOBY MALIK Aug 08, 2025 22:51
[2025-08-08] MEDS: normal saline 1000ml 1,000 ML IV ONE (20:09)
[2025-08-08 20:35] LABS: MEAN PLATELET VOLUME 9.0 FL (7.4-10.4); RED CELL DISTRIBUTION WIDTH 14.9 % (11.5-14.5)
[2025-08-08 20:44] LABS: CREATININE 1.31 MG/DL (0.40-0.90); PRO BRAIN NATRIURETIC PEPTIDE 1757 PG/ML (0-125); TOTAL CARBON DIOXIDE 30.1 MMOL/L (24-32); eCRCL 36 ML/MIN; eGFR 41 ML/MIN
[2025-08-08 21:32] LABS: LEUKOCYTE ESTERASE ,URINE NEGATIVE (Neg); NITRITES, URINE NEGATIVE (Neg); OCCULT BLOOD,URINE TRACE-INTACT (Neg)
[2025-08-08 21:52] LABS: UA COLLECTION TYPE NON-SPECIFIED
[2025-08-08 22:00] LABS: FINE GRANULAR CAST 0-3 /LPF (NEGATIVE); SQUAMOUS EPITHELIAL CELL,UR FEW /LPF (FEW)
--- NOTE | 2025-08-08 22:31 | RADIOLOGY REPORT ---
CLINICAL HISTORY: ams TECHNIQUE: Helical scanning was performed of the head from the skull base to the vertex. Multiplanar reconstructions were performed. This exam was performed according to our departmental dose optimization program. Up-to-date CT equipment and radiation dose reduction techniques are utilized as appropriate. CTDI 55 DLP 1058 COMPARISON: CT CT HEAD on DOS: 06/20/25, CT CT HEAD on DOS: 12/30/24, CT HEAD on DOS: 11/17/20 FINDINGS: There is no evidence for acute intracranial hemorrhage, acute ischemic changes, mass, mass effect, or extra-axial fluid collection. There is no hydrocephalus or midline shift. There is no effacement of the cerebral sulci and basal subarachnoid cisterns. The marcial-white matter differentiation is well maintained. There is a old right thalamic lacunar infarct The imaged paranasal sinuses are clear. IMPRESSION: NO ACUTE INTRACRANIAL ABNORMALITY SEEN.
--- NOTE | 2025-08-08 22:50 | RADIOLOGY REPORT ---
CLINICAL HISTORY: CP TECHNIQUE: Single view of the chest was obtained. COMPARISON: DI CHEST,SINGLE VIEW on DOS: 07/29/25, DI CHEST,SINGLE VIEW on DOS: 06/05/25, CT CT CHEST on DOS: 06/04/25, DI CHEST,SINGLE VIEW on DOS: 06/04/25, DI CHEST,SINGLE VIEW on DOS: 06/02/25 FINDINGS: The heart size is mildly enlarged and the pulmonary vasculature appears normal. The lungs are clear. IMPRESSION: NO ACUTE CARDIOPULMONARY PROCESS.
[2025-08-08 23:04] LABS: URINE AMPHETAMINE SCREEN NEGATIVE (Neg); URINE BARBITUATE SCREEN NEGATIVE (Neg); URINE BENZODIAZEPINES SCREEN NEGATIVE (Neg); URINE CANNABINOID SCREEN POSITIVE (Neg); URINE COCAINE SCREEN NEGATIVE (Neg); URINE METHADONE SCREEN NEGATIVE (Neg); URINE OPIATE SCREEN NEGATIVE (Neg); URINE PHENCYCLIDINE SCREEN NEGATIVE (Neg)
[2025-08-08 23:41] LABS: ABG BASE EXCESS -2.6 mmol/L (-2.0-3.0); ABG HCO3 23.0 mmol/L (21.0-28.0); ABG OXYGEN SATURATION 93.9 % (94.0-98.0); ABG PCO2 (T) 40.6 mmHg (32.0-45.0); ABG PH (T) 7.365 (7.350-7.450); ABG PO2 (T) 68.9 mmHg (83.0-108.0); FCOHb 3.9 % (0.5-1.5); FHHb 5.8 % (0.0-5.0); FIO2 26.0 mmHg/%; FLOW 2 L/min; FMetHb 0.3 % (0.0-1.5); FO2Hb 90.0 % (94.0-98.0); MODE nc; PATIENT TEMPERATURE 35.8; TOTAL HEMOGLOBIN 12.9 G/dl (12.0-16.0)
[2025-08-09] VITALS (9 sets, daily range): BP systolic 92–160; BP diastolic 49–83; PULSE 53–86; RESP 15–24; TEMP 97.7–98.9; O2SAT 97–99
[2025-08-09] MEDS ORDERED: ondansetron 4mg rapidly disintigrating tab PO PRN (00:25)
[2025-08-09] MEDS ORDERED: magnesium hydroxide 30ml (MOM) UD suspension PO PRN (00:25)
[2025-08-09] MEDS ORDERED: potassium Cl 40MEQ/1/2NS 520ml 520 ML IV PRN (00:25)
[2025-08-09] MEDS ORDERED: ondansetron/PF 4mg/2ml inj IV PRN (00:25)
[2025-08-09] MEDS ORDERED: magnesium Cl slow-release 64mg tablet PO PRN (00:25)
[2025-08-09] MEDS ORDERED: magnesium sulf-water 2g/50mL 50 ML IV PRN (00:25)
[2025-08-09] MEDS ORDERED: potassium Cl 20 mEq SR tablet PO PRN (00:25)
[2025-08-09] MEDS ORDERED: magnesium sulf-water 4G/100mL 100 ML IV PRN (00:25)
[2025-08-09] MEDS ORDERED: mag hydrox/Alum hydrox/simeth 30ml oral suspension PO PRN (00:25)
[2025-08-09] MEDS ORDERED: furosemide 10 MG/1 ML 10ml inj IV ONE (01:30)
[2025-08-09] MEDS ORDERED: dextrose 50%-water 50ml dispensing syringe IV PRN ×2 (01:50)
[2025-08-09] MEDS ORDERED: DEXTROSE 15 GM of carb/4 tabs (each vial/BOTTLE has 4 tablets) PO PRN ×2 (01:50)
[2025-08-09] MEDS ORDERED: glucagon, human recombinant 1mg kit SUBCUT PRN (01:50)
[2025-08-09] MEDS ORDERED: albuterol 2.5 MG/3 ML nebule NEB PRN (02:05)
[2025-08-09] MEDS ORDERED: ipratropium/albuterol 3ml nebule NEB PRN (02:05)
--- NOTE | 2025-08-09 02:24 | HISTORY AND PHYSICAL-Residence ---
History & Physical Providers to CC Resident Creating Document: RONNI PETTIT, RES ~ History of Present Illness Primary Medical Doctor: Jalen Cavazos MD. [facility] Reason for Admit\Complaint: Orthostatic hypotension History of Present Illness This 65 years old woman who is a homeless and very poor historian came to ED with complaints of dizziness Patient is a very poor historian and could not elicit history Per ED-patient was admitted because she almost lost consciousness after standing up from sitting position suddenly Patient was admitted recently for shortness of breath Allergies: Coded Allergies: iodine (Verified Allergy, Severe, Anaphylaxis, 07/08/25) stated per patient buspirone HCl (Verified Allergy, Mild, 04/17/25) Penicillins (Verified Allergy, Unknown, 06/04/25) TOLERTATED ROCEPHIN 04/2024 cyanocobalamin (vitamin B12) (Verified Allergy, Unknown, 04/17/25) Pt states B12 injection gives her migraines erythromycin base (Verified Allergy, Unknown, RASH, 06/04/25) PT TOLERATED AZITHROMYCIN 03/2025 levofloxacin (Verified Allergy, Unknown, 04/17/25) Home Medications Home Medications Active Lipitor* (Atorvastatin Calcium) 80 Mg Tablet 1 Tablet PO HS 90 Days Pantoprazole Sodium 40 Mg Tablet.dr 40 Mg PO DAILY 30 Days Advair 250-50 Diskus (Salmeterol Xinafoate/Fluticasone) 1 Each Disk.w.dev 1 Puffs INH Q12H 30 Days Synthroid (Levothyroxine Sodium) 150 Mcg Tablet 1 Tab PO DAILY 90 Days Amlodipine Besylate 5 Mg Tablet 2 Tab PO DAILY 30 Days Reported Montelukast Sodium 10 Mg Tablet 1 Tab PO Cetirizine HCl 10 Mg Tablet 1 Tab PO DAILY Advair 250-50 Diskus (Salmeterol Xinafoate/Fluticasone) 1 Puff Inh Seroquel (Quetiapine Fumarate) 100 Mg Tablet 1 Tab PO HS 30 Days Singulair (Montelukast Sodium) 10 Mg Tablet 1 Tab PO HS 30 Days Risperidone 2 Mg Tablet 1 Tab PO BID 30 Days Metformin HCl 1,000 Mg Tablet 1 Tab PO BID Carvedilol 12.5 Mg Tablet 1 Tab PO BID Lisinopril* (Lisinopril) 40 Mg Tablet 1 Tab PO DAILY Neurontin (Gabapentin) 300 Mg Capsule 1 Cap PO TID Venlafaxine Hcl Er (Venlafaxine Hcl) 75 Mg Cap.sr.24h 1 Cap PO DAILY Quetiapine Fumarate 100 Mg Tablet 1 Tab PO HS Senna (Sennosides) 8.6 Mg Tablet 1 Tab PO HS 30 Days Past Medical History Past Medical History Per records COPD NIDDM HTN HLD Tobacco abuse Chronic lower back pain Chronic pain syndrome Past Surgical History Surgical History Comment Per records Hysterectomy Family History Family History: FH: diabetes mellitus sister sister sister FH: heart disease FATHER MOTHER sister FH: malignant neoplasm of bone Paternal grandfather FH: ovarian cancer sister sister Past Social History Social History Comment Per records Positive for chronic tobacco and marijuana use including currently, history of alcoholism sober now, denies street drug use now, live with the family good social support Smoking: Cigarettes Alcohol Use: Sober Drug Use: Marijuana Lives with: Alone Lives In: Other Occupation: disabled ROS All Other Systems: Reviewed and Negative Unable to obtain: altered mental status Exam Vitals: Vital Signs Date Time Temp Pulse Resp B/P (MAP) Pulse Ox O2 Delivery O2 Flow Rate FiO2 08/08/25 23:20 54 14 130/65 (86) 99 1.0 08/08/25 19:19 95.7 General: The patient is awake but not able to give any answers HEENT: Atraumatic, normocephalic, EOMI, anicteric sclera ; pink conjunctiva Neck: Trachea midline. Supple, full range of motion, no JVD Cardiac: Regular rhythm, regular rate with no murmurs all over the precordium. Respiratory: Equal breath sounds bilaterally, no tachypnea, no wheezing ,rub or rales, Chest wall is symmetric and without deformity. Gastrointestinal: Abdomen symmetric, non-distended, soft, non-tender, normal bowel sounds x4 quadrant, normoactive, no hepatosplenomegaly Musculoskeletal: No pedal edema Neurological: Limited as patient is not following, Skin: Warm and dry Extremities : No Edema, peripheral pulses felt, No deformities Diagnostic Data Last Recorded Lab Results: 08/08/25200808/08/252008 Advance Care Planning Advanced Care plannin - 30 Minutes Additional Plan 65 years old female COPD, CAD status post five stent placement, HTN, DM, CHF ejection fraction 60% associated with pulmonary hypertension May 2025, chronic tobacco abuse including currently, marijuana user he is currently evaluated for altered level of consciousness and orthostatic hypotension Metabolic encephalopathy likely dehydration cause under evaluation CT of head without contrast ruled out acute intracranial abnormality CXR: NO ACUTE CARDIOPULMONARY PROCESS. ammonia-Normal,BUN-27, ammonia less than 10, glucose 149, procalcitonin normal, U tox positive for marijuana Urinalysis-negative TSH-9.26 on 06/11 Pro [id number] are clear on auscultation BUN-27, creatinine 1.31, potassium is low Started patient on IV fluid, follow up with daily labs Orthostatic hypotension Patient mentioned having lightheadedness when she stands up suddenly from sitting position which made her almost fall but she did not hit her head Orthostatic vitals are blood Fall precautions, monitor vitals regularly, held home blood pressure medications Acute kidney injury 2/2 prerenal Patient baseline creatinine-0.6 Today BUN-26, creatinine 1.31 BUN/creatinine ratio-20.6 Started IV NS 75 cc/hour and reassess volume status in a.m. at 8:00 a.m. Follow up with spot urine studies Hypokalemia Patient potassium 3.2 Started on protocol Type 2 diabetes mellitus Patient takes metformin, today her blood glucose 193 [id number] on 06/04/2025 Started medium dose hyperglycemia hypoglycemia protocol Hypertension Patient is currently maintaining soft blood pressure Continue home med after med rec and blood pressure stabilizes History of COPD Patient takes fluticasone inhaler at home. Started DuoNeb q.4h p.r.n. and albuterol q.2h p.r.n. Psychotic disorder Patient takes risperidone and quetiapine at home, continue home med after med rec Peripheral neuropathy Patient takes venlafaxine and gabapentin at home, continue home med after med rec Hyperlipidemia Patient takes atorvastatin 80 mg at home, continue home med after med rec LDL-145 on 06/05/2025 Hypothyroidism Patient takes levothyroxine 150 mcg at home daily, continue home med after med rec TSH-9.62 on 06/05/2025, free T4 0.57 Code Status: Full by default and reassess in a.m. DVT prophylaxis: SCDs, heparin subQ Analgesia/Sedation: Morphine Line/tube: Peripheral PT: Guarded Prognosis: Ordered Disposition: Patient will be monitored for 24 hours telemetry, reassess volume status at 8:00 a.m. monitor CMP Med rec is pending Ronni Pettit PGY1-Internal Medicine Resident I saw and discussed the patient with the resident team I agree with assessment and plan as documented Thank you Date of Service: Aug 09, 2025 Billing Provider: DARIUSZ MEEKS MD, SATISH, RES Aug 09, 2025 02:24 DARIUSZ MEEKS MD Aug 09, 2025 17:19
[2025-08-09 03:04] LABS: CREATININE,URINE RANDOM 20.0 MG/DL; TOTAL PROTEIN,URINE RANDOM 24.0 MG/DL
[2025-08-09 03:12] LABS: OSMOLALITY UA 398.0 MOSM/K (50-1400)
[2025-08-09] MEDS: normal saline 1000ml 1,000 ML IV SCH (03:19)
[2025-08-09 04:11] LABS: UA EOSINOPHILS NO EOS /HPF
[2025-08-09] MEDS: INSULIN LISPRO 100 UNIT/ML INSULN.PEN MULTI-DOSE SQ SCH (07:00)
[2025-08-09] MEDS: K and/or MAG REPLACEMENT MC SCH (08:00)
[2025-08-09] MEDS: potassium Cl 20 mEq SR tablet PO PRN (08:28)
[2025-08-09] MEDS: heparin, porcine 5000 units/ml vial SQ SCH (08:28)
[2025-08-09] MEDS: docusate sod 100mg capsule PO SCH (08:28)
[2025-08-09] MEDS ORDERED: FLU VACC TS2025-26(6MOS UP)/PF (FLULAVAL) 45 MCG/0.5 ML SYRINGE IMVAC ONE (13:35)
--- NOTE | 2025-08-09 20:02 | PROGRESS NOTE ---
Daily Progress Note Providers to CC ~ Antibiotic Timeout Antibiotic Ordered?: No Subjective The patient had positive orthostatic vital signs this morning and has a drop in her systolic blood pressure from 142-105. The patient remains on IV fluids and Ismael hose were ordered as well as Florinef Objective Vital Signs Date Time Temp Pulse Resp B/P (MAP) Pulse Ox O2 Delivery O2 Flow Rate FiO2 08/09/25 18:30 68 08/09/25 10:00 98.9 16 155/79 (104) 99 Nasal Cannula 2.0 08/09/25 04:49 28 Result Diagram: 08/08/25200808/08/252008 Gen. No acute distress alert and oriented 4 Lungs clear to ascultation bilaterally, no wheezes rales or rhonchi appreciated Heart normal sinus rhythm no murmurs rubs or clicks noted Abdomen soft nontender bowel sounds are normoactive Lower extremities no clubbing cyanosis, nor edema appreciated bilaterally Problem\Assessment\Plan Problems/Diagnosis: (1) Encephalopathy Metabolic encephalopathy likely dehydration- resolved CT of head without contrast ruled out acute intracranial abnormality CXR: NO ACUTE CARDIOPULMONARY PROCESS. ammonia-Normal,BUN-27, ammonia less than 10, glucose 149, procalcitonin normal, U tox positive for marijuana Urinalysis-negative TSH-9.26 on 06/11 Pro [id number] are clear on auscultation BUN-27, creatinine 1.31, potassium is low Started patient on IV fluid, follow up with daily labs Orthostatic hypotension There was a drop in systolic pressure from supine to sitting of 142-105 0.2 mg of Florinef was given now and daily Continue IV fluids Acute kidney injury 2/2 prerenal Patient baseline creatinine-0.6 Today BUN-26, creatinine 1.31 BUN/creatinine ratio-20.6 Started IV NS 75 cc/hour and reassess volume status in a.m. at 8:00 a.m. Follow up with spot urine studies Hypokalemia Patient potassium 3.2 Started on protocol Type 2 diabetes mellitus Patient takes metformin, today her blood glucose 193 [id number] on 06/04/2025 Started medium dose hyperglycemia hypoglycemia protocol Hypertension Continue carvedilol, lisinopril, amlodipine History of COPD chronic not in acute exacerbation Started DuoNeb q.4h p.r.n. and albuterol q.2h p.r.n. Psychotic disorder Patient takes risperidone and quetiapine at home, which are continued Peripheral neuropathy Patient takes venlafaxine and gabapentin at home, which are continued Hyperlipidemia Patient takes atorvastatin 80 mg at home, which are continued LDL-145 on 06/05/2025 Hypothyroidism Patient takes levothyroxine 150 mcg at home daily, continue home med after med rec TSH-9.62 on 06/05/2025, free T4 0.57 DVT prophylaxis SCDs SQ heparin Date of Service: Aug 09, 2025 Billing Provider: LINDSAY GRAHAM DO Common Visit Codes: NOT BILLABLE (Admitted after midnight to be billed by company laborer) Problem Qualifiers (1) Encephalopathy: Qualified Codes: G93.40 - Encephalopathy, unspecified LINDSAY GRAHAM DO Aug 09, 2025 20:02
[2025-08-10 05:43] VITALS: BP_SYST 118; BP_SYST 164; BP_DIAS 73; BP_DIAS 83; PULSE 61; PULSE 71
[2025-08-10 06:00] VITALS: BP 144/64; PULSE 56; RESP 18; TEMP 97.3; O2SAT 100
[2025-08-10 06:18] LABS: MEAN PLATELET VOLUME 9.3 FL (7.4-10.4); RED CELL DISTRIBUTION WIDTH 14.9 % (11.5-14.5)
[2025-08-10 06:38] LABS: CREATININE 0.85 MG/DL (0.40-0.90); TOTAL CARBON DIOXIDE 29.7 MMOL/L (24-32); eCRCL 56 ML/MIN; eGFR 68 ML/MIN
[2025-08-10 08:00] VITALS: BP_SYST 158; BP_SYST 173; BP_DIAS 81; BP_DIAS 89; BP_DIAS 92; PULSE 69; PULSE 80; PULSE 85; RESP 18
[2025-08-10] MEDS: venlafaxine XR 75mg capsule (Q24H) PO SCH (08:22)
[2025-08-10] MEDS: pantoprazole 40mg Tablet.DR PO SCH (08:24)
[2025-08-10] MEDS: levoTHYROXINE 75mcg tablet PO SCH (08:24)
[2025-08-10 10:00] VITALS: BP 173/81; PULSE 69; RESP 19; TEMP 98; O2SAT 96
[2025-08-10 18:30] VITALS: BP_SYST 119; BP_SYST 120; BP_DIAS 67; BP_DIAS 68; BP_DIAS 69; PULSE 80; PULSE 83; PULSE 88
--- NOTE | 2025-08-10 18:30 | PROGRESS NOTE ---
Daily Progress Note Providers to CC ~ Antibiotic Timeout Antibiotic Ordered?: No Subjective The patient is orthostatic vital signs were negative for orthostatic hypotension and only has a 15 point drop from supine to sitting in regards to systolic blood pressure today and the patient was asymptomatic. The patient nor nursing staff had any acute complaints Objective Vital Signs Date Time Temp Pulse Resp B/P (MAP) Pulse Ox O2 Delivery O2 Flow Rate FiO2 08/10/25 10:00 98.0 69 19 173/81 (111) 96 Nasal Cannula 0.5 08/10/25 08:00 28 Result Diagram: 08/10/25 0538 08/10/25 05 Gen. No acute distress alert and oriented 4 Lungs clear to ascultation bilaterally, no wheezes rales or rhonchi appreciated Heart normal sinus rhythm no murmurs rubs or clicks noted Abdomen soft nontender bowel sounds are normoactive Lower extremities no clubbing cyanosis, nor edema appreciated bilaterally Problem\Assessment\Plan Problems/Diagnosis: (1) Encephalopathy Metabolic encephalopathy likely dehydration- resolved CT of head without contrast ruled out acute intracranial abnormality CXR: NO ACUTE CARDIOPULMONARY PROCESS. ammonia-Normal,BUN-27, ammonia less than 10, glucose 149, procalcitonin normal, U tox positive for marijuana Urinalysis-negative TSH-9.26 on 06/11 Pro [id number] are clear on auscultation BUN-27, creatinine 1.31, potassium is low Started patient on IV fluid, follow up with daily labs Orthostatic hypotension There was a drop in systolic pressure from supine to sitting of 142-105 0.2 mg of Florinef was given now and daily Continue IV fluids 08/10 there was a 15 point drop from supine to sitting in regards to systolic blood pressure which remained the same with standing and the patient is asymptomatic thus at this juncture orthostatic hypotension has resolved with Florinef which will be continued Acute kidney injury 2/2 prerenal- possible renal tubular stasis Patient baseline creatinine-0.6 Today BUN-26, creatinine 1.31 BUN/creatinine ratio-20.6 Started IV NS 75 cc/hour and reassess volume status in a.m. at 8:00 a.m. Follow up with spot urine studies 08/11 resolved Hypokalemia Patient potassium 3.2 Started on protocol 08/10 Resolved Type 2 diabetes mellitus Patient takes metformin, today her blood glucose 193 [id number] on 06/04/2025 Started medium dose hyperglycemia hypoglycemia protocol Hypertension Continue carvedilol, lisinopril, amlodipine History of COPD chronic not in acute exacerbation Started DuoNeb q.4h p.r.n. and albuterol q.2h p.r.n. Psychotic disorder Patient takes risperidone and quetiapine at home, which are continued Peripheral neuropathy Patient takes venlafaxine and gabapentin at home, which are continued Hyperlipidemia Patient takes atorvastatin 80 mg at home, which is continued LDL-145 on 06/05/2025 Hypothyroidism Patient takes levothyroxine 150 mcg at home daily, continue home med after med rec TSH-9.62 on 06/05/2025, free T4 0.57 DVT prophylaxis SCDs SQ heparin Date of Service: Aug 10, 2025 Billing Provider: LINDSAY GRAHAM DO Common Visit Codes: 11532-[id number] INP/OBS CARE(HIGH) Problem Qualifiers (1) Encephalopathy: Qualified Codes: G93.40 - Encephalopathy, unspecified LINDSAY GRAHAM DO Aug 10, 2025 18:30
[2025-08-10 18:40] VITALS: BP 120/68; PULSE 83; RESP 14; TEMP 98; O2SAT 97
[2025-08-11] VITALS (7 sets, daily range): BP systolic 113–152; BP diastolic 61–77; PULSE 65–83; RESP 12–20; TEMP 97.5–98.9; O2SAT 92–99
[2025-08-11 04:00] LABS: MEAN PLATELET VOLUME 8.8 FL (7.4-10.4); RED CELL DISTRIBUTION WIDTH 15.1 % (11.5-14.5)
[2025-08-11 04:18] LABS: CREATININE 0.63 MG/DL (0.40-0.90); TOTAL CARBON DIOXIDE 32.2 MMOL/L (24-32); eCRCL 76 ML/MIN; eGFR > 90 ML/MIN
--- NOTE | 2025-08-11 19:58 | PROGRESS NOTE ---
Daily Progress Note Providers to CC ~ Antibiotic Timeout Antibiotic Ordered?: Yes Subjective The patient is no longer dizzy and orthostatic vital signs are negative the patient is has 1/2 positive blood culture Gram-positive cocci in clusters the patient elected to stay an additional day in the hospital even though this is likely a contaminant she does not have a phone as she lives in the recovery house that is that has reasonable to keep the patient hospitalized an additional evening and anticipate discharging the patient tomorrow Objective Vital Signs Date Time Temp Pulse Resp B/P (MAP) Pulse Ox O2 Delivery O2 Flow Rate FiO2 08/11/25 18:00 97.8 67 16 150/77 (101) 97 Nasal Cannula 0.5 08/11/25 12:06 24 Result Diagram: 08/11/2531208/11/25312 Gen. No acute distress alert and oriented 4 Lungs clear to ascultation bilaterally, no wheezes rales or rhonchi appreciated Heart normal sinus rhythm no murmurs rubs or clicks noted Abdomen soft nontender bowel sounds are normoactive Lower extremities no clubbing cyanosis, nor edema appreciated bilaterally Problem\Assessment\Plan Problems/Diagnosis: (1) Encephalopathy Metabolic encephalopathy likely dehydration- resolved CT of head without contrast ruled out acute intracranial abnormality CXR: NO ACUTE CARDIOPULMONARY PROCESS. ammonia-Normal,BUN-27, ammonia less than 10, glucose 149, procalcitonin normal, U tox positive for marijuana Urinalysis-negative TSH-9.26 on 06/11 Pro [id number] are clear on auscultation BUN-27, creatinine 1.31, potassium is low Started patient on IV fluid, follow up with daily labs Orthostatic hypotension There was a drop in systolic pressure from supine to sitting of 142-105 0.2 mg of Florinef was given now and daily Continue IV fluids 08/10 there was a 15 point drop from supine to sitting in regards to systolic blood pressure which remained the same with standing and the patient is asymptomatic thus at this juncture orthostatic hypotension has resolved with Florinef which will be continued 08/11 resolved continue Florinef Acute kidney injury 2/2 prerenal- possible renal tubular stasis Patient baseline creatinine-0.6 Today BUN-26, creatinine 1.31 BUN/creatinine ratio-20.6 Started IV NS 75 cc/hour and reassess volume status in a.m. at 8:00 a.m. Follow up with spot urine studies 08/11 resolved Hypokalemia Patient potassium 3.2 Started on protocol 08/10 Resolved Type 2 diabetes mellitus Patient takes metformin, today her blood glucose 193 [id number] on 06/04/2025 Started medium dose hyperglycemia hypoglycemia protocol Blood sugars are controlled Hypertension Continue carvedilol, lisinopril, amlodipine History of COPD chronic not in acute exacerbation Started DuoNeb q.4h p.r.n. and albuterol q.2h p.r.n. Psychotic disorder Patient takes risperidone and quetiapine at home, which are continued Peripheral neuropathy Patient takes venlafaxine and gabapentin at home, which are continued Hyperlipidemia Patient takes atorvastatin 80 mg at home, which is continued LDL-145 on 06/05/2025 Hypothyroidism Patient takes levothyroxine 150 mcg at home daily, continue home med after med rec TSH-9.62 on 06/05/2025, free T4 0.57 DVT prophylaxis SCDs SQ heparin Disposition anticipate discharge in the a.m. Date of Service: Aug 11, 2025 Billing Provider: LINDSAY GRAHAM DO Common Visit Codes: [id number] INP/OBS CARE(HIGH) Problem Qualifiers (1) Encephalopathy: Qualified Codes: G93.40 - Encephalopathy, unspecified LINDSAY GRAHAM DO Aug 11, 2025 19:58
[2025-08-11] MEDS: CefTRIAXone/D5W-Rocephin 1gm 50 ML IV ONE (20:44)
[2025-08-12 06:00] VITALS: BP 164/79; PULSE 68; RESP 18; TEMP 97.9; O2SAT 99
[2025-08-12 06:32] LABS: MEAN PLATELET VOLUME 8.5 FL (7.4-10.4); RED CELL DISTRIBUTION WIDTH 14.8 % (11.5-14.5)
[2025-08-12 06:42] LABS: CREATININE 0.67 MG/DL (0.40-0.90); TOTAL CARBON DIOXIDE 32.9 MMOL/L (24-32); eCRCL 71 ML/MIN; eGFR 89 ML/MIN
[2025-08-12 07:31] VITALS: RESP 18; O2SAT 99
[2025-08-12 08:52] VITALS: PULSE 75; RESP 18; O2SAT 95
[2025-08-12] MEDS: CefTRIAXone/D5W-Rocephin 1gm 50 ML IV SCH (09:29)
[2025-08-12 10:00] VITALS: BP 143/74; PULSE 72; RESP 17; TEMP 98.7; O2SAT 97
[2025-08-12] MEDS ORDERED: FLUD0.1T2 PO (13:52)
--- NOTE | 2025-08-12 20:20 | DISCHARGE SUMMARY ---
Discharge Summary Providers to CC ~ Discharge Summary Admission Diagnosis: ORTHOSTATIC HYPOTENSION, METABOLIC ENCEPHALOPATHY Hospital Course DATE OF ADMISSION: 08/09/2025 DATE OF DISCHARGE: 08/11/2025 Discharge Diagnosis\\Comment: Metabolic encephalopathy Orthostatic hypotension Acute kidney injury secondary to dehydration/possible renal tubular stasis Hypokalemia Type 2 diabetes mellitus Hypertension History of COPD Psychiatric disorder NOS Hyperlipidemia Hypothyroidism Operations\\Procedures: None Consultants: None Complications: None Condition on DC: Stable New Medications: Fludrocortisone Acetate* (Florinef*) 0.1 Mg Tablet 0.2 MG PO DAILY@0830, #60 TAB 1 Refill Continued Medications: Amlodipine Besylate (Amlodipine Besylate) 5 Mg Tablet 2 TAB PO DAILY for 30 Days, #60 TAB Atorvastatin Calcium* (Lipitor*) 80 Mg Tablet 1 TABLET PO HS for 90 Days, #90 TABLET Carvedilol (Carvedilol) 12.5 Mg Tablet 1 TAB PO BID Cetirizine HCl (Cetirizine HCl) 10 Mg Tablet 1 TAB PO DAILY Fluticasone/Salmeterol (Advair 250-50 Diskus) 1 Each Disk.w.dev 1 PUFFS INH Q12H for 30 Days, #1 EA 0 Refills Fluticasone/Salmeterol (Advair 250-50 Diskus) 1 Puff Inh Gabapentin (Neurontin) 300 Mg Capsule 1 CAP PO TID Levothyroxine Sodium (Synthroid) 150 Mcg Tablet 1 TAB PO DAILY for 90 Days, #90 TAB 0 Refills Lisinopril* (Lisinopril*) 40 Mg Tablet 1 TAB PO DAILY Metformin HCl (Metformin HCl) 1,000 Mg Tablet 1 TAB PO BID Montelukast Sodium (Singulair) 10 Mg Tablet 1 TAB PO HS for 30 Days, #30 TAB Montelukast Sodium (Montelukast Sodium) 10 Mg Tablet 1 TAB PO Pantoprazole Sodium (Pantoprazole Sodium) 40 Mg Tablet.dr 40 MG PO DAILY for 30 Days, #30 TAB.SR Quetiapine Fumarate (Quetiapine Fumarate) 100 Mg Tablet 1 TAB PO HS Quetiapine Fumarate (Seroquel) 100 Mg Tablet 1 TAB PO HS for 30 Days, #30 TAB 0 Refills Risperidone (Risperidone) 2 Mg Tablet 1 TAB PO BID for 30 Days, #30 TAB 0 Refills Sennosides (Senna) 8.6 Mg Tablet 1 TAB PO HS for 30 Days, #60 TAB Venlafaxine Hcl (Venlafaxine Hcl Er) 75 Mg Cap.sr.24h 1 CAP PO DAILY Discharge Summary: The patient was admitted by resident physician HAYLEE Boyle , under the supervision of DARIUSZ John MD with the following HPI:"This 65 years old woman who is a homeless and very poor historian came to ED with complaints of dizziness Patient is a very poor historian and could not elicit history Per ED-patient was admitted because she almost lost consciousness after standing up from sitting position suddenly Patient was admitted recently for shortness of breath." The patient is encephalopathy resolved on the morning after admission and was secondary to dehydration the patient did have a severe drop in her orthostatic vital signs in his systolic blood pressure from 142-105 sitting to standing the patient is started on Florinef 0.2 mg daily and her orthostatic hypotension resolved. The patient has a acute kidney injury resolved IV fluid resuscitation has a initial creatinine was 1.31 this improved to 0.85 on the and remained normal that is her acute kidney injury secondary to dehydration/possible and a tubular stasis The patient is has type 2 diabetes mellitus was on the hyper and hypoglycemic protocol her blood sugars were controlled during hospitalization The patient has hypertension And her home medications were continued occasionally the patient has a elevated blood pressures however majority of her blood pressures as. Of the with a 26 were controlled Rest of the patient's home medications were continued. Gen. No acute distress alert and oriented 4 Lungs clear to ascultation bilaterally, no wheezes rales or rhonchi appreciated Heart normal sinus rhythm no murmurs rubs or clicks noted Abdomen soft nontender bowel sounds are normoactive Lower extremities no clubbing cyanosis, nor edema appreciated bilaterally The patient felt ready to be discharged and was medically cleared to be discharged on 08/12/2025 The patient was seen and evaluated on day of discharge. Time spent on discharge 35 minutes *Problems/Diagnosis: (1) Encephalopathy Status: Acute Total Time Spent on D/C: > 30 Minutes Date of Service: Aug 12, 2025 Billing Provider: LINDSAY GRAHAM DO Common Visit Codes: 89557-[facility]/OBS DISCH DAY >30min Problem Qualifiers (1) Encephalopathy: Qualified Codes: G93.40 - Encephalopathy, unspecified LINDSAY GRAHAM DO Aug 12, 2025 20:20
== END 2025-08-12 15:25 | disposition home or self-care (01) | DRG 204 ==
LOC: ER 18:43 → ED HOLD 08-09 00:30 → EDBEDREQ 08-09 03:34 → SUR 3N 08-09 07:10
PROVIDERS: ADMIT Internal Medicine; ATTEND Family Medicine
DX: I95.1 Orthostatic hypotension (principal); N17.0 Acute kidney failure with tubular necrosis; G93.41 Metabolic encephalopathy; I11.0 Hypertensive heart disease with heart failure; E03.9 Hypothyroidism, unspecified; E11.42 Type 2 diabetes mellitus with diabetic polyneuropathy; J44.89 Other specified chronic obstructive pulmonary disease; I50.9 Heart failure, unspecified; E78.00 Pure hypercholesterolemia, unspecified; F41.9 Anxiety disorder, unspecified; E87.6 Hypokalemia; E78.5 Hyperlipidemia, unspecified; E86.0 Dehydration; Z59.00 Homelessness unspecified; Z90.710 Acquired absence of both cervix and uterus; Z85.43 Personal history of malignant neoplasm of ovary; Z88.0 Allergy status to penicillin; Z79.899 Other long term (current) drug therapy; Z79.84 Long term (current) use of oral hypoglycemic drugs; Z88.1 Allergy status to other antibiotic agents
CPT/HCPCS: 36415; 36600; 70450; 71045; 80048; 80053; 80305; 81001; 82140; 82570; 82800; 82803; 82948; 83605; 83880; 83935; 84133; 84145; 84156; 84300; 84443; 84484; 85018; 85025; 87040; 87081; 87186; 87207; 93005; 94760; 96360; 97116; 97161; 97530; 99285; A4615; C1758; G0378; J0696; J1644; J1815; J7030